=== PATIENT | female | born 1940 | race Caucasian/White ===

== ENCOUNTER → 2019-04-30 11:14 | Outpatient (BNVA) | payer MEDICARE, OTHER, SELFPAY | PROVIDERS: Family Provider Family Medicine; PCP Family Medicine; Visit Provider Family Medicine | DX: E11.9 Type 2 diabetes mellitus without complications (principal); G47.00 Insomnia, unspecified | CPT/HCPCS: 80053; 80061; 82044; 83036; 85025 ==

== ENCOUNTER → 2019-08-29 16:17 | Outpatient (BNVA) | payer MEDICARE, OTHER, SELFPAY | PROVIDERS: Family Provider Family Medicine; PCP Family Medicine; Visit Provider Family Medicine | DX: E11.9 Type 2 diabetes mellitus without complications (principal); E78.5 Hyperlipidemia, unspecified; N26.1 Atrophy of kidney (terminal) | CPT/HCPCS: 80053 ==

== ENCOUNTER → 2020-01-13 11:41 | Outpatient (BNVA) | payer MEDICARE, OTHER, SELFPAY | PROVIDERS: Family Provider Family Medicine; PCP Family Medicine; Visit Provider Family Medicine | DX: R39.15 Urgency of urination (principal); G20 Parkinson's disease; F17.219 Nicotine dependence, cigarettes, with unspecified nicotine-induced disorders | CPT/HCPCS: 81000; 87077; 87086; 87184 ==

== ENCOUNTER → 2020-01-28 14:23 | Outpatient (BNVA) | payer MEDICARE, OTHER, SELFPAY | PROVIDERS: Family Provider Family Medicine; PCP Family Medicine; Visit Provider Family Medicine | DX: R30.0 Dysuria (principal) | CPT/HCPCS: 81000; 87086 ==

== ENCOUNTER 2020-03-12 12:07 | Outpatient (CLI) | payer MEDICARE, OTHER, SELFPAY ==
--- NOTE | 2020-03-12 12:44 | XR_ITS ---
WS: [id number] PELVIS TECHNIQUE: 1 view(s) of the pelvis CLINICAL INFORMATION: BILATERAL HIP PAIN COMPARISON: None. FINDINGS: Moderate degenerative arthritis right hip with joint space narrowing. Hypertrophic changes about the right acetabulum. Mild degenerative arthritis left hip. No acute fractures. Normal pubic rami. Degene rative arthritis lower lumbar spine. Pelvic phleboliths. Mild degenerative arthritis both sacral anaya c joints. XR/XR pelvis 1-2V* [id number] IMPRESSION: 1. Moderate degenerative arthritis right hip with joint space narrowing and hy pertrophic changes about the acetabulum. No acute fractures. 2. Mild degenerative arthritis left hip.
== END 2020-03-12 12:08 | disposition home or self-care (01) ==
LOC: RADWPI 12:14
PROVIDERS: PCP Family Medicine; Visit Provider Physician Assistant
DX: M16.0 Bilateral primary osteoarthritis of hip (principal); E78.5 Hyperlipidemia, unspecified; E11.9 Type 2 diabetes mellitus without complications
CPT/HCPCS: 72170; 80053; 80061; 82607; 83036; 85025; 87070; 87075; 87077; 87184; 87205

== ENCOUNTER 2020-04-27 22:49 | Emergency (ER) | payer MEDICARE, OTHER, SELFPAY ==
--- NOTE | 2020-04-27 22:52 | XRR_ITS ---
PROCEDURE INFORMATION: Exam: XR Ribs Exam date and time: 04/27/2020 11:11 PM Age: 79 years old Clinical indication: Pain and injury or trauma; Rib area and rib area, left side; Blunt trauma (contusions or hematomas); Chest wall pain; Bilateral; Injury date: 2 months ago; Injury details: Fall from porch, approx. 2 feet; Prior surgery; Surgery type: RT shoulder, hyst, gb TECHNIQUE: Imaging protocol: XR of the ribs. Views: 3 views. Bilateral ribs. COMPARISON: CR Ribs Bilateral [id number] 06/22/2018 11:26 AM FINDINGS: Bones/joints: A right shoulder prosthesis is present in satisfactory position. The ribs appear intact bilaterally with no fracture. Soft tissues: Normal. XR/XR ribs BI mn 4V w [id number] IMPRESSION: 1. Normal ribs. 2. No significant cardiopulmonary abnormality.
[2020-04-27 22:58] VITALS: BP 149/84; PULSE 67; RESP 16; TEMP 36.2; O2SAT 94; BMI 22.6
--- NOTE | 2020-04-27 23:15 | W.ED.FALL ---
HPI - Fall General: Chief Complaint: Fall Stated Complaint: pain in hips/ribs from fall 2-3 weeks ago Time Seen by Provider: 04/27/20 22:52 Source: patient Mode of arrival: ambulatory Limitations: no limitations History of Present Illness: HPI Narrative: 71-year-old female has a history of chronic pain goes to pain clinic. She states she did step off her porch 1 month ago and fell and landed on her left side. She states she has had bilateral rib pain since that fall. She states the pain is been 4 out of 10. States that bilateral ribs hurt with the worst one being on the left side. Denies any vomiting or diarrhea. Onset (ago): month(s) Associated symptoms-after fall: Reports chest pain; Denies abdominal pain, headache(s) or neck pain Review of Systems Const: Denies: fever(s), chills, body aches or change in appetite Eyes: Denies: blurry vision or eye discomfort ENMT: Denies: throat pain or dental pain Card: Reports: chest pain Resp: Denies: dyspnea GI: Denies: abdominal pain, nausea, vomiting or diarrhea : Denies: dysuria Musc: Denies: neck pain or back pain Skin/Breast: Denies: rash Neuro: Denies: headache(s) Psych: Denies: depression Jerardo/Lymph: Denies: easy bruising All/Imm: Denies: urticaria PFSH ED PFSH: Medical History (Updated 04/27/20 @ 23:31 by Orlando Aguillon MD) Chronic constipation Depression Diet-controlled diabetes mellitus Enrolled in chronic care management Essential tremor Insomnia PAD (peripheral artery disease) Parkinsons disease PMR (polymyalgia rheumatica) RBBB Right hip pain Urinary incontinence Surgical History H/O bladder repair surgery H/O cataract extraction H/O shoulder surgery H/O: hysterectomy History of cholecystectomy Family History Other Alcoholic Social History Smoking and tobacco status: current every day smoker cigarettes Packs smoked per day: 0.50 Alcohol intake: never Physical Exam Const: COMMON NORMALS: no acute distress, patient oriented x3 and healthy appearing HENMT: COMMON NORMALS: normocephalic and atraumatic HEAD & SCALP: normocephalic and atraumatic Eye: COMMON NORMALS: Equal, round and reactive pupils present and EOMs intact bilaterally PUPIL: Yes Equal, round and reactive pupils present Neck/C-Spine: COMMON NORMALS: full ROM and supple Chest: COMMONS NORMALS: normal inspection of the chest OTHER: tenderness to bilateral chest Resp: COMMON NORMALS: normal respiratory effort, No retractions, No use of accessory muscles and clear to auscultation bilaterally AUSCULTATION: clear to auscultation bilaterally Cardio: COMMON NORMALS: regular rate, regular rhythm and No murmurs present (Cardio) RATE: regular rate RHYTHM: regular rhythm GI: COMMON NORMALS: Normal to inspection, nondistended, normoactive bowel sounds present, Soft to palpation, non-tender and no masses PALPATION: Yes Soft to palpation Extremity: COMMON NORMALS: normal to inspection and full ROM Neuro: COMMON NORMALS: patient oriented x3, moves all extremities and no focal motor deficits Psych: COMMON NORMALS: mental status grossly normal, Normal thought process present and cooperative THOUGHT PROCESS: Normal thought process present Skin: COMMON NORMALS: no rashes or lesions noted and no wounds GENERAL SKIN EXAM: no rashes or lesions noted Course Vital Signs: Vital signs: Vital Signs Temperature 97.1 F L 04/27/20 22:58 Pulse Rate 67 04/27/20 22:58 Respiratory Rate 16 04/27/20 22:58 Blood Pressure 149/84 04/27/20 22:58 Pulse Oximetry 94 04/27/20 22:58 MDM - Fall MDM Narrative: Medical decision making narrative: Patient presents with chest wall pain from a fall a month ago. She is well-appearing here and her x-rays are normal with no signs of fracture. Patient is stable for discharge and is to follow-up with her primary care doctor in 2 to 4 days return if worsening. She understands agrees to plan. Imaging Data^: xr ribs: Attestation: I personally reviewed and interpreted this imaging study as follows: My impression: No acute abnormality Discharge Plan Discharge Patient Disposition: Home Clinical Impression: Accidental fall, Chest wall pain Condition: Stable Prescriptions: No Action hydrocodone-acetaminophen 7.5-325 mg tablet 1 tab PO TID PRNRF: 0 bupropion HCl PO RF: 0 cephalexin [Keflex] 500 mg capsule 500 mg PO TID Qty: 30 RF: 0 aspirin 81 mg tablet,delayed release (DR/EC) 81 mg PO QDAY RF: 0 fentanyl transdermal RF: 0 carbidopa-levodopa 25-100 mg tablet extended release 1 tab PO TID RF: 0 gabapentin 300 mg capsule 300 mg PO DIRECTED RF: 0 primidone 50 mg tablet 100 mg PO TID RF: 0 (DME) diabetic shoes Qty: 1 RF: 0 duloxetine 30 mg capsule,delayed release(DR/EC) 30 mg PO BID Qty: 60 RF: 0 sulfamethoxazole-trimethoprim [Bactrim DS] 800-160 mg tablet 1 tab PO BID Qty: 14 RF: 0 atorvastatin 10 mg tablet 10 mg PO DAILY Qty: 30 RF: 4 Discharge Orders: Discharge ED (Routine); Ordered 04/27/20 Ordered By: Orlando Aguillon Referrals: Brooklyn Byers DO [Primary Care Provider] - 1-3 days Discharge Diet: Advance as tolerated Discharge Activity: Resume usual activity Patient Instructions: Fall Prevention (ED), Opioid Safety Coding Level of Care Code ED Sales Executive Insurance for Chg Fwd Exam Comprehensive
--- NOTE | 2020-04-27 23:22 | PC.NURSE ---
Pt has 12mcg fentanyl patch on R breast. Pt refused po pain meds due to [lacing fentanyl patch approx 1h prior to arrival
[2020-04-27 23:54] VITALS: BP 142/85; PULSE 94; RESP 16; TEMP 36.4; O2SAT 99
== END 2020-04-27 23:55 | disposition home or self-care (01) ==
PROVIDERS: Emergency Provider Emergency Medicine; PCP Family Medicine
DX: R07.89 Other chest pain (principal); Z79.82 Long term (current) use of aspirin; E11.9 Type 2 diabetes mellitus without complications; G20 Parkinson's disease; F17.210 Nicotine dependence, cigarettes, uncomplicated
CPT/HCPCS: 71101; 71111; 99282

== ENCOUNTER 2020-05-14 13:57 | Emergency (ER) | payer MEDICARE, OTHER, SELFPAY ==
--- NOTE | 2020-05-14 | CT_ITS ---
WS: [id number] CT HEAD NONCONTRAST HISTORY: STROKE ALERT TECHNIQUE: Contiguous axial imaging performed through the brain in 2.5 mm imaging. Bone and soft tiss ue windows. Sagittal and coronal reformats reviewed. All CT scans at [facility] use at le ast one of these dose optimization techniques: automated exposure control; mA and/or kV adjustment pe r patient size (includes targeted exams where dose is matched to clinical indication); or iterative r econstruction. DLP: 782.55 mGy-cm. COMPARISON: 01/29/2019 No acute intracranial hemorrhage, midline shift or mass effect. Mild atrophy is symmetric bilaterally. There are numerous bilateral basal ganglia lacunar infarcts. E xtensive low attenuation within the white matter is confluent from chronic ischemic disease. Moderat celestine enlarged ventricles on the basis of atrophy. Normal pressure hydrocephalus should be considered. Extensive atherosclerosis within the intracranial carotid arteries. Paranasal sinuses: As visualized are clear. Mastoid air cells: Well pneumatized. Calvarium and scalp: Skull is intact with no soft tissue edema or swelling. CT/CT head wo con* [id number] IMPRESSION: 1. No acute intracranial hemorrhage or edema. 2. Severe chronic microvascular ischemic disease and numerous bilateral lacuna r infarcts. 3. Dilated ventricles. Consider normal pressure hydrocephalus or secondary to age-related atrophy.
[2020-05-14 14:02] VITALS: BP 165/77; PULSE 81; RESP 16; TEMP 36.8; O2SAT 94; BMI 22.6
[2020-05-14 14:11] VITALS: BP 163/81; PULSE 62; RESP 16; O2SAT 96
[2020-05-14 14:20] LABS: Glucose Point of Care 87 mg/dL (70-110)
--- NOTE | 2020-05-14 14:24 | PC.NURSE ---
Pt returned from CT
[2020-05-14 14:40] VITALS: BP 156/74; PULSE 63; RESP 18; O2SAT 93; O2SAT 94
--- NOTE | 2020-05-14 14:42 | ECG_ITS ---
[facility] Test Date: 2020-05-14 Pat Name: Yuli Mejia Department: Room: Gender: Female Project Eng: : 1940 Requested By: Yandy Panchal I Order Number: [id number] Carleen MD: Mita Harris M.D. Measurements Intervals [place] Rate: 58 P: 77 NH: 151 QRS: 93 QRSD: 125 T: 85 QT: 426 QTc: 420 Interpretive Statements SINUS BRADYCARDIA RIGHT BUNDLE BRANCH BLOCK [120+ ms QRS DURATION, UPRIGHT V1, 40+ ms S IN I/aVL/V4/V5/V6] SEPTAL MYOCARDIAL INFARCTION [40+ ms Q WAVE IN V1/V2], OF INDETERMINATE AGE MODERATE T-WAVE ABNORMALITY, CONSIDER LATERAL ISCHEMIA [-0.1+ mV T WAVE IN I/aVL/V5/V6] Compared to ECG 11/02/2018 21:10:06 Myocardial infarct finding now present T-wave abnormality now present Possible ischemia now present Electronically Signed On 05-14-2020 20:38:06 CDT by Mita Harris M.D. 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
[2020-05-14 15:29] LABS: Basophils # 0.1 10^3/uL (0.0-0.1); Basophils % 0.8 %; Eosinophils # 0.1 10^3/uL (0.0-0.8); Eosinophils % 0.8 %; Hemoglobin 14.7 g/dL (11.5-15.3); Lymphocytes # 1.3 10^3/uL (0.8-4.8); Mean Corpuscular Hemoglobin 32.5 pg (28.0-34.0); Mean Corpuscular Volume 101.8 fL (81-99); Mean Platelet Volume 11.1 fL (7.4-10.4); Monocytes # 0.6 10^3/uL (0.2-0.9); Neutrophils # 4.35 10^3/uL (1.8-7.7); Neutrophils % 69.1 %; Nucleated Red Blood Cells % 0 %; Platelet Count 309 10^3/cmm (130-400); Red Blood Count 4.52 10^6/uL (4.1-5.3); Red Cell Distribution Width 12.4 % (12.1-15.1); White Blood Count 6.3 10^3/uL (4.0-10.0)
[2020-05-14 15:32] LABS: Alanine Aminotransferase < 5 U/L (0-33); Alkaline Phosphatase 77 IU/L (35-105); Aspartate Amino Transferase 13 U/L (0-32); Blood Urea Nitrogen 9 mg/dL (8-23); Calcium 9.4 mg/dL (8.5-10.5); Carbon Dioxide 30 mmol/L (22-29); Chloride 103 mmol/L (98-107); Globulin 2.6 g/dL (1.3-4.6); Glucose 86 mg/dL (65-115); Osmolality Calculated 286 mOsm/kg (285-295); Sodium 139 mmol/L (136-145); Total Bilirubin 0.2 mg/dL (0.15-1.2); Total Protein 6.6 g/dL (6.6-8.7)
[2020-05-14 15:46] LABS: Anion Gap 10.1 (5-19); Potassium 4.1 mmol/L (3.5-5.1)
[2020-05-14 16:22] VITALS: BP 152/72; PULSE 61; O2SAT 94
[2020-05-14 16:26] LABS: INR 0.95 (0.8-1.2); Partial Thromboplastin Time 29.4 SECONDS (23.9-36.7)
[2020-05-14 16:31] LABS: Add Urine Microscopic? NO
[2020-05-14 16:52] LABS: Bilirubin Urine Neg (Negative); Blood Urine Neg (Negative); Glucose Urine UA Norm (Normal); Ketones Urine Negative (Negative); Leukocyte Esterase Urine Negative (Negative); Nitrate Urine Negative (Negative); Protein Urine Neg (Negative); Urine Appearance Clear (CLEAR); Urine Color Yellow (Yellow); Urobilinogen Urine Norm (Negative); pH Urine 7 (5-7)
[2020-05-14 17:03] LABS: Amphetamines Screen Urine Negative (Negative); Barbiturates Screen Urine Positive (Negative); Benzodiazepines Screen Urine Negative (Negative); Cocaine Screen Urine Negative (Negative); Opiate Screen Urine Positive (Negative); PCP Screen Urine Negative (Negative); THC Screen Urine Negative (Negative)
--- NOTE | 2020-05-14 17:28 | ED_ITS ---
HPI - Altered Mental Status General: Chief Complaint: Altered Mental Status Stated Complaint: CONFUSION/ SLURRED SPEECH Time Seen by Provider: 05/14/20 14:12 Source: patient and EMS Mode of arrival: EMS Limitations: no limitations History of Present Illness: HPI narrative: This is a 79-year-old female patient who presented to the emergency department with altered mental status. A thorough history is difficult to obtain from this patient. She was brought in by EMS. As far as I could gather from her, she was on the phone with a friend this morning about 8 AM when her friend said she did not like the way she was sounding on her phone fell from her hand. Her friend was concerned about a stroke and so called for an ambulance. The patient thinks that she may have had slurred speech. The patient says she has trouble walking but this has been chronic. Unable to get an accurate last known well. EMS found a fentanyl patch on her, and she said she had taken some hydrocodone this morning. MD complaint: confusion Associated symptoms: Deny auditory hallucinations, visual hallucinations, delusions, depression, homicidal ideation, racing thoughts or suicidal ideation Review of Systems General: Reports: 10 or more systems reviewed and unremarkable except in HPI and below Const: Denies: fever(s), chills or body aches Eyes: Denies: change in vision or blurry vision ENMT: Denies: throat pain, enlarged tonsils, odynophagia, hoarseness, mouth pain or swelling of lips/tongue Card: Denies: palpitations, irregular heart rhythm, edema or swelling of feet/ankles Resp: Denies: dyspnea, productive cough or non-productive cough GI: Denies: abdominal pain, nausea or vomiting : Denies: flank pain, difficulty voiding, dysuria, urinary frequency, urinary urgency or urinary hesitancy Musc: Denies: neck pain, back pain or extremity swelling Skin/Breast: Denies: rash, pruritus or erythema Neuro: Reports: confusion; Denies: headache(s), numbness in extremities or weakness in extremities Psych: Denies: depression, visual hallucinations, auditory hallucinations, suicidal ideation or homicidal ideation Endo: Denies: polyuria, polydipsia or tired all the time [facility] ED PFSH: Medical History (Reviewed 05/14/20 @ 21:31 by Y[place] [facility] [place] Chronic constipation Depression Diet-controlled diabetes mellitus Enrolled in chronic care management Essential tremor Insomnia PAD (peripheral artery disease) Parkinsons disease PMR (polymyalgia rheumatica) RBBB Right hip pain Urinary incontinence Surgical History (Reviewed 05/14/20 @ 21:31 by Yandy P[place]al [place] [facility] [place] H/O bladder repair surgery H/O cataract extraction H/O shoulder surgery H/O: hysterectomy History of cholecystectomy Family History (Reviewed 05/14/20 @ 21:31 by Yandy P[place]al [place], [facility] [place] Other Alcoholic Social History (Reviewed 05/14/20 @ 21:31 by Yandy Panchal [place], [facility] [place] Smoking and tobacco status: current every day smoker cigarettes Packs smoked per day: 0.50 Alcohol intake: never Physical Exam Const: COMMON NORMALS: no acute distress, average body habitus, patient orie nted x3, no limitations, healthy appearing, alert and well nourished HENMT: COMMON NORMALS: normocephalic, atraumatic and moist oral mucous membra kiarra HEAD & SCALP: normocephalic and atraumatic Eye: COMMON NORMALS: Equal, round and reactive pupils present, EOMs intact bilaterally, conjunctivae normal and no scleral icterus CONJUNCTIVA: Yes conjunctivae normal PUPIL: Yes Equal, round and reactive pupils present Neck/C-Spine: COMMON NORMALS: no meningeal signs and no JVD Chest: COMMONS NORMALS: normal inspection of the chest and normal palpation of entire chest wall Resp: COMMON NORMALS: normal respiratory effort, No retractions, No use of accessory muscles, clear to auscultation bilaterally and percussion normal AUSCULTATION: clear to auscultation bilaterally PERCUSSION: percussion normal Cardio: COMMON NORMALS: no JVD, regular rate, regular rhythm, S1 normal heart sound present, S2 normal heart sound present, No gallops present (Cardio), No clicks present (Cardio), No murmurs present (Cardio), No rub (Cardio) and Peripheral pulses 2+ throughout RATE: regular rate RHYTHM: regular rhythm HEART SOUNDS: S1 normal heart sound present and S2 normal heart sound present PERIPHERAL PULSES: Peripheral pulses 2+ throughout GI: COMMON NORMALS: Normal to inspection, nondistended, normoactive bowel sounds present, Soft to palpation, non-tender, No hepatosplenomegaly present, no masses and no bruits PALPATION: Yes Soft to palpation and Yes No hepat osplenomegaly present : COMMON NORMALS: Yes no CVA tenderness BLADDER/KIDNEY EXAM: Yes no CVA tenderness Back/Pelvis: COMMON NORMALS: no CVA tenderness Extremity: COMMON NORMALS: normal to inspection, full ROM, capillary refill normal, no calf tenderness and no pedal edema Neuro: COMMON NORMALS: patient oriented x3 SENSORIUM/ORIENTATION: Yes alert MENINGEAL SIGNS: Yes no meningeal signs OTHER: NIHSS 4. Complete neuro exam could not be done as she has some confusion. Psych: THOUGHT CONTENT: No delusions Skin: COMMON NORMALS: no rashes or lesions noted, no wounds, turgor normal, no jaundice, no petechiae and no mottling GENERAL SKIN EXAM: no rashes or lesions noted and turgor normal Course Reevaluation(s): Reevaluation #1: Discussed her lab and imaging findings with her. Unremarkable. At this time her son is here in the ER and he explained to me that the patient wakes up later every day, sometime between 10 AM and 12 noon and if you call her before she is awake like her friend did it is very difficult to understand her. He states that her speech is normal currently. He also states that she does not take her medications as she is prescribed, her [id number] fixes her pillbox with her medications but the patient takes them in a haphazard manner. She does not take them in the right order. Also the patient and her friend move the patient into an apartment without telling her son and the apartment is not elder friendly. The patient has been unable to get in and out of the house and so has been [place] for a few months. He is trying to get her into an elderly living apartment which will enable her to ambulate fairly easily and to interact with fellow elderly people. I suspect that her symptoms may have been a combination of the fentanyl and hydrocodone and the fact that her friend will call making her sound like her speech was slurred. I will therefore discharge her home. They voiced understanding and they are in agreement with the plan. Time: 17:28 Vital Signs: Vital signs: Vital Signs Temperature 98.3 F 05/14/20 14:02 Pulse Rate 65 05/14/20 17:57 Respiratory Rate 18 05/14/20 14:40 Blood Pressure 126/78 05/14/20 17:57 Pulse Oximetry 95 05/14/20 17:57 MDM - Altered Mental Status MDM Narrative: Medical decision making narrative: Patient is a 79-year-old female who presents to the emergency department with altered mental status and slurred speech. In the emergency department evaluation was unremarkable, her symptoms are probably due to a combination of opioid medications and somnolence from being woken up. Her son states that she does not wake up early and when she is called or spoken to before she is fully awake she sounds slurred and altered. She is discharged home with no new orders but she is advised to take her medications as they are prescribed. They are working to get her into an appropriate living facility which is safe and conducive for the patient. Medical Records: Attestation: I reviewed the patient's medical records. Lab Data: Attestation: I reviewed the patient's lab results. Labs: Lab Results 05/14/20 05/14/20 05/14/20 Range/Units 14:17 14:20 14:20 WBC 6.3 (4.0-10.0) 10^3/ uL RBC 4.52 (4.1-5.3) 10^6/u L Hgb 14.7 (11.5-15.3) g/dL Hct 46.0 (37.0-47.0) % MCV 101.8 H (81-99) fL MCH 32.5 (28.0-34.0) pg MCHC 32.0 (30.0-36.0) g/dL RDW 12.4 (12.1-15.1) % Plt Count 309 (130-400) 10^3/c mm MPV 11.1 H (7.4-10.4) fL Neut % (Auto) 69.1 % Lymph % (Auto) 20.0 % Valencia % (Auto) 9.0 % Eos % (Auto) 0.8 % Baso % (Auto) 0.8 % Neut # (Auto) 4.35 (1.8-7.7) 10^3/u L Lymph # (Auto) 1.3 (0.8-4.8) 10^3/u L Valencia # (Auto) 0.6 (0.2-0.9) 10^3/u L Eos # (Auto) 0.1 (0.0-0.8) 10^3/u L Baso # (Auto) 0.1 (0.0-0.1) 10^3/u L Nucleated RBC % (a uto) 0 % Nucleated RBCs # 0.0 /100WBC PT 12.80 (12.1-14.9) SECO NDS INR 0.95 (0.8-1.2) APTT 29.4 (23.9-36.7) SECO NDS Sodium (136-145) mmol/L Potassium (3.5-5.1) mmol/L Chloride (98-107) mmol/L Carbon Dioxide (22-29) mmol/L Anion Gap (5-19) BUN (8-23) mg/dL Creatinine (0.5-0.9) mg/dL GFR Calculation Glucose (65-115) mg/dL POC Glucose 87 (70-110) mg/dL Calculated Osmolal ity (285-295) mOsm/k g Calcium (8.5-10.5) mg/dL Total Bilirubin (0.15-1.2) mg/dL AST (0-32) U/L ALT (0-33) U/L Alkaline Phosphata se (35-105) IU/L Total Protein (6.6-8.7) g/dL Albumin (3.5-5.2) g/dL Globulin (1.3-4.6) g/dL Urine Color (Yellow) Urine Appearance (CLEAR) Urine pH (5-7) Ur Specific Gravit y (1.005-1.030) Urine Protein (Negative) Urine Glucose (UA) (Normal) Urine Ketones (Negative) Urine Blood (Negative) Urine Nitrate (Negative) Urine Bilirubin (Negative) Urine Urobilinogen (Negative) mg/dL Ur Leukocyte Clarissa ase (Negative) Urine Opiates Scre en (Negative) ng/mL Ur Barbiturates Sc reen (Negative) ng/mL Ur Phencyclidine S crn (Negative) ng/mL Ur Amphetamines Sc reen (Negative) ng/mL U Benzodiazepines Scrn (Negative) ng/mL Urine Cocaine Scre en (Negative) ng/mL U Marijuana (THC) Screen (Negative) ng/mL 05/14/20 05/14/20 05/14/20 Range/Units 14:20 16:15 16:15 WBC (4.0-10.0) 10^3/ uL RBC (4.1-5.3) 10^6/u L Hgb (11.5-15.3) g/dL Hct (37.0-47.0) % MCV (81-99) fL MCH (28.0-34.0) pg MCHC (30.0-36.0) g/dL RDW (12.1-15.1) % Plt Count (130-400) 10^3/c mm MPV (7.4-10.4) fL Neut % (Auto) % Lymph % (Auto) % Valencia % (Auto) % Eos % (Auto) % Baso % (Auto) % Neut # (Auto) (1.8-7.7) 10^3/u L Lymph # (Auto) (0.8-4.8) 10^3/u L Valencia # (Auto) (0.2-0.9) 10^3/u L Eos # (Auto) (0.0-0.8) 10^3/u L Baso # (Auto) (0.0-0.1) 10^3/u L Nucleated RBC % (a uto) % Nucleated RBCs # /100WBC PT (12.1-14.9) SECO NDS INR (0.8-1.2) APTT (23.9-36.7) SECO NDS Sodium 139 (136-145) mmol/L Potassium 4.1 (3.5-5.1) mmol/L Chloride 103 (98-107) mmol/L Carbon Dioxide 30 H (22-29) mmol/L Anion Gap 10.1 (5-19) BUN 9 (8-23) mg/dL Creatinine 0.5 (0.5-0.9) mg/dL GFR Calculation Not Reportable Glucose 86 (65-115) mg/dL POC Glucose (70-110) mg/dL Calculated Osmolal ity 286 (285-295) mOsm/k g Calcium 9.4 (8.5-10.5) mg/dL Total Bilirubin 0.2 (0.15-1.2) mg/dL AST 13 (0-32) U/L ALT < 5 (0-33) U/L Alkaline Phosphata se 77 (35-105) IU/L Total Protein 6.6 (6.6-8.7) g/dL Albumin 4.0 (3.5-5.2) g/dL Globulin 2.6 (1.3-4.6) g/dL Urine Color Yellow (Yellow) Urine Appearance Clear (CLEAR) Urine pH 7 (5-7) Ur Specific Gravit y 1.010 (1.005-1.030) Urine Protein Neg (Negative) Urine Glucose (UA) Norm (Normal) Urine Ketones Negative (Negative) Urine Blood Neg (Negative) Urine Nitrate Negative (Negative) Urine Bilirubin Neg (Negative) Urine Urobilinogen Norm (Negative) mg/dL Ur Leukocyte Clarissa ase Negative (Negative) Urine Opiates Scre en Positive H (Negative) ng/mL Ur Barbiturates Sc reen Positive H (Negative) ng/mL Ur Phencyclidine S crn Negative (Negative) ng/mL Ur Amphetamines Sc reen Negative (Negative) ng/mL U Benzodiazepines Scrn Negative (Negative) ng/mL Urine Cocaine Scre en Negative (Negative) ng/mL U Marijuana (THC) Screen Negative (Negative) ng/mL Imaging Data^: CT Head: Attestation: I personally reviewed and interpreted this imaging study as follows: Radiologist's impression: [place] [address] CT Scan Report Signed Patient: Nell Mejia #: [id number] : 2Acct#:[id number] Age/Sex: 79 / FADM Date: 05/14/20 Loc: ERRoom/Bed: Attending Dr: Ordering Provider/Ordering MD: Yandy P[place]al [place] [facility] [place] of Service: 05/14/20 Procedure(s): CT head wo con* 36430 Accession Number(s): [id number] Report Number: [id number] WS: [id number] CT HEAD NONCONTRAST HISTORY: STROKE ALERT TECHNIQUE: Contiguous axial imaging performed through the brain in 2.5 mm imaging. Bone and soft tissue windows. Sagittal and coronal reformats reviewed. All CT scans at [facility] use at least one of these dose optimization techniques: automated exposure control; mA and/or kV adjustment per patient size (includes targeted exams where dose is matched to clinical indication); or iterative reconstruction. DLP: 782.55 mGy-cm. COMPARISON: 01/29/2019 No acute intracranial hemorrhage, midline shift or mass effect. Mild atrophy is symmetric bilaterally. There are numerous bilateral basal ganglia lacunar infarcts. Extensive low attenuation within the white matter is confluent from chronic ischemic disease. Moderately enlarged ventricles on the basis of atrophy. Normal pressure hydrocephalus should be considered. Extensive atherosclerosis within the intracranial carotid arteries. Paranasal sinuses: As visualized are clear. Mastoid air cells: Well pneumatized. Calvarium and scalp: Skull is intact with no soft tissue edema or swelling. CT/CT head wo con* [id number] IMPRESSION: 1. No acute intracranial hemorrhage or edema. 2. Severe chronic microvascular ischemic disease and numerous bilateral lacunar infarcts. 3. Dilated ventricles. Consider normal pressure hydrocephalus or secondary to age-related atrophy. Dictated By:Love Seals DO Signed By:Love Seals DOSigned Date/Time:05/14/201436 DD/ 143 EKG Data^: EKG 1: Attestation: I personally reviewed and interpreted this EKG as follows: EKG interpretation date: 05/14/20 EKG interpretation time: 14:39 Prior EKG tracings: not available for review Interpretation: Sinus bradycardia. Heart rate 58 bpm. Right bundle branch block. No ST changes. Discharge Plan Discharge Patient Disposition: Home Clinical Impression: Altered mental status Qualifiers: Altered mental status type: somnolence Qualified Code(s): R40.0 - Somnolence Medication adverse effect Qualifiers: Encounter type: initial encounter Qualified Code(s): T50.905A - Adverse effect of unspecified drugs, medicaments and biological substances, initial encounter Condition: Stable Prescriptions: Continued hydrocodone-acetaminophen 7.5-325 mg tablet 1 tab PO TID PRN (Reason: Pain) RF: 0 aspirin 81 mg tablet,delayed release (DR/EC) 81 mg PO DAILY RF: 0 gabapentin 300 mg capsule 300 mg PO DIRECTED RF: 0 primidone 50 mg tablet 100 mg PO TID RF: 0 (DME) diabetic shoes Qty: 1 RF: 0 duloxetine 30 mg capsule,delayed release(DR/EC) 30 mg PO BID Qty: 60 RF: 0 atorvastatin 10 mg tablet 10 mg PO DAILY Qty: 30 RF: 4 carbidopa-levodopa 25-100 mg tablet 2 tab PO QID RF: 0 bupropion HCl 150 mg Tablet Extended Release 24 Hr 150 mg PO BID RF: 0 fentanyl 12 mcg/hr Patch 72 Hour 1 patch TRANSDERMAL Q72H RF: 0 Discharge Orders: Discharge ED (Routine); Ordered 05/14/20 Ordered By: Yandy Panchal Referrals: Brooklyn Byers DO [Primary Care Provider] - 1-3 days Discharge Diet: Usual diet Discharge Activity: Increase activity as tolerated Patient Instructions: Opioid Safety Activity Restrictions/Additional Instructions: Return for any new or worsening symptoms. Follow-up with your primary care provider within 3 days. Moved to your elder living apartment as soon as possible as I think this will help your mood. Continue your medications as prescribed. It is important that you take your medications the way that they are prescribed and set up in your pillbox. 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
[2020-05-14 17:57] VITALS: BP 126/78; PULSE 65; O2SAT 95
== END 2020-05-14 17:57 | disposition home or self-care (01) ==
PROVIDERS: Emergency Provider Family Medicine; PCP Family Medicine
DX: R40.0 Somnolence (principal); T50.905A Adverse effect of unspecified drugs, medicaments and biological substances, initial encounter; Z79.82 Long term (current) use of aspirin; E11.9 Type 2 diabetes mellitus without complications; G20 Parkinson's disease; F17.210 Nicotine dependence, cigarettes, uncomplicated
CPT/HCPCS: 36415; 36416; 70450; 80053; 80306; 81003; 82962; 85025; 85610; 85730; 93005; 99284

== ENCOUNTER 2020-05-29 15:52 | Emergency (ER) | payer MEDICARE, OTHER, SELFPAY ==
[2020-05-29 16:43] VITALS: BP 143/67; PULSE 76; RESP 18; TEMP 36.5; O2SAT 100; BMI 25.4
--- NOTE | 2020-05-29 18:01 | XRR_ITS ---
PROCEDURE INFORMATION: Exam: XR Right Ribs with PA Chest Exam date and time: 05/29/2020 6:06 PM Age: 79 years old Clinical indication: Injury or trauma; Fall; Rib area; Blunt trauma (contusions or hematomas); Injury date: 05/29/20; Prior surgery; Surgery type: Right shoulder; Additional info: Pain after fall TECHNIQUE: Imaging protocol: XR Right ribs with PA chest. Views: 3 views COMPARISON: CR XR ribs BI mn 4V w CXR1V [id number] 04/27/2020 11:16 PM FINDINGS: Lungs: Unremarkable. No consolidation. Pleural spaces: Unremarkable. No pleural effusion. No pneumothorax. Heart/Mediastinum: Unremarkable. No cardiomegaly. Vasculature: Tortuous, atherosclerotic thoracic aorta. Diaphragm: Mild elevation of the left hemidiaphragm. Bones/joints: Right shoulder prosthesis. No fracture or other acute osseous abnormality. XR/XR ribs RT mn 3V w CXR1V [id number] IMPRESSION: 1. No right rib fracture identified. 2. No acute cardiopulmonary disease demonstrated. 3. There is no interval change from the prior examination.
--- NOTE | 2020-05-29 18:02 | XRR_ITS ---
PROCEDURE INFORMATION: Exam: XR Left Ankle Exam date and time: 05/29/2020 6:07 PM Age: 79 years old Clinical indication: Injury or trauma; Fall; Blunt trauma; Ankle; Left; Injury date: 05/29/2020; Additional info: Pain fall TECHNIQUE: Imaging protocol: XR Left ankle. Views: 1 or 2 views. COMPARISON: No relevant prior studies available. FINDINGS: Bones/joints: No fracture or other acute osseous abnormality. No joint narrowing, dislocation, or effusion noted. Soft tissues: Mild soft tissue edema. 2 mm calcification adjacent to the tip of the medial malleolus, likely related to old trauma. XR/XR ankle LT 2V [id number] IMPRESSION: No acute fracture demonstrated.
--- NOTE | 2020-05-29 18:07 | W.ED.FALL ---
Documented by User: Higinio Roberts DO 06/02/20 09:08 HPI - Fall General: Chief Complaint: Fall Stated Complaint: FALL AT HOME COMPLAINT OF CHEST PAIN Time Seen by Provider: 05/29/20 17:44 History of Present Illness: HPI Narrative: 79-year-old female comes in from home she stumbled over her walker and fell caught the arm of a walker in the chest wall complaint: fall Onset (ago): minute(s) Fall from: standing Fall witnessed: yes, by family Place fall occurred: home Loss of consciousness: None Prolonged down time: no Context: tripped/slipped Location of injury: chest Location of injury - extremities: Left: ankle Severity: moderate Quality: sharp Associated symptoms-after fall: Reports chest pain, difficulty walking and weakness; Denies abdominal pain, confusion, headache(s), hematuria, lightheadedness, neck pain, numbness, short of breath or vertigo Review of Systems Const: Denies: fever(s), chills, body aches, change in appetite, fatigue or malaise ENMT: Denies: throat pain, ear or mastoid pain, nasal discharge or nasal congestion Card: Reports: chest pain; Denies: lightheadedness Resp: Denies: dyspnea, productive cough or non-productive cough GI: Denies: abdominal pain : Denies: hematuria Musc: Denies: neck pain Skin/Breast: Denies: rash or pruritus Neuro: Reports: difficulty walking; Denies: headache(s), vertigo or confusion PFSH ED PFSH: Medical History Chronic constipation Depression Diet-controlled diabetes mellitus Enrolled in chronic care management Essential tremor Insomnia PAD (peripheral artery disease) Parkinsons disease PMR (polymyalgia rheumatica) RBBB Right hip pain Urinary incontinence Surgical History H/O bladder repair surgery H/O cataract extraction H/O shoulder surgery H/O: hysterectomy History of cholecystectomy Family History Other Alcoholic Social History Smoking and tobacco status: current every day smoker cigarettes Packs smoked per day: 0.50 Alcohol intake: never Physical Exam Const: COMMON NORMALS: no acute distress GENERAL APPEARANCE: cooperative and comfortable ORIENTATION/CONSCIOUSNESS: Yes awake, Yes oriented to person, Yes oriented to place and Yes oriented to time HENMT: COMMON NORMALS: normocephalic, atraumatic, hearing grossly normal bilaterally, external ears normal, EAC's normal, TM's normal bilaterally, Normal nasal mucous membranes and turbinates present, moist oral mucous membranes and oropharynx normal HEAD & SCALP: normocephalic and atraumatic NOSE: Normal nasal mucous membranes and turbinates present EXTERNAL EAR: Yes external ears normal EXTERNAL AUDITORY CANAL: EAC's normal TYMPANIC MEMBRANE: TM's normal bilaterally Eye: COMMON NORMALS: Equal, round and reactive pupils present, EOMs intact bilaterally, conjunctivae normal and no scleral icterus CONJUNCTIVA: Yes conjunctivae normal PUPIL: Yes Equal, round and reactive pupils present Neck/C-Spine: COMMON NORMALS: full ROM, no lymphadenopathy, supple and no JVD Chest: OTHER: Stas to palpation on anterior axillary line on the lower ribs on the left right no evidence of crepitus no subcutaneous air lung sounds good Resp: COMMON NORMALS: normal respiratory effort, No retractions, No use of accessory muscles and clear to auscultation bilaterally AUSCULTATION: clear to auscultation bilaterally Cardio: COMMON NORMALS: no JVD, regular rate, regular rhythm and No murmurs present (Cardio) RATE: regular rate RHYTHM: regular rhythm GI: COMMON NORMALS: Soft to palpation and No hepatosplenomegaly present AUSCULTATION: Yes normoactive bowel sounds PALPATION: Yes Soft to palpation, No Tenderness to palpation present (GI), No Guarding due to palpation present (GI) and Yes No hepatosplenomegaly present Extremity: COMMON NORMALS: capillary refill normal, no clubbing, cyanosis or edema, no calf tenderness and no pedal edema NARRATIVE EXTREMITY EXAM: All discomfort at the left ankle no swelling no deformity no ecchymosis Neuro: SENSORIUM/ORIENTATION: Yes oriented to person, Yes oriented to place and Yes oriented to time Skin: COMMON NORMALS: no rashes or lesions noted GENERAL SKIN EXAM: no rashes or lesions noted Course Vital Signs: Vital signs: Vital Signs Temperature 97.7 F 05/29/20 16:43 Pulse Rate 63 05/29/20 20:27 Respiratory Rate 16 05/29/20 20:27 Blood Pressure 143/67 05/29/20 16:43 Pulse Oximetry 95 05/29/20 20:27 MDM - Fall MDM Narrative: Medical decision making narrative: Turned over to Dr. Mo at change of shift see his notes for final diagnosis and disposition. Discharge Plan Discharge Patient Disposition: Home Clinical Impression: Contusion of chest wall Qualifiers: Encounter type: initial encounter Laterality: right Qualified Code(s): S20.211A - Contusion of right front wall of thorax, initial encounter Left ankle sprain Qualifiers: Encounter type: initial encounter Condition: Stable Prescriptions: No Action hydrocodone-acetaminophen 7.5-325 mg tablet 1 tab PO TID PRN (Reason: Pain) RF: 0 aspirin 81 mg tablet,delayed release (DR/EC) 81 mg PO DAILY RF: 0 gabapentin 300 mg capsule 300 mg PO DIRECTED RF: 0 primidone 50 mg tablet 100 mg PO TID RF: 0 (DME) diabetic shoes Qty: 1 RF: 0 duloxetine 30 mg capsule,delayed release(DR/EC) 30 mg PO BID Qty: 60 RF: 0 atorvastatin 10 mg tablet 10 mg PO DAILY Qty: 30 RF: 4 carbidopa-levodopa 25-100 mg tablet 2 tab PO QID RF: 0 bupropion HCl 150 mg Tablet Extended Release 24 Hr 150 mg PO BID RF: 0 fentanyl 12 mcg/hr Patch 72 Hour 1 patch TRANSDERMAL Q72H RF: 0 Discharge Orders: Discharge ED (Routine); Ordered 05/29/20 Ordered By: Clive Mo Referrals: Brooklyn Byers DO [Primary Care Provider] - 4-7 days Discharge Diet: Usual diet Discharge Activity: Increase activity as tolerated Patient Instructions: Chest Pain - Chest Wall, Ankle Sprain (ED), Opioid Safety Activity Restrictions/Additional Instructions: Return for worsening pain, alteration in mental status, trouble breathing, fever, other concerning symptoms. 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 [facility] Documented by User: Clive Mo DO 05/30/20 02:38 HPI - Fall General: Chief Complaint: Fall Stated Complaint: FALL AT HOME COMPLAINT OF CHEST PAIN Time Seen by Provider: 05/29/20 17:44 PFSH ED PFSH: Medical History Chronic constipation Depression Diet-controlled diabetes mellitus Enrolled in chronic care management Essential tremor Insomnia PAD (peripheral artery disease) Parkinsons disease PMR (polymyalgia rheumatica) RBBB Right hip pain Urinary incontinence Surgical History H/O bladder repair surgery H/O cataract extraction H/O shoulder surgery H/O: hysterectomy History of cholecystectomy Family History Other Alcoholic Social History Smoking and tobacco status: current every day smoker cigarettes Packs smoked per day: 0.50 Alcohol intake: never Course Vital Signs: Vital signs: Vital Signs Temperature 97.7 F 05/29/20 16:43 Pulse Rate 63 05/29/20 20:27 Respiratory Rate 16 05/29/20 20:27 Blood Pressure 143/67 05/29/20 16:43 Pulse Oximetry 95 05/29/20 20:27 MDM - Fall MDM Narrative: Medical decision making narrative: 79-year-old female checked out to me by Dr. Roberts., And complained of ankle pain, and right-sided rib pain. Rib x-rays are negative there is no infiltrate, effusion, or evidence of contusion. Ankle x-rays are negative as well. She will be allowed home. Discharge Plan Discharge Patient Disposition: Home Clinical Impression: Contusion of chest wall Qualifiers: Encounter type: initial encounter Laterality: right Qualified Code(s): S20.211A - Contusion of right front wall of thorax, initial encounter Left ankle sprain Qualifiers: Encounter type: initial encounter Condition: Stable Prescriptions: No Action hydrocodone-acetaminophen 7.5-325 mg tablet 1 tab PO TID PRN (Reason: Pain) RF: 0 aspirin 81 mg tablet,delayed release (DR/EC) 81 mg PO DAILY RF: 0 gabapentin 300 mg capsule 300 mg PO DIRECTED RF: 0 primidone 50 mg tablet 100 mg PO TID RF: 0 (DME) diabetic shoes Qty: 1 RF: 0 duloxetine 30 mg capsule,delayed release(DR/EC) 30 mg PO BID Qty: 60 RF: 0 atorvastatin 10 mg tablet 10 mg PO DAILY Qty: 30 RF: 4 carbidopa-levodopa 25-100 mg tablet 2 tab PO QID RF: 0 bupropion HCl 150 mg Tablet Extended Release 24 Hr 150 mg PO BID RF: 0 fentanyl 12 mcg/hr Patch 72 Hour 1 patch TRANSDERMAL Q72H RF: 0 Discharge Orders: Discharge ED (Routine); Ordered 05/29/20 Ordered By: Clive Mo Referrals: Brooklyn Byers DO [Primary Care Provider] - 4-7 days Discharge Diet: Usual diet Discharge Activity: Increase activity as tolerated Patient Instructions: Chest Pain - Chest Wall, Ankle Sprain (ED), Opioid Safety Activity Restrictions/Additional Instructions: Return for worsening pain, alteration in mental status, trouble breathing, fever, other concerning symptoms. 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
[2020-05-29 20:27] VITALS: PULSE 63; RESP 16; O2SAT 95
== END 2020-05-29 20:26 | disposition home or self-care (01) ==
PROVIDERS: Emergency Provider Emergency Medicine; PCP Family Medicine
DX: S20.211A Contusion of right front wall of thorax, initial encounter (principal); W18.39XA Other fall on same level, initial encounter; S93.402A Sprain of unspecified ligament of left ankle, initial encounter; Z79.82 Long term (current) use of aspirin; Z79.891 Long term (current) use of opiate analgesic; F17.210 Nicotine dependence, cigarettes, uncomplicated; E11.9 Type 2 diabetes mellitus without complications; I73.9 Peripheral vascular disease, unspecified
CPT/HCPCS: 71101; 73600; 99282

== ENCOUNTER 2020-06-12 17:00 | Emergency (ER) | payer MEDICARE, OTHER, SELFPAY ==
[2020-06-12 17:28] VITALS: BP 149/75; PULSE 76; RESP 18; TEMP 36.6; O2SAT 96; BMI 24.5
--- NOTE | 2020-06-12 20:03 | CTR_ITS ---
PROCEDURE INFORMATION: Exam: CT Head Without Contrast Exam date and time: 06/12/2020 8:22 PM Age: 79 years old Clinical indication: Altered mental status/memory loss; Additional info: AMS TECHNIQUE: Imaging protocol: Computed tomography of the head without contrast. Radiation optimization: All CT scans at this facility use at least one of these dose optimization techniques: automated exposure control; mA and/or kV adjustment per patient size (includes targeted exams where dose is matched to clinical indication); or iterative reconstruction. COMPARISON: CT head wo con* [id number] 05/14/2020 2:34 PM RADIATION DOSE METRICS: Total DLP (mGy-cm): 870.22 FINDINGS: Brain: No evidence of acute infarct. No mass or mass effect. No intra axial hemorrhage. No extra axial fluid collection or hemorrhage. Old right lacunar infarct. Global brain volume loss, likely age related. Scattered white matter hypodensities likely from chronic microvascular ischemic disease. Cerebral ventricles: Symmetric with unchanged enlargement. Bones/joints: No acute fracture. Paranasal sinuses: Visualized sinuses are well aerated. Mastoid air cells: Visualized mastoid air cells are well aerated. Soft tissues: No concerning abnormalities. CT/CT head wo con* [id number] IMPRESSION: 1. No acute intracranial abnormality. 2. Again noted is ventriculomegaly which may be partly due to atrophy but may also reflect normal pressure hydrocephalus. Radiation Dose CTDIVOL = (mGy): DLP = 870.22 (mGy-cm)
--- NOTE | 2020-06-12 20:04 | XRR_ITS ---
PROCEDURE INFORMATION: Exam: XR Chest Exam date and time: 06/12/2020 8:09 PM Age: 79 years old Clinical indication: Other: AMS TECHNIQUE: Imaging protocol: XR of the chest. Views: 1 view. COMPARISON: CR XR ribs RT mn 3V w [id number] 05/29/2020 6:09 PM FINDINGS: Lungs: The lungs are mildly hyperinflated. No focal consolidation. Pleural spaces: Unremarkable. No pleural effusion. No pneumothorax. Heart/Mediastinum: The cardiac shadow is normal in size. Aortic calcifications. Diaphragm: Mild elevation of the left hemidiaphragm. Bones/joints: No acute abnormality. XR/XR chest 1V portable [id number] IMPRESSION: No acute findings.
[2020-06-12 20:34] VITALS: BP 155/75; PULSE 61; RESP 20; O2SAT 94
[2020-06-12 20:37] LABS: Basophils # 0.1 10^3/uL (0.0-0.1); Eosinophils # 0.1 10^3/uL (0.0-0.8); Eosinophils % 0.9 %; Hematocrit 45.7 % (37.0-47.0); Hemoglobin 14.3 g/dL (11.5-15.3); Lymphocytes # 1.5 10^3/uL (0.8-4.8); Lymphocytes % 25.7 %; Mean Corpuscular HGB Conc 31.3 g/dL (30.0-36.0); Mean Corpuscular Hemoglobin 31.4 pg (28.0-34.0); Mean Corpuscular Volume 100.4 fL (81-99); Monocytes # 0.6 10^3/uL (0.2-0.9); Monocytes % 10.1 %; Neutrophils # 3.63 10^3/uL (1.8-7.7); Neutrophils % 62.1 %; Nucleated Red Blood Cells % 0 %; Platelet Count 353 10^3/cmm (130-400); Red Blood Count 4.55 10^6/uL (4.1-5.3); Red Cell Distribution Width 11.9 % (12.1-15.1); White Blood Count 5.8 10^3/uL (4.0-10.0)
--- NOTE | 2020-06-12 20:50 | USR_ITS ---
PROCEDURE INFORMATION: Exam: US Duplex Left Lower Extremity Veins, Limited Exam date and time: 06/12/2020 10:00 PM Age: 79 years old Clinical indication: Pain; Leg, lower; Left; Additional info: Lle swelling TECHNIQUE: Imaging protocol: Real-time Duplex ultrasound of the Left Lower Extremity with 2-D calloway scale, color Doppler flow and spectral waveform analysis with image documentation. Limited exam focused on the left lower extremity veins. COMPARISON: No relevant prior studies available. FINDINGS: Left deep veins: The common femoral, femoral, proximal profunda femoral and popliteal veins are patent without thrombus. Normal Doppler waveforms. Normal compressibility and/or augmentation response. Left superficial veins: Saphenofemoral junction is patent without thrombus. Soft tissues: Unremarkable. US/CV venous duplex [facility] [id number] IMPRESSION: No evidence of deep vein thrombosis.
--- NOTE | 2020-06-12 20:52 | W.ED.AMS ---
HPI - Altered Mental Status General: Chief Complaint: Altered Mental Status Stated Complaint: AMS Time Seen by Provider: 06/12/20 19:38 Source: patient and family (son) Mode of arrival: ambulatory Limitations: altered mental status History of Present Illness: HPI narrative: 79-year-old female patient who was brought in by her son for evaluation of confusion. Symptoms have been ongoing for a while, at least several weeks and is gradually getting worse. She has a history of Parkinson's disease. Her son says that she is having more episodes of confusion and behavior days making it difficult for him to care for her. When I saw her a few weeks ago she had rented an apartment which was not safe for her without her son 9, at that time she agreed to go to an assisted living facility. She has been living with her son and his since then but the patient states that they do not want her. She would like to go to an assisted living but does not want to be a long-term [facility] residents. This evening she was wandering and walked out of the [place] for no reason. Son and his are concerned and wanted her to be evaluated to make sure that she was medically okay. complaint: altered mental status and confusion Onset (ago): week(s) Timing confirmed by: family member (son and [id number]) Severity: severe Consistency of symptoms: Waxing and Waning Associated symptoms: Reports other (paranoia); Deny auditory hallucinations, visual hallucinations, delusions, depression, homicidal ideation, racing thoughts or suicidal ideation Review of Systems General: Reports: 10 or more systems reviewed and unremarkable except in HPI and below Psych: Denies: depression, visual hallucinations, auditory hallucinations, suicidal ideation or homicidal ideation PFSH ED PFSH: Medical History Chronic constipation Depression Diet-controlled diabetes mellitus Enrolled in chronic care management Essential tremor Insomnia PAD (peripheral artery disease) Parkinsons disease PMR (polymyalgia rheumatica) RBBB Right hip pain Urinary incontinence Surgical History H/O bladder repair surgery H/O cataract extraction H/O shoulder surgery H/O: hysterectomy History of cholecystectomy Family History Other Alcoholic Social History Smoking and tobacco status: current every day smoker cigarettes Packs smoked per day: 0.50 Alcohol intake: never Physical Exam Const: COMMON NORMALS: no acute distress, average body habitus, patient oriented x3, no limitations, healthy appearing, alert and well nourished HENMT: COMMON NORMALS: normocephalic, atraumatic and moist oral mucous membranes HEAD & SCALP: normocephalic and atraumatic Neck/C-Spine: COMMON NORMALS: no meningeal signs and no JVD Resp: COMMON NORMALS: normal respiratory effort, No retractions, No use of accessory muscles, clear to auscultation bilaterally and percussion normal AUSCULTATION: clear to auscultation bilaterally PERCUSSION: percussion normal Cardio: COMMON NORMALS: no JVD, regular rate, regular rhythm, S1 normal heart sound present, S2 normal heart sound present, No gallops present (Cardio), No clicks present (Cardio), No murmurs present (Cardio), No rub (Cardio) and Peripheral pulses 2+ throughout RATE: regular rate RHYTHM: regular rhythm HEART SOUNDS: S1 normal heart sound present and S2 normal heart sound present PERIPHERAL PULSES: Peripheral pulses 2+ throughout GI: COMMON NORMALS: Normal to inspection, nondistended, normoactive bowel sounds present, Soft to palpation, non-tender, No hepatosplenomegaly present, no masses and no bruits PALPATION: Yes Soft to palpation and Yes No hepatosplenomegaly present Extremity: COMMON NORMALS: normal to inspection, full ROM, capillary refill normal and no calf tenderness NARRATIVE EXTREMITY EXAM: Left lower extremity swollen compared to the right. Mild calf tenderness on the left. Neuro: COMMON NORMALS: patient oriented x3 SENSORIUM/ORIENTATION: Yes alert MENINGEAL SIGNS: Yes no meningeal signs Psych: THOUGHT CONTENT: No delusions Skin: COMMON NORMALS: no rashes or lesions noted, no wounds, turgor normal, no jaundice, no petechiae and no mottling GENERAL SKIN EXAM: no rashes or lesions noted and turgor normal Course Reevaluation(s): Reevaluation #1: Discussed her lab and imaging findings with the patient and her son. Explained that she has a urinary tract infection which may have contributed to change in mental status. I discussed treatment options with the son and further management options with her. Advised that he get a DURABLE POWER OF LONGSHORE EQUIPMENT OPERATOR which she said he plans to get on Monday and has taken off work for these. She most likely will need long-term placement at his nursing facility but if her mental status improves they may try assisted living like the original plan. He voiced understanding and they are in agreement with the plan. Time: 22:14 Vital Signs: Vital signs: Vital Signs Temperature 97.8 F 06/12/20 22:51 Pulse Rate 66 06/12/20 22:51 Respiratory Rate 16 06/12/20 22:51 Blood Pressure 155/82 06/12/20 22:51 Pulse Oximetry 95 06/12/20 22:51 MDM - Altered Mental Status MDM Narrative: Medical decision making narrative: 79-year-old female patient with Parkinson's disease and who likely has undiagnosed dementia presents to the emergency department with her son for altered mental status of several days duration. Son said it has been a gradual decline but has been much worse in the last few days. In the emergency department evaluation shows that she has a urinary tract infection and was given a dose of intravenous ceftriaxone in the emergency department. She is discharged home with a prescription for Augmentin. Her son will observe to see if her mental status improves and she will likely need long-term placement. Medical Records: Attestation: I reviewed the patient's medical records. Lab Data: Attestation: I reviewed the patient's lab results. Labs: Lab Results 06/12/20 06/12/20 06/12/20 Range/Units 20:26 20:26 21:22 WBC 5.8 (4.0-10.0) 10^3/ uL RBC 4.55 (4.1-5.3) 10^6/u L Hgb 14.3 (11.5-15.3) g/dL Hct 45.7 (37.0-47.0) % MCV 100.4 H (81-99) fL MCH 31.4 (28.0-34.0) pg MCHC 31.3 (30.0-36.0) g/dL RDW 11.9 L (12.1-15.1) % Plt Count 353 (130-400) 10^3/c mm MPV 10.0 (7.4-10.4) fL Neut % (Auto) 62.1 % Lymph % (Auto) 25.7 % [place] % (Auto) 10.1 % Eos % (Auto) 0.9 % Baso % (Auto) 1.0 % Neut # (Auto) 3.63 (1.8-7.7) 10^3/u L Lymph # (Auto) 1.5 (0.8-4.8) 10^3/u L [place] # (Auto) 0.6 (0.2-0.9) 10^3/u L Eos # (Auto) 0.1 (0.0-0.8) 10^3/u L Baso # (Auto) 0.1 (0.0-0.1) 10^3/u L Nucleated RBC % (a uto) 0 % Nucleated RBCs # 0.0 /100WBC Sodium 140 (136-145) mmol/L Potassium 3.9 (3.5-5.1) mmol/L Chloride 102 (98-107) mmol/L Carbon Dioxide 29 (22-29) mmol/L Anion Gap 12.9 (5-19) BUN 12 (8-23) mg/dL Creatinine 0.6 (0.5-0.9) mg/dL GFR Calculation Not Reportable Glucose 83 (65-115) mg/dL Calculated Osmolal ity 289 (285-295) mOsm/k g Calcium 9.5 (8.5-10.5) mg/dL Total Bilirubin 0.3 (0.15-1.2) mg/dL AST 11 (0-32) U/L ALT < 5 (0-33) U/L Alkaline Phosphata se 84 (35-105) IU/L Total Protein 6.9 (6.6-8.7) g/dL Albumin 4.7 (3.5-5.2) g/dL Globulin 2.2 (1.3-4.6) g/dL Urine Color Yellow (Yellow) Urine Appearance Clear (CLEAR) Urine pH 5 (5-7) Ur Specific Gravit y 1.015 (1.005-1.030) Urine Protein Neg (Negative) Urine Glucose (UA) Norm (Normal) Urine Ketones Negative (Negative) Urine Blood Neg (Negative) Urine Nitrate Negative (Negative) Urine Bilirubin Neg (Negative) Urine Urobilinogen Norm (Negative) mg/dL Ur Leukocyte Clarissa ase 2+ H (Negative) Urine RBC 0-4 H (0-2) /hpf Urine WBC 10-15 H (0-5) /hpf Ur Squamous Epith Cells 0-4 H (0-5) /hpf Amorphous Sediment Not Reportable Urine Bacteria 1+ H (NONE) /hpf Imaging Data^: US Vascular: Attestation: I personally reviewed and interpreted this imaging study as follows: Radiologist's impression: [address] [address] Ultrasound Report Signed Patient: Nell Mejia #: [id number] : [id number]#:[id number] Age/Sex: 79 / FADM Date: 06/12/20 Loc: ERRoom/Bed: Attending Dr: Ordering Provider/Ordering MD: Yandy Panchal MD, [facility] Date of Service: 06/12/20 Procedure(s): [place] [id number] Accession Number(s): [id number] Report Number: [id number] PROCEDURE INFORMATION: Exam: US Duplex Left Lower Extremity Veins, Limited Exam date and time: 06/12/2020 10:00 PM Age: 79 years old Clinical indication: Pain; Leg, lower; Left; Additional info: Lle swelling TECHNIQUE: Imaging protocol: Real-time Duplex ultrasound of the Left Lower Extremity with 2-D calloway scale, color Doppler flow and spectral waveform analysis with image documentation. Limited exam focused on the left lower extremity veins. COMPARISON: No relevant prior studies available. FINDINGS: Left deep veins: The common femoral, femoral, proximal profunda femoral and popliteal veins are patent without thrombus. Normal Doppler waveforms. Normal compressibility and/or augmentation response. Left superficial veins: Saphenofemoral junction is patent without thrombus. Soft tissues: Unremarkable. US/[place] [id number] IMPRESSION: No evidence of deep vein thrombosis. Dictated By:Osman Jorgensen Signed By:Jeremy Jorgensen Date/Time:06/12/202233 DD/ 32 CXR: Attestation: I personally reviewed and interpreted this imaging study as follows: Radiologist's impression: [facility] [address] [place] [address]. [place] [address] XRay Report Signed Patient: Nell Mejia #: [id number] : [id number]#:[id number] Age/Sex: 79 / FADM Date: 06/12/20 Loc: ERRoom/Bed: Attending Dr: Ordering Provider/Ordering MD: Yandy Panchal MD, [facility] Date of Service: 06/12/20 Procedure(s): XR chest 1V portable [id number] Accession Number(s): [id number] Report Number: [id number] PROCEDURE INFORMATION: Exam: XR Chest Exam date and time: 06/12/2020 8:09 PM Age: 79 years old Clinical indication: Other: AMS TECHNIQUE: Imaging protocol: XR of the chest. Views: 1 view. COMPARISON: CR XR ribs RT mn 3V w CXR1V [id number] 05/29/2020 6:09 PM FINDINGS: Lungs: The lungs are mildly hyperinflated. No focal consolidation. Pleural spaces: Unremarkable. No pleural effusion. No pneumothorax. Heart/Mediastinum: The cardiac shadow is normal in size. Aortic calcifications. Diaphragm: Mild elevation of the left hemidiaphragm. Bones/joints: No acute abnormality. XR/XR chest 1V portable [id number] IMPRESSION: No acute findings. Dictated By:Osman Jorgensen Signed By:Jeremy Jorgensen Date/Time:06/12/202053 DD/ 52 CT Head: Attestation: I personally reviewed and interpreted this imaging study as follows: Radiologist's impression: [facility] [address] [place] [address]. [place] [address] CT Scan Report Signed Patient: Nell Mejia #: [id number] : [id number]#:[id number] Age/Sex: 79 / FADM Date: 06/12/20 Loc: ERRoom/Bed: Attending Dr: Ordering Provider/Ordering MD: Yandy Panchal MD, [facility] Date of Service: 06/12/20 Procedure(s): CT head wo con* [id number] Accession Number(s): [id number] Report Number: [id number] PROCEDURE INFORMATION: Exam: CT Head Without Contrast Exam date and time: 06/12/2020 8:22 PM Age: 79 years old Clinical indication: Altered mental status/memory loss; Additional info: AMS TECHNIQUE: Imaging protocol: Computed tomography of the head without contrast. Radiation optimization: All CT scans at this facility use at least one of these dose optimization techniques: automated exposure control; mA and/or kV adjustment per patient size (includes targeted exams where dose is matched to clinical indication); or iterative reconstruction. COMPARISON: CT head wo con* [id number] 05/14/2020 2:34 PM RADIATION DOSE METRICS: Total DLP (mGy-cm): 870.22 FINDINGS: Brain: No evidence of acute infarct. No mass or mass effect. No intra axial hemorrhage. No extra axial fluid collection or hemorrhage. Old right lacunar infarct. Global brain volume loss, likely age related. Scattered white matter hypodensities likely from chronic microvascular ischemic disease. Cerebral ventricles: Symmetric with unchanged enlargement. Bones/joints: No acute fracture. Paranasal sinuses: Visualized sinuses are well aerated. Mastoid air cells: Visualized mastoid air cells are well aerated. Soft tissues: No concerning abnormalities. CT/CT head wo con* 13210 IMPRESSION: 1. No acute intracranial abnormality. 2. Again noted is ventriculomegaly which may be partly due to atrophy but may also reflect normal pressure hydrocephalus. Radiation Dose CTDIVOL = (mGy): DLP = 870.22 (mGy-cm) Dictated By:Osman Jorgensen Signed By:Osman JorgensenSiml Date/Time:06/12/202055 DD/ 54 Discharge Plan Discharge Patient Disposition: Home Clinical Impression: Delirium due to general medical condition, Parkinsons disease UTI (urinary tract infection) Qualifiers: Urinary tract infection type: acute cystitis Hematuria presence: without hematuria Qualified Code(s): N30.00 - Acute cystitis without hematuria Condition: Stable Prescriptions: New Augmentin 500-125 mg tablet 1 tab PO BID Qty: 14 RF: 0 Continued hydrocodone-acetaminophen 7.5-325 mg tablet 1 tab PO TID PRN (Reason: Pain) RF: 0 aspirin 81 mg tablet,delayed release (DR/EC) 81 mg PO DAILY@0800 RF: 0 gabapentin 300 mg capsule 300 mg PO QID RF: 0 primidone 50 mg tablet 50 mg PO Q8H RF: 0 (DME) diabetic shoes Qty: 1 RF: 0 carbidopa-levodopa 25-100 mg tablet 2 tab PO QID RF: 0 bupropion HCl 150 mg Tablet Extended Release 24 Hr 150 mg PO BID@799,1999 RF: 0 Senna Plus 8.6-50 mg Tablet 1 tab PO BEDTIME@1999 RF: 0 Tylenol Extra Strength 500 mg Tablet 500 - 1,000 mg PO Q6H PRN (Reason: Pain) RF: 0 flaxseed oil 1,000 mg Capsule 1,000 mg PO QID RF: 0 Stool Softener 2 tab PO BEDTIME@1999 RF: 0 calcium 1 tab PO DAILY@0800 RF: 0 atorvastatin 10 mg tablet 10 mg PO DAILY@0800 RF: 0 duloxetine 30 mg capsule,delayed release(DR/EC) 30 mg PO BID@, RF: 0 Discharge Orders: Discharge ED (Routine); Ordered 06/12/20 Ordered By: Yandy Panchal Referrals: Brooklyn Byers DO [Primary Care Provider] - 1-3 days Discharge Diet: Usual diet Discharge Activity: Increase activity as tolerated Patient Instructions: Urinary Tract Infection in Women (ED), Parkinson's Disease (ED), Acute Delirium (ED) Activity Restrictions/Additional Instructions: Return for any new or worsening symptoms. Ensure she takes her antibiotics as prescribed. After her treatment for the urinary tract infection is complete she will need to be evaluated to see if she would be appropriate for an assisted living facility or if she needs more permanent placement at a nursing facility. Push fluids to ensure she keeps well-hydrated. 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
[2020-06-12 21:08] LABS: Alanine Aminotransferase < 5 U/L (0-33); Albumin Level 4.7 g/dL (3.5-5.2); Alkaline Phosphatase 84 IU/L (35-105); Anion Gap 12.9 (5-19); Aspartate Amino Transferase 11 U/L (0-32); Blood Urea Nitrogen 12 mg/dL (8-23); Calcium 9.5 mg/dL (8.5-10.5); Carbon Dioxide 29 mmol/L (22-29); Chloride 102 mmol/L (98-107); Creatinine Clr Calc Pharmacy 47.8205; Globulin 2.2 g/dL (1.3-4.6); Glucose 83 mg/dL (65-115); Osmolality Calculated 289 mOsm/kg (285-295); Potassium 3.9 mmol/L (3.5-5.1); Sodium 140 mmol/L (136-145); Total Bilirubin 0.3 mg/dL (0.15-1.2); Total Protein 6.9 g/dL (6.6-8.7)
[2020-06-12 21:37] LABS: Add Urine Microscopic? YES; Bacteria Urine 1+ /hpf; Bilirubin Urine Neg (Negative); Blood Urine Neg (Negative); Glucose Urine UA Norm (Normal); Ketones Urine Negative (Negative); Leukocyte Esterase Urine 2+ (Negative); Nitrate Urine Negative (Negative); Protein Urine Neg (Negative); RBC Urine 0-4 /hpf (0-2); Specific Gravity, Urine 1.015 (1.005-1.030); Squamous Epithelial Cell Urine 0-4 /hpf (0-5); Urine Appearance Clear (CLEAR); Urine Color Yellow (Yellow); Urobilinogen Urine Norm (Negative); pH Urine 5 (5-7)
[2020-06-12 21:38] LABS: Add Urine Culture? Yes
[2020-06-12] MEDS: cefTRIAXone 1,000 MG in sodium chloride 0.9% (plus) 50 ML 100 MG IV (22:25)
[2020-06-12 22:26] VITALS: BP 173/81; PULSE 64; RESP 19; O2SAT 95
[2020-06-12 22:30] VITALS: BP 155/82; PULSE 68; RESP 23; O2SAT 94
[2020-06-12 22:51] VITALS: BP 155/82; PULSE 66; RESP 16; TEMP 36.6; O2SAT 95
== END 2020-06-12 22:53 | disposition home or self-care (01) ==
PROVIDERS: Family Medicine; Emergency Provider Family Medicine; PCP Family Medicine
DX: F05 Delirium due to known physiological condition (principal); G20 Parkinson's disease; N30.00 Acute cystitis without hematuria; Z79.82 Long term (current) use of aspirin; E11.9 Type 2 diabetes mellitus without complications; F17.210 Nicotine dependence, cigarettes, uncomplicated; M79.605 Pain in left leg
CPT/HCPCS: 70450; 71045; 80053; 81001; 85025; 87086; 93971; 96365; 99284; J0696

== ENCOUNTER 2020-06-13 19:23 | Emergency (ER) | payer MEDICARE, OTHER, SELFPAY ==
[2020-06-13 19:27] VITALS: BP 150/72; PULSE 63; RESP 15; TEMP 36.7; O2SAT 93; BMI 23.4
--- NOTE | 2020-06-13 19:47 | W.ED.GENADLT ---
HPI - General Adult General: Chief complaint: General Medical Stated complaint: pain Time Seen by Provider: 06/13/20 19:47 Source: patient Mode of arrival: ambulatory Limitations: no limitations History of Present Illness: HPI narrative: 79-year-old female comes in today with complaints of left side neck discomfort and pain. No recent falls or injuries have been reported. Patient was evaluated thoroughly yesterday and was noted to have a urinary tract infection on the exam. Patient does have bouts of confusion/delirium. Patient does have chronic pain, diabetes, Parkinson's disease. Review of Systems General: Reports: 10 or more systems reviewed and unremarkable except in HPI and below Musc: Reports: other (Neck pain) PFSH ED PFSH: Medical History Chronic constipation Depression Diet-controlled diabetes mellitus Enrolled in chronic care management Essential tremor Insomnia PAD (peripheral artery disease) Parkinsons disease PMR (polymyalgia rheumatica) RBBB Right hip pain Urinary incontinence Surgical History H/O bladder repair surgery H/O cataract extraction H/O shoulder surgery H/O: hysterectomy History of cholecystectomy Family History Other Alcoholic Social History Smoking and tobacco status: current every day smoker cigarettes Packs smoked per day: 0.50 Alcohol intake: never Physical Exam Const: COMMON NORMALS: no acute distress and patient oriented x3 GENERAL APPEARANCE: cooperative HENMT: COMMON NORMALS: normocephalic and Normal external nose present HEAD & SCALP: normal to inspection and normocephalic NOSE: Normal external nose present MOUTH: Normal oral and palatal mucosa present THROAT: posterior oropharynx normal Eye: GENERAL EYE: appearance normal, both eyes and all related structures Neck/C-Spine: OTHER: Decreased range of motion when turning to the left, muscle tightness. Lymph: LYMPHATIC: no lymphadenopathy noted Chest: COMMONS NORMALS: normal inspection of the chest Resp: COMMON NORMALS: normal respiratory effort EFFORT & INSPECTION: Yes able to speak in complete sentences Cardio: COMMON NORMALS: regular rate and regular rhythm RATE: regular rate RHYTHM: regular rhythm GI: COMMON NORMALS: non-tender Back/Pelvis: COMMON NORMALS: thoracic and lumbar spine normal to inspection Extremity: COMMON NORMALS: normal to inspection Neuro: COMMON NORMALS: patient oriented x3 and moves all extremities Psych: COMMON NORMALS: mental status grossly normal and cooperative Skin: COMMON NORMALS: no rashes or lesions noted GENERAL SKIN EXAM: no rashes or lesions noted Course Vital Signs: Vital signs: Vital Signs Temperature 98.0 F 06/13/20 19:27 Pulse Rate 64 06/13/20 19:55 Respiratory Rate 18 06/13/20 19:55 Blood Pressure 150/72 06/13/20 19:55 Pulse Oximetry 98 06/13/20 19:55 MDM - General Adult MDM Narrative: Medical decision making narrative: Patient comes in today with complaints of neck pain. Son reports that she does have hydrocodone and acetaminophen which she uses for pain. Patient had taken 1 pain pill this afternoon with minimal relief. On exam patient appears well. Patient appears no acute distress. Patient does have some tenderness to the paraspinous muscles of the left neck. No central spinal tenderness is noted. Abdomen soft nontender. Vital signs are normal. Differential diagnosis includes intervertebral disc disease, facet arthropathy, muscle spasm. Reviewed exam with patient and family member with recommendations for treatment and follow-up with primary care. They reported understanding agreed to plan. Discharge Plan Discharge Patient Disposition: Home Clinical Impression: Neck and shoulder pain Condition: Stable Prescriptions: New meloxicam 7.5 mg tablet 7.5 mg PO DAILY Qty: 14 RF: 0 No Action hydrocodone-acetaminophen 7.5-325 mg tablet 1 tab PO TID PRN (Reason: Pain) RF: 0 aspirin 81 mg tablet,delayed release (DR/EC) 81 mg PO DAILY@0800 RF: 0 gabapentin 300 mg capsule 300 mg PO QID RF: 0 primidone 50 mg tablet 50 mg PO Q8H RF: 0 (DME) diabetic shoes Qty: 1 RF: 0 carbidopa-levodopa 25-100 mg tablet 2 tab PO QID RF: 0 bupropion HCl 150 mg Tablet Extended Release 24 Hr 150 mg PO BID@0800,1999 RF: 0 Senna Plus 8.6-50 mg Tablet 1 tab PO BEDTIME@1999 RF: 0 Tylenol Extra Strength 500 mg Tablet 500 - 1,000 mg PO Q6H PRN (Reason: Pain) RF: 0 flaxseed oil 1,000 mg Capsule 1,000 mg PO QID RF: 0 Stool Softener 2 tab PO BEDTIME@2000 RF: 0 calcium 1 tab PO DAILY@0800 RF: 0 atorvastatin 10 mg tablet 10 mg PO DAILY@0800 RF: 0 duloxetine 30 mg capsule,delayed release(DR/EC) 30 mg PO BID@08,20 RF: 0 Augmentin 500-125 mg tablet 1 tab PO BID Qty: 14 RF: 0 Discharge Orders: Discharge ED (Routine); Ordered 06/13/20 Ordered By: Dash Zeng Referrals: Brooklyn Byers DO [Primary Care Provider] - Discharge Diet: Usual diet Discharge Activity: Increase activity as tolerated Patient Instructions: Cervical Spinal Stenosis (ED), Opioid Safety Activity Restrictions/Additional Instructions: Continue with routine medications as directed. Use acetaminophen and hydrocodone as recommended. Use meloxicam daily to help with inflammation and arthritis pain. Drink plenty of water with medication. Follow-up with primary care for further treatment and instructions. 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
[2020-06-13 19:55] VITALS: BP 150/72; PULSE 64; RESP 18; O2SAT 98
[2020-06-13] MEDS: ketorolac 30 mg/mL INJ 15 MG IM (20:11)
[2020-06-13 20:22] VITALS: BP 150/72; PULSE 64; RESP 18; O2SAT 98
== END 2020-06-13 20:20 | disposition home or self-care (01) ==
PROVIDERS: Emergency Provider Nurse Practitioner Family; PCP Family Medicine
DX: M54.2 Cervicalgia (principal); M25.512 Pain in left shoulder; Z79.82 Long term (current) use of aspirin; E11.9 Type 2 diabetes mellitus without complications; G20 Parkinson's disease; F17.210 Nicotine dependence, cigarettes, uncomplicated
CPT/HCPCS: 96372; 99283; J1885

== ENCOUNTER 2020-06-18 11:21 | Outpatient (CLI) | payer MEDICARE, OTHER, SELFPAY | END 2020-06-18 11:22 | disposition home or self-care (01) | LOC: SPT 11:22 | PROVIDERS: PCP Family Medicine; Visit Provider Podiatrist Foot & Ankle Surgery | DX: Z46.89 Encounter for fitting and adjustment of other specified devices (principal); S93.402D Sprain of unspecified ligament of left ankle, subsequent encounter; X58.XXXD Exposure to other specified factors, subsequent encounter | CPT/HCPCS: 97760; L1902 ==

== ENCOUNTER 2020-07-11 16:35 | Emergency (ER) | payer MEDICARE, OTHER, SELFPAY ==
[2020-07-11 16:41] VITALS: BP 156/77; PULSE 56; RESP 18; TEMP 36.9; O2SAT 91; BMI 23.6
--- NOTE | 2020-07-11 16:59 | ED_ITS ---
Documented by User: Toan Argueta MD 07/11/20 17:46 HPI - Extremity Problem General: Chief complaint: Extremity Injury, Lower Stated complaint: RIGHT HIP PAIN S/P FALL 5- Time Seen by Provider: 07/11/20 16:56 Source: patient, family, EMS and RN notes reviewed Mode of arrival: EMS Limitations: no limitations History of Present Illness: HPI Narrative: This patient is a 80-year-old female lives in a local assisted living who had a fall on Monday of this past week approximately 6 days ago. Patient has no complaints of pain other than a mild headache that began yesterday. Patient has no neurological symptoms and no signs of injury. Patient moves all joints without difficulty no does have a previous issue with the shoulder from previous surgery and has no complaints of pain. EMS brought patient here for evaluation of headache. Family members at the bedside states the patient is currently on medications for urinary tract infection states he did not know why they brought her here and why she was not given Tylenol. Advised the patient would be a good idea for us to do a CT scan on her head to rule out any type of intracranial injury. Patient and family state understanding. Will do CT scan of the head evaluate treat further if needed. Associated symptoms: Deny chest pain, fever(s) or rash Review of Systems General: Reports: 10 or more systems reviewed and unremarkable except in HPI and below Const: Denies: fever(s), chills, body aches or fatigue Eyes: Denies: change in vision or blurry vision ENMT: Denies: throat pain, hoarseness or mouth pain Card: Denies: chest pain, palpitations, irregular heart rhythm, edema, swelling of feet/ankles or lightheadedness Resp: Denies: dyspnea, productive cough, non-productive cough, wheezing or pain on inspiration GI: Denies: abdominal pain, nausea or vomiting : Denies: flank pain, difficulty voiding, dysuria, urinary frequency, urinary urgency or urinary hesitancy Musc: Denies: neck pain, back pain, extremity pain, extremity swelling, joint pain, joint swelling, joint redness, joint warmth or limited range of motion Skin/Breast: Denies: rash, pruritus, erythema or skin tenderness Neuro: Reports: headache(s); Denies: numbness in extremities or weakness in extremities Psych: Denies: anxiety or depression PFSH ED PFSH: Medical History Chronic constipation Depression Diet-controlled diabetes mellitus Enrolled in chronic care management Essential tremor Insomnia PAD (peripheral artery disease) Parkinsons disease PMR (polymyalgia rheumatica) RBBB Right hip pain Urinary incontinence Surgical History H/O bladder repair surgery H/O cataract extraction H/O shoulder surgery H/O: hysterectomy History of cholecystectomy Family History Other Alcoholic Social History Smoking and tobacco status: current every day smoker cigarettes Packs smoked per day: 0.50 Alcohol intake: never Physical Exam Const: COMMON NORMALS: no acute distress, average body habitus, patient oriented x3, no limitations, healthy appearing, alert and well nourished HENMT: COMMON NORMALS: normocephalic, atraumatic, external ears normal, EAC's normal, TM's normal bilaterally, Normal external nose present and Normal nasal mucous membranes and turbinates present HEAD & SCALP: normocephalic and atraumatic NOSE: Normal external nose present and Normal nasal mucous membranes and turbinates present EXTERNAL EAR: Yes external ears normal EXTERNAL AUDITORY CANAL: EAC's normal TYMPANIC MEMBRANE: TM's normal bilaterally Neck/C-Spine: COMMON NORMALS: full ROM, no lymphadenopathy, supple, no meningeal signs, no JVD, Thyroid normal and No carotid bruits THYROID: Thyroid normal Chest: COMMONS NORMALS: normal inspection of the chest, normal palpation of entire chest wall, normal inspection of the breasts and normal palpation of the breasts Breast/axilla inspection: Yes normal inspection of the breasts BREAST/AXILLA PALPATION: Yes normal palpation of the breasts Resp: COMMON NORMALS: normal respiratory effort, No retractions, No use of accessory muscles, clear to auscultation bilaterally and percussion normal AUSCULTATION: clear to auscultation bilaterally PERCUSSION: percussion normal Cardio: COMMON NORMALS: no JVD, regular rate, regular rhythm, S1 normal heart sound present, S2 normal heart sound present, No gallops present (Cardio), No clicks present (Cardio), No murmurs present (Cardio), No rub (Cardio) and Peripheral pulses 2+ throughout RATE: regular rate RHYTHM: regular rhythm HEART SOUNDS: S1 normal heart sound present and S2 normal heart sound present PERIPHERAL PULSES: Peripheral pulses 2+ throughout GI: COMMON NORMALS: Normal to inspection, nondistended, normoactive bowel sounds present, Soft to palpation, non-tender, No hepatosplenomegaly present, no masses and no bruits PALPATION: Yes Soft to palpation and Yes No hepatosplenomegaly present : COMMON NORMALS: Yes no CVA tenderness, Yes normal external appearance, Yes normal appearance of the vagina, Yes normal appearance of the cervix, Yes normal bimanual exam, Yes No adnexal tenderness and Yes no masses BLADDER/KIDNEY EXAM: Yes no CVA tenderness BIMANUAL EXAM - VAGINA & UTERUS: Yes normal bimanual exam Back/Pelvis: COMMON NORMALS: no CVA tenderness, thoracic and lumbar spine normal to inspection, no thoracic nor lumbar tenderness, thoraco-lumbar ROM normal and straight leg raise negative bilaterally Extremity: COMMON NORMALS: normal to inspection, full ROM, capillary refill normal, no joint enlargement, no clubbing, cyanosis or edema, no calf tenderness and no pedal edema Neuro: COMMON NORMALS: patient oriented x3 SENSORIUM/ORIENTATION: Yes alert MENINGEAL SIGNS: Yes no meningeal signs Course Vital Signs: Vital signs: Vital Signs Temperature 98.4 F 07/11/20 16:41 Pulse Rate 56 L 07/11/20 16:41 Respiratory Rate 18 07/11/20 16:41 Blood Pressure 156/77 07/11/20 16:41 Pulse Oximetry 91 07/11/20 16:41 MDM - Extremity (Nontraumatic) MDM Narrative: Medical decision making narrative: This patient is a 80-year-old female lives in a local assisted living who had a fall on Monday of this past week approximately 6 days ago. Patient has no complaints of pain other than a mild headache that began yesterday. Patient has no neurological symptoms and no signs of injury. Patient moves all joints without difficulty no does have a previous issue with the shoulder from previous surgery and has no complaints of pain. EMS brought patient here for evaluation of headache. Family members at the bedside states the patient is currently on medications for urinary tract infection states he did not know why they brought her here and why she was not given Tylenol. Advised the patient would be a good idea for us to do a CT scan on her head to rule out any type of intracranial injury. Patient and family state understanding. Medical Records: Attestation: I reviewed the patient's medical records. Lab Data: Attestation: I reviewed the patient's lab results. Discharge Plan Discharge Patient Disposition: Home Clinical Impression: Closed head injury Qualifiers: Encounter type: initial encounter Qualified Code(s): S09.90XA - Unspecified injury of head, initial encounter Condition: Stable Prescriptions: No Action hydrocodone-acetaminophen 7.5-325 mg tablet 1 tab PO TID PRN (Reason: Pain) RF: 0 (DME) ASO Brace See Rx Instructions .Route .MEDSUPPLY Qty: 1 RF: 0 aspirin 81 mg tablet,delayed release (DR/EC) 81 mg PO DAILY@0800 RF: 0 gabapentin 300 mg capsule 300 mg PO QID RF: 0 primidone 50 mg tablet 50 mg PO Q8H RF: 0 (DME) diabetic shoes Qty: 1 RF: 0 carbidopa-levodopa 25-100 mg tablet 2 tab PO QID RF: 0 bupropion HCl 150 mg Tablet Extended Release 24 Hr 150 mg PO BID@0800,2000 RF: 0 Senna Plus 8.6-50 mg Tablet 1 tab PO BEDTIME@2000 RF: 0 Tylenol Extra Strength 500 mg Tablet 500 - 1,000 mg PO Q6H PRN (Reason: Pain) RF: 0 flaxseed oil 1,000 mg Capsule 1,000 mg PO QID RF: 0 Stool Softener 2 tab PO BEDTIME@2000 RF: 0 calcium 1 tab PO DAILY@0800 RF: 0 atorvastatin 10 mg tablet 10 mg PO DAILY@0800 RF: 0 duloxetine 30 mg capsule,delayed release(DR/EC) 30 mg PO BID@08,20 RF: 0 Augmentin 500-125 mg tablet 1 tab PO BID Qty: 14 RF: 0 meloxicam 7.5 mg tablet 7.5 mg PO DAILY Qty: 14 RF: 0 Discharge Orders: Discharge ED (Routine); Ordered 07/11/20 Ordered By: Orlando Aguillon Referrals: Brooklyn Byers DO [Primary Care Provider] - 1-3 days Discharge Diet: Advance as tolerated Discharge Activity: Resume usual activity Patient Instructions: Minor Head Injury (ED) Coding Level of Care Code ED Alumni Relations Manager for [facility] Fwd Exam Comprehensive Documented by User: Orlando Aguillon MD 07/11/20 18:48 HPI - Extremity Problem General: Chief complaint: Extremity Injury, Lower Stated complaint: RIGHT HIP PAIN S/P FALL 5-19 Time Seen by Provider: 07/11/20 16:56 PFSH ED PFSH: Medical History Chronic constipation Depression Diet-controlled diabetes mellitus Enrolled in chronic care management Essential tremor Insomnia PAD (peripheral artery disease) Parkinsons disease PMR (polymyalgia rheumatica) RBBB Right hip pain Urinary incontinence Surgical History H/O bladder repair surgery H/O cataract extraction H/O shoulder surgery H/O: hysterectomy History of cholecystectomy Family History Other Alcoholic Social History Smoking and tobacco status: current every day smoker cigarettes Packs smoked per day: 0.50 Alcohol intake: never Course Vital Signs: Vital signs: Vital Signs Temperature 98.4 F 07/11/20 16:41 Pulse Rate 56 L 07/11/20 16:41 Respiratory Rate 18 07/11/20 16:41 Blood Pressure 156/77 07/11/20 16:41 Pulse Oximetry 91 07/11/20 16:41 MDM - Extremity (Nontraumatic) MDM Narrative: Medical decision making narrative: Patient presents with a closed head injury from a fall. Her head CT here is normal. She has no signs of injuries and is stable for discharge. She is return if worsening. Imaging Data^: CT Head: Radiologist's impression: [address] [address] [address] Scan Report Signed Patient: Yuli Mejia Unit #: [id number] : 1940 [facility]#:[id number] Age/Sex: 80 / F ADM Date: 07/11/20 Loc: ER Room/Bed: Attending Dr: Ordering Provider/Ordering MD: Toan Argueta MD Date of Service: 07/11/20 Procedure(s): CT head wo con* [id number] Accession Number(s): [id number] Report Number: [id number] PROCEDURE INFORMATION: Exam: CT Head Without Contrast Exam date and time: 07/11/2020 5:33 PM Age: 80 years old Clinical indication: Injury or trauma; Blunt trauma (contusions or hematomas); Without loss of consciousness; Patient HX: Fall 6 days ago denies loc C/O CAI since; Additional info: Headache/fall TECHNIQUE: Imaging protocol: Computed tomography of the head without contrast. Radiation optimization: All CT scans at this facility use at least one of these dose optimization techniques: automated exposure control; mA and/or kV adjustment per patient size (includes targeted exams where dose is matched to clinical indication); or iterative reconstruction. COMPARISON: CT head wo con* [id number] 06/12/2020 8:47 PM RADIATION DOSE METRICS: Total DLP (mGy-cm): 792.49 FINDINGS: Brain: No evidence of acute infarct. No mass or mass effect. No intra axial hemorrhage. No extra axial fluid collection or hemorrhage. Scattered white matter hypodensities likely from chronic microvascular ischemic disease. Global brain volume loss, likely age related. Cerebral ventricles: Symmetric and without pathologic enlargement. Bones/joints: No acute fracture. Paranasal sinuses: Visualized sinuses are well aerated. Mastoid air cells: Visualized mastoid air cells are well aerated. Soft tissues: No concerning abnormalities. CT/CT head wo con* [id number] IMPRESSION: No acute intracranial abnormality. Discharge Plan Discharge Patient Disposition: Home Clinical Impression: Closed head injury Qualifiers: Encounter type: initial encounter Qualified Code(s): S09.90XA - Unspecified in jury of head, initial encounter Condition: Stable Prescriptions: No Action hydrocodone-acetaminophen 7.5-325 mg tablet 1 tab PO TID PRN (Reason: Pain) RF: 0 (DME) ASO Brace See Rx Instructions .Route .MEDSUPPLY Qty: 1 RF: 0 aspirin 81 mg tablet,delayed release (DR/EC) 81 mg PO DAILY@0800 RF: 0 gabapentin 300 mg capsule 300 mg PO QID RF: 0 primidone 50 mg tablet 50 mg PO Q8H RF: 0 (DME) diabetic shoes Qty: 1 RF: 0 carbidopa-levodopa 25-100 mg tablet 2 tab PO QID RF: 0 bupropion HCl 150 mg Tablet Extended Release 24 Hr 150 mg PO BID@0800,1999 RF: 0 Senna Plus 8.6-50 mg Tablet 1 tab PO BEDTIME@1999 RF: 0 Tylenol Extra Strength 500 mg Tablet 500 - 1,000 mg PO Q6H PRN (Reason: Pain) RF: 0 flaxseed oil 1,000 mg Capsule 1,000 mg PO QID RF: 0 Stool Softener 2 tab PO BEDTIME@1999 RF: 0 calcium 1 tab PO DAILY@0800 RF: 0 atorvastatin 10 mg tablet 10 mg PO DAILY@0800 RF: 0 duloxetine 30 mg capsule,delayed release(DR/EC) 30 mg PO BID@08,20 RF: 0 Augmentin 500-125 mg tablet 1 tab PO BID Qty: 14 RF: 0 meloxicam 7.5 mg tablet 7.5 mg PO DAILY Qty: 14 RF: 0 Discharge Orders: Discharge ED (Routine); Ordered 07/11/20 Ordered By: Orlando Aguillon Referrals: Brooklyn Byers DO [Primary Care Provider] - 1-3 days Discharge Diet: Advance as tolerated Discharge Activity: Resume usual activity Patient Instructions: Minor Head Injury (ED) Coding Level of Care Code ED Alumni Relations Manager for [facility] Fwd Exam Comprehensive
[2020-07-11 19:19] VITALS: BP 159/67
== END 2020-07-11 19:22 | disposition home or self-care (01) ==
PROVIDERS: Emergency Provider Emergency Medicine; PCP Family Medicine
DX: S09.8XXA Other specified injuries of head, initial encounter (principal); Z79.82 Long term (current) use of aspirin; E11.9 Type 2 diabetes mellitus without complications; G20 Parkinson's disease; F17.210 Nicotine dependence, cigarettes, uncomplicated; W19.XXXA Unspecified fall, initial encounter
CPT/HCPCS: 70450; 99282

== ENCOUNTER 2020-07-21 10:34 | Emergency (ER) | payer MEDICARE, OTHER, SELFPAY ==
[2020-07-21 10:56] VITALS: BP 167/78; PULSE 68; RESP 18; TEMP 37.1; O2SAT 91; BMI 25.4
--- NOTE | 2020-07-21 11:00 | XRR_ITS ---
PROCEDURE INFORMATION: Exam: XR Chest Exam date and time: 07/21/2020 11:28 AM Age: 80 years old Clinical indication: Other: Altered mental status; Prior surgery; Surgery type: Shoulder TECHNIQUE: Imaging protocol: XR of the chest. Views: 1 view. COMPARISON: CR XR chest 1V portable [id number] 06/12/2020 8:07 PM FINDINGS: Lungs: Unremarkable. No consolidation. Pleural spaces: Unremarkable. No pleural effusion. No pneumothorax. Heart/Mediastinum: Unremarkable. No cardiomegaly. Bones/joints: A right shoulder prosthesis projects in satisfactory position. No acute bony abnormality. XR/XR chest 1V portable [id number] IMPRESSION: No acute cardiopulmonary abnormality.
--- NOTE | 2020-07-21 11:00 | CT_ITS ---
WS: [id number] CT HEAD TECHNIQUE: Noncontrast CT of the head obtained from the skullbase to the vertex. CLINICAL INFORMATION: altered mental status, fall 8 days ago COMPARISON: CT July 11, 2020 DLP: 807.[address] scans at [facility] use at least one of these dose optimization techniques: automat ed exposure control; mA and/or kV adjustment per patient size (includes targeted exams where dose is matched to clinical indication); or iterative reconstruction. FINDINGS: No evidence of intracranial hemorrhage or mass effect. Ventricular system and basal cisterns are maxwell nt. Moderate small vessel changes with moderate parenchymal volume loss. 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 No extra-axial fl uid collections. No evidence of mass or mass effect. Paranasal sinuses and mastoid air cells are well aerated. .Normal visualized soft tissues. CT/CT head wo con* [id number] IMPRESSION: 1. No evidence of intracranial hemorrhage or mass effect. 2. Moderate small vessel changes with moderate parenchymal volume loss. 3. Chronic lacunar infarcts in the right greater than left basal ganglia uncha nged. 4. No acute intracranial findings and no changes since July 11, 2020
--- NOTE | 2020-07-21 11:08 | ED_ITS ---
HPI - Altered Mental Status General: Chief Complaint: Altered Mental Status Stated Complaint: AMS, STATES POSS UTI PER FACILITY Time Seen by Provider: 07/21/20 10:57 History of Present Illness: HPI narrative: 80-year-old female that comes from assisted living with her daughter who went to check on her this morning and thought she was a little more lethargic and slower to answer and move around than usual. She has noticed a little bit of change in her over the past couple of days she says this is a similar presentation her mother gets when she has a urinary tract infection. Patient was recently on Augmentin the last 2 weeks ago for UTI. No known fevers no complaints of pain she has not noticed any specific neurological deficits. Patient is quiet and will answer some simple questions but HPI is per daughter. Review of Systems Narrative: General: denies fatigue, fever or chills HEENT: denies ear pain, denies nasal congestion, denies vision changes, denies sore throat Neck: denies masses or pain Resp: denies cough, denies shortness of breath, denies pleuritic pain Cardio: denies chest pain, denies edema GI: denies abdominal pain, denies N/V/D, denies black/tarry or bloody stools : denies hematuria, denies dysuria Neuro: denies headache, denies dizziness, denies motor or sensory changes. decreased on activity, slower to walk and respond. denies changes in her speech or facial droop Musculoskeletal: denies pain, denies swelling Skin: denies rashes Psych: denies SI or HI Endocrine: denies thyroid symptoms, denies lymphadenopathy all other ROS reviewed and patient denies PFSH ED PFSH: Medical History Chronic constipation Depression Diet-controlled diabetes mellitus Enrolled in chronic care management Essential tremor Insomnia PAD (peripheral artery disease) Parkinsons disease PMR (polymyalgia rheumatica) RBBB Right hip pain Urinary incontinence Surgical History H/O bladder repair surgery H/O cataract extraction H/O shoulder surgery H/O: hysterectomy History of cholecystectomy Family History Other Alcoholic Social History (Reviewed 07/21/20 @ 11:12 by MEREDITH Chenug Smoking and tobacco status: current every day smoker cigarettes Packs smoked per day: 0.50 Alcohol intake: never Physical Exam Narrative: EXAM NARRATIVE: General: a/o to place and daugher, slow, no distress Head: atraumatic HEENT: normal eyes, normal conjunctiva, normal hearing, normal external nose, normal mouth, mucous membranes moist Neck: FROM, trachea midline Chest: normal expansion, no gross deformities Resp: normal speech, no retractions, no accessory muscle use, CTA bilaterally Cardio: regular rate and rhythm and no murmur, no peripheral edema, normal peripheral pulses GI: soft, flat non tender, no guarding normal BS : deferred Musculoskeletal: FROM, no pain or gross deformities Neuro: alert, slow speech, no facial droop, no gross motor or sensory deficits, CN II-XII grossly intact, normal coordination Skin: no rashes Psych: cooperative, normal mood and effect Course Vital Signs: Vital signs: Vital Signs Temperature 98.7 F 07/21/20 10:56 Pulse Rate 68 07/21/20 10:56 Respiratory Rate 18 07/21/20 10:56 Blood Pressure 167/78 07/21/20 10:56 Pulse Oximetry 91 07/21/20 10:56 MDM - Altered Mental Status MDM Narrative: Medical decision making narrative: Patient was here recently on 07/11/2020 for a fall and had a CT of her head discussed with daughter I think we should go ahead and repeat that make sure she has not had any type of a slow bleed or any signs of a stroke. We will also obviously check her urine and other labs that are appropriate and a chest x-ray Patient did complain a little bit of a sore throat while here in the ER however she has no erythema no redness gave her some water and that seemed to help discussed with daughter I could swab her for strep but would seem unlikely at 80 years of age and her throat looks normal. Patient does have a history of some mild dementia and Parkinson's. I offered admission to the hospital for observation but uncertain what other testing would be done at this time daughters cannot take her back and see how she does and will return if they notice anything different Medical Records: Attestation: I reviewed the patient's medical records. Lab Data: Attestation: I reviewed the patient's lab results. Labs: Lab Results 07/21/20 07/21/20 07/21/20 Range/Units 11:40 11:40 12:45 WBC 7.0 (4.0-10.0) 10^3/ uL RBC 4.53 (4.1-5.3) 10^6/u L Hgb 14.3 (11.5-15.3) g/dL Hct 45.1 (37.0-47.0) % MCV 99.6 H (81-99) fL MCH 31.6 (28.0-34.0) pg MCHC 31.7 (30.0-36.0) g/dL RDW 12.2 (12.1-15.1) % Plt Count 285 (130-400) 10^3/c mm MPV 10.5 H (7.4-10.4) fL Neut % (Auto) 72.3 % Lymph % (Auto) 16.9 % [place] % (Auto) 8.9 % Eos % (Auto) 1.0 % Baso % (Auto) 0.6 % Neut # (Auto) 5.05 (1.8-7.7) 10^3/u L Lymph # (Auto) 1.2 (0.8-4.8) 10^3/u L [place] # (Auto) 0.6 (0.2-0.9) 10^3/u L Eos # (Auto) 0.1 (0.0-0.8) 10^3/u L Baso # (Auto) 0.0 (0.0-0.1) 10^3/u L Nucleated RBC % (a uto) 0 % Nucleated RBCs # 0.0 /100WBC Sodium 144 (136-145) mmol/L Potassium 3.9 (3.5-5.1) mmol/L Chloride 106 (98-107) mmol/L Carbon Dioxide 27 (22-29) mmol/L Anion Gap 14.9 (5-19) BUN 8 (8-23) mg/dL Creatinine 0.5 (0.5-0.9) mg/dL GFR Calculation Not Reportable Glucose 85 (65-115) mg/dL Calculated Osmolal ity 296 H (285-295) mOsm/k g Calcium 9.2 (8.5-10.5) mg/dL Total Bilirubin 0.2 (0.15-1.2) mg/dL AST 13 (0-32) U/L ALT < 5 (0-33) U/L Alkaline Phosphata se 73 (35-105) IU/L Total Protein 6.0 L (6.6-8.7) g/dL Albumin 4.0 (3.5-5.2) g/dL Globulin 2.0 (1.3-4.6) g/dL TSH 1.32 (0.27-4.20) uIU/ mL Urine Color Yellow (Yellow) Urine Appearance Clear (CLEAR) Urine pH 7 (5-7) Ur Specific Gravit y 1.010 (1.005-1.030) Urine Protein Neg (Negative) Urine Glucose (UA) Norm (Normal) Urine Ketones Negative (Negative) Urine Blood Neg (Negative) Urine Nitrate Negative (Negative) Urine Bilirubin Neg (Negative) Urine Urobilinogen Norm (Negative) mg/dL Ur Leukocyte Clarissa ase Negative (Negative) Urine RBC None (0-2) /hpf Urine WBC None (0-5) /hpf Ur Squamous Epith Cells Rare (0-5) /hpf Amorphous Sediment Not Reportable Urine Bacteria Trace (NONE) /hpf Urine Opiates Scre en (Negative) ng/mL Ur Barbiturates Sc reen (Negative) ng/mL Ur Phencyclidine S crn (Negative) ng/mL Ur Amphetamines Sc reen (Negative) ng/mL U Benzodiazepines Scrn (Negative) ng/mL Urine Cocaine Scre en (Negative) ng/mL U Marijuana (THC) Screen (Negative) ng/mL 07/21/20 Range/Units 12:45 WBC (4.0-10.0) 10^3/ uL RBC (4.1-5.3) 10^6/u L Hgb (11.5-15.3) g/dL Hct (37.0-47.0) % MCV (81-99) fL MCH (28.0-34.0) pg MCHC (30.0-36.0) g/dL RDW (12.1-15.1) % Plt Count (130-400) 10^3/c mm MPV (7.4-10.4) fL Neut % (Auto) % Lymph % (Auto) % [place] % (Auto) % Eos % (Auto) % Baso % (Auto) % Neut # (Auto) (1.8-7.7) 10^3/u L Lymph # (Auto) (0.8-4.8) 10^3/u L [place] # (Auto) (0.2-0.9) 10^3/u L Eos # (Auto) (0.0-0.8) 10^3/u L Baso # (Auto) (0.0-0.1) 10^3/u L Nucleated RBC % (a uto) % Nucleated RBCs # /100WBC Sodium (136-145) mmol/L Potassium (3.5-5.1) mmol/L Chloride (98-107) mmol/L Carbon Dioxide (22-29) mmol/L Anion Gap (5-19) BUN (8-23) mg/dL Creatinine (0.5-0.9) mg/dL GFR Calculation Glucose (65-115) mg/dL Calculated Osmolal ity (285-295) mOsm/k g Calcium (8.5-10.5) mg/dL Total Bilirubin (0.15-1.2) mg/dL AST (0-32) U/L ALT (0-33) U/L Alkaline Phosphata se (35-105) IU/L Total Protein (6.6-8.7) g/dL Albumin (3.5-5.2) g/dL Globulin (1.3-4.6) g/dL TSH (0.27-4.20) uIU/ mL Urine Color (Yellow) Urine Appearance (CLEAR) Urine pH (5-7) Ur Specific Gravit y (1.005-1.030) Urine Protein (Negative) Urine Glucose (UA) (Normal) Urine Ketones (Negative) Urine Blood (Negative) Urine Nitrate (Negative) Urine Bilirubin (Negative) Urine Urobilinogen (Negative) mg/dL Ur Leukocyte Clarissa ase (Negative) Urine RBC (0-2) /hpf Urine WBC (0-5) /hpf Ur Squamous Epith Cells (0-5) /hpf Amorphous Sediment Urine Bacteria (NONE) /hpf Urine Opiates Scre en Negative (Negative) ng/mL Ur Barbiturates Sc reen Positive H (Negative) ng/mL Ur Phencyclidine S crn Negative (Negative) ng/mL Ur Amphetamines Sc reen Negative (Negative) ng/mL U Benzodiazepines Scrn Negative (Negative) ng/mL Urine Cocaine Scre en Negative (Negative) ng/mL U Marijuana (THC) Screen Negative (Negative) ng/mL Discharge Plan Discharge Patient Disposition: Home Clinical Impression: Parkinsons disease Dementia Qualifiers: Dementia type: unspecified type Dementia behavioral disturbance: without behavioral disturbance Qualified Code(s): F03.90 - Unspecified dementia without behavioral disturbance Condition: Stable Prescriptions: No Action hydrocodone-acetaminophen 7.5-325 mg tablet 1 tab PO TID PRN (Reason: Pain) RF: 0 (DME) ASO Brace See Rx Instructions .Route .MEDSUPPLY Qty: 1 RF: 0 aspirin 81 mg tablet,delayed release (DR/EC) 81 mg PO DAILY@0800 RF: 0 gabapentin 300 mg capsule 300 mg PO QID RF: 0 primidone 50 mg tablet 50 mg PO Q8H RF: 0 (DME) diabetic shoes Qty: 1 RF: 0 carbidopa-levodopa 25-100 mg tablet 2 tab PO QID RF: 0 bupropion HCl 150 mg Tablet Extended Release 24 Hr 150 mg PO BID@0800,1999 RF: 0 sennosides-docusate sodium [Senna Plus] 8.6-50 mg Tablet 1 tab PO BEDTIME@1999 RF: 0 acetaminophen [Tylenol Extra Strength] 500 mg Tablet 500 - 1,000 mg PO Q6H PRN (Reason: Pain) RF: 0 flaxseed oil 1,000 mg Capsule 1,000 mg PO QID RF: 0 atorvastatin 10 mg tablet 10 mg PO DAILY@1999 RF: 0 duloxetine 30 mg capsule,delayed release(DR/EC) 30 mg PO BID@08,20 RF: 0 lidocaine 5 % Adhesive Patch,Medicated 1 patch TOPICAL DAILY RF: 0 ibuprofen 200 mg Tablet 200 - 400 mg PO Q6H PRN (Reason: Pain) RF: 0 Colace 100 mg Capsule 200 mg PO BID@08,20 RF: 0 Miralax 17 gram/dose Powder 17 g PO DAILY RF: 0 Fleet Glycerin (Adult) Suppository 1 supp AL DAILY PRN (Reason: Constipation) RF: 0 Biofreeze 0.2-3.5 % Gel 1 applic TOPICAL QID PRN (Reason: Pain) RF: 0 meloxicam 7.5 mg tablet 7.5 mg PO DAILY@0800 RF: 0 Discharge Orders: Discharge ED (Routine); Ordered 07/21/20 Ordered By: Daina Carmichael Referrals: Jarod Cano, [Primary Care Provider] - Activity Restrictions/Additional Instructions: Resume normal activity and medications monitor her for any altered mental status fevers changes worsening of symptoms and return to the emergency department if other concerns or symptoms develop. I recommend you call today to follow-up with her provider in the next couple of days Thank you for choosing [facility] for your healthcare needs today. Please realize this is an emergency room and that we are providing you with a medical screening exam and this may not be complete and all inclusive of all the testing and or work up that you may need to determine your ailment or severity of your illness. It is very important that you follow up as instructed or that you return to the Emergency Department should you have concerns or if your condition changes or worsens in any way. Coding Level of Care Code ED Reinstatement Clerk for Paz [place]
[2020-07-21 11:52] LABS: Basophils % 0.6 %; Eosinophils # 0.1 10^3/uL (0.0-0.8); Hematocrit 45.1 % (37.0-47.0); Hemoglobin 14.3 g/dL (11.5-15.3); Lymphocytes # 1.2 10^3/uL (0.8-4.8); Lymphocytes % 16.9 %; Mean Corpuscular HGB Conc 31.7 g/dL (30.0-36.0); Mean Corpuscular Hemoglobin 31.6 pg (28.0-34.0); Mean Corpuscular Volume 99.6 fL (81-99); Mean Platelet Volume 10.5 fL (7.4-10.4); Monocytes # 0.6 10^3/uL (0.2-0.9); Monocytes % 8.9 %; Neutrophils # 5.05 10^3/uL (1.8-7.7); Neutrophils % 72.3 %; Nucleated Red Blood Cells % 0 %; Platelet Count 285 10^3/cmm (130-400); Red Blood Count 4.53 10^6/uL (4.1-5.3); Red Cell Distribution Width 12.2 % (12.1-15.1)
[2020-07-21 12:52] LABS: Bilirubin Urine Neg (Negative); Blood Urine Neg (Negative); Glucose Urine UA Norm (Normal); Ketones Urine Negative (Negative); Nitrate Urine Negative (Negative); Protein Urine Neg (Negative); Urine Appearance Clear (CLEAR); Urine Color Yellow (Yellow); Urobilinogen Urine Norm (Negative); pH Urine 7 (5-7)
[2020-07-21 12:53] LABS: Leukocyte Esterase Urine Negative (Negative)
[2020-07-21 13:01] LABS: Amphetamines Screen Urine Negative (Negative); Barbiturates Screen Urine Positive (Negative); Benzodiazepines Screen Urine Negative (Negative); Cocaine Screen Urine Negative (Negative); Opiate Screen Urine Negative (Negative); PCP Screen Urine Negative (Negative); THC Screen Urine Negative (Negative)
[2020-07-21 13:02] LABS: Alanine Aminotransferase < 5 U/L (0-33); Alkaline Phosphatase 73 IU/L (35-105); Anion Gap 14.9 (5-19); Blood Urea Nitrogen 8 mg/dL (8-23); Calcium 9.2 mg/dL (8.5-10.5); Carbon Dioxide 27 mmol/L (22-29); Chloride 106 mmol/L (98-107); Glucose 85 mg/dL (65-115); Osmolality Calculated 296 mOsm/kg (285-295); Potassium 3.9 mmol/L (3.5-5.1); Sodium 144 mmol/L (136-145); Thyroid Stimulating Hormone 1.32 uIU/mL (0.27-4.20); Total Bilirubin 0.2 mg/dL (0.15-1.2)
[2020-07-21 13:03] LABS: Aspartate Amino Transferase 13 U/L (0-32)
[2020-07-21 13:22] LABS: Add Urine Culture? No; Bacteria Urine TRACE /hpf; Squamous Epithelial Cell Urine RARE /hpf (0-5)
[2020-07-21 14:00] VITALS: BP 158/77; PULSE 68; RESP 18; O2SAT 94
== END 2020-07-21 13:51 | disposition home or self-care (01) ==
PROVIDERS: Emergency Provider Emergency Medicine; PCP Family Medicine
DX: G20 Parkinson's disease (principal); F02.80 Dementia in other diseases classified elsewhere, unspecified severity, without behavioral disturbance, psychotic disturbance, mood disturbance, and anxiety; Z79.82 Long term (current) use of aspirin; E11.9 Type 2 diabetes mellitus without complications; F17.210 Nicotine dependence, cigarettes, uncomplicated
CPT/HCPCS: 70450; 71045; 80053; 80306; 81001; 84443; 85025; 87086; 99283

== ENCOUNTER 2020-10-21 15:25 | Outpatient (CLI) | payer MEDICARE, OTHER, SELFPAY ==
[2020-10-21 15:41] LABS: Basophils # 0.1 10^3/uL (0.0-0.1); Basophils % 0.8 %; Eosinophils # 0.1 10^3/uL (0.0-0.8); Eosinophils % 1.9 %; Hematocrit 41.1 % (37.0-47.0); Lymphocytes # 0.9 10^3/uL (0.8-4.8); Lymphocytes % 11.7 %; Mean Corpuscular HGB Conc 31.6 g/dL (30.0-36.0); Mean Corpuscular Hemoglobin 30.1 pg (28.0-34.0); Mean Corpuscular Volume 95.1 fl (81-99); Mean Platelet Volume 10.4 fL (7.4-10.4); Monocytes # 0.8 10^3/uL (0.2-0.9); Monocytes % 10.9 %; Neutrophils # 5.36 10^3/uL (1.8-7.7); Nucleated Red Blood Cells % 0 %; Platelet Count 374 10^3/cmm (130-400); Red Blood Count 4.32 10^6/uL (4.1-5.3); Red Cell Distribution Width 13.6 % (12.1-15.1); White Blood Count 7.3 10^3/uL (4.0-10.0)
[2020-10-21 16:15] LABS: Alanine Aminotransferase < 5 U/L (0-33); Albumin Level 3.3 g/dL (3.5-5.2); Alkaline Phosphatase 106 IU/L (35-105); Anion Gap 13.8 (5-19); Aspartate Amino Transferase 13 U/L (0-32); Blood Urea Nitrogen 12 mg/dL (8-23); Carbon Dioxide 28 mmol/L (22-29); Chloride 102 mmol/L (98-107); Globulin 2.4 g/dL (1.3-4.6); Glucose 70 mg/dL (65-115); Osmolality Calculated 288 mOsm/kg (285-295); Potassium 3.8 mmol/L (3.5-5.1); Sodium 140 mmol/L (136-145); Total Bilirubin 0.2 mg/dL (0.15-1.2); Total Protein 5.7 g/dL (6.6-8.7)
== END 2020-10-21 15:26 | disposition home or self-care (01) ==
PROVIDERS: PCP Family Medicine; Visit Provider Family Medicine
DX: N18.30 Chronic kidney disease, stage 3 unspecified (principal)
CPT/HCPCS: 80053; 85025

== ENCOUNTER 2020-11-05 15:52 | Outpatient (CLI) | payer MEDICARE, OTHER, SELFPAY ==
[2020-11-05 16:24] LABS: Basophils # 0.1 10^3/uL (0.0-0.1); Eosinophils # 0.1 10^3/uL (0.0-0.8); Eosinophils % 2.1 %; Hematocrit 41.6 % (37.0-47.0); Hemoglobin 13.4 g/dL (11.5-15.3); Lymphocytes # 1.1 10^3/uL (0.8-4.8); Lymphocytes % 17.3 %; Mean Corpuscular HGB Conc 32.2 g/dL (30.0-36.0); Mean Corpuscular Hemoglobin 30.3 pg (28.0-34.0); Mean Corpuscular Volume 94.1 fl (81-99); Mean Platelet Volume 10.6 fL (7.4-10.4); Monocytes # 0.6 10^3/uL (0.2-0.9); Monocytes % 9.3 %; Neutrophils # 4.27 10^3/uL (1.8-7.7); Neutrophils % 69.8 %; Nucleated Red Blood Cells % 0 %; Platelet Count 353 10^3/cmm (130-400); Red Blood Count 4.42 10^6/uL (4.1-5.3); Red Cell Distribution Width 13.4 % (12.1-15.1); White Blood Count 6.1 10^3/uL (4.0-10.0)
[2020-11-05 16:47] LABS: Specific Gravity, Urine 1.015 (1.005-1.030); Urine Appearance Hazy (CLEAR); Urine Color Yellow (Yellow); pH Urine 6.5 (5-7)
[2020-11-05 16:48] LABS: Add Urine Microscopic? YES; Bilirubin Urine Neg (Negative); Blood Urine Neg (Negative); Glucose Urine UA Norm (Normal); Ketones Urine 1+ (Negative); Leukocyte Esterase Urine Trace (Negative); Nitrate Urine Negative (Negative); Protein Urine Neg (Negative); Urobilinogen Urine Norm (Negative)
[2020-11-05 17:02] LABS: Alanine Aminotransferase < 5 U/L (0-33); Albumin Level 3.6 g/dL (3.5-5.2); Alkaline Phosphatase 83 IU/L (35-105); Anion Gap 14.3 (5-19); Aspartate Amino Transferase 14 U/L (0-32); Blood Urea Nitrogen 11 mg/dL (8-23); Calcium 8.9 mg/dL (8.5-10.5); Carbon Dioxide 28 mmol/L (22-29); Chloride 103 mmol/L (98-107); Globulin 1.9 g/dL (1.3-4.6); Glucose 88 mg/dL (65-115); Osmolality Calculated 291 mOsm/kg (285-295); Potassium 4.3 mmol/L (3.5-5.1); Sodium 141 mmol/L (136-145); Total Bilirubin 0.3 mg/dL (0.15-1.2); Total Protein 5.5 g/dL (6.6-8.7)
[2020-11-05 17:11] LABS: Add Urine Culture? Yes; Bacteria Urine 3+ /hpf; Squamous Epithelial Cell Urine 0-4 /hpf (0-5); WBC Urine 15-25 /hpf (0-5)
== END 2020-11-05 15:53 | disposition home or self-care (01) ==
PROVIDERS: PCP Family Medicine; Visit Provider Family Medicine
DX: R41.82 Altered mental status, unspecified (principal)
CPT/HCPCS: 80053; 81001; 85025; 87077; 87086; 87186

== ENCOUNTER 2020-12-13 04:19 | Emergency (ER) | payer MEDICARE, OTHER, MEDICAID, SELFPAY ==
[2020-12-13 04:23] VITALS: BP 161/75; PULSE 58; RESP 18; TEMP 36.1; O2SAT 99; BMI 31.1
--- NOTE | 2020-12-13 04:23 | CTR_ITS ---
PROCEDURE INFORMATION: Exam: CT Head Without Contrast Exam date and time: 12/13/2020 4:23 AM Age: 80 years old Clinical indication: Injury or trauma; Blunt trauma (contusions or hematomas); Consciousness not specified; Injury details: PT non responsive S/P fall- no obvious head trauma TECHNIQUE: Imaging protocol: Computed tomography of the head without contrast. Radiation optimization: All CT scans at this facility use at least one of these dose optimization techniques: automated exposure control; mA and/or kV adjustment per patient size (includes targeted exams where dose is matched to clinical indication); or iterative reconstruction. COMPARISON: CT head wo con* [id number] 07/21/2020 11:51 AM RADIATION DOSE METRICS: Total DLP (mGy-cm): 743.14 FINDINGS: Brain: There is extensive hypodensity of the periventricular white matter. This is nonspecific, but a likely cause is small vessel ischemic disease. There are a few small focal hypodensities in the right basal ganglia region and right frontal white matter, consistent with chronic lacunar infarcts. No abnormal intra-axial or extra-axial fluid collections are identified. There is no midline shift. No intracranial hemorrhage identified. Ventricles: The ventricles and sulci are moderately and diffusely prominent, compatible with global brain volume loss. Bones/joints: Unremarkable as visualized. Sinuses: Visualized sinuses are unremarkable. No fluid levels. Mastoid air cells: Visualized mastoid air cells are well aerated. Soft tissues: Unremarkable. CT/CT head wo con* [id number] IMPRESSION: 1. No acute intracranial process identified. Radiation Dose CTDIVOL = (mGy): DLP = 743.14 (mGy-cm)
--- NOTE | 2020-12-13 04:23 | CTR_ITS ---
PROCEDURE INFORMATION: Exam: CT Cervical Spine Without Contrast Exam date and time: 12/13/2020 4:23 AM Age: 80 years old Clinical indication: Injury or trauma; Fall; Blunt trauma TECHNIQUE: Imaging protocol: Computed tomography images of the cervical spine without contrast. Radiation optimization: All CT scans at this facility use at least one of these dose optimization techniques: automated exposure control; mA and/or kV adjustment per patient size (includes targeted exams where dose is matched to clinical indication); or iterative reconstruction. COMPARISON: CT head wo con* [id number] 12/13/2020 4:29 AM RADIATION DOSE METRICS: Total DLP (mGy-cm): 306.77 FINDINGS: Vertebrae: There is a normal cervical lordosis. There is normal alignment of the cervical spine. There is a nondisplaced fracture through the left occipital condyle demonstrated on sagittal series 601, image 16 and coronal series 602, image 32. Vertebral body heights are well maintained throughout. Discs/Spinal canal/Neural foramina: Intervertebral disc heights are well maintained throughout. The bony spinal canal is patent. Soft tissues: No prevertebral soft tissue swelling identified. Lungs: Emphysematous changes noted at bilateral lung apices. CT/CT cervical spin wo con* [id number] IMPRESSION: 1. There is a nondisplaced fracture through the left occipital condyle. Radiation Dose CTDIVOL = (mGy): DLP = 306.77 (mGy-cm)
--- NOTE | 2020-12-13 04:33 | ED_ITS ---
HPI - Altered Mental Status General: Chief Complaint: Altered Mental Status Stated Complaint: FALL Time Seen by Provider: 12/13/20 04:23 History of Present Illness: HPI narrative: 80-year-old female retirement patient presenting after a fall. Evidently during the fall, she struck her head and was complaining of headache admit.. This was around 230 this morning. She seemed to be fine for 30 to 45 minutes, but then went unresponsive for retirement staff after that. On EMS arrival, she awoke to sternal rub. She presents here in a similar manner. MD complaint: decreased responsiveness Onset (ago): hour(s) Severity: moderate Consistency of symptoms: Constant Context: history of similar presentation Associated symptoms: Reports no associated symptoms Review of Systems General: Reports: ROS unobtainable due to mental status PFSH ED PFSH: Medical History Chronic constipation Depression Diet-controlled diabetes mellitus Enrolled in chronic care management Essential tremor Insomnia PAD (peripheral artery disease) Parkinsons disease PMR (polymyalgia rheumatica) RBBB Right hip pain Urinary incontinence Surgical History H/O bladder repair surgery H/O cataract extraction H/O shoulder surgery H/O: hysterectomy History of cholecystectomy Family History Other Alcoholic Social History Smoking and tobacco status: current every day smoker cigarettes Packs smoked per day: 0.50 Alcohol intake: never Physical Exam Const: EXAM LIMITATIONS: altered mental status GENERAL APPEARANCE: frail appearing; not in distress ORIENTATION/CONSCIOUSNESS: Yes patient obtunded HENMT: COMMON NORMALS: normocephalic and atraumatic HEAD & SCALP: normocephalic and atraumatic Eye: COMMON NORMALS: Equal, round and reactive pupils present PUPIL: Yes Equal, round and reactive pupils present Chest: COMMONS NORMALS: normal inspection of the chest Resp: COMMON NORMALS: normal respiratory effort, No use of accessory muscles and clear to auscultation bilaterally AUSCULTATION: clear to auscultation bilaterally Cardio: COMMON NORMALS: regular rate and regular rhythm RATE: regular rate RHYTHM: regular rhythm GI: COMMON NORMALS: Normal to inspection, nondistended, normoactive bowel sounds present and Soft to palpation PALPATION: Yes Soft to palpation Neuro: NAKUL COMA SCALE: document GCS findings [place] coma scale eye opening: To pressure Nakul coma scale verbal response: Words Nakul coma scale motor response: Localising [place] coma scale total score: 10 SENSORIUM/ORIENTATION: Yes obtunded Course Vital Signs: Vital signs: Vital Signs Temperature 96.9 F L 12/13/20 04:23 Pulse Rate 58 L 12/13/20 04:23 Respiratory Rate 18 12/13/20 04:23 Blood Pressure 161/75 12/13/20 04:23 Pulse Oximetry 99 12/13/20 04:23 MDM - Altered Mental Status MDM Narrative: Medical decision making narrative: 80-year-old female who fell in the retirement. CT scan of the head shows no acute hemorrhage, swelling, etc. It does show a nondisplaced left occipital condyle fracture. No cervical spine fracture. Laboratory is benign, save a minimally elevated initial troponin. Awaiting urinalysis and 2-hour troponin. EKG shows sinus bradycardia with no acute ST changes. She will be checked out to Dr. Jimenez at shift change to follow-up on these findings, and continued observation in the emergency department for now Lab Data: Labs: Lab Results 12/13/20 12/13/20 12/13/20 04:26 04:26 04:26 WBC 5.3 10^3/uL 10^3/ uL (4.0-10.0) RBC 4.49 10^6/uL 10^6 /uL (4.1-5.3) Hgb 13.7 g/dL g/dL (11.5-15.3) Hct 45.1 % % (37.0-47.0) MCV 100.4 fl H fl (81-99) MCH 30.5 pg pg (28.0-34.0) MCHC 30.4 g/dL g/dL (30.0-36.0) RDW 14.9 % % (12.1-15.1) Plt Count 291 10^3/cmm 10^3 /cmm (130-400) MPV 10.8 fL H fL (7.4-10.4) Neut % (Auto) 55.9 % % Lymph % (Auto) 26.4 % % [place] % (Auto) 13.1 % % Eos % (Auto) 2.8 % % Baso % (Auto) 0.9 % % Neut # (Auto) 2.98 10^3/uL 10^3 /uL (1.8-7.7) Lymph # (Auto) 1.4 10^3/uL 10^3/ uL (0.8-4.8) [place] # (Auto) 0.7 10^3/uL 10^3/ uL (0.2-0.9) Eos # (Auto) 0.2 10^3/uL 10^3/ uL (0.0-0.8) Baso # (Auto) 0.1 10^3/uL 10^3/ uL (0.0-0.1) Nucleated RBC % (a uto) 0 % % Nucleated RBCs # 0.0 /100WBC /100W BC PT 12.70 SECONDS SEC ONDS (12.1-14.9) INR 0.92 (0.8-1.2) APTT 28.1 SECONDS SECO NDS (23.9-36.7) Specimen Type Sample Site ABG pH ABG pCO2 ABG pO2 ABG HCO3 ABG Base Excess Vincenzo Test Hematocrit O2 Delivery Device O2 Liters/Min FiO2 Hardboard Grinder ID Sodium 142 mmol/L mmol/L (136-145) Potassium 3.7 mmol/L mmol/L (3.5-5.1) Chloride 106 mmol/L mmol/L (98-107) Carbon Dioxide 27 mmol/L mmol/L (22-29) Anion Gap 12.7 (5-19) BUN 10 mg/dL mg/dL (8-23) Creatinine 0.4 mg/dL L mg/dL (0.5-0.9) GFR Calculation Not Reportable Glucose 92 mg/dL mg/dL (65-115) Calculated Osmolal ity 293 mOsm/kg mOsm/ kg (285-295) Lactate Calcium 8.9 mg/dL mg/dL (8.5-10.5) Total Bilirubin 0.2 mg/dL mg/dL (0.15-1.2) AST 10 U/L U/L (0-32) ALT < 5 U/L U/L (0-33) Alkaline Phosphata se 90 IU/L IU/L (35-105) Creatine Kinase 47 U/L U/L (26-192) Troponin T Baselin e C-Reactive Protein 3.4 mg/L mg/L (0.0-4.9) Total Protein 5.9 g/dL L g/dL (6.6-8.7) Albumin 3.6 g/dL g/dL (3.5-5.2) Globulin 2.3 g/dL g/dL (1.3-4.6) 12/13/20 12/13/20 12/13/20 04:26 04:26 05:02 WBC RBC Hgb Hct MCV MCH MCHC RDW Plt Count MPV Neut % (Auto) Lymph % (Auto) [place] % (Auto) Eos % (Auto) Baso % (Auto) Neut # (Auto) Lymph # (Auto) Edwards # (Auto) Eos # (Auto) Baso # (Auto) Nucleated RBC % (a uto) Nucleated RBCs # PT INR APTT Specimen Type Arterial Sample Site Brachial, right ABG pH 7.38 (7.35-7.45) ABG pCO2 49.8 mmHg H mmHg (35-45) ABG pO2 147.0 mmHg H mmHg (80.0-100.0) ABG HCO3 29.6 mmol/L H mmo l/L (22-26) ABG Base Excess 3.6 mmol/L H mmol /L (-2.0-2.0) Vincenzo Test N/a Hematocrit 41.3 % % (37-47) O2 Delivery Device Nc O2 Liters/Min 2.0 % % FiO2 28.0 % % Hardboard Grinder ID Tamma Sodium Potassium Chloride Carbon Dioxide Anion Gap BUN Creatinine GFR Calculation Glucose Calculated Osmolal ity Lactate 1.4 mmol/L mmol/L (0.5-2.2) Calcium Total Bilirubin AST ALT Alkaline Phosphata se Creatine Kinase Troponin T Baselin e 18 ng/L H ng/L (0-10) C-Reactive Protein Total Protein Albumin Globulin Discharge Plan Discharge Prescriptions: No Action hydrocodone-acetaminophen 7.5-325 mg tablet 1 tab PO TID PRN (Reason: Pain) RF: 0 (DME) ASO Brace See Rx Instructions .Route .MEDSUPPLY Qty: 1 RF: 0 aspirin 81 mg tablet,delayed release (DR/EC) 81 mg PO DAILY@0800 RF: 0 gabapentin 300 mg capsule 300 mg PO QID RF: 0 primidone 50 mg tablet 50 mg PO Q8H RF: 0 (DME) diabetic shoes Qty: 1 RF: 0 carbidopa-levodopa 25-100 mg tablet 2 tab PO QID RF: 0 bupropion HCl 150 mg Tablet Extended Release 24 Hr 150 mg PO BID@0800,1999 RF: 0 sennosides-docusate sodium [Senna Plus] 8.6-50 mg Tablet 1 tab PO BEDTIME@1999 RF: 0 acetaminophen [Tylenol Extra Strength] 500 mg Tablet 500 - 1,000 mg PO Q6H PRN (Reason: Pain) RF: 0 flaxseed oil 1,000 mg Capsule 1,000 mg PO QID RF: 0 atorvastatin 10 mg tablet 10 mg PO DAILY@1999 RF: 0 duloxetine 30 mg capsule,delayed release(DR/EC) 30 mg PO BID@ RF: 0 lidocaine 5 % Adhesive Patch,Medicated 1 patch TOPICAL DAILY RF: 0 ibuprofen 200 mg Tablet 200 - 400 mg PO Q6H PRN (Reason: Pain) RF: 0 Colace 100 mg Capsule 200 mg PO BID@ RF: 0 Miralax 17 gram/dose Powder 17 g PO DAILY RF: 0 Fleet Glycerin (Adult) Suppository 1 supp [place] DAILY PRN (Reason: Constipation) RF: 0 Biofreeze 0.2-3.5 % Gel 1 applic TOPICAL QID PRN (Reason: Pain) RF: 0 meloxicam 7.5 mg tablet 7.5 mg PO DAILY@0800 RF: 0 Coding Level of Care Code ED Materials And Corrosion Engineer for Chg Fwd Exam Comprehensive
--- NOTE | 2020-12-13 04:49 | XRR_ITS ---
PROCEDURE INFORMATION: Exam: XR Chest Exam date and time: 12/13/2020 4:49 AM Age: 80 years old Clinical indication: Dyspnea; Additional info: Altered mental status TECHNIQUE: Imaging protocol: XR of the chest. Views: 1 view. COMPARISON: CR XR chest 1V portable [id number] 07/21/2020 11:14 AM FINDINGS: Lungs: The lungs are clear bilaterally. Pleural spaces: No visible pneumothorax. Possible small left pleural effusion. Heart/Mediastinum: Cardiomediastinal silhouette contour is within normal limits. Bones/joints: Status post right shoulder arthroplasty. XR/XR chest 1V portable [id number] IMPRESSION: 1. No pulmonary edema or pneumonia identified. Radiation Dose CTDIVOL = (mGy): DLP = (mGy-cm)
[2020-12-13 04:57] LABS: Basophils # 0.1 10^3/uL (0.0-0.1); Basophils % 0.9 %; Eosinophils # 0.2 10^3/uL (0.0-0.8); Eosinophils % 2.8 %; Hematocrit 45.1 % (37.0-47.0); Hemoglobin 13.7 g/dL (11.5-15.3); Lymphocytes # 1.4 10^3/uL (0.8-4.8); Lymphocytes % 26.4 %; Mean Corpuscular HGB Conc 30.4 g/dL (30.0-36.0); Mean Corpuscular Hemoglobin 30.5 pg (28.0-34.0); Mean Corpuscular Volume 100.4 fl (81-99); Mean Platelet Volume 10.8 fL (7.4-10.4); Monocytes # 0.7 10^3/uL (0.2-0.9); Monocytes % 13.1 %; Neutrophils # 2.98 10^3/uL (1.8-7.7); Neutrophils % 55.9 %; Nucleated Red Blood Cells % 0 %; Platelet Count 291 10^3/cmm (130-400); Red Blood Count 4.49 10^6/uL (4.1-5.3); Red Cell Distribution Width 14.9 % (12.1-15.1); White Blood Count 5.3 10^3/uL (4.0-10.0)
[2020-12-13 05:04] LABS: INR 0.92 (0.8-1.2)
[2020-12-13 05:05] LABS: Partial Thromboplastin Time 28.1 SECONDS (23.9-36.7)
[2020-12-13 05:07] LABS: Alanine Aminotransferase < 5 U/L (0-33); Albumin Level 3.6 g/dL (3.5-5.2); Alkaline Phosphatase 90 IU/L (35-105); Aspartate Amino Transferase 10 U/L (0-32); Blood Urea Nitrogen 10 mg/dL (8-23); C Reactive Protein 3.4 mg/L (0.0-4.9); Calcium 8.9 mg/dL (8.5-10.5); Carbon Dioxide 27 mmol/L (22-29); Chloride 106 mmol/L (98-107); Creatine Phosphokinase 47 U/L (26-192); Globulin 2.3 g/dL (1.3-4.6); Glucose 92 mg/dL (65-115); Lactate (Lactic Acid level) 1.4 mmol/L (0.5-2.2); Osmolality Calculated 293 mOsm/kg (285-295); Sodium 142 mmol/L (136-145); Total Bilirubin 0.2 mg/dL (0.15-1.2); Total Protein 5.9 g/dL (6.6-8.7)
--- NOTE | 2020-12-13 05:08 | ECG_ITS ---
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 Measurements Intervals [place] Rate: 52 P: 48 CA: 152 QRS: 77 QRSD: 124 T: 189 QT: 452 QTc: 423 Interpretive Statements SINUS BRADYCARDIA POSSIBLE RIGHT VENTRICULAR CONDUCTION DELAY [RSR (QR) IN V1/V2] SEPTAL MYOCARDIAL INFARCTION , OF INDETERMINATE AGE [40+ ms Q WAVE IN V1/V2] MODERATE T-WAVE ABNORMALITY, CONSIDER ANTEROLATERAL ISCHEMIA [-0.1+ mV T-WAVE IN V3-V6] Compared to ECG 05/14/2020 14:39:05 Right bundle-branch block no longer present Myocardial infarct finding still present T-wave abnormality still present Possible ischemia still present Electronically Signed On 12-13-2020 18:13:16 CDT by Mita Harris M.D. [email or web address]
[2020-12-13 05:10] LABS: Anion Gap 12.7 (5-19); Potassium 3.7 mmol/L (3.5-5.1)
[2020-12-13 05:11] LABS: ABG PCO2 49.8 mmHg (35-45); ABG PH Result 7.38 (7.35-7.45); Arterial Blood Gas Hematocrit 41.3 % (37-47); Base Excess ABG 3.6 mmol/L (-2.0-2.0); Blood Gas Sample Site Brachial, right; Blood Gas Sample Type Arterial; HCO3 ABG 29.6 mmol/L (22-26); Oxygen Device NC
[2020-12-13] MEDS: naloxone 0.4 mg/ml SDV IVP (05:30)
[2020-12-13] MEDS: sodium chloride 0.9% 1,000 ML 999 ML IV (05:30)
[2020-12-13 05:51] LABS: Troponin(5th) Baseline 18 ng/L (0-10)
[2020-12-13 06:27] VITALS: BP 161/78; PULSE 55; RESP 16; O2SAT 97
[2020-12-13 06:34] LABS: Add Urine Microscopic? NO; Charge for UA Resulting for Rev
[2020-12-13 06:46] LABS: Bilirubin Urine Neg (Negative); Blood Urine Neg (Negative); Glucose Urine UA Norm (Normal); Ketones Urine Negative (Negative); Leukocyte Esterase Urine Negative (Negative); Nitrate Urine Negative (Negative); Protein Urine Neg (Negative); Urine Appearance Clear (CLEAR); Urine Color Yellow (Yellow); Urobilinogen Urine Norm (Negative); pH Urine 6.5 (5-7)
[2020-12-13 06:58] LABS: Troponin 5 2HR 18.76 ng/L (0-10); Troponin 5 2HR Delta 0.76 ABS# (0-10)
[2020-12-13 08:15] VITALS: BP 169/83; PULSE 57; RESP 18; O2SAT 98
--- NOTE | 2020-12-13 08:21 | PC.NURSE ---
Report called to [facility], spoke with NICOLETTE Calvo.
[2020-12-13 10:33] VITALS: BP 169/83; PULSE 57; RESP 18; O2SAT 98
== END 2020-12-13 10:34 | disposition home or self-care (01) ==
PROVIDERS: Emergency Provider Emergency Medicine; PCP Family Medicine
DX: S02.113A Unspecified occipital condyle fracture, initial encounter for closed fracture (principal); W19.XXXA Unspecified fall, initial encounter; E11.9 Type 2 diabetes mellitus without complications; G20 Parkinson's disease; I73.9 Peripheral vascular disease, unspecified; F17.210 Nicotine dependence, cigarettes, uncomplicated
CPT/HCPCS: 36415; 36600; 70450; 71045; 72125; 80053; 81003; 82550; 82803; 83605; 84484; 85025; 85610; 85730; 86140; 93005; 96361; 96374; 99284; J2310; J7030

== ENCOUNTER 2021-03-27 16:09 | Emergency (ER) | payer MEDICARE, OTHER, MEDICAID, SELFPAY ==
--- NOTE | 2021-03-27 16:11 | W.ED.AMS ---
HPI - Altered Mental Status General: Chief Complaint: COVID symptoms Stated Complaint: AMS; COVID + Time Seen by Provider: 03/27/21 16:11 Limitations: altered mental status History of Present Illness: Ms Mejia is a 80-year-old lady with history, per chart review, of depression, diabetes, Parkinson's, dyslipidemia who presents from a retirement facility for altered mental status and COVID. She previously tested positive for Covid. There is significantly limited information and the patient provides basically no meaningful information and keeps asking for somebody named Jessica. Therefore clinical history, course, intensity, symptoms, exacerbating, and alleviating factors are unclear. Review of Systems General: Reports: ROS unobtainable due to mental status PFSH ED PFSH: Medical History Chronic constipation Depression Diet-controlled diabetes mellitus Enrolled in chronic care management Essential tremor Insomnia PAD (peripheral artery disease) Parkinsons disease PMR (polymyalgia rheumatica) RBBB Right hip pain Urinary incontinence Surgical History H/O bladder repair surgery H/O cataract extraction H/O shoulder surgery H/O: hysterectomy History of cholecystectomy Family History Other Alcoholic Social History Smoking and tobacco status: current every day smoker cigarettes Packs smoked per day: 0.50 Alcohol intake: never Physical Exam Const: COMMON NORMALS: alert GENERAL APPEARANCE: well developed, ill appearing (Mildly) and frail appearing; not in distress HENMT: COMMON NORMALS: normocephalic and atraumatic HEAD & SCALP: normocephalic and atraumatic THROAT: posterior oropharynx normal Eye: COMMON NORMALS: conjunctivae normal CONJUNCTIVA: Yes conjunctivae normal SCLERA: sclerae normal Neck/C-Spine: COMMON NORMALS: supple GENERAL: Yes trachea midline Resp: COMMON NORMALS: normal respiratory effort EFFORT & INSPECTION: Yes able to speak in complete sentences Cardio: COMMON NORMALS: regular rhythm RATE: tachycardic RHYTHM: regular rhythm GI: COMMON NORMALS: Soft to palpation PALPATION: Yes Soft to palpation and No Tenderness to palpation present (GI) PERCUSSION: normal to percussion Extremity: GENERAL: Yes normal exam except as noted and No edema Neuro: COMMON NORMALS: moves all extremities SENSORIUM/ORIENTATION: Yes alert and Yes Orientation impaired Psych: MEMORY/COGNITION: Yes memory grossly impaired and Yes cognition grossly impaired Course ED course: - Patient was seen and evaluated by me at bedside - Patient placed on cardiac monitors, IV access obtained - Initial evaluation notable for exam as above, altered mental status without obvious focality - Labs notable for no leukocytosis. No acute electrolyte derangement. Delta troponin is negative. Urinalysis without evidence of urinary tract infection, squamous epithelial contamination present. - Imaging notable for stable COPD with possible mild bibasilar pneumonia, patient has known history of Covid. Negative head CT for acute pathology. - I discussed with the patient's nurse at her retirement facility, apparently confusion is baseline for the patient and she is supposed to wear oxygen. With repositioning of pulse oximetry the patient did not require oxygen anymore. - Upon serial reexamination after treatment the patient was similar to mildly improved - Based on patient history, evaluation, labs, and imaging as interpreted the most likely cause of the patient's condition is unclear exacerbation of baseline medical conditions. - Patient discharged in satisfactory condition. Note: Click bubbles or prepopulated soto in note writing are used for assistance with data collection and billing and are inherently more limited than narrative and other text portions of this note. Please use narrative for additional clinical history and defer to narrative/free test for any case of contradictory information. If information appears in only free text or click bubble it should be considered present or absent as reported. Please contact note marketing copywriter for clarifications of clinical information or contradictory information. MDM is a brief summary, contradictory or erroneous seeming information should be clarified and full note should be reviewed. Vital Signs: Vital signs: Vital Signs Temperature 98.3 F 03/27/21 16:13 Pulse Rate 66 03/28/21 04:49 Respiratory Rate 16 03/28/21 04:49 Blood Pressure 166/58 03/28/21 04:49 Pulse Oximetry 100 03/28/21 04:49 MDM - Altered Mental Status Medical Decision Making 80-year-old lady presenting with altered mental status and known Covid positive. No additional acute findings identified on exam or ED evaluation Mental status appears baseline for patient and with repositioning of pulse oximeter had improvement in oxygen saturation and no longer requiring oxygen. Satisfactory for transfer back to retirement facility. Medical Records I reviewed the patient's medical records. Lab Data I reviewed the patient's lab results. : 03/27/21 17:23 03/27/21 17:23 Radiology Impressions Chest X-Ray 03/27/21 16:12 IMPRESSION: 1. Stable COPD . 2. Possible mild bibasilar pneumonia. Head CT 03/27/21 16:58 IMPRESSION: 1. Moderate cerebral atrophy and ischemic leukoencephalopathy. 2. The ventricles are enlarged out of proportion to the sulci suggesting possible normal pressure hydrocephalus. Correlation with dementia, ataxia and urinary incontinence is recommended. 3. Mliw-qw-snbdrudm left sphenoid paranasal sinus disease. Laboratory Results WBC 5.9 10^3/uL (4.0-10.0) 03/27/21 17: RBC 4.35 10^6/uL (4.1-5.3) 03/27/21 17: Hgb 13.5 g/dL (11.5-15.3) 03/27/21 17: Hct 41.8 % (37.0-47.0) 03/27/21 17: MCV 96.1 fl (81-99) 03/27/21 17: MCH 31.0 pg (28.0-34.0) 03/27/21 17: MCHC 32.3 g/dL (30.0-36.0) 03/27/21 17: RDW 13.4 % (12.1-15.1) 03/27/21 17: Plt Count 426 10^3/cmm (130-400) H 03/27/21 17: MPV 11.2 fL (7.4-10.4) H 03/27/21 17: Neut % (Auto) 73.6 % 03/27/21 17: Lymph % (Auto) 15.7 % 03/27/21 17: [place] % (Auto) 9.5 % 03/27/21 17: Eos % (Auto) 0.3 % 03/27/21 17: Baso % (Auto) 0.2 % 03/27/21 17: Neut # (Auto) 4.36 10^3/uL (1.8-7.7) 03/27/21:23 Lymph # (Auto) 0.9 10^3/uL (0.8-4.8) 03/27/21 17:23 [place] # (Auto) 0.6 10^3/uL (0.2-0.9) 03/27/21 17:23 Eos # (Auto) 0.0 10^3/uL (0.0-0.8) 03/27/21 17:23 Baso # (Auto) 0.0 10^3/uL (0.0-0.1) 03/27/21 17:23 Nucleated RBC % (auto) 0 % 03/27/21 17: Nucleated RBCs # 0.0 /100WBC 03/27/21 17:23 Specimen Type Arterial 03/27/21 16:22 Sample Site Radial, right 03/27/21 16:22 ABG pH 7.42 (7.35-7.45) 03/27/21 16:22 ABG pCO2 47.4 mmHg (35-45) H 03/27/21 16:22 ABG pO2 58.4 mmHg (80.0-100.0) L 03/27/21 16:22 ABG HCO3 30.9 mmol/L (22-26) H 03/27/21 16:22 ABG Base Excess 5.4 mmol/L (-2.0-2.0) H 03/27/21 16:22 Vincenzo Test Pos 03/27/21 16:22 Hematocrit 43.8 % (37-47) 03/27/21 16:22 O2 Delivery Device Nc 03/27/21 16:22 O2 Liters/Min 2.0 % 03/27/21 16:22 FiO2 28.0 % 03/27/21 16:22 Medical Office Professional Instructor ID Monro 03/27/21 16:22 Sodium 140 mmol/L (136-145) 03/27/21 17:23 Potassium 3.5 mmol/L (3.5-5.1) 03/27/21 17: Chloride 101 mmol/L (98-107) 03/27/21 17:23 Carbon Dioxide 25 mmol/L (22-29) 03/27/21 17:23 Anion Gap 17.5 (5-19) 03/27/21 17:23 BUN 12 mg/dL (8-23) 03/27/21 17:23 Creatinine 0.3 mg/dL (0.5-0.9) L 03/27/21 17:23 GFR Calculation Not Reportable 03/27/21 17:23 Glucose 121 mg/dL (65-115) H 03/27/21 17:23 POC Glucose 98 mg/dL (70-110) 03/28/21 01:30 Calculated Osmolality 291 mOsm/kg (285-295) 03/27/21 17:23 Calcium 9.0 mg/dL (8.5-10.5) 03/27/21 17: Total Bilirubin 0.3 mg/dL (0.15-1.2) 03/27/21 17:23 AST 21 U/L (0-32) 03/27/21 17: ALT 13 U/L (0-33) 03/27/21 17: Alkaline Phosphatase 101 IU/L (35-105) 03/27/21 17:23 Troponin T Baseline 28 ng/L (0-10) H 03/27/21 17:23 Troponin T 120 Minute 27.14 ng/L (0-10) H 03/27/21 19:52 Delta Troponin T -0.86 ABS# (0-10) L 03/27/21 19:52 C-Reactive Protein 94.1 mg/L (0.0-4.9) H 03/27/21 17:23 NT-Pro-B Natriuret Pep 120 pg/mL (0-450) 03/27/21 17:23 Total Protein 6.0 g/dL (6.6-8.7) L 03/27/21 17:23 Albumin 3.5 g/dL (3.5-5.2) 03/27/21 17: Globulin 2.5 g/dL (1.3-4.6) 03/27/21 17:23 Procalcitonin 0.05 ng/mL (0-0.5) 03/27/21 17:23 TSH 1.33 uIU/mL (0.27-4.20) 03/27/21 17:23 Urine Color Yellow (Yellow) 03/27/21 19:17 Urine Appearance Clear (CLEAR) 03/27/21 19:17 Urine pH 6.5 (5-7) 03/27/21 19:17 Ur Specific Weld 1.015 (1.005-1.030) 03/27/21 19:17 Urine Protein Trace (Negative) 03/27/21 19:17 Urine Glucose (UA) Norm (Normal) 03/27/21 19:17 Urine Ketones Negative (Negative) 03/27/21 19:17 Urine Blood Neg (Negative) 03/27/21 19:17 Urine Nitrate Negative (Negative) 03/27/21 19:17 Urine Bilirubin Neg (Negative) 03/27/21 19:17 Urine Urobilinogen 1 mg/dL (Negative) H 03/27/21 19:17 Ur Leukocyte Esterase Negative (Negative) 03/27/21 19:17 Urine RBC 0-4 /hpf (0-2) H 03/27/21 19:17 Urine WBC 0-4 /hpf (0-5) H 03/27/21 19:17 Ur Squamous Epith Cells 15-25 /hpf (0-5) H 03/27/21 19:17 Amorphous Sediment Not Reportable 03/27/21 19:17 Urine Bacteria 2+ /hpf (NONE) H 03/27/21 19:17 Hyaline Casts 0-4 /lpf H 03/27/21 19:17 EKG Data EKG 1: I personally reviewed and interpreted this EKG as follows: EKG interpretation date: 03/27/21 EKG interpretation time: 17:45 Interpretation: Twelve-lead EKG shows a regular rhythm at a rate of 62. AK interval 139, QRS duration 131, QTc 455. Normal axis. Interpretation: Sinus rhythm. Right bundle branch block. EKG 2: I personally reviewed and interpreted this EKG as follows: EKG interpretation date: 03/27/21 EKG interpretation time: 19:00 Interpretation: Twelve-lead EKG shows a regular rhythm at a rate of 62. AK interval 140, QRS duration 128, QTc 438. Normal axis. Interpretation: Sinus rhythm. Right bundle branch block. Discharge Plan Discharge Patient Disposition: [facility] Clinical Impression: Altered mental status, COVID-19 Condition: Stable Discharge Orders: Discharge ED (Routine); Ordered 03/27/21 Ordered By: Liang Yancey Referrals: Jarod Cano, [Referring] - Discharge Diet: Usual diet Discharge Activity: Resume usual activity Patient Instructions: COVID-19 (Coronavirus Disease 2019) (ED) Activity Restrictions/Additional Instructions: Thank you for visiting the emergency department. You were seen and evaluated for low oxygen levels and perhaps low blood sugar. The exact cause of the symptoms is unclear as your oxygen levels have remained satisfactory during ED evaluation. It is quite possible that you are still experiencing some effects from COVID-19. I would expect these to improve over time. I do not see evidence of additional infection at this time. Please follow-up with your primary care provider. Please return to the emergency department for worsening symptoms, oxygen saturations on your normal supplemental oxygen of less than 90% with a good waveform/reading, or anything else that you are concerned about a feel needs emergency department evaluation. As an incidental note your head CT revealed the following: The ventricles are enlarged out of proportion to the sulci suggesting possible normal pressure hydrocephalus. Correlation with dementia, ataxia and urinary incontinence is recommended. This can be further evaluated in the outpatient setting as clinically warranted as determined by your primary care provider. Coding Level of Care Code ED Director Medical Surgical for [facility]
--- NOTE | 2021-03-27 16:12 | XRR_ITS ---
PROCEDURE INFORMATION: Exam: XR Chest Exam date and time: 03/27/2021 4:12 PM Age: 80 years old Clinical indication: Dyspnea; Patient HX: Covid with AMS; Additional info: Covid AMS TECHNIQUE: Imaging protocol: XR of the chest. Views: 1 view. COMPARISON: CR (CHEST, ) 12/13/2020 5:04 AM FINDINGS: Lungs: Stable COPD . Possible mild bibasilar pneumonia. Pleural spaces: Unremarkable. No pleural effusion. No pneumothorax. Heart/Mediastinum: Unremarkable. No cardiomegaly. Bones/joints: Unremarkable. Other findings: Patient rotation to the right. Stable postoperative changes over the right shoulder. XR/XR chest 1V portable [id number] IMPRESSION: 1. Stable COPD . 2. Possible mild bibasilar pneumonia.
[2021-03-27 16:13] VITALS: BP 118/76; PULSE 113; RESP 20; TEMP 36.8; O2SAT 92; BMI 21.7
--- NOTE | 2021-03-27 16:13 | ECG_ITS ---
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 Measurements Intervals [place] Rate: 62 P: 62 MD: 139 QRS: 91 QRSD: 131 T: 153 QT: 450 QTc: 458 Interpretive Statements SINUS RHYTHM RIGHT BUNDLE BRANCH BLOCK [120+ ms QRS DURATION, UPRIGHT V1, 40+ ms S IN I/aVL/V4/V5/V6] MODERATE T-WAVE ABNORMALITY, CONSIDER ANTEROLATERAL ISCHEMIA [-0.1+ mV T-WAVE IN V3-V6] Compared to ECG 12/13/2020 05:19:42 Right bundle-branch block now present Sinus bradycardia no longer present Myocardial infarct finding no longer present T-wave abnormality still present Possible ischemia still present Electronically Signed On 03-28-2021 17:00:42 DIE SET UP WORKER by Jennifer Jerome M.D. [id number]
[2021-03-27 16:34] LABS: ABG PCO2 47.4 mmHg (35-45); ABG PH Result 7.42 (7.35-7.45); Arterial Blood Gas Hematocrit 43.8 % (37-47); Base Excess ABG 5.4 mmol/L (-2.0-2.0); Blood Gas Allen Test Pos; Blood Gas Sample Type Arterial; HCO3 ABG 30.9 mmol/L (22-26); PO2 ABG 58.4 mmHg (80.0-100.0)
[2021-03-27 16:35] LABS: Blood Gas Operator Identificat MONRO; Blood Gas Sample Site Radial, right; Oxygen Device NC
--- NOTE | 2021-03-27 16:58 | CTR_ITS ---
PROCEDURE INFORMATION: Exam: CT Head Without Contrast Exam date and time: 03/27/2021 4:58 PM Age: 80 years old Clinical indication: Altered mental status/memory loss; Confusion or disorientation; Patient HX: AMS TECHNIQUE: Imaging protocol: Computed tomography of the head without contrast. Radiation optimization: All CT scans at this facility use at least one of these dose optimization techniques: automated exposure control; mA and/or kV adjustment per patient size (includes targeted exams where dose is matched to clinical indication); or iterative reconstruction. COMPARISON: CT head wo con* [id number] 12/13/2020 4:29 AM RADIATION DOSE METRICS: Total DLP (mGy-cm): 1641.1 FINDINGS: Tubes, catheters and devices: Examination is limited secondary to motion artifact. The images were repeated without additional motion artifact. Brain: Moderate cerebral atrophy and ischemic leukoencephalopathy. 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 Cerebral ventricles: The ventricles are enlarged out of proportion to the sulci suggesting possible normal pressure hydrocephalus. Correlation with dementia, ataxia and urinary incontinence is recommended. Paranasal sinuses: [id number] left sphenoid paranasal sinus disease. Mastoid air cells: Visualized mastoid air cells are well aerated. Vasculature: Moderate calcified intracranial atherosclerotic vessel disease. Bones/joints: Unremarkable. No acute fracture. Soft tissues: Unremarkable. CT/CT head wo con* [id number] IMPRESSION: 1. Moderate cerebral atrophy and ischemic leukoencephalopathy. 2. The ventricles are enlarged out of proportion to the sulci suggesting possible normal pressure hydrocephalus. Correlation with dementia, ataxia and urinary incontinence is recommended. 3. Ryis-ck-rtjiubeq left sphenoid paranasal sinus disease.
[2021-03-27 17:28] VITALS: O2SAT 94
[2021-03-27 17:58] LABS: Basophils % 0.2 %; Eosinophils % 0.3 %; Hematocrit 41.8 % (37.0-47.0); Hemoglobin 13.5 g/dL (11.5-15.3); Lymphocytes # 0.9 10^3/uL (0.8-4.8); Lymphocytes % 15.7 %; Mean Corpuscular HGB Conc 32.3 g/dL (30.0-36.0); Mean Corpuscular Volume 96.1 fl (81-99); Mean Platelet Volume 11.2 fL (7.4-10.4); Monocytes # 0.6 10^3/uL (0.2-0.9); Monocytes % 9.5 %; Neutrophils # 4.36 10^3/uL (1.8-7.7); Neutrophils % 73.6 %; Nucleated Red Blood Cells % 0 %; Platelet Count 426 10^3/cmm (130-400); Red Blood Count 4.35 10^6/uL (4.1-5.3); Red Cell Distribution Width 13.4 % (12.1-15.1); White Blood Count 5.9 10^3/uL (4.0-10.0)
--- NOTE | 2021-03-27 18:13 | ECG_ITS ---
[facility] Test Date: 2021-03-27 Pat Name: Yuli Mejia Department: Room: Gender: Female Perioperative Manager: : 1940 Requested By: Liang Yancey Order Number: [id number] Carleen MD: Jennifer Jerome M.D. Measurements Intervals [place] Rate: 62 P: 81 [place]: 140 QRS: 94 QRSD: 128 T: 21 QT: 434 QTc: 441 Interpretive Statements SINUS RHYTHM RIGHT BUNDLE BRANCH BLOCK [120+ ms QRS DURATION, UPRIGHT V1, 40+ ms S IN I/aVL/V4/V5/V6] MODERATE T-WAVE ABNORMALITY, CONSIDER LATERAL ISCHEMIA [-0.1+ mV T-WAVE IN I/aVL/V5/V6] Compared to ECG 03/27/2021 17:42:23 No significant changes Electronically Signed On 03-28-2021 17:05:48 BIG DATA ADMIN by Jennifer Jerome M.D. [id number]
[2021-03-27 18:19] LABS: Glucose Point of Care 98 mg/dL (70-110)
[2021-03-27 18:36] LABS: Troponin(5th) Baseline 28 ng/L (0-10)
[2021-03-27 18:43] LABS: NT Pro B Type Natriuretic Pept 120 pg/mL (0-450); Procalcitonin 0.05 ng/mL (0-0.5); Thyroid Stimulating Hormone 1.33 uIU/mL (0.27-4.20)
[2021-03-27 18:54] LABS: Alanine Aminotransferase 13 U/L (0-33); Albumin Level 3.5 g/dL (3.5-5.2); Alkaline Phosphatase 101 IU/L (35-105); Aspartate Amino Transferase 21 U/L (0-32); Blood Urea Nitrogen 12 mg/dL (8-23); C Reactive Protein 94.1 mg/L (0.0-4.9); Carbon Dioxide 25 mmol/L (22-29); Chloride 101 mmol/L (98-107); Globulin 2.5 g/dL (1.3-4.6); Glucose 121 mg/dL (65-115); Osmolality Calculated 291 mOsm/kg (285-295); Sodium 140 mmol/L (136-145); Total Bilirubin 0.3 mg/dL (0.15-1.2)
[2021-03-27 18:55] LABS: Anion Gap 17.5 (5-19); Potassium 3.5 mmol/L (3.5-5.1)
[2021-03-27 19:25] VITALS: BP 146/59; PULSE 76; RESP 16; O2SAT 97
[2021-03-27 20:14] VITALS: BP 133/57; PULSE 71; RESP 14; O2SAT 95
[2021-03-27 20:28] LABS: Add Urine Microscopic? YES; Bilirubin Urine Neg (Negative); Blood Urine Neg (Negative); Glucose Urine UA Norm (Normal); Ketones Urine Negative (Negative); Leukocyte Esterase Urine Negative (Negative); Nitrate Urine Negative (Negative); Protein Urine Trace (Negative); Specific Gravity, Urine 1.015 (1.005-1.030); Urine Appearance Clear (CLEAR); Urine Color Yellow (Yellow); Urobilinogen Urine 1 mg/dL (Negative); pH Urine 6.5 (5-7)
[2021-03-27 20:35] LABS: Add Urine Culture? No; Bacteria Urine 2+ /hpf; Hyaline Casts Urine 0-4 /lpf; RBC Urine 0-4 /hpf (0-2); Squamous Epithelial Cell Urine 15-25 /hpf (0-5); WBC Urine 0-4 /hpf (0-5)
[2021-03-27 20:44] LABS: Troponin 5 2HR 27.14 ng/L (0-10)
[2021-03-27 20:47] LABS: Troponin 5 2HR Delta -0.86 ABS# (0-10)
[2021-03-27 20:58] VITALS: PULSE 63; RESP 14; O2SAT 100
[2021-03-27 22:56] LABS: Glucose Point of Care 74 mg/dL (70-110)
[2021-03-28 01:33] LABS: Glucose Point of Care 98 mg/dL (70-110)
[2021-03-28 04:49] VITALS: BP 166/58; PULSE 66; RESP 16; O2SAT 100
== END 2021-03-28 05:39 ==
PROVIDERS: Emergency Provider Emergency Medicine
DX: R41.82 Altered mental status, unspecified (principal); U07.1 COVID-19; E11.9 Type 2 diabetes mellitus without complications; G20 Parkinson's disease; F17.210 Nicotine dependence, cigarettes, uncomplicated
CPT/HCPCS: 36415; 36416; 70450; 71045; 80053; 81001; 82803; 82962; 83880; 84145; 84443; 84484; 85025; 86140; 87040; 93005; 99284

== ENCOUNTER 2021-07-13 06:06 | Emergency (ER) | payer MEDICARE, OTHER, MEDICAID, SELFPAY ==
[2021-07-13 06:08] VITALS: BMI 22.1
[2021-07-13 06:14] VITALS: BP 174/74; PULSE 60; RESP 15; TEMP 36.1; O2SAT 95
--- NOTE | 2021-07-13 06:14 | XRR_ITS ---
PROCEDURE INFORMATION: Exam: XR Pelvis Exam date and time: 07/13/2021 6:31 AM Age: 81 years old Clinical indication: Hip pain; Patient HX: Fell this am pain to bilateral hips; Additional info: Fall TECHNIQUE: Imaging protocol: XR pelvis. Views: 1 or 2 view. COMPARISON: CR XR pelvis 1-2V* [id number] 03/12/2020 12:48 PM FINDINGS: Bones/joints: The pelvis is grossly intact. The hip joints appear unremarkable on this single AP view. Soft tissues: Unremarkable. XR/XR pelvis 1-2V* [id number] IMPRESSION: The hip joints appear unremarkable on this single AP view. If concerned for hip fracture recommend additional dedicated views in different obliquities.
--- NOTE | 2021-07-13 06:15 | W.ED.FALL ---
HPI - Fall General: Chief Complaint: Fall Stated Complaint: FALL Time Seen by Provider: 07/13/21 06:08 History of Present Illness: Mrs. Mejia is an 81-year-old female from a local residential facility with a relevant past medical history of Parkinson's and Parkinson's related dementia who is a extreme fall risk. Because of that she has a low height mattress and a mat next to her mattress. Staff found her not on the mattress but on the mat next to her mattress. It was unclear whether she fell off of her mattress, rolled off, or simply moved from the mattress to the mat. They looked her over and thought her sacrum was slightly prominent but did not find any other signs of trauma. She cannot give history due to her dementia. Review of Systems Narrative: Unable to Obtain ROS due to dementia. PFSH ED PFSH: Medical History Chronic constipation Depression Diet-controlled diabetes mellitus Enrolled in chronic care management Essential tremor Insomnia PAD (peripheral artery disease) Parkinsons disease PMR (polymyalgia rheumatica) RBBB Right hip pain Urinary incontinence Surgical History H/O bladder repair surgery H/O cataract extraction H/O shoulder surgery H/O: hysterectomy History of cholecystectomy Family History Other Alcoholic Social History Smoking and tobacco status: current every day smoker cigarettes Packs smoked per day: 0.50 Alcohol intake: never Physical Exam Narrative: EXAM NARRATIVE: I have reviewed the triage vital signs. Const: Well-nourished, Well-developed, appearing stated age, deconditioned, elderly, no distress, pulled up blankets and rolled onto right side and began to fall asleep? Eyes: PERRL, no conjunctival injection,?and symmetrical lids. ENMT: Atraumatic head and facial exam, external nose and ears normal,?tacky MM? Neck: Symmetric, trachea midline, no swelling, no JVD, no c spine tenderness CVS: Regular rate, radial pulse 2+ RESP: Unlabored respiratory effort, symmetric expansion, Clear to auscultation bilaterally GI: Nontender/Nondistended, soft, no masses. MSK: Normocephalic/Atraumatic, increased muscle tone throughout butextremities w/o deformity or ttp, no cyanosis or clubbing, spine NT, pelvis stable, PROM extremities doesn't cause pain Skin: Warm, Dry, No rashes or lesions Neuro: collections assistant II-XII grossly intact,.?Sensation grossly intact Psych: wakes, is not oriented, doesn't interact much Course Vital Signs: Vital signs: Vital Signs Temperature 96.9 F L 07/13/21 06:14 Pulse Rate 60 07/13/21 06:51 Respiratory Rate 18 07/13/21 06:51 Blood Pressure 169/73 07/13/21 06:51 Pulse Oximetry 92 07/13/21 06:51 MDM - Fall Medical Decision Making 81-year-old female presents for medical screening examination. She possibly fell about 12 to 15 inches from a mattress onto a mat. However, this was not confirmed. Palpation through the bony structures and passive range of motion revealed increased muscle tone consistent with her diagnosis of Parkinson's. I did not find any areas where she was focally tender or had impaired range of motion compared to the contralateral side. I did not find any evidence of head trauma without any signs of bruising, hematoma, tenderness. Patient does not seem to be in any distress. Her sacrum and SI joint are prominent because the patient has gluteal wasting but I would not say they are swollen. A pelvis x-ray will be obtained to evaluate the pelvis and proximal femurs. At this time I do not feel that further work-up is indicated based on the examination. If patient voices new or ongoing pain, then further work-up can be performed. On my repeat exam, I performed ROM of her extremities and checked again for any signs of pain or trauma. I did not find any. Pelvis xray 1 view didn't show any fracture or dislocation. Plan to d/c. Lab Data Radiology Impressions Pelvis X-Ray 07/13/21 06:14 IMPRESSION: The hip joints appear unremarkable on this single AP view. If concerned for hip fracture recommend additional dedicated views in different obliquities. Discharge Plan Discharge Patient Disposition: [facility] Clinical Impression: Encounter for medical screening examination, At high risk for falls Condition: Stable Discharge Orders: Discharge ED (Routine); Ordered 07/13/21 Ordered By: Migue Baum Discharge Diet: Advance as tolerated Discharge Activity: Increase activity as tolerated Patient Instructions: Fall Prevention for Older Adults (ED) Activity Restrictions/Additional Instructions: Mrs Mejia was screened for any signs of injury or change in condition. We did not find any objective evidence of trauma. If voices concern about new or worsening pain or dysfunction, please request that her provider repeat her exam to determine if further workup is indicated. Otherwise, please have her follow-up with her PCP in one week. Coding Level of Care Code ED Packaging Line Attendant for [facility]
[2021-07-13 06:51] VITALS: BP 169/73; PULSE 60; RESP 18; O2SAT 92
--- NOTE | 2021-07-13 07:50 | PC.NURSE ---
REPORT CALLED TO ROHIT AT [facility] SHE STATES THAT TRANSPORTATION WOULD BE PROVIDED.
[2021-07-13 09:06] VITALS: PULSE 72; RESP 16; O2SAT 92
== END 2021-07-13 09:09 ==
PROVIDERS: Emergency Provider Emergency Medicine
DX: Z00.00 Encounter for general adult medical examination without abnormal findings (principal); Z91.81 History of falling
CPT/HCPCS: 72170; 99283

== ENCOUNTER 2021-08-13 22:42 | Emergency (ER) | payer MEDICARE, OTHER, MEDICAID, SELFPAY ==
[2021-08-13 23:23] VITALS: BP 154/75; PULSE 98; RESP 26; TEMP 38.6; O2SAT 99; BMI 23.0
[2021-08-13 23:38] VITALS: BP 154/75; PULSE 98; RESP 26; TEMP 38.6; O2SAT 99
--- NOTE | 2021-08-13 23:40 | XRR_ITS ---
PROCEDURE INFORMATION: Exam: XR Chest Exam date and time: 08/14/2021 12:02 AM Age: 81 years old Clinical indication: Fever; Additional info: Fever, hypoxia TECHNIQUE: Imaging protocol: Radiologic exam of the chest. Views: 1 view. COMPARISON: CR (CHEST, ) 03/27/2021 4:35 PM FINDINGS: Lungs: No CHF/pulmonary edema. Mild left lower lung opacities could represent pneumonitis and/or atelectasis. Visible lungs otherwise appear essentially clear. Pleural spaces: No visible pneumothorax. No definite pleural fluid. Heart/Mediastinum: Heart size is within normal limits. Bones/joints: Right shoulder prosthesis again noted. XR/XR chest 1V portable [id number] IMPRESSION: 1. Mild left lower lung opacities could represent pneumonitis and/or atelectasis. 2. Other findings discussed above.
--- NOTE | 2021-08-13 23:40 | CTR_ITS ---
PROCEDURE INFORMATION: Exam: CT Head Without Contrast Exam date and time: 08/14/2021 1:08 AM Age: 81 years old Clinical indication: Altered mental status/memory loss and fever; Patient HX: Severe lethargy with fever. Patient resides at [facility] with current outbreak of covid. ; Additional info: AMS TECHNIQUE: Imaging protocol: Computed tomography of the head without contrast. Radiation optimization: All CT scans at this facility use at least one of these dose optimization techniques: automated exposure control; mA and/or kV adjustment per patient size (includes targeted exams where dose is matched to clinical indication); or iterative reconstruction. COMPARISON: CT head wo con* [id number] 03/27/2021 5:11 PM RADIATION DOSE METRICS: Total DLP (mGy-cm): 548.73 FINDINGS: Brain: No acute intracranial hemorrhage or mass effect. There is decreased attenuation in the periventricular white matter, likely from microvascular disease. There are old lacunar infarcts in the right basal ganglia region/periventricular white matter, similar to the prior exam. No definite acute infarct by CT. MRI could be more sensitive/specific for detection, as clinically directed. Cerebral ventricles: Ventricle size is within normal limits for age and degree of atrophy, not significantly changed. Paranasal sinuses: Included paranasal sinuses are essentially clear. Mastoid air cells: No significant acute finding. Bones/joints: No definite acute skull fracture. Soft tissues: No significant acute finding. Vasculature: Vascular calcifications in the internal carotid and vertebral basilar systems. CT/CT head wo con* [id number] IMPRESSION: 1. No acute intracranial hemorrhage or mass effect. 2. Changes of microvascular disease, and old lacunar infarcts. 3. No definite acute infarct by CT, see above. 4. Other findings discussed above.
--- NOTE | 2021-08-13 23:41 | ECG_ITS ---
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 Measurements Intervals [place] Rate: 82 P: 80 CT: 145 QRS: 97 QRSD: 126 T: 73 QT: 381 QTc: 447 Interpretive Statements SINUS RHYTHM RIGHT BUNDLE BRANCH BLOCK [120+ ms QRS DURATION, UPRIGHT V1, 40+ ms S IN I/aVL/V4/V5/V6] SEPTAL MYOCARDIAL INFARCTION , OF INDETERMINATE AGE [40+ ms Q WAVE IN V1/V2] MODERATE T-WAVE ABNORMALITY, CONSIDER LATERAL ISCHEMIA [-0.1+ mV T-WAVE IN I/aVL/V5/V6] Compared to ECG 03/27/2021 18:52:15 Myocardial infarct finding now present T-wave abnormality still present Possible ischemia still present Electronically Signed On 08-15-2021 12:31:55 CDT by Paco Becker M.D. [id number]
[2021-08-14 00:03] VITALS: BP 112/61; PULSE 89; RESP 18; O2SAT 100
[2021-08-14 00:12] LABS: Albumin Level 3.9 g/dL (3.5-5.2); Alkaline Phosphatase 113 IU/L (35-105); C Reactive Protein 53.8 mg/L (0.0-4.9); Chloride 103 mmol/L (98-107); Potassium 3.6 mmol/L (3.5-5.1); Sodium 141 mmol/L (136-145)
[2021-08-14 00:22] LABS: Lactate (Lactic Acid level) 1.2 mmol/L (0.5-2.2)
[2021-08-14 00:25] LABS: Alanine Aminotransferase 14 U/L (0-33); Anion Gap 17.6 (5-19); Aspartate Amino Transferase 14 U/L (0-32); Blood Urea Nitrogen 21 mg/dL (8-23); Calcium 9.4 mg/dL (8.5-10.5); Carbon Dioxide 24 mmol/L (22-29); Globulin 2.9 g/dL (1.3-4.6); Glucose 103 mg/dL (65-115); Osmolality Calculated 295 mOsm/kg (285-295); Total Bilirubin 0.4 mg/dL (0.15-1.2); Total Protein 6.8 g/dL (6.6-8.7)
[2021-08-14 00:31] LABS: Add Urine Microscopic? YES; Bilirubin Urine Neg (Negative); Blood Urine Neg (Negative); Glucose Urine UA Norm (Normal); Ketones Urine Negative (Negative); Leukocyte Esterase Urine 1+ (Negative); Nitrate Urine Negative (Negative); Protein Urine Neg (Negative); Urine Appearance Clear (CLEAR); Urine Color Yellow (Yellow); Urobilinogen Urine 1 mg/dL (Negative); pH Urine 5 (5-7)
[2021-08-14 00:32] LABS: Bacteria Urine 3+ /hpf; RBC Urine 0-4 /hpf (0-2); WBC Urine 15-25 /hpf (0-5)
[2021-08-14 00:33] LABS: Add Urine Culture? Yes
[2021-08-14 00:35] LABS: Basophils % 0.2 %; Eosinophils % 0.2 %; Hematocrit 43.2 % (37.0-47.0); Hemoglobin 13.9 g/dL (11.5-15.3); Lymphocytes # 0.8 10^3/uL (0.8-4.8); Lymphocytes % 6.6 %; Mean Corpuscular HGB Conc 32.2 g/dL (30.0-36.0); Mean Corpuscular Hemoglobin 30.9 pg (28.0-34.0); Mean Platelet Volume 10.8 fL (7.4-10.4); Monocytes # 0.7 10^3/uL (0.2-0.9); Monocytes % 5.4 %; Neutrophils % 87.1 %; Nucleated Red Blood Cells % 0 %; Platelet Count 339 10^3/cmm (130-400); Red Cell Distribution Width 12.9 % (12.1-15.1); White Blood Count 12.6 10^3/uL (4.0-10.0)
[2021-08-14] MEDS: sodium chloride 0.9% 500 ML IV (00:44)
[2021-08-14 00:45] VITALS: BP 160/55; PULSE 82; RESP 18; O2SAT 100
[2021-08-14 00:46] LABS: ABG PCO2 40.3 mmHg (35-45); ABG PH Result 7.42 (7.35-7.45); Arterial Blood Gas Hematocrit 42.5 % (37-47); Base Excess ABG 1.1 mmol/L (-2.0-2.0); Blood Gas Allen Test Pos; Blood Gas Operator Identificat WALCI; Blood Gas Sample Site Brachial, right; Blood Gas Sample Type Arterial; HCO3 ABG 25.8 mmol/L (22-26); Oxygen Device NC; PO2 ABG 75.5 mmHg (80.0-100.0)
[2021-08-14] MEDS: acetaminophen 650 mg Supp PR (01:42)
[2021-08-14] MEDS: cefTRIAXone 1,000 MG in sodium chloride 0.9% (plus) 50 ML 100 MG IV (01:42)
[2021-08-14 02:03] LABS: Adenovirus Not Detected (NOT DETECT); Chlamydia Pneumoniae Not Detected (NOT DETECT); Coronavirus 229E,HKU1,NL63,OC4 Not Detected (NOT DETECT); Human Metapneumovirus Not Detected (NOT DETECT); Human Rhinovirus/Enterovirus Not Detected (NOT DETECT); Influenza A Not Detected (NOT DETECT); Influenza A H1 Not Detected (NOT DETECT); Influenza A H1-2009 Not Detected (NOT DETECT); Influenza A H3 Not Detected (NOT DETECT); Influenza B Not Detected (NOT DETECT); Mycoplasma Pneumoniae Not Detected (NOT DETECT); Parainfluenza Virus Type 1 Not Detected (NOT DETECT); Parainfluenza Virus Type 2 Not Detected (NOT DETECT); Parainfluenza Virus Type 3 Not Detected (NOT DETECT); Parainfluenza Virus Type 4 Not Detected (NOT DETECT); Respiratory Syncytial Virus A Not Detected (NOT DETECT); Respiratory Syncytial Virus B Not Detected (NOT DETECT); SARS-COV-2 Not Detected (NOT DETECT)
--- NOTE | 2021-08-14 02:12 | ED_ITS ---
HPI - Altered Mental Status General: Chief Complaint: Altered Mental Status Stated Complaint: FEVER Time Seen by Provider: 08/13/21 23:18 Source: patient, family and EMS History of Present Illness: 81-year-old female presents with mental status changes from a nursing facility. Evidently she was minimally responsive there. Here, she verbalizes. She is normally awake and alert to self. She is running a fever. She says she has been coughing she denies specific urinary complaints. Evidently, some patients and staff members in the nursing facility do have COVID-19 currently MD complaint: altered mental status, confusion and decreased responsiveness Onset (ago): hour(s) Timing confirmed by: caregiver Severity: moderate Consistency of symptoms: Waxing and Waning Context: recent fever Review of Systems General: Reports: ROS unobtainable due to mental status Const: Reports: fever(s), chills and body aches Eyes: Denies: change in vision ENMT: Reports: throat pain Card: Denies: chest pain Resp: Reports: dyspnea and non-productive cough; Denies: productive cough GI: Reports: nausea; Denies: abdominal pain or vomiting Neuro: Reports: headache(s) and dizziness PFSH ED PFSH: Medical History Chronic constipation Depression Diet-controlled diabetes mellitus Enrolled in chronic care management Essential tremor Insomnia PAD (peripheral artery disease) Parkinsons disease PMR (polymyalgia rheumatica) RBBB Right hip pain Urinary incontinence Surgical History H/O bladder repair surgery H/O cataract extraction H/O shoulder surgery H/O: hysterectomy History of cholecystectomy Family History Other Alcoholic Social History Smoking and tobacco status: current every day smoker cigarettes Packs smoked p er day: 0.50 Alcohol intake: never Physical Exam Const: EXAM LIMITATIONS: altered mental status GENERAL APPEARANCE: cooperative, ill appearing and frail appearing NUTRITIONAL APPEARANCE: thin ORIENTATION/CONSCIOUSNESS: Yes awake, Yes oriented to person and Yes oriented to place HENMT: COMMON NORMALS: normocephalic and Normal external nose present HEAD & SCALP: normocephalic and contusion (Right periorbital) FACE & SINUS: face not symmetric (Chronic) NOSE: Normal external nose present Eye: COMMON NORMALS: EOMs intact bilaterally Neck/C-Spine: GENERAL: Yes trachea midline Chest: CHEST: Yes Symmetrical chest wall rise Resp: COMMON NORMALS: normal respiratory effort and No use of accessory muscles AUSCULTATION: rhonchi (Bilateral) Cardio: COMMON NORMALS: regular rate and regular rhythm RATE: regular rate RHYTHM: regular rhythm GI: COMMON NORMALS: Soft to palpation and non-tender PALPATION: Yes Soft to palpation Extremity: COMMON NORMALS: no pedal edema Neuro: CHINMAY COMA SCALE: document GCS findings [place] coma scale eye opening: To sound [place] coma scale verbal response: Confused [place] coma scale motor response: Obey commands [place] coma scale total score: 13 SENSORIUM/ORIENTATION: Yes oriented to person and Yes oriented to place Course Vital Signs: Vital signs: Vital Signs Temperature 101.4 F H 08/13/21 23:38 Pulse Rate 82 08/14/21 00:45 Respiratory Rate 18 08/14/21 00:45 Blood Pressure 160/55 08/14/21 00:45 Pulse Oximetry 100 08/14/21 00:45 MDM - Altered Mental Status Medical Decision Making Patient presenting with significant fever and mental status change. Temperatures improved here. Vitals are good. White blood cell count is 12.6. Rest of her CBC is normal. BMP is normal. Chest x-ray shows some left lower lobe atelectasis versus possible pneumonitis. Urinalysis shows findings suspicious for urinary tract infection. Head CT is negative. She appears to be essentially at her baseline mental status perez. She is given IV Rocephin to cover UTI. She will go back on antibiotics. Close observation for fever. Lab Data : 08/13/21 21:45 08/13/21 21:45 Radiology Impressions Chest X-Ray 08/13/21 23:40 IMPRESSION: 1. Mild left lower lung opacities could represent pneumonitis and/or atelectasis. 2. Other findings discussed above. Head CT 08/13/21 23:40 IMPRESSION: 1. No acute intracranial hemorrhage or mass effect. 2. Changes of microvascular disease, and old lacunar infarcts. 3. No definite acute infarct by CT, see above. 4. Other findings discussed above. Laboratory Results WBC 12.6 10^3/uL (4.0-10.0) H 08/13/21 21:45 RBC 4.50 10^6/uL (4.1-5.3) 08/13/21 21:45 Hgb 13.9 g/dL (11.5-15.3) 08/13/21 21:45 Hct 43.2 % (37.0-47.0) 08/13/21 21:45 MCV 96.0 fl (81-99) 08/13/21 21:45 MCH 30.9 pg (28.0-34.0) 08/13/21 21:45 MCHC 32.2 g/dL (30.0-36.0) 08/13/21 21:45 RDW 12.9 % (12.1-15.1) 08/13/21 21:45 Plt Count 339 10^3/cmm (130-400) 08/13/21 21:45 MPV 10.8 fL (7.4-10.4) H 08/13/21 21:45 Neut % (Auto) 87.1 % 08/13/21 21:45 Lymph % (Auto) 6.6 % 08/13/21 21:45 [place] % (Auto) 5.4 % 08/13/21 21:45 Eos % (Auto) 0.2 % 08/13/21 21:45 Baso % (Auto) 0.2 % 08/13/21 21:45 Neut # (Auto) 11.00 10^3/uL (1.8-7.7) H 08/13/21 21:45 Lymph # (Auto) 0.8 10^3/uL (0.8-4.8) 08/13/21 21:45 [place] # (Auto) 0.7 10^3/uL (0.2-0.9) 08/13/21 21:45 Eos # (Auto) 0.0 10^3/uL (0.0-0.8) 08/13/21 21:45 Baso # (Auto) 0.0 10^3/uL (0.0-0.1) 08/13/21 21:45 Nucleated RBC % (auto) 0 % 08/13/21 21:45 Nucleated RBCs # 0.0 /100WBC 08/13/21 21:45 Specimen Type Arterial 08/13/21 00:34 Sample Site Brachial, right 08/13/21 00:34 ABG pH 7.42 (7.35-7.45) 08/13/21 00:34 ABG pCO2 40.3 mmHg (35-45) 08/13/21 00:34 ABG pO2 75.5 mmHg (80.0-100.0) L 08/13/21 00:34 ABG HCO3 25.8 mmol/L (22-26) 08/13/21 00:34 ABG Base Excess 1.1 mmol/L (-2.0-2.0) 08/13/21 00:34 Vincenzo Test Pos 08/13/21 00:34 Hematocrit 42.5 % (37-47) 08/13/21 00:34 O2 Delivery Device Nc 08/13/21 00:34 O2 Liters/Min 3.0 % 08/13/21 00:34 Facilities Locator ID [place] 08/13/21 00:34 Sodium 141 mmol/L (136-145) 08/13/21 21:45 Potassium 3.6 mmol/L (3.5-5.1) 08/13/21 21:45 Chloride 103 mmol/L (98-107) 08/13/21 21:45 Carbon Dioxide 24 mmol/L (22-29) 08/13/21 21:45 Anion Gap 17.6 (5-19) 08/13/21 21:45 BUN 21 mg/dL (8-23) 08/13/21 21:45 Creatinine 0.6 mg/dL (0.5-0.9) 08/13/21 21:45 GFR Calculation Not Reportable 08/13/21 21:45 Glucose 103 mg/dL (65-115) 08/13/21 21:45 Calculated Osmolality 295 mOsm/kg (285-295) 08/13/21 21:45 Lactate 1.2 mmol/L (0.5-2.2) 08/14/21 00:00 Calcium 9.4 mg/dL (8.5-10.5) 08/13/21 21:45 Total Bilirubin 0.4 mg/dL (0.15-1.2) 08/13/21 21:45 AST 14 U/L (0-32) 08/13/21 21:45 ALT 14 U/L (0-33) 08/13/21 21:45 Alkaline Phosphatase 113 IU/L (35-105) H 08/13/21 21:45 C-Reactive Protein 53.8 mg/L (0.0-4.9) H 08/13/21 21:45 Total Protein 6.8 g/dL (6.6-8.7) 08/13/21 21:45 Albumin 3.9 g/dL (3.5-5.2) 08/13/21:45 Globulin 2.9 g/dL (1.3-4.6) 08/13/21 21:45 Urine Color Yellow (Yellow) 08/14/21 00:00 Urine Appearance Clear (CLEAR) 08/14/21 00:00 Urine pH 5 (5-7) 08/14/21 00:00 Ur Specific [place] 1.020 (1.005-1.030) 08/14/21 00:00 Urine Protein Neg (Negative) 08/14/21 00:00 Urine Glucose (UA) Norm (Normal) 08/14/21 00:00 Urine Ketones Negative (Negative) 08/14/21 00:00 Urine Blood Neg (Negative) 08/14/21 00:00 Urine Nitrate Negative (Negative) 08/14/21 00:00 Urine Bilirubin Neg (Negative) 08/14/21 00:00 Urine Urobilinogen 1 mg/dL (Negative) H 08/14/21 00:00 Ur Leukocyte Esterase 1+ (Negative) H 08/14/21 00:00 Urine RBC 0-4 /hpf (0-2) H 08/14/21 00:00 Urine WBC 15-25 /hpf (0-5) H 08/14/21 00:00 Ur Squamous Epith Cells 5-10 /hpf (0-5) H 08/14/21 00:00 Amorphous Sediment Not Reportable 08/14/21 00:00 Urine Bacteria 3+ /hpf (NONE) H 08/14/21 00:00 Coronavirus 229E (PCR) Not detected (NOT DETECT) 08/14/21 00:00 SARS-CoV-2 (PCR) Not detected (NOT DETECT) 08/14/21 00:00 Discharge Plan Discharge Patient Disposition: Home Clinical Impression: Urinary tract infection, Fever Condition: Stable Prescriptions: New cefdinir 300 mg capsule 300 mg PO BID Qty: 14 0RF No Action hydrocodone-acetaminophen 7.5-325 mg tablet 1 tab PO TID PRN (Reason: Pain) 0RF (DME) ASO Brace See Rx Instructions .Route .MEDSUPPLY Qty: 1 0RF Rx Instructions: Wear as needed for stability. aspirin 81 mg tablet,delayed release (DR/EC) 81 mg PO DAILY@0800 0RF gabapentin 300 mg capsule 300 mg PO QID 0RF Rx Instructions: TAKE AT 08,12,16,20 primidone 50 mg tablet 50 mg PO Q8H 0RF Rx Instructions: TAKE AT 08,16,00 (DME) diabetic shoes Qty: 1 0RF Rx Instructions: As directed carbidopa-levodopa 25-100 mg tablet 2 tab PO QID 0RF Rx Instructions: TAKE AT 08,12,16,20 bupropion HCl 150 mg Tablet Extended Release 24 Hr 150 mg PO BID@0800,2000 0RF sennosides-docusate sodium [Senna Plus] 8.6-50 mg Tablet 1 tab PO BEDTIME@2000 0RF acetaminophen [Tylenol Extra Strength] 500 mg Tablet 500 - 1,000 mg PO Q6H PRN (Reason: Pain) 0RF flaxseed oil 1,000 mg Capsule 1,000 mg PO QID 0RF Rx Instructions: TAKE AT 08,12,16,20 atorvastatin 10 mg tablet 10 mg PO DAILY@2000 0RF duloxetine 30 mg capsule,delayed release(DR/EC) 30 mg PO BID@08,20 0RF lidocaine 5 % Adhesive Patch,Medicated 1 patch TOPICAL DAILY 0RF ibuprofen 200 mg Tablet 200 - 400 mg PO Q6H PRN (Reason: Pain) 0RF Colace 100 mg Capsule 200 mg PO BID@08,20 0RF Miralax 17 gram/dose Powder 17 g PO DAILY 0RF Fleet Glycerin (Adult) Suppository 1 supp [place] DAILY PRN (Reason: Constipation) 0RF Biofreeze 0.2-3.5 % Gel 1 applic TOPICAL QID PRN (Reason: Pain) 0RF meloxicam 7.5 mg tablet 7.5 mg PO DAILY@0800 0RF Discharge Orders: Discharge ED (Routine); Ordered 08/14/21 Ordered By: Clive Mo Discharge Diet: Advance as tolerated Discharge Activity: Increase activity as tolerated Patient Instructions: Fever in Adults (ED), Urinary Tract Infection in Older Adults (ED) Activity Restrictions/Additional Instructions: Antibiotics as directed. Watch temperature closely, 3 times a day for the next 48 hours, and treat accordingly. Return for worsening mental status, inability to control temperature, worsening shortness of breath, any other concerning symp toms. 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
[2021-08-14 07:38] VITALS: BP 156/64; PULSE 84; O2SAT 94
[2021-08-14 07:39] VITALS: BP 156/64; PULSE 84; O2SAT 94
== END 2021-08-14 07:41 | disposition home or self-care (01) ==
PROVIDERS: Emergency Provider Emergency Medicine
DX: N39.0 Urinary tract infection, site not specified (principal); Z79.82 Long term (current) use of aspirin; Z20.822 Contact with and (suspected) exposure to COVID-19; E11.9 Type 2 diabetes mellitus without complications; G20 Parkinson's disease; F17.210 Nicotine dependence, cigarettes, uncomplicated
CPT/HCPCS: 36415; 36600; 70450; 71045; 80053; 81001; 82803; 83605; 85025; 86140; 87040; 87086; 87635; 93005; 96365; 99285; J0696; J7040

== ENCOUNTER 2021-08-15 03:24 | Emergency (ER) | payer MEDICARE, OTHER, MEDICAID, SELFPAY ==
[2021-08-15 03:28] VITALS: PULSE 90; RESP 24; TEMP 38.1; O2SAT 94; BMI 20.3
[2021-08-15 03:38] VITALS: BP 184/100
--- NOTE | 2021-08-15 03:46 | XRR_ITS ---
PROCEDURE INFORMATION: Exam: XR Chest Exam date and time: 08/15/2021 3:57 AM Age: 81 years old Clinical indication: Fever and shortness of breath; Prior surgery; Surgery type: Gb; Patient HX: Fever with hypoxia. [facility] with [facility]. ; Additional info: Fever AMS TECHNIQUE: Imaging protocol: Radiologic exam of the chest. Views: 1 view. COMPARISON: CR (CHEST, ) 08/14/2021 12:02 AM FINDINGS: Lungs: There are some increased interstitial opacity seen in the left mid and lower hemithorax and overlying the right hemidiaphragm, findings that could represent a patchy bilateral interstitial pneumonitis versus atelectasis Pleural spaces: Unremarkable. No pleural effusion. No pneumothorax. Heart/Mediastinum: Unremarkable. No cardiomegaly. Bones/joints: Status post right shoulder replacement. Soft tissues: A skin fold is seen overlying the right hemithorax. XR/XR chest 1V portable [id number] IMPRESSION: Increased interstitial opacities in the left mid and lower hemithorax and right lung base may represent atelectasis versus bilateral interstitial pneumonitis. .
[2021-08-15] MEDS: acetaminophen 650 mg Supp PR (03:52)
[2021-08-15] MEDS: sodium chloride 0.9% 1,000 ML 999 ML IV (03:52)
[2021-08-15 03:53] LABS: Basophils # 0.1 10^3/uL (0.0-0.1); Basophils % 0.4 %; Eosinophils # 0.2 10^3/uL (0.0-0.8); Eosinophils % 1.1 %; Hematocrit 42.5 % (37.0-47.0); Hemoglobin 14.1 g/dL (11.5-15.3); Lymphocytes # 1.1 10^3/uL (0.8-4.8); Lymphocytes % 7.8 %; Mean Corpuscular HGB Conc 33.2 g/dL (30.0-36.0); Mean Corpuscular Hemoglobin 31.3 pg (28.0-34.0); Mean Corpuscular Volume 94.2 fl (81-99); Mean Platelet Volume 10.4 fL (7.4-10.4); Monocytes # 0.8 10^3/uL (0.2-0.9); Monocytes % 5.9 %; Neutrophils # 11.37 10^3/uL (1.8-7.7); Neutrophils % 84.4 %; Nucleated Red Blood Cells % 0 %; Platelet Count 300 10^3/cmm (130-400); Red Blood Count 4.51 10^6/uL (4.1-5.3); White Blood Count 13.5 10^3/uL (4.0-10.0)
[2021-08-15 03:57] VITALS: O2SAT 92
--- NOTE | 2021-08-15 04:12 | W.ED.COVID ---
HPI - COVID General: Chief Complaint: COVID symptoms Stated Complaint: COVID Time Seen by Provider: 08/15/21 03:41 Source: patient, EMS and old records reviewed Triage information: Has fever, cough or shortness of breath. Exposure to COVID + person last 14 days History of Present Illness: 81-year-old female coming in from a alf for the second time in 24 hours or so. She presents with a fever and altered mental status. I saw her yesterday morning for the same symptoms. Yesterday with breaking her fever, her mental status returned to baseline. Her temperature is down 100.6 now, and it appears she is near her baseline again. She had a urinary tract infection. She tested negative for COVID by PCR. She denies any pain, chest pain belly pain or otherwise. She denies vomiting or diarrhea, although she is a poor historian. complaint: reported COVID exposure Prior covid testing: yes, results known COVID 19 common symptoms: positive fever(s), chills, cough and dyspnea COVID 19 other sytmptoms: positive lethargy; negative chest pain Onset (ago): day(s) Severity: moderate Pertinent comorbid conditions: alf patient Treatment prior to arrival: acetaminophen and antibiotics COVID Results: SARS-CoV-2 (PCR) Detected (NOT DETECT) A 08/15/21 04:12 08/15/21 Coronavirus Type 229E (PCR) Not detected (NOT DETECT) 08/15/21 04:12 08/15/21 Review of Systems General: Reports: ROS unobtainable due to mental status Const: Reports: fever(s) and chills Card: Denies: chest pain Resp: Reports: dyspnea GI: Denies: abdominal pain PFSH ED PFSH: Medical History Chronic constipation Depression Diet-controlled diabetes mellitus Enrolled in chronic care management Essential tremor Insomnia PAD (peripheral artery disease) Parkinsons disease PMR (polymyalgia rheumatica) RBBB Right hip pain Urinary incontinence Surgical History H/O bladder repair surgery H/O cataract extraction H/O shoulder surgery H/O: hysterectomy History of cholecystectomy Family History Other Alcoholic Social History Smoking and tobacco status: current every day smoker cigarettes Packs smoked per day: 0.50 Alcohol intake: never Physical Exam Const: GENERAL APPEARANCE: cooperative, ill appearing and frail appearing NUTRITIONAL APPEARANCE: thin ORIENTATION/CONSCIOUSNESS: Yes awake and Yes oriented to person HENMT: COMMON NORMALS: normocephalic and Normal external nose present HEAD & SCALP: normocephalic and contusion (periorbital) NOSE: Normal external nose present Eye: COMMON NORMALS: EOMs intact bilaterally Neck/C-Spine: GENERAL: Yes trachea midline Chest: CHEST: Yes Symmetrical chest wall rise Resp: COMMON NORMALS: No use of accessory muscles and clear to auscultation bilaterally EFFORT & INSPECTION: Yes tachypneic AUSCULTATION: clear to auscultation bilaterally and diminished lung sounds Cardio: COMMON NORMALS: regular rate, regular rhythm and Peripheral pulses 2+ throughout RATE: regular rate RHYTHM: regular rhythm PERIPHERAL PULSES: Peripheral pulses 2+ throughout GI: COMMON NORMALS: Normal to inspection, nondistended, normoactive bowel sounds present, Soft to palpation and non-tender PALPATION: Yes Soft to palpation Extremity: COMMON NORMALS: no pedal edema Neuro: CHINMAY COMA SCALE: document GCS findings [place] coma scale eye opening: To sound [place] coma scale verbal response: Confused [place] coma scale motor response: Obey commands [place] coma scale total score: 13 SENSORIUM/ORIENTATION: Yes oriented to person Psych: COMMON NORMALS: cooperative Course Vital Signs: Vital signs: Vital Signs Temperature 100.6 F H 08/15/21 03:28 Pulse Rate 80 08/15/21 06:54 Respiratory Rate 18 08/15/21 06:54 Blood Pressure 134/107 08/15/21 06:54 Pulse Oximetry 95 08/15/21 06:54 MDM - COVID Medical Decision Making 81-year-old female seen 24 hours prior. She has continued with fever. She is not above her baseline.. Her white blood cell count is 13.5. She has a urinary tract infection, demonstrated again. She was treated last night with Rocephin for this, as well as now. She has a prescription for cefdinir. In the last 24 hours, she has turned positive for COVID-19, for which she will be given paxlovid. Lab Data : 08/15/21 03:45 08/15/21 03:45 Radiology Impressions Chest X-Ray 08/15/21 03:46 IMPRESSION: Increased interstitial opacities in the left mid and lower hemithorax and right lung base may represent atelectasis versus bilateral interstitial pneumonitis. . Laboratory Results WBC 13.5 10^3/uL (4.0-10.0) H 08/15/21 03:45 RBC 4.51 10^6/uL (4.1-5.3) 08/15/21 03:45 Hgb 14.1 g/dL (11.5-15.3) 08/15/21 03:45 Hct 42.5 % (37.0-47.0) 08/15/21 03:45 MCV 94.2 fl (81-99) 08/15/21 03:45 MCH 31.3 pg (28.0-34.0) 08/15/21 03:45 MCHC 33.2 g/dL (30.0-36.0) 08/15/21 03:45 RDW 13.0 % (12.1-15.1) 08/15/21 03:45 Plt Count 300 10^3/cmm (130-400) 08/15/21 03:45 MPV 10.4 fL (7.4-10.4) 08/15/21 03:45 Neut % (Auto) 84.4 % 08/15/21 03:45 Lymph % (Auto) 7.8 % 08/15/21 03:45 [place] % (Auto) 5.9 % 08/15/21 03:45 Eos % (Auto) 1.1 % 08/15/21 03:45 Baso % (Auto) 0.4 % 08/15/21 03:45 Neut # (Auto) 11.37 10^3/uL (1.8-7.7) H 08/15/21 03:45 Lymph # (Auto) 1.1 10^3/uL (0.8-4.8) 08/15/21 03:45 [place] # (Auto) 0.8 10^3/uL (0.2-0.9) 08/15/21 03:45 Eos # (Auto) 0.2 10^3/uL (0.0-0.8) 08/15/21 03:45 Baso # (Auto) 0.1 10^3/uL (0.0-0.1) 08/15/21 03:45 Nucleated RBC % (auto) 0 % 08/15/21 03:45 Nucleated RBCs # 0.0 /100WBC 08/15/21 03:45 Sodium 141 mmol/L (136-145) 08/15/21 03:45 Potassium 3.7 mmol/L (3.5-5.1) 08/15/21 03:45 Chloride 103 mmol/L (98-107) 08/15/21 03:45 Carbon Dioxide 24 mmol/L (22-29) 08/15/21 03:45 Anion Gap 17.7 (5-19) 08/15/21 03:45 BUN 19 mg/dL (8-23) 08/15/21 03:45 Creatinine 0.5 mg/dL (0.5-0.9) 08/15/21 03:45 GFR Calculation Not Reportable 08/15/21 03:45 Glucose 98 mg/dL (65-115) 08/15/21 03:45 Calculated Osmolality 294 mOsm/kg (285-295) 08/15/21 03:45 Lactate 1.9 mmol/L (0.5-2.2) 08/15/21 03:45 Calcium 9.2 mg/dL (8.5-10.5) 08/15/21 03:45 Total Bilirubin 0.3 mg/dL (0.15-1.2) 08/15/21 03:45 AST 19 U/L (0-32) 08/15/21 03:45 ALT < 5 U/L (0-33) 08/15/21 03:45 Alkaline Phosphatase 103 IU/L (35-105) 08/15/21 03:45 C-Reactive Protein 185.7 mg/L (0.0-4.9) H 08/15/21 03:45 Total Protein 7.0 g/dL (6.6-8.7) 08/15/21 03:45 Albumin 3.7 g/dL (3.5-5.2) 08/15/21 03:45 Globulin 3.3 g/dL (1.3-4.6) 08/15/21 03:45 Procalcitonin 0.23 ng/mL (0-0.5) 08/15/21 03:45 Urine Color Yellow (Yellow) 08/15/21 04:12 Urine Appearance Sl hazy (CLEAR) 08/15/21 04:12 Urine pH 6 (5-7) 08/15/21 04:12 Ur Specific [place] 1.010 (1.005-1.030) 08/15/21 04:12 Urine Protein Neg (Negative) 08/15/21 04:12 Urine Glucose (UA) Norm (Normal) 08/15/21 04:12 Urine Ketones 1+ (Negative) H 08/15/21 04:12 Urine Blood Trace (Negative) H 08/15/21 04:12 Urine Nitrate Negative (Negative) 08/15/21 04:12 Urine Bilirubin Neg (Negative) 08/15/21 04:12 Urine Urobilinogen Norm mg/dL (Negative) 08/15/21 04:12 Ur Leukocyte Esterase 2+ (Negative) H 08/15/21 04:12 Urine RBC 0-4 /hpf (0-2) H 08/15/21 04:12 Urine WBC 40-55 /hpf (0-5) H 08/15/21 04:12 Ur Squamous Epith Cells 0-4 /hpf (0-5) H 08/15/21 04:12 Amorphous Sediment Not Reportable 08/15/21 04:12 Urine Bacteria 1+ /hpf (NONE) H 08/15/21 04:12 Urine Mucus 1+ /hpf 08/15/21 04:12 Coronavirus 229E (PCR) Not detected (NOT DETECT) 08/15/21 04:12 SARS-CoV-2 (PCR) Detected (NOT DETECT) A 08/15/21 04:12 SARS-CoV-2 (PCR) Detected (NOT DETECT) A 08/15/21 04:12 08/15/21 Coronavirus Type 229E (PCR) Not detected (NOT DETECT) 08/15/21 04:12 08/15/21 Discharge Plan Discharge Patient Disposition: Home Clinical Impression: COVID-19, Urinary tract infection Condition: Stable Prescriptions: New Paxlovid (EUA) 150 mg x 2- 100 mg tablet See Rx Instructions .ROUTE .COMPLEX Qty: 6 0RF Rx Instructions: take TWO 150 mg tablets of nirmatrelvir with ONE 100 mg tablet of ritonavir twice daily for 5 days No Action hydrocodone-acetaminophen 7.5-325 mg tablet 1 tab PO TID PRN (Reason: Pain) 0RF (DME) ASO Brace See Rx Instructions .Route .MEDSUPPLY Qty: 1 0RF Rx Instructions: Wear as needed for stability. aspirin 81 mg tablet,delayed release (DR/EC) 81 mg PO DAILY@0800 0RF gabapentin 300 mg capsule 300 mg PO QID 0RF Rx Instructions: TAKE AT 08,12,16,20 primidone 50 mg tablet 50 mg PO Q8H 0RF Rx Instructions: TAKE AT 08,16,00 (DME) diabetic shoes Qty: 1 0RF Rx Instructions: As directed carbidopa-levodopa 25-100 mg tablet 2 tab PO QID 0RF Rx Instructions: TAKE AT 08,12,16,20 bupropion HCl 150 mg Tablet Extended Release 24 Hr 150 mg PO BID@0800,2000 0RF sennosides-docusate sodium [Senna Plus] 8.6-50 mg Tablet 1 tab PO BEDTIME@2000 0RF acetaminophen [Tylenol Extra Strength] 500 mg Tablet 500 - 1,000 mg PO Q6H PRN (Reason: Pain) 0RF flaxseed oil 1,000 mg Capsule 1,000 mg PO QID 0RF Rx Instructions: TAKE AT 08,12,16,20 atorvastatin 10 mg tablet 10 mg PO DAILY@2000 0RF duloxetine 30 mg capsule,delayed release(DR/EC) 30 mg PO BID@08,20 0RF lidocaine 5 % Adhesive Patch,Medicated 1 patch TOPICAL DAILY 0RF ibuprofen 200 mg Tablet 200 - 400 mg PO Q6H PRN (Reason: Pain) 0RF Colace 100 mg Capsule 200 mg PO BID@08,20 0RF Miralax 17 gram/dose Powder 17 g PO DAILY 0RF Fleet Glycerin (Adult) Suppository 1 supp [place] DAILY PRN (Reason: Constipation) 0RF Biofreeze 0.2-3.5 % Gel 1 applic TOPICAL QID PRN (Reason: Pain) 0RF meloxicam 7.5 mg tablet 7.5 mg PO DAILY@0800 0RF cefdinir 300 mg capsule 300 mg PO BID Qty: 14 0RF Discharge Orders: Discharge ED (Routine); Ordered 08/15/21 Ordered By: Clive Mo Patient Instructions: Urinary Tract Infection in Older Adults (ED), COVID-19 (Coronavirus Disease 2019) (ED) Activity Restrictions/Additional Instructions: Continue the cefdinir prescribed yesterday. Add the antiviral for COVID-19. Monitor oxygenation status. She has been using 3 L here. Saturations have been normal. Monitor for fever and treat accordingly with Tylenol, as her fever significantly affects mental status. 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
[2021-08-15 04:15] LABS: Add Urine Microscopic? YES; Bilirubin Urine Neg (Negative); Blood Urine Trace (Negative); Glucose Urine UA Norm (Normal); Ketones Urine 1+ (Negative); Leukocyte Esterase Urine 2+ (Negative); Nitrate Urine Negative (Negative); Protein Urine Neg (Negative); Urine Appearance SL Hazy (CLEAR); Urine Color Yellow (Yellow); Urobilinogen Urine Norm (Negative); pH Urine 6 (5-7)
[2021-08-15 04:16] LABS: Lactate (Lactic Acid level) 1.9 mmol/L (0.5-2.2)
[2021-08-15 04:17] LABS: Alanine Aminotransferase < 5 U/L (0-33); Albumin Level 3.7 g/dL (3.5-5.2); Alkaline Phosphatase 103 IU/L (35-105); Aspartate Amino Transferase 19 U/L (0-32); Blood Urea Nitrogen 19 mg/dL (8-23); C Reactive Protein 185.7 mg/L (0.0-4.9); Calcium 9.2 mg/dL (8.5-10.5); Carbon Dioxide 24 mmol/L (22-29); Chloride 103 mmol/L (98-107); Globulin 3.3 g/dL (1.3-4.6); Glucose 98 mg/dL (65-115); Osmolality Calculated 294 mOsm/kg (285-295); Sodium 141 mmol/L (136-145); Total Bilirubin 0.3 mg/dL (0.15-1.2)
[2021-08-15 04:20] LABS: Bacteria Urine 1+ /hpf; Mucus Urine 1+ /hpf; RBC Urine 0-4 /hpf (0-2); Squamous Epithelial Cell Urine 0-4 /hpf (0-5); WBC Urine 40-55 /hpf (0-5)
[2021-08-15 04:21] LABS: Add Urine Culture? Yes
[2021-08-15 04:22] LABS: Anion Gap 17.7 (5-19); Potassium 3.7 mmol/L (3.5-5.1); Procalcitonin 0.23 ng/mL (0-0.5)
[2021-08-15 05:13] VITALS: BP 129/60; PULSE 80; RESP 18; O2SAT 98
[2021-08-15 05:57] LABS: Adenovirus Not Detected (NOT DETECT); Chlamydia Pneumoniae Not Detected (NOT DETECT); Coronavirus 229E,HKU1,NL63,OC4 Not Detected (NOT DETECT); Human Metapneumovirus Not Detected (NOT DETECT); Human Rhinovirus/Enterovirus Not Detected (NOT DETECT); Influenza A Not Detected (NOT DETECT); Influenza A H1 Not Detected (NOT DETECT); Influenza A H1-2009 Not Detected (NOT DETECT); Influenza A H3 Not Detected (NOT DETECT); Influenza B Not Detected (NOT DETECT); Mycoplasma Pneumoniae Not Detected (NOT DETECT); Parainfluenza Virus Type 1 Not Detected (NOT DETECT); Parainfluenza Virus Type 2 Not Detected (NOT DETECT); Parainfluenza Virus Type 3 Not Detected (NOT DETECT); Parainfluenza Virus Type 4 Not Detected (NOT DETECT); Respiratory Syncytial Virus A Not Detected (NOT DETECT); Respiratory Syncytial Virus B Not Detected (NOT DETECT); SARS-COV-2 Detected (NOT DETECT)
[2021-08-15] MEDS: cefTRIAXone 1,000 MG in sodium chloride 0.9% (plus) 50 ML 100 MG IV (06:21)
[2021-08-15 06:54] VITALS: BP 134/107; PULSE 80; RESP 18; O2SAT 95
== END 2021-08-15 07:58 | disposition home or self-care (01) ==
PROVIDERS: Emergency Provider Emergency Medicine
DX: U07.1 COVID-19 (principal); N39.0 Urinary tract infection, site not specified; Z79.82 Long term (current) use of aspirin; E11.9 Type 2 diabetes mellitus without complications; G20 Parkinson's disease; F17.210 Nicotine dependence, cigarettes, uncomplicated
CPT/HCPCS: 71045; 80053; 81001; 83605; 84145; 85025; 86140; 87086; 87635; 96365; 99284; J0696; J7030

== ENCOUNTER 2021-12-27 18:46 | Inpatient (IN) | payer MEDICARE, OTHER, MEDICAID, SELFPAY ==
[2021-12-27] VITALS (42 sets, daily range): BP systolic 70–144; BP diastolic 36–119; PULSE 50–116; RESP 17–31; TEMP 36.5; O2SAT 85–100
--- NOTE | 2021-12-27 19:02 | ECG_ITS ---
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 Measurements Intervals [place] Rate: 97 P: 86 SD: 141 QRS: 88 QRSD: 122 T: 47 QT: 390 QTc: 498 Interpretive Statements SINUS RHYTHM WITH OCCASIONAL VENTRICULAR PREMATURE COMPLEXES RIGHT BUNDLE BRANCH BLOCK [120+ ms QRS DURATION, UPRIGHT V1, 40+ ms S IN I/aVL/V4/V5/V6] Compared to ECG 08/14/2021 00:38:19 Ventricular premature complex(es) now present Myocardial infarct finding no longer present T-wave abnormality no longer present Possible ischemia no longer present Electronically Signed On 12-28-2021 12:01:27 GRAPHICS ARTIST by Jennifer Jerome M.D. [id number]
--- NOTE | 2021-12-27 19:15 | W.ED.GIBLEED ---
HPI - GI Bleed General: Chief complaint: GI Bleed Stated complaint: VAG BLEEDING Time Seen by Provider: 12/27/21 18:54 Source: patient and EMS Mode of arrival: EMS Limitations: no limitations History of Present Illness: 81-year-old female who [facility] with a GI bleed. Patient's been having large amount of blood some clots coming from her rectum she is hypotensive here patient is altered she does have dementia no known fever no worsening proving factors she is not on any known blood thinners. Review of Systems General: Reports: ROS unobtainable due to mental status PFSH ED PFSH: Medical History Chronic constipation Depression Diet-controlled diabetes mellitus Enrolled in chronic care management Essential tremor Insomnia PAD (peripheral artery disease) Parkinsons disease PMR (polymyalgia rheumatica) RBBB Right hip pain Urinary incontinence Surgical History H/O bladder repair surgery H/O cataract extraction H/O shoulder surgery H/O: hysterectomy History of cholecystectomy Family History Other Alcoholic Social History Smoking and tobacco status: current every day smoker cigarettes Packs smoked per day: 0.50 Alcohol intake: never Physical Exam Const: COMMON NORMALS: negative for patient oriented x3 GENERAL APPEARANCE: lethargic, ill appearing and frail appearing ORIENTATION/CONSCIOUSNESS: Yes lethargic HENMT: COMMON NORMALS: normocephalic and atraumatic HEAD & SCALP: normocephalic and atraumatic Eye: COMMON NORMALS: Equal, round and reactive pupils present and EOMs intact bilaterally PUPIL: Yes Equal, round and reactive pupils present Neck/C-Spine: COMMON NORMALS: full ROM and supple Chest: COMMONS NORMALS: normal inspection of the chest and normal palpation of entire chest wall Resp: COMMON NORMALS: normal respiratory effort, No retractions, No use of accessory muscles and clear to auscultation bilaterally AUSCULTATION: clear to auscultation bilaterally Cardio: COMMON NORMALS: regular rate, regular rhythm and No murmurs present (Cardio) RATE: regular rate RHYTHM: regular rhythm GI: COMMON NORMALS: Normal to inspection, nondistended, normoactive bowel sounds present, Soft to palpation, non-tender and no masses PALPATION: Yes Soft to palpation OTHER: Large amount of bleeding from rectum Extremity: COMMON NORMALS: normal to inspection and full ROM Neuro: COMMON NORMALS: moves all extremities and no focal motor deficits; negative for patient oriented x3 SENSORIUM/ORIENTATION: Yes lethargic Psych: COMMON NORMALS: cooperative; negative for mental status grossly normal and negative for Normal thought process present THOUGHT PROCESS: abnormal Skin: COMMON NORMALS: no rashes or lesions noted and no wounds GENERAL SKIN EXAM: no rashes or lesions noted Course Vital Signs: Vital signs: Vital Signs Pulse Rate 65 12/27/21 21:45 Respiratory Rate 17 12/27/21 21:45 Blood Pressure 144/63 12/27/21 21:45 Pulse Oximetry 100 12/27/21 21:05 Oxygen Delivery Me thod 12/27/21 18:50 MDM - GI Bleed Medical Decision Making Patient presents here with a GI bleed with a large amount of blood. She was quite hypotensive initially blood pressure here is improved after transfusion and fluids patient will be admitted to the ICU to the hospitalist also spoke to surgeon on-call who is admitting. Lab Data : 12/27/21 19:17 12/27/21 19:17 Radiology Impressions Abdomen/Pelvis CT 12/27/21 19:58 IMPRESSION: 1. Somewhat linear 2 cm hyperdensity seen in the distal sigmoid colon/rectum, series 7, image 76 may reflect some contrast extravasation and a source of active gastrointestinal bleeding, perhaps arising from the posterior wall. 2. Emphysematous changes. 3. Right middle and bibasilar atelectasis versus minimal infiltrate. 4. Trace pericardial effusion measuring up to 7.4 mm in thickness. 5. Cholecystectomy. 6. Superior mesenteric artery stent which appears patent. 7. Constipation. 8. Mildly prominent fluid in the small bowel and distal sigmoid colon, perhaps reflecting an enterocolitis in the appropriate clinical setting. ADDENDUM: 12/27/21 2148 THIS REPORT CONTAINS FINDINGS THAT MAY BE CRITICAL TO PATIENT CARE. The findings were verbally communicated via telephone conference with GHAZALA HANSEN at 9:46 PM SOLAR THERMAL INSTALLER on 12/27/2021. The findings were acknowledged and understood. Laboratory Results WBC 22.8 10^3/uL (4.0-10.0) H 12/27/21 19:17 RBC 3.22 10^6/uL (4.1-5.3) L 12/27/21 19:17 Hgb 9.9 g/dL (11.5-15.3) L 12/27/21 19:17 Hct 31.8 % (37.0-47.0) L 12/27/21 19:17 MCV 98.8 fl (81-99) 12/27/21 19:17 MCH 30.7 pg (28.0-34.0) 12/27/21 19:17 MCHC 31.1 g/dL (30.0-36.0) 12/27/21 19:17 RDW 13.2 % (12.1-15.1) 12/27/21 19:17 Plt Count 438 10^3/cmm (130-400) H 12/27/21 19:17 MPV 10.3 fL (7.4-10.4) 12/27/21 19:17 Neut % (Auto) 88.1 % 12/27/21 19:17 Lymph % (Auto) 4.9 % 12/27/21 19:17 [place] % (Auto) 5.2 % 12/27/21 19:17 Eos % (Auto) 0.1 % 12/27/21 19:17 Baso % (Auto) 0.3 % 12/27/21 19:17 Neut # (Auto) 20.12 10^3/uL (1.8-7.7) H 12/27/21 19:17 Lymph # (Auto) 1.1 10^3/uL (0.8-4.8) 12/27/21 19:17 Carroll # (Auto) 1.2 10^3/uL (0.2-0.9) H 12/27/21 19:17 Eos # (Auto) 0.0 10^3/uL (0.0-0.8) 12/27/21 19:17 Baso # (Auto) 0.1 10^3/uL (0.0-0.1) 12/27/21 19:17 Nucleated RBC % (auto) 0 % 12/27/21 19:17 Nucleated RBCs # 0.0 /100WBC 12/27/21 19:17 PT 14.70 SECONDS (12.1-14.9) 12/27/21 19:17 INR 1.11 (0.8-1.2) 12/27/21 19:17 Sodium 138 mmol/L (136-145) 12/27/21 19:17 Potassium 3.1 mmol/L (3.5-5.1) L 12/27/21 19:17 Chloride 102 mmol/L (98-107) 12/27/21 19:17 Carbon Dioxide 26 mmol/L (22-29) 12/27/21 19:17 Anion Gap 13.1 (5-19) 12/27/21 19:17 BUN 13 mg/dL (8-23) 12/27/21 19:17 Creatinine 0.5 mg/dL (0.5-0.9) 12/27/21 19:17 GFR Calculation Not Reportable 12/27/21 19:17 Glucose 130 mg/dL (65-115) H 12/27/21 19:17 Calculated Osmolality 288 mOsm/kg (285-295) 12/27/21 19:17 Lactate 4.5 mmol/L (0.5-2.2) H* 12/27/21 19:17 Calcium 8.3 mg/dL (8.5-10.5) L 12/27/21 19:17 Total Bilirubin 0.2 mg/dL (0.15-1.2) 12/27/21 19:17 AST 9 U/L (0-32) 12/27/21 19:17 ALT 8 U/L (0-33) 12/27/21 19:17 Alkaline Phosphatase 88 U/L (35-105) 12/27/21 19:17 Total Protein 5.2 g/dL (6.6-8.7) L 12/27/21 19:17 Albumin 2.7 g/dL (3.5-5.2) L 12/27/21 19:17 Globulin 2.5 g/dL (1.3-4.6) 12/27/21 19:17 Blood Type O Positive 12/27/21 19:17 Rho(D) Type Positive 12/27/21 19:17 Antibody Screen Negative 12/27/21 19:17 Crossmatch See Detail 12/27/21 19:17 EKG Data EKG 1: I personally reviewed and interpreted this EKG as follows: EKG interpretation date: 12/27/21 EKG interpretation time: 19:09 Interpretation: nsr hr [address] or t wave abnormalities qrs 122 qtc 445 Critical Care Time Critical Care Time: Critical Care Time: Yes Total Critical Care Time: 40 Attestation: The high probability of a clinically significant, sudden or life threatening deterioration of the patient's gisystem(s) required my full and direct attention, intervention and personal management. The critical care time is as shown. This time is in addition to time spent performing any reported procedures but includes the following: [x] Data and vital sign review and interpretation [x] Patient assessment, examination and intervention [x] Documentation [x] Medication orders and management Discharge Plan Discharge Patient Disposition: Admitted As Inpatient Admit Provider: Frederick Rodríguez Clinical Impression: Upper gastrointestinal hemorrhage Condition: Stable Coding Level of Care Code ED Software Test Engineer for Chg Fwd Exam Comprehensive
[2021-12-27] MEDS: sodium chloride 0.9% 1,000 ML 999 ML IV ×2 (19:27→21:09)
--- NOTE | 2021-12-27 19:28 | PC.PHAR ---
[facility]- pt has not had her afternoon or morning meds
[2021-12-27 19:31] LABS: Basophils # 0.1 10^3/uL (0.0-0.1); Basophils % 0.3 %; Eosinophils % 0.1 %; Hematocrit 31.8 % (37.0-47.0); Hemoglobin 9.9 g/dL (11.5-15.3); Lymphocytes # 1.1 10^3/uL (0.8-4.8); Lymphocytes % 4.9 %; Mean Corpuscular HGB Conc 31.1 g/dL (30.0-36.0); Mean Corpuscular Hemoglobin 30.7 pg (28.0-34.0); Mean Corpuscular Volume 98.8 fl (81-99); Mean Platelet Volume 10.3 fL (7.4-10.4); Monocytes # 1.2 10^3/uL (0.2-0.9); Monocytes % 5.2 %; Neutrophils # 20.12 10^3/uL (1.8-7.7); Neutrophils % 88.1 %; Nucleated Red Blood Cells % 0 %; Platelet Count 438 10^3/cmm (130-400); Red Blood Count 3.22 10^6/uL (4.1-5.3); Red Cell Distribution Width 13.2 % (12.1-15.1); White Blood Count 22.8 10^3/uL (4.0-10.0)
[2021-12-27] MEDS: pantoprazole 40 mg SDV 80 MG IVP (19:34)
[2021-12-27] MEDS: pantoprazole 40 MG in sodium chloride 0.9% (plus) 100 ML 20 MG IV (19:40)
[2021-12-27 19:49] LABS: INR 1.11 (0.8-1.2)
--- NOTE | 2021-12-27 19:58 | CTR_ITS ---
PROCEDURE INFORMATION: Exam: CT Abdomen And Pelvis With Contrast Exam date and time: 12/27/2021 9:17 PM Age: 81 years old Clinical indication: Prior surgery; Surgery type: Gb. Bladder. Hysterectomy; Patient HX: Profuse rectal bleeding. ; Additional info: Abd pain TECHNIQUE: Imaging protocol: Computed tomography of the abdomen and pelvis with contrast. Radiation optimization: All CT scans at this facility use at least one of these dose optimization techniques: automated exposure control; mA and/or kV adjustment per patient size (includes targeted exams where dose is matched to clinical indication); or iterative reconstruction. Contrast material: OMNI 350; Contrast volume: 75 ml; Contrast route: INTRAVENOUS (IV); COMPARISON: CT pelvis wo con [id number] 01/29/2019 2:04 PM RADIATION DOSE METRICS: Total DLP (mGy-cm): 494.53 FINDINGS: Lungs: Emphysematous changes. Right middle and bibasilar atelectasis versus minimal infiltrate. Heart: Trace pericardial effusion measuring up to 7.4 mm in thickness. Liver: Normal. No mass. Gallbladder and bile ducts: Cholecystectomy. Pancreas: Normal. No ductal dilation. Spleen: Normal. No splenomegaly. Adrenal glands: Normal. No mass. Kidneys and ureters: Normal. No hydronephrosis. Stomach and bowel: Somewhat linear 2 cm hyperdensity seen in the distal sigmoid colon/rectum, series 7, image 76 may reflect some contrast extravasation and a source of active gastrointestinal bleeding, perhaps arising from the posterior wall. Constipation. Mildly prominent fluid in the small bowel and distal sigmoid colon, perhaps reflecting an enterocolitis in the appropriate clinical setting. Appendix: No evidence of appendicitis. Intraperitoneal space: Unremarkable. No free air. No significant fluid collection. Vasculature: Superior mesenteric artery stent which appears patent. Lymph nodes: Unremarkable. No enlarged lymph nodes. Urinary bladder: Unremarkable as visualized. Reproductive: Unremarkable as visualized. Bones/joints: Unremarkable. No acute fracture. Soft tissues: Unremarkable. CT/CT abdomen pelvis w con* [id number] IMPRESSION: 1. Somewhat linear 2 cm hyperdensity seen in the distal sigmoid colon/rectum, series 7, image 76 may reflect some contrast extravasation and a source of active gastrointestinal bleeding, perhaps arising from the posterior wall. 2. Emphysematous changes. 3. Right middle and bibasilar atelectasis versus minimal infiltrate. 4. Trace pericardial effusion measuring up to 7.4 mm in thickness. 5. Cholecystectomy. 6. Superior mesenteric artery stent which appears patent. 7. Constipation. 8. Mildly prominent fluid in the small bowel and distal sigmoid colon, perhaps reflecting an enterocolitis in the appropriate clinical setting.
[2021-12-27 19:59] LABS: Alanine Aminotransferase 8 U/L (0-33); Albumin Level 2.7 g/dL (3.5-5.2); Alkaline Phosphatase 88 U/L (35-105); Anion Gap 13.1 (5-19); Aspartate Amino Transferase 9 U/L (0-32); Blood Urea Nitrogen 13 mg/dL (8-23); Calcium 8.3 mg/dL (8.5-10.5); Carbon Dioxide 26 mmol/L (22-29); Chloride 102 mmol/L (98-107); Globulin 2.5 g/dL (1.3-4.6); Glucose 130 mg/dL (65-115); Osmolality Calculated 288 mOsm/kg (285-295); Potassium 3.1 mmol/L (3.5-5.1); Sodium 138 mmol/L (136-145); Total Bilirubin 0.2 mg/dL (0.15-1.2); Total Protein 5.2 g/dL (6.6-8.7)
[2021-12-27 20:14] LABS: Lactate (Lactic Acid level) 4.5 mmol/L (0.5-2.2)
--- NOTE | 2021-12-27 20:24 | PC.NURSE ---
Addendum entered by Amanda Ruiz RN 12/27/21 20:25: unit number [id number]. started at 2009. Original Note: 1st unit uncrossmatched blood started at this time. 2nd nurse verification with Toan Ramirez RN. see flowsheet for vital signs.
[2021-12-27] MEDS: diphenhydrAMINE 50 mg/mL SDV 1mL IVP (20:57)
--- NOTE | 2021-12-27 21:05 | PC.NURSE ---
1st unit of blood completed. total volume infused 302mL.
[2021-12-27] MEDS: iohexol 350 mg/mL 500 mL Btl (per mL) IV (21:27)
--- NOTE | 2021-12-27 21:51 | PC.NURSE ---
2nd unit of blood started at 2140. verified with second nurse Christiano Ramirez RN. unit # [id number]
[2021-12-27] MEDS: ondansetron 2 mg/ML SDV 2 mL 4 MG IVP (22:30)
--- NOTE | 2021-12-27 22:32 | PM.HP ---
Providers/Chief Complaint Admitting Physician: Frederick Rodríguez Chief Complaint: VAG BLEEDING History of Present Illness 81-year-old lady with Parkinson's disease, mostly nonambulatory/wheelchair bound at the facility was [facility] for evaluation due to GI bleeding with maroon-colored stools, on presentation hypotensive, generally weak, pale. Found to have acute anemia, hemoglobin down to 9.9, prior 14.1 in July. Not on a blood thinner, noted aspirin. Lactic acid 4.5. Having lower abdominal pain. Nausea. In ER received fluid challenge. RBC transfusion is started. Surgery consulted. CT abdomen pelvis with contrast, with premedication due to iodine allergy obtained. 1. Somewhat linear 2 cm hyperdensity seen in the distal sigmoid colon/rectum, series 7, image 76 may reflect some contrast extravasation and a source of active gastrointestinal bleeding, perhaps arising from the posterior wall. 2. Emphysematous changes. 3. Right middle and bibasilar atelectasis versus minimal infiltrate. 4. Trace pericardial effusion measuring up to 7.4 mm in thickness. 5. Cholecystectomy. 6. Superior mesenteric artery stent which appears patent. 7. Constipation. 8. Mildly prominent fluid in the small bowel and distal sigmoid colon, perhaps reflecting an enterocolitis in the appropriate clinical setting. Her son reports several weeks ago she had some diarrhea episode for which she was seen at a different facility, although did not have any obvious bleeding at that time. Son notes as per her wishes she would currently want to be full code. Review of Systems General: Reports: ROS unobtainable due to medical condition Card: Denies: chest pain Resp: Denies: dyspnea GI: Reports: abdominal pain (lower), nausea and diarrhea; Denies: vomiting Medications/Allergies Home Medications Medication Instructions Recorded Confirmed Last Taken Type aspirin 81 mg tablet,delayed 81 mg PO QPM 03/12/19 12/27/21 06/12/20 History release diabetic shoes #1 ea 08/29/19 12/27/21 Unknown Rx gabapentin 300 mg capsule 300 mg PO QID 01/13/20 12/27/21 12/27/21 History primidone 50 mg tablet 100 mg PO TID 03/12/20 12/27/21 12/27/21 History bupropion HCl 150 mg 24 hr tablet, 150 mg PO BID@0800,199905/14/2012/27/22 04/23/21 History extended release carbidopa 25 mg-levodopa 100 mg 2 tab PO QID 05/14/20 12/27/21 12/27/21 History tablet ASO Brace #1 ea 06/18/20 12/27/21 Unknown Rx camphor-menthol 0.2 %-3.5 % 1 applic topical QID PRN Pain 07/21/20 12/27/21 Unknown History topical gel glycerin (adult) (Fleet Glycerin 1 supp [place] DAILY PRN Constipation 07/21/20 12/27/21 Unknown History (Adult) rectal suppository) meloxicam 7.5 mg tablet 7.5 mg PO DAILY@0800 07/21/20 12/27/21 Unknown History polyethylene glycol 3350 17 17 g PO DAILY 07/21/20 12/27/21 Unknown History gram/dose oral powder (Miralax) cefdinir 300 mg capsule 300 mg PO BID #14 caps 08/14/21 12/27/21 Unknown Rx acetaminophen 325 mg tablet 650 mg PO QID PRN Pain 12/27/21 12/27/21 Unknown History (Tylenol) aluminum-mag hydroxide-simethicone 30 ml PO Q2H PRN Indigestion 12/27/21 12/27/21 Unknown History 200 mg-200 mg-20 mg/5 mL oral susp bisacodyl 10 mg rectal suppository 10 mg [place] DAILY PRN Constipation 12/27/21 12/27/21 Unknown History (Dulcolax (bisacodyl)) bisacodyl 5 mg tablet,delayed 20 mg PO DAILY PRN Constipation 12/27/21 12/27/21 Unknown History release (Dulcolax (bisacodyl)) buspirone 7.5 mg tablet 7.5 mg PO BID 12/27/21 12/27/21 12/27/21 History haloperidol 0.5 mg tablet 0.25 mg PO BID 12/27/21 12/27/21 12/27/21 History hydrocodone 5 mg-acetaminophen 325 1 tab PO BID 12/27/21 12/27/21 12/27/21 History mg tablet ibuprofen 200 mg tablet 400 mg PO Q8H PRN Pain 12/27/21 12/27/21 Unknown History lorazepam 1 mg tablet (Ativan) 1 mg PO BID 12/27/21 12/27/21 12/27/21 History magnesium citrate 150 ml PO DAILY PRN Constipation 12/27/21 12/27/21 Unknown History magnesium hydroxide 400 mg/5 mL 30 ml PO DAILY PRN Constipation 12/27/21 12/27/21 Unknown History oral suspension (Milk of Magnesia) memantine 10 mg tablet (Namenda) 10 mg PO BID 12/27/21 12/27/21 12/27/21 History multivitamin 1 tab PO QAM 12/27/21 12/27/21 Unknown History olanzapine 5 mg tablet (Zyprexa) 5 mg PO QPM 12/27/21 12/27/21 Unknown History ondansetron HCl 4 mg tablet 4 mg PO Q6H PRN Nausea And Vomiting 12/27/21 12/27/21 Unknown History sennosides 8.6 mg tablet (Senokot) 8.6 mg PO DAILY 12/27/21 12/27/21 Unknown History sertraline 50 mg tablet 75 mg PO DAILY 12/27/21 12/27/21 Unknown History Allergies Allergy/AdvReac Type Severity Reaction Status Date / Time iodine Allergy Intermediate ALGY-Rash Verified 12/27/21 19:30 PFSH Acute PFSH: Medical History Chronic constipation Depression Diet-controlled diabetes mellitus Enrolled in chronic care management Essential tremor Insomnia Mesenteric artery stenosis SMA stent PAD (peripheral artery disease) Parkinsons disease PMR (polymyalgia rheumatica) RBBB Right hip pain Urinary incontinence Surgical History H/O bladder repair surgery H/O cataract extraction H/O shoulder surgery H/O: hysterectomy History of cholecystectomy Family History Other Alcoholic Social History Smoking and tobacco status: current every day smoker cigarettes Packs smoked per day: 0.50 Alcohol intake: never Vitals/I&O/Wt Last Vital Signs Temp 97.7 F 12/27/21 22:20 Pulse 60 12/27/21 22:00 Resp 23 H 12/27/21 22:00 BP 115/56 12/27/21 22:15 Pulse Ox 100 12/27/21 21:05 O2 Del Method 12/27/21 18:50 12/27/21 12/27/21 12/27/21 06:59 14:59 22:59 Intake Total 2350 / 2350 Balance 2350 / 2350 Weight last 48 hrs Weight 52.5 kg Physical Exam Narrative: Son at bedside Const: GENERAL APPEARANCE: cooperative, ill appearing and other (Pale, weak) ORIENTATION/CONSCIOUSNESS: Yes awake HENMT: COMMON NORMALS: oropharynx normal Neck/C-Spine: COMMON NORMALS: no JVD Resp: COMMON NORMALS: normal respiratory effort and clear to auscultation bilaterally AUSCULTATION: clear to auscultation bilaterally Cardio: COMMON NORMALS: no JVD, regular rhythm, S1 normal heart sound present, S2 normal heart sound present and No murmurs present (Cardio) RHYTHM: regular rhythm HEART SOUNDS: S1 normal heart sound present and S2 normal heart sound present GI: COMMON NORMALS: Normal to inspection, nondistended, normoactive bowel sounds present, Soft to palpation and non-tender PALPATION: Yes Soft to palpation and Yes Tenderness to palpation present (GI) (lower) Extremity: COMMON NORMALS: no joint enlargement and no pedal edema Neuro: COMMON NORMALS: moves all extremities SENSORIUM/ORIENTATION: Yes alert Skin: COMMON NORMALS: no rashes or lesions noted GENERAL SKIN EXAM: no rashes or lesions noted Data : 12/27/21 19:17 12/27/21 19:17 A&P Assessment and plan (1) Lower GI bleed: Complete RBC transfusion. Complete bolus. Monitor blood pressures. Additional resuscitation depending on further response. So far responding with blood pressure up to 115/56. Reassess blood count at interval. Hold aspirin. Hold sertraline. Prep is requested for colonoscopy. SMA stents noted in place, although appears to be patent. Does not appear to have obvious signs of bowel ischemia. Lactic acidosis suspect secondary to shock, hypoperfusion with hypotension. Discussed with ER physician and with her son. Question of possible enterocolitis, will request stool studies. C. difficile. (2) Shock: Completing additional fluid bolus. RBC transfusion started. Admitting to ICU. (3) Acute anemia: Acute symptomatic anemia. With acute bleeding, shock. RBC transfusion as above. (4) Atelectasis: IS. With leukocytosis likely reactive secondary to GI bleed, however, with possibility of infiltrate, and she cannot provide us with a very good review of systems due to her generalized weakness, condition, we will for now empirically cover with Zosyn, follow-up chest x-ray. Obtain blood cultures. Monitor oxygenation. Please de-escalate depending on her condition. (5) Pericardial effusion: Incidentally noted. Trace. Consider outpatient follow-up. Plan Parkinson's disease: Normally mostly nonambulatory, mostly in a wheelchair, requiring assistance with transfers by staff at [facility]. PAD PMR RBBB Other chronic problems noted Attestations Medical Necessity Statement*: Admission of over 2 midnights anticipated for assessment of management of acute GI bleeding, with hypovolemic shock, acute manic anemia. Critical Care Time: The high probability of a clinically significant, sudden or life threatening deterioration of the patient's GI, heme, hemodynamic system(s) required my full and direct attention, intervention and personal management. The critical care time is as shown. This time is in addition to time spent performing any reported procedures but includes the following: x Data and vital sign review and interpretation x Patient assessment, examination and intervention x Documentation x Medication orders and management Critical Care Time (min): 40 Coding Level of Care Code Acute Audit Control Clerk for [place] Diagnoses Lower GI bleed K92.2 Shock R57.9 Acute anemia D64.9 Atelectasis J98.11 Pericardial effusion I31.39
[2021-12-27] MEDS: HYDROmorphone 1 mg/mL INJ 1 mL 0.2 MG IVP (22:34)
--- NOTE | 2021-12-27 22:55 | PC.NURSE ---
BLOOD TRANSFUSION When getting report from ER nurse NICOLETTE Patel, this nurse was told pt had been given 2 units PRBC. Blood bank was called. Blood bank verified that 2 units PRBC were given to ER nurse. PT TAR shows only one unit having been infused. notified.
[2021-12-27] MEDS: lactated ringers 500 ML 999 ML IV (23:00)
[2021-12-27] MEDS: piperacillin-tazobactam 3.375 GM in sodium chloride 0.9% (plus) 50 ML IV (23:00)
[2021-12-28] VITALS (77 sets, daily range): BP systolic 76–168; BP diastolic 39–85; PULSE 51–79; RESP 11–25; TEMP 35.8–36.5; O2SAT 86–100; BMI 20.5
[2021-12-28] MEDS: lactated ringers 500 ML 999 ML IV (00:20)
[2021-12-28 00:44] LABS: Hematocrit 27.1 % (37.0-47.0); Hemoglobin 8.6 g/dL (11.5-15.3)
[2021-12-28] MEDS: acetaminophen 1,000 MG/100 ML PIGGYBACK 400 MG IV (00:57)
[2021-12-28] MEDS: pantoprazole 40 MG in sodium chloride 0.9% (plus) 100 ML 20 MG IV ×4 (00:57→19:22)
[2021-12-28] MEDS: sodium chloride 0.9% (100 ml) 100 ML (01:23)
[2021-12-28] MEDS: HYDROmorphone 1 mg/mL INJ 1 mL 0.2 MG IVP ×3 (02:00→06:03)
[2021-12-28] MEDS: piperacillin-tazobactam 3.375 GM in sodium chloride 0.9% (plus) 50 ML IV ×3 (06:03→22:52)
[2021-12-28 06:28] LABS: Basophils # 0.1 10^3/uL (0.0-0.1); Basophils % 0.3 %; Hematocrit 32.1 % (37.0-47.0); Hemoglobin 10.3 g/dL (11.5-15.3); Lymphocytes % 4.2 %; Mean Corpuscular HGB Conc 32.1 g/dL (30.0-36.0); Mean Corpuscular Volume 96.7 fl (81-99); Mean Platelet Volume 10.5 fL (7.4-10.4); Monocytes # 0.8 10^3/uL (0.2-0.9); Monocytes % 3.2 %; Neutrophils # 21.66 10^3/uL (1.8-7.7); Neutrophils % 91.1 %; Nucleated Red Blood Cells % 0 %; Platelet Count 354 10^3/cmm (130-400); Red Blood Count 3.32 10^6/uL (4.1-5.3); Red Cell Distribution Width 15.6 % (12.1-15.1); White Blood Count 23.8 10^3/uL (4.0-10.0)
[2021-12-28 06:50] LABS: Alanine Aminotransferase 8 U/L (0-33); Albumin Level 2.4 g/dL (3.5-5.2); Alkaline Phosphatase 97 U/L (35-105); Anion Gap 17.1 (5-19); Aspartate Amino Transferase 17 U/L (0-32); Blood Urea Nitrogen 16 mg/dL (8-23); Calcium 7.7 mg/dL (8.5-10.5); Carbon Dioxide 19 mmol/L (22-29); Chloride 107 mmol/L (98-107); Globulin 2.4 g/dL (1.3-4.6); Glucose 166 mg/dL (65-115); Osmolality Calculated 295 mOsm/kg (285-295); Potassium 3.1 mmol/L (3.5-5.1); Sodium 140 mmol/L (136-145); Total Bilirubin 0.3 mg/dL (0.15-1.2); Total Protein 4.8 g/dL (6.6-8.7)
--- NOTE | 2021-12-28 07:52 | PC.NURSE ---
Delay in giving miralax. Patient is too lethargic to eat or drink, falls asleep when answering questions, cant follow directions well. Patient received dilaudid about 2 hours ago. shiftman nurse reports that with a previous dose of dilaudid patient was lethargic and the medicaiton wore off in about 3-4 hours. NUrse will continue to monitor and give miralax when appropriate.
--- NOTE | 2021-12-28 10:00 | PM.CONSULT ---
Providers/Reason For Consult Consulting Physician/Specialty*: General Surgery/Eric Cortes MD, FACS, RPVI Reason for Consult*: GI bleeding Attending Physician: Geovanna Santos MD History of Present Illness History of Present Illness Yuli Mejia is a 81 year old female She has an underlying dementia and she is a penitentiary resident. Her family is not immediately available for the interview right now. I am not able to obtain any useful information about her current presentation as well as the rest of the HPI. Information obtained from the review of the medical records and conversation with other healthcare providers. The patient was brought from the penitentiary, she is known ambulatory at her baseline, penitentiary resident noticed maroon-colored stool and the patient was transferred to the emergency room. On presentation she found to have anemia with a drop of hemoglobin from 14.1 in July to 9.9. Lactic acid was 4.5. The patient is not on any blood thinners, she is taking only aspirin. It was difficult to tell the patient complaining of any abdominal pain and not because she was very poorly responsive. She was also hypotensive. She responded well to blood and fluid transfusion and her blood pressure normalized without any vasopressors. CT scan was obtained because of the altered mental status and elevated white blood cell count and it showed possible active catheterization in the colon, status postcholecystectomy, SMA stent which appears to be patent. Questionable enterocolitis in the distal sigmoid colon. The son of the patient mentioned that the patient had diarrhea several weeks ago, however, there was no bleeding. Per patient wishes, she is full code. Review of Systems Narrative: 10 point review of systems is negative except as per HPI Medications/Allergies Home Medications Medication Instructions Recorded Confirmed Last Taken Type aspirin 81 mg tablet,delayed 81 mg PO QPM 03/12/19 12/27/21 06/12/20 History release diabetic shoes #1 ea 08/29/19 12/27/21 Unknown Rx gabapentin 300 mg capsule 300 mg PO QID 01/13/20 12/27/21 12/27/21 History primidone 50 mg tablet 100 mg PO TID 03/12/20 12/27/21 12/27/21 History bupropion HCl 150 mg 24 hr tablet, 150 mg PO BID@0800,2000 05/14/20 12/27/21 06/12/20 History extended release carbidopa 25 mg-levodopa 100 mg 2 tab PO QID 05/14/20 12/27/21 12/27/21 History tablet ASO Brace #1 ea 06/18/20 12/27/21 Unknown Rx camphor-menthol 0.2 %-3.5 % 1 applic topical QID PRN Pain 07/21/20 12/27/21 Unknown History topical gel glycerin (adult) (Fleet Glycerin 1 supp AK DAILY PRN Constipation 07/21/20 12/27/21 Unknown History (Adult) rectal suppository) meloxicam 7.5 mg tablet 7.5 mg PO DAILY@0800 07/21/20 12/27/21 Unknown History polyethylene glycol 3350 17 17 g PO DAILY 07/21/20 12/27/21 Unknown History gram/dose oral powder (Miralax) cefdinir 300 mg capsule 300 mg PO BID #14 caps 08/14/21 12/27/21 Unknown Rx acetaminophen 325 mg tablet 650 mg PO QID PRN Pain 12/27/21 12/27/21 Unknown History (Tylenol) aluminum-mag hydroxide-simethicone 30 ml PO Q2H PRN Indigestion 12/27/21 12/27/21 Unknown History 200 mg-200 mg-20 mg/5 mL oral susp bisacodyl 10 mg rectal suppository 10 mg AK DAILY PRN Constipation 12/27/21 12/27/21 Unknown History (Dulcolax (bisacodyl)) bisacodyl 5 mg tablet,delayed 20 mg PO DAILY PRN Constipation 12/27/21 12/27/21 Unknown History release (Dulcolax (bisacodyl)) buspirone 7.5 mg tablet 7.5 mg PO BID 12/27/21 12/27/21 12/27/21 History haloperidol 0.5 mg tablet 0.25 mg PO BID 12/27/21 12/27/21 12/27/21 History hydrocodone 5 mg-acetaminophen 325 1 tab PO BID 12/27/21 12/27/21 12/27/21 History mg tablet ibuprofen 200 mg tablet 400 mg PO Q8H PRN Pain 12/27/21 12/27/21 Unknown History lorazepam 1 mg tablet (Ativan) 1 mg PO BID 12/27/21 12/27/21 12/27/21 History magnesium citrate 150 ml PO DAILY PRN Constipation 12/27/21 12/27/21 Unknown History magnesium hydroxide 400 mg/5 mL 30 ml PO DAILY PRN Constipation 12/27/21 12/27/21 Unknown History oral suspension (Milk of Magnesia) memantine 10 mg tablet (Namenda) 10 mg PO BID 12/27/21 12/27/21 12/27/21 History multivitamin 1 tab PO QAM 12/27/21 12/27/21 Unknown History olanzapine 5 mg tablet (Zyprexa) 5 mg PO QPM 12/27/21 12/27/21 Unknown History ondansetron HCl 4 mg tablet 4 mg PO Q6H PRN Nausea And Vomiting 12/27/21 12/27/21 Unknown History sennosides 8.6 mg tablet (Senokot) 8.6 mg PO DAILY 12/27/21 12/27/21 Unknown History sertraline 50 mg tablet 75 mg PO DAILY 12/27/21 12/27/21 Unknown History Allergies Allergy/AdvReac Type Severity Reaction Status Date / Time iodine Allergy Intermediate ALGY-Rash Verified 12/27/21 19:30 Current Medications Generic Name Dose Route Start Last Admin Trade Name Freq PRN Reason Stop Dose Admin Hydromorphone HCl 0.2 mg 12/27/21 22:29 12/28/21 06:03 Hydromorphone 1 Mg/Ml Inj 1 Ml IVP 0.2 mg Q4H PRN Administration PAIN Piperacillin Sod/Tazobactam 50 mls @ 12.5 mls/hr 12/27/21 22:45 12/28/21 06:03 Sod 3.375 gm/ Sodium Chloride IV 12.5 mls/hr Q8H KIERA Administration Protocol Pantoprazole Sodium 40 mg/ 100 mls @ 20 mls/hr 12/28/21 00:45 12/28/21 04:44 Sodium Chloride IV 8 mg/hr .Q5H KIERA 20 mls/hr Administration 8 MG/HR Ondansetron HCl 4 mg 12/27/21 22:20 12/27/21 22:30 Ondansetron 2 Mg/Ml Sdv 2 Ml IVP 4 mg Q8H PRN Administration vomiting, or N/V if npo PFSH Acute PFSH: Medical History Chronic constipation Depression Diet-controlled diabetes mellitus Enrolled in chronic care management Essential tremor Insomnia Mesenteric artery stenosis SMA stent PAD (peripheral artery disease) Parkinsons disease PMR (polymyalgia rheumatica) RBBB Right hip pain Urinary incontinence Surgical History H/O bladder repair surgery H/O cataract extraction H/O shoulder surgery H/O: hysterectomy History of cholecystectomy Family History Other Alcoholic Social History Smoking and tobacco status: current every day smoker cigarettes Packs smoked per day: 0.50 Alcohol intake: never Vitals/I&O/Wt Last Vital Signs Temp 97.4 F L 12/28/21 07:45 Pulse 66 12/28/21 08:30 Resp 17 12/28/21 08:30 BP 111/55 12/28/21 08:30 Pulse Ox 93 12/28/21 08:15 O2 Del Method 12/28/21 07:45 12/27/21 12/28/21 12/28/21 22:59 06:59 14:59 Intake Total 2350 / 2350 1450 / 3800 Balance 2350 / 2350 1450 / 3800 Weight last 48 hrs Weight 115 lb 11.883 oz Weight 115 lb 11.883 oz Physical Exam Narrative: General: No acute distress Psych: The patient is confused, somnolent, not interactive Eyes: [sclerae are white] Head/ENT: [normocephalic, symmetric] CV: [regular] pulse, [], no JVD Lungs: [symmetrical chest rise] Abdomen: [soft, ND] Ext: [no obvious traumatic deformities] Skin: warm Data : 12/28/21 06:11 12/28/21 06:11 Micro: Microbiology 12/27/21 23:44 Blood Culture - Preliminary Blood SPECIMEN COLLECTED 12/27/21 23:40 Blood Culture - Preliminary Blood SPECIMEN COLLECTED A&P Assessment and plan (1) Acute anemia: (2) Upper gastrointestinal hemorrhage: (3) Lower GI bleed: (4) Mesenteric artery stenosis: (5) Parkinsons disease: (6) Dementia: Plan Evidence of GI bleed, confirmed by a significant drop in Hb, hypotension on admission, and observed melanotic stool and blood clots in the stool per nursing report. Family prefers full code and agressive management. Plan to proceed with EGD and colonoscopy. The patient responded well to a blood transfusion, she had no more episodes of hypotension. She appears to be well resuscitated. I do not see any current indications to procedures. Given that she is stable now, plan to perform procedures in the GI suit. I will attempt no unprepped colonoscopy given there is witnessed blood clots coming out of the rectum but no stool. If she is not ready, we will plan for a bowel prep in the next any 4 hours and colonoscopy tomorrow. Given her altered mental status, she will require placement of the NG tube to perform a bowel prep. We will place it at the time of the EGD Risks and benefits of upper GI endosdcopy were discussed with the patient's family, inlcuding bleeding, damage to surrounding structures/tissue, perforation, aspiration, complications related to sedation and anesthesia. The patient agreed to proceed with an EGD and all other indicated procedures and signed an informed consent. All questions were answered. Risks and benefits of colonoscopy were discussed with the patient family, inlcuding bleeding, damage to surrounding structures/tissue, perforation, aspiration, complications related to sedation and anesthesia, possible complications related to the bowel preparation. The patient agreed to proceed with a colonoscopy and all other indicated procedures and signed an informed consent. Coding Level of Care Code Acute Dispensing Operator for [facility] Fwd Diagnoses Acute anemia D64.9 Upper gastrointestinal hemorrhage K92.2 Lower GI bleed K92.2 Mesenteric artery stenosis K55.1 Parkinsons disease G20 Dementia F03.90
[2021-12-28] MEDS: sodium chloride 0.9% 1,000 ML 30 ML IV (10:30)
--- NOTE | 2021-12-28 11:19 | P.ANESASSM_ITS ---
Pre-Anesthetic Assessment Height/Weight: Height 1.6 m Weight 52.5 kg Temp Pulse Resp BP Pulse Ox O2 Del Method 97.4 F L 58 L 22 H 121/61 95 12/28/21 07:45 12/28/21 10:00 12/28/21 10:00 12/28/21 10:15 12/28/21 10:00 12/28/21 07:45 Preop Diagnosis: GI bleed Operation Date: 12/28/21 10:15 Proposed Procedures p EGD - Poss ICU Bedside(Not Applicable) - Eric Cortes MD s Colonoscopy(Not Applicable) - Eric Cortes MD Familial anesthetic complications: none Was Beta Agata taken within 24 hours: N/A Was Clonidine taken within 24 hours: N/A Social No alcohol and No tobacco Exam alert, clear to auscultation bilaterally and regular rate & rhythm Airway Submandibular: within normal limits Cervical ROM: within normal limits Mallampati: Class II Dentition: false CV/HEM Anemia, Arrythmia and Peripheral Vascular Disease [facility] [place] [facility] [place] Osteoarthritis/DJD PMR Neuropsych Cerebrovascular Accident, Dementia and Depression Parkinson's, left hemiplegia? Anesthetic Plan ASA status: 3 Anesthesia: MAC Medications/Allergies Home Medications Medication Instructions Recorded Confirmed Last Taken Type aspirin 81 mg tablet,delayed 81 mg PO QPM 03/12/19 12/27/21 06/12/20 History release diabetic shoes #1 ea 08/29/19 12/27/21 Unknown Rx gabapentin 300 mg capsule 300 mg PO QID 01/13/20 12/27/21 12/27/21 History primidone 50 mg tablet 100 mg PO TID 03/12/20 12/27/21 12/27/21 History bupropion HCl 150 mg 24 hr tablet, 150 mg PO BID@0800,199905/14/20 12/27/21 06/12/20 History extended release carbidopa 25 mg-levodopa 100 mg 2 tab PO QID 05/14/20 12/27/21 12/27/21 History tablet ASO Brace #1 ea 06/18/20 12/27/21 Unknown Rx camphor-menthol 0.2 %-3.5 % 1 applic topical QID PRN Pain 07/21/20 12/27/21 Unknown History topical gel glycerin (adult) (Fleet Glycerin 1 supp [place] DAILY PRN Constipation 07/21/20 12/27/21 Unknown History (Adult) rectal suppository) meloxicam 7.5 mg tablet 7.5 mg PO DAILY@0800 07/21/20 12/27/21 Unknown History polyethylene glycol 3350 17 17 g PO DAILY 07/21/20 12/27/21 Unknown History gram/dose oral powder (Miralax) cefdinir 300 mg capsule 300 mg PO BID #14 caps 08/14/21 12/27/21 Unknown Rx acetaminophen 325 mg tablet 650 mg PO QID PRN Pain 12/27/21 12/27/21 Unknown History (Tylenol) aluminum-mag hydroxide-simethicone 30 ml PO Q2H PRN Indigestion 12/27/21 12/27/21 Unknown History 200 mg-200 mg-20 mg/5 mL oral susp bisacodyl 10 mg rectal suppository 10 mg [place] DAILY PRN Constipation 12/27/21 12/27/21 Unknown History (Dulcolax (bisacodyl)) bisacodyl 5 mg tablet,delayed 20 mg PO DAILY PRN Constipation 12/27/21 12/27/21 Unknown History release (Dulcolax (bisacodyl)) buspirone 7.5 mg tablet 7.5 mg PO BID 12/27/21 12/27/21 12/27/21 History haloperidol 0.5 mg tablet 0.25 mg PO BID 12/27/21 12/27/21 12/27/21 History hydrocodone 5 mg-acetaminophen 325 1 tab PO BID 12/27/21 12/27/21 12/27/21 History mg tablet ibuprofen 200 mg tablet 400 mg PO Q8H PRN Pain 12/27/21 12/27/21 Unknown History lorazepam 1 mg tablet (Ativan) 1 mg PO BID 12/27/21 12/27/21 12/27/21 History magnesium citrate 150 ml PO DAILY PRN Constipation 12/27/21 12/27/21 Unknown History magnesium hydroxide 400 mg/5 mL 30 ml PO DAILY PRN Constipation 12/27/2109/10 Unknown History oral suspension (Milk of Magnesia) memantine 10 mg tablet (Namenda) 10 mg PO BID 12/27/21 12/27/21 12/27/21 History multivitamin 1 tab PO QAM 12/27/21 12/27/21 Unknown History olanzapine 5 mg tablet (Zyprexa) 5 mg PO QPM 12/27/21 12/27/21 Unknown History ondansetron HCl 4 mg tablet 4 mg PO Q6H PRN Nausea And Vomiting 12/27/21 12/27/21 Unknown History sennosides 8.6 mg tablet (Senokot) 8.6 mg PO DAILY 12/27/21 12/27/21 Unknown History sertraline 50 mg tablet 75 mg PO DAILY 12/27/21 12/27/21 Unknown History Allergies Allergy/AdvReac Type Severity Reaction Status Date / Time iodine Allergy Intermediate ALGY-Rash Verified 12/27/21 19:30 Current Medications Generic Name Dose Route Start Last Admin Trade Name Freq PRN Reason Stop Dose Admin Hydromorphone HCl 0.2 mg 12/27/21 22:29 12/28/21 06:03 Hydromorphone 1 Mg/Ml Inj 1 Ml IVP 0.2 mg Q4H PRN Administration PAIN Piperacillin Sod/Tazobactam 50 mls @ 12.5 mls/hr 12/27/21 22:45 12/28/21 06:03 Sod 3.375 gm/ Sodium Chloride IV 12.5 mls/hr Q8H KIERA Administration Protocol Pantoprazole Sodium 40 mg/ 100 mls @ 20 mls/hr 12/28/21 00:45 12/28/21 04:44 Sodium Chloride IV 8 mg/hr .Q5H KIERA 20 mls/hr Administration 8 MG/HR Sodium Chloride 1,000 mls @ 30 mls/hr 12/28/21 10:30 12/28/21 10:30 Sodium Chloride 0.9% IV 12/29/21 10:29 30 mls/hr .Q24H KIERA Administration Ondansetron HCl 4 mg 12/27/21 22:20 12/27/21 22:30 Ondansetron 2 Mg/Ml Sdv 2 Ml IVP 4 mg Q8H PRN Administration vomiting, or N/V if npo PFSH Anesthesia Medical History Chronic constipation Depression Diet-controlled diabetes mellitus Enrolled in chronic care management Essential tremor Insomnia Mesenteric artery stenosis SMA stent PAD (peripheral artery disease) Parkinsons disease PMR (polymyalgia rheumatica) RBBB Right hip pain Urinary incontinence Surgical History H/O bladder repair surgery H/O cataract extraction H/O shoulder surgery H/O: hysterectomy History of cholecystectomy Family History Other Alcoholic Social History Smoking and tobacco status: current every day smoker cigarettes Packs smoked per day: 0.50 Alcohol intake: never Data Anesthesia : 12/28/21 06:11 12/28/21 06:11 Short CBC 12/27/21 12/28/21 12/28/21 Range/Units 19:17 00:40 06:11 WBC 22.8 H 23.8 H (4.0-10.0) 10^3/uL Hgb 9.9 L 8.6 L 10.3 L (11.5-15.3) g/dL Hct 31.8 L 27.1 L 32.1 L (37.0-47.0) % MCV 98.8 96.7 (81-99) fl Plt Count 438 H 354 (130-400) 10^3/cmm Neut % (Auto) 88.1 91.1 % Neut # (Auto) 20.12 H 21.66 H (1.8-7.7) 10^3/uL BMP 12/27/21 12/28/21 19:17 06:11 Sodium 138 140 Potassium 3.1 L 3.1 L Chloride 102 107 Carbon Dioxide 26 19 L BUN 13 16 Creatinine 0.5 0.6 Glucose 130 H 166 H Calcium 8.3 L 7.7 L Liver Function 12/27/21 12/28/21 Range/Units 19:17 06:11 Total Bilirubin 0.2 0.3 (0.15-1.2) mg/dL AST 9 17 (0-32) U/L ALT 8 8 (0-33) U/L Alkaline Phosphatase 88 97 (35-105) U/L Albumin 2.7 L 2.4 L (3.5-5.2) g/dL Blood Bank 12/27/21 19:17 Blood Type O Positive Rho(D) Type Positive Antibody Screen Negative Coags 12/27/21 19:17 PT 14.70 INR 1.11 Microbiology 12/27/21 23:44 Blood Culture - Preliminary Blood SPECIMEN COLLECTED 12/27/21 23:40 Blood Culture - Preliminary Blood SPECIMEN COLLECTED Cardiac Studies: No Data to Display
--- NOTE | 2021-12-28 11:59 | PC.CHAP ---
Pastoral Care Encounter/Spiritual Assessment Type of Contact [] Declined air cargo agent visit [] Patient/Family/Request visit [] Outpatient visit [] Follow-up visit [] Physician referral [] Code/Alert [x] Routine visit [] Staff referral [] Actively dying [] Patient sleeping [] Family support [] [x] Out of room [] Palliative care [] [] Receiving care in room [] Pre-surgical visit [] Trauma [] Long length of stay [x] ICU visit [] Other: Relational/Emotional Strength [] Patient feels connected with others/family/visitors/staff [] Distress [] Loneliness/isolation [] Abandonment Spirituality of Patient [] Person of Moni [] Attends Christianity of their Moni [] Believes in Prayer [] Reads Bible or Holiness materials [] There are Spiritual issues to be addressed Drying Frame Operator Interventions [x] Prayer [] Active listening [] Non-anxious presence [] Spiritual/emotional support [] Crisis/trauma care [] Spiritual counseling [] Bereavement support [] Provided bereavement packet [] Provided Bible/devotional materials [] Provided toy/stuffed animal, coloring book to patient or family member [] Provided Communion [] Anointing/Draper [] Salvation [x] Completed spiritual assessment [] Other: Impact on Illness or Injury [] Angry [] Fearful [] Anxious [] Often cries [] Exhaustion [] Unable to work [] Unable to attend synagogue [] Unable to walk/stand [] Unable to read [] Unable to drive [] Unable to eat/drink [] Unable to sleep [] Unable to be with family [] Patient intubated [] Other: Summary Time spent with patient
--- NOTE | 2021-12-28 13:50 | PC.NURSE ---
Patient started to become more alert around 10am, but was then taken to GI. Patient came back form GI lab about 1130 and in once again lethargic. at 1345, patient still remains lethargic. Nurse alerted Dr zepeda.
[2021-12-28] MEDS: peg /e-lyte soln 4,000 mL Btl 4000 ML PO (14:10)
--- NOTE | 2021-12-28 15:14 | PM.PN ---
Subjective Subjective: EGD showed duodenal erosions No significant bleeding ulcer Plan for colonoscopy GoLytely started via NG tube Patient was very drowsy and lethargic She did not communicate with us at all However she does make eye contact Lactic acid has not improved significantly, blood pressure has remained stable she has not required any vasopressors Status post 3 unit PRBC Still having hematochezia Recommended against rectal tube Vitals/I&O/Wt Last Vital Signs Temp 96.4 F L 12/28/21 12:15 Pulse 68 12/28/21 13:45 Resp 22 H 12/28/21 13:45 BP 151/54 12/28/21 13:45 Pulse Ox 97 12/28/21 13:45 O2 Del Method 12/28/21 12:15 O2 Flow Rate 2 12/28/21 11:43 12/28/21 12/28/21 12/28/21 06:59 14:59 22:59 Intake Total 1450 / 3800 150 / 150 Balance 1450 / 3800 150 / 150 Weight last 48 hrs Weight 52.5 kg Weight 52.5 kg Physical Exam Narrative: Patient is very drowsy and lethargic Does make eye contact Able to move her extremities Abdomen soft, nontender Patient looks dehydrated Hemodynamically stable Not on vasopressors Currently on room air Lower extremity no edema Tyler catheter draining urine Urinary Catheter Management: Tyler: Cath Placed During This Visit: yes Urinary Catheter Date of Insertion: 12/28/21 Urinary Catheter Time of Insertion: 14:06 Data : 12/28/21 06:11 12/28/21 06:11 Micro: Microbiology 12/27/21 23:44 Blood Culture - Preliminary Blood SPECIMEN COLLECTED 12/27/21 23:40 Blood Culture - Preliminary Blood SPECIMEN COLLECTED A&P Assessment and plan (1) Dementia: (2) Mesenteric artery stenosis: (3) Acute anemia: (4) Lower GI bleed: (5) Contusion of left leg: Qualifiers: Encounter type: initial encounter Qualified Code(s): S80.12XA - Contusion of left lower leg, initial encounter (6) Parkinsons disease: Plan Lower GI bleed EGD showed duodenal erosions however no extravasation of blood or active bleeding ulcer Continue Protonix She has not required any vasopressors She is not in any hemorrhagic shock for now Status post 3 unit PRBC Held unit of FFP Spoke with her son son stating that she always wanted chest compressions and intubation in case of any cardiac event For now we have started her on GoLytely via NG tube Avoid rectal tube Full code N.p.o. after midnight Currently on clear liquid diet Aspiration pneumonia? Severe leukocytosis, right middle lobe infiltrate versus atelectasis Currently he is on Zosyn I would like to watch her on current regimen for now in case of further worsening might add vancomycin Parkinson's medication on hold for now as per the son she does communicate without any issues at home Attestations Medical Necessity Statement*: Continue ICU management Coding Level of Care Code Acute Lead Etl Developer for [facility] Fwd Diagnoses Dementia F03.90 Mesenteric artery stenosis K55.1 Acute anemia D64.9 Lower GI bleed K92.2 Contusion of left leg S80.12XA Encounter type: initial encounter Parkinsons disease G20
--- NOTE | 2021-12-28 15:19 | ANE.PACU2 ---
Inpatient post-anesthesia follow up: Airway intact: Yes Vital signs: Temperature 96.4 F Pulse Rate 68 Respiratory Rate 22 Blood Pressure 151/54 Pulse Oximetry 97 Oxygen Delivery Me thod [ Nasal Cannula Current Rate & Del gutierrez] Oxygen Delivery Me thod Room Air Oxygen Flow Rate [ Current Rate 2 & Delivery] Fraction of Inspir ed Oxygen Hydration adequate: Yes Nausea and vomiting: No Pain level: 1 Mental status: Baseline
--- NOTE | 2021-12-28 18:27 | PC.NURSE ---
SHift SUmmary: Uneventful shift. Patient went to GI lab today for a EGD. They attempted a colonoscopy, but wer eunable to visualize anytihng as patient had not been NPO for long enough. Patient is currently NPO except for medications. REceiving golytley with plan to do colonoscopy tommorow. Patient is currently having multiple small bowel movements. No signs of bleeding in bowel movements at this time. Patient remains very lethargic, she is unable to answer orientation questions as she has trouble staying awake, when she does answer, the response is too mumbled to make out. Patient does appear to be alert to person, and place, but not time or situation. THis cannot be confurmed though. Lozano catheter started today due to retention.
[2021-12-29] VITALS (25 sets, daily range): BP systolic 104–163; BP diastolic 49–77; PULSE 65–103; RESP 11–25; TEMP 36.4–37.3; O2SAT 75–100
[2021-12-29] MEDS: pantoprazole 40 MG in sodium chloride 0.9% (plus) 100 ML 20 MG IV ×5 (01:06→22:28)
[2021-12-29 03:28] LABS: Basophils # 0.1 10^3/uL (0.0-0.1); Basophils % 0.3 %; Hematocrit 26.1 % (37.0-47.0); Hemoglobin 8.4 g/dL (11.5-15.3); Lymphocytes # 1.5 10^3/uL (0.8-4.8); Lymphocytes % 6.2 %; Mean Corpuscular HGB Conc 32.2 g/dL (30.0-36.0); Mean Corpuscular Hemoglobin 31.1 pg (28.0-34.0); Mean Corpuscular Volume 96.7 fl (81-99); Mean Platelet Volume 10.9 fL (7.4-10.4); Monocytes # 1.1 10^3/uL (0.2-0.9); Monocytes % 4.4 %; Neutrophils # 21.02 10^3/uL (1.8-7.7); Nucleated Red Blood Cells % 0 %; Platelet Count 343 10^3/cmm (130-400); White Blood Count 23.9 10^3/uL (4.0-10.0)
[2021-12-29 03:50] LABS: Alanine Aminotransferase 11 U/L (0-33); Albumin Level 2.6 g/dL (3.5-5.2); Alkaline Phosphatase 75 U/L (35-105); Aspartate Amino Transferase 15 U/L (0-32); Blood Urea Nitrogen 17 mg/dL (8-23); Calcium 7.6 mg/dL (8.5-10.5); Carbon Dioxide 24 mmol/L (22-29); Chloride 107 mmol/L (98-107); Globulin 2.4 g/dL (1.3-4.6); Glucose 118 mg/dL (65-115); Osmolality Calculated 309 mOsm/kg (285-295); Sodium 148 mmol/L (136-145); Total Bilirubin 0.3 mg/dL (0.15-1.2)
[2021-12-29 04:20] LABS: Anion Gap 20.5 (5-19); Potassium 3.5 mmol/L (3.5-5.1)
[2021-12-29] MEDS: piperacillin-tazobactam 3.375 GM in sodium chloride 0.9% (plus) 50 ML IV ×2 (06:25→16:55)
--- NOTE | 2021-12-29 08:58 | P.PN_ITS ---
Subjective Subjective: Hemoglobin has dropped to 8.4 She is still having hematochezia Finished GoLytely overnight ICU nurses not sure how much GoLytely was left over to This morning patient is answering simple questions Hemodynamically stable Patient kept mentioning about her good marriage with her Vitals/I&O/Wt Last Vital Signs Temp 99.1 F 12/29/21 04:00 Pulse 70 12/29/21 06:00 Resp 13 12/29/21 06:00 BP 158/59 12/29/21 06:00 Pulse Ox 100 12/29/21 06:00 O2 Del Method 12/29/21 06:00 O2 Flow Rate 2 12/29/21 06:00 12/28/21 12/29/21 12/29/21 22:59 06:59 14:59 Intake Total 1150 / 1300 1650 / 2950 Output Total 350 / 350 Balance 1150 / 1300 1300 / 2600 Weight last 48 hrs Weight 51.5 kg Weight 52.5 kg Weight 52.5 kg Physical Exam Narrative: Patient is awake alert and oriented to herself Clinically looks dehydrated NG tube in place Abdomen soft Signs of dehydration muscle mass loss S1, S2 Currently on 2 L nasal cannula No new focal deficits Urine catheter draining concentrated urine Urinary Catheter Management: Tyler: Cath Placed During This Visit: yes Reason for Continuing Indwelling Catheter: Acute Urinary Retention or Obstruction Urinary Catheter Date of Insertion: 12/28/21 Urinary Catheter Time of Insertion: 14:06 Data : 12/29/21 02:40 12/29/21 02:40 Micro: Microbiology 12/27/21 23:44 Blood Culture - Preliminary Blood NEGATIVE TO DATE 12/27/21 23:40 Blood Culture - Preliminary Blood NEGATIVE TO DATE 12/27/21 22:32 C.difficile Toxin B Gene (PCR) - Final Stool - Stool Aspirate A&P Assessment and plan (1) Dementia: (2) Mesenteric artery stenosis: (3) Pericardial effusion: (4) Atelectasis: (5) Acute anemia: (6) Lower GI bleed: Plan Plan for colonoscopy Hemoglobin has dropped Watch H&H for now She is now requiring Levophed Blood pressure is stable I did discuss goals of care with her son yesterday, she is full code History of dementia Parkinson's P.o. meds on hold Attestations Medical Necessity Statement*: Continue ICU management Time Spent in Patient Care: 30 Coding Level of Care Code Acute Equipment Superintendent for [facility] Fwd Diagnoses Dementia F03.90 Mesenteric artery stenosis K55.1 Pericardial effusion I31.39 Atelectasis J98.11 Acute anemia D64.9 Lower GI bleed K92.2
[2021-12-29 10:42] LABS: Hematocrit 22.2 % (37.0-47.0); Hemoglobin 7.4 g/dL (11.5-15.3)
--- NOTE | 2021-12-29 12:14 | PM.PN ---
Subjective Subjective: No acute events overnight. The patient finished GoLytely, however, stool output is still not clear. White blood cell count remains elevated. No blood in the stool. Vitals/I&O/Wt Last Vital Signs Temp 98.9 F 12/29/21 08:00 Pulse 66 12/29/21 09:06 Resp 15 12/29/21 09:06 BP 158/59 12/29/21 08:00 Pulse Ox 97 12/29/21 09:06 O2 Del Method 12/29/21 09:06 O2 Flow Rate 2 12/29/21 09:06 12/28/21 12/29/21 12/29/21 22:59 06:59 14:59 Intake Total 1150 / 1300 1650 / 2950 Output Total 350 / 350 Balance 1150 / 1300 1300 / 2600 Weight last 48 hrs Weight 113 lb 8.609 oz Weight 115 lb 11.883 oz Weight 115 lb 11.883 oz Physical Exam Narrative: General: No acute distress Psych: The patient is confused, somnolent, not interactive Eyes: Sclerae are white Head/ENT: Normocephalic, symmetric CV: Regular pulse,, no JVD Lungs: Symmetrical chest rise Abdomen: Soft, ND, the patient does not react to palpation of the abdomen. No hernias. Ext: No obvious traumatic deformities Skin: warm Urinary Catheter Management: Tyler: Cath Placed During This Visit: yes Reason for Continuing Indwelling Catheter: Acute Urinary Retention or Obstruction Urinary Catheter Date of Insertion: 12/28/21 Urinary Catheter Time of Insertion: 14:06 Data : 12/29/21 10:33 12/29/21 02:40 Micro: Microbiology 12/27/21 23:44 Blood Culture - Preliminary Blood NEGATIVE TO DATE 12/27/21 23:40 Blood Culture - Preliminary Blood NEGATIVE TO DATE 12/27/21 22:32 C.difficile Toxin B Gene (PCR) - Final Stool - Stool Aspirate A&P Assessment and plan (1) Lower GI bleed: (2) Pyloric stenosis: (3) Dementia: (4) Mesenteric artery stenosis: (5) Pericardial effusion: (6) Atelectasis: (7) Acute anemia: (8) Upper gastrointestinal hemorrhage: (9) Parkinsons disease: Plan The patient finished GoLytely, however, related to her chronic constipation, her bowel is not prepped. I will order another liter and a half GoLytely. We will schedule procedure for tomorrow. At this time her bleeding stopped. No more blood clots or melena in last 24 hours. She does have a pyloric stenosis. I dilated to 1 cm and was able to pass the scope into the duodenum. We will continue her on Protonix at this time. Her stenosis need to be reassessed down the road. Given that the patient is nonverbal, not arousable, I think that the goals of care should be further discussed. Management of the pyloric stenosis may require several more procedures which may cause that on complications. The patient's quality of life seems to be very limited at this time. However, it needs to be better reassessed after her acute illness resolved. The source of leukocytosis is not exactly clear to me at this time. Possibly, she has some findings of colitis on colonoscopy that will explain her leukocytosis. 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
--- NOTE | 2021-12-29 13:19 | XR_ITS ---
WS: [id number] Portable AP upright chest, 12/29/2021 Clinical Data: NG placement for tube feeding Comparison: Portable chest, 08/15/2021 Findings: The nasogastric tube appears to be curled in the fundus of the stomach. The chest shows no acute cardiopulmonary change. There is a right shoulder arthroplasty. XR/XR chest 1V portable [id number] Impression: Nasogastric tube which appears to be curled in fundus of the stomach.
--- NOTE | 2021-12-29 14:24 | PC.NURSE ---
1200 Patient pulled out NG tube. 1330 after 2 attempts, and 2 other nurses assistance, replaced NG into right nare. Port c x r ordered and done, showing in the stomach
[2021-12-29] MEDS: peg /e-lyte soln 4,000 mL Btl 1500 ML PO (16:51)
[2021-12-29] MEDS: HYDROmorphone 1 mg/mL INJ 1 mL 0.2 MG IVP (19:42)
[2021-12-30] VITALS (26 sets, daily range): BP systolic 121–175; BP diastolic 48–136; PULSE 61–119; RESP 7–22; TEMP 36.6–37.2; O2SAT 70–100
[2021-12-30] MEDS: piperacillin-tazobactam 3.375 GM in sodium chloride 0.9% (plus) 50 ML IV ×3 (00:46→17:34)
[2021-12-30 04:09] LABS: Basophils % 0.3 %; Eosinophils % 0.3 %; Hemoglobin 6.6 g/dL (11.5-15.3); Lymphocytes # 1.5 10^3/uL (0.8-4.8); Lymphocytes % 12.9 %; Mean Corpuscular Hemoglobin 30.4 pg (28.0-34.0); Mean Corpuscular Volume 94.9 fl (81-99); Mean Platelet Volume 10.8 fL (7.4-10.4); Monocytes # 0.7 10^3/uL (0.2-0.9); Monocytes % 6.6 %; Neutrophils # 8.82 10^3/uL (1.8-7.7); Neutrophils % 78.5 %; Nucleated Red Blood Cells % 0 %; Platelet Count 324 10^3/cmm (130-400); Red Blood Count 2.17 10^6/uL (4.1-5.3); White Blood Count 11.2 10^3/uL (4.0-10.0)
[2021-12-30] MEDS: pantoprazole 40 MG in sodium chloride 0.9% (plus) 100 ML 20 MG IV (04:13)
[2021-12-30 04:34] LABS: Alanine Aminotransferase 14 U/L (0-33); Albumin Level 2.5 g/dL (3.5-5.2); Alkaline Phosphatase 66 U/L (35-105); Anion Gap 13.2 (5-19); Aspartate Amino Transferase 24 U/L (0-32); Blood Urea Nitrogen 10 mg/dL (8-23); Calcium 7.5 mg/dL (8.5-10.5); Carbon Dioxide 29 mmol/L (22-29); Chloride 108 mmol/L (98-107); Globulin 2.1 g/dL (1.3-4.6); Glucose 72 mg/dL (65-115); Osmolality Calculated 304 mOsm/kg (285-295); Sodium 148 mmol/L (136-145); Total Bilirubin 0.3 mg/dL (0.15-1.2); Total Protein 4.6 g/dL (6.6-8.7)
[2021-12-30 04:40] LABS: Hematocrit 20.6 % (37.0-47.0)
[2021-12-30 04:44] LABS: Potassium 2.2 mmol/L (3.5-5.1)
[2021-12-30] MEDS: lidocaine 1% 5 ML in potassium chloride premix 100 ML 25 ML IV ×2 (06:01→13:20)
--- NOTE | 2021-12-30 07:36 | PC.NURSE ---
Unit of blood finished off of TAR from 12/27, due to new orders to start blood this shift. To maintain accurate charting for current blood.
[2021-12-30] MEDS: D5-NS 0.45% + KCL 20 mEq 20 MEQ/1,000 ML BAG 100 MEQ IV ×2 (09:05→21:08)
[2021-12-30 10:49] LABS: Hematocrit 23.4 % (37.0-47.0); Hemoglobin 7.8 g/dL (11.5-15.3)
--- NOTE | 2021-12-30 10:52 | PM.PN ---
Subjective Subjective: No acute events overnight. She is having much clear bowel movements after additional dose of GoLytely. No blood. Hemoglobin down trended slightly, received 1 unit of blood. White blood cell count improved significantly. Potassium is quite low Vitals/I&O/Wt Last Vital Signs Temp 98.7 F 12/30/21 09:02 Pulse 97 12/30/21 09:18 Resp 20 H 12/30/21 09:02 BP 156/69 12/30/21 09:02 Pulse Ox 70 L 12/30/21 09:18 O2 Del Method 12/30/21 09:18 O2 Flow Rate 2 12/30/21 00:00 12/29/21 12/30/21 12/30/21 22:59 06:59 14:59 Intake Total 248.667 / 398.667 150 / 548.667 800 / 800 Output Total 400 / 400 Balance -151.333 / -1.333 150 / 148.667 800 / 800 Weight last 48 hrs Weight 146 lb 13.246 oz Weight 113 lb 8.609 oz Physical Exam Narrative: General: No acute distress Psych: The patient is confused, somnolent, not interactive Eyes: Sclerae are white Head/ENT: Normocephalic, symmetric CV: Regular pulse,, no JVD Lungs: Symmetrical chest rise Abdomen: Soft, ND, the patient does not react to palpation of the abdomen. No hernias. Ext: No obvious traumatic deformities Skin: warm Urinary Catheter Management: Tyler: Cath Placed During This Visit: yes Reason for Continuing Indwelling Catheter: Accurate Measurement of Urinary Output in Critically Ill Patients Urinary Catheter Date of Insertion: 12/28/21 Urinary Catheter Time of Insertion: 14:06 Data : 12/30/21 10:35 12/30/21 03:28 Micro: Microbiology 12/27/21 22:32 Enteric Pathogens (PCR) - Final Stool - Stool Aspirate C.difficile Toxin B Gene (PCR) - Final A&P Assessment and plan (1) Lower GI bleed: (2) Pyloric stenosis: (3) Dementia: (4) Mesenteric artery stenosis: (5) Pericardial effusion: (6) Atelectasis: (7) Acute anemia: (8) Upper gastrointestinal hemorrhage: (9) Parkinsons disease: Plan No evidence of ongoing bleeding. She is prepped for colonoscopy today. Okay to downgrade to the floor from surgery standpoint. Continue Protonix. Pending biopsy results. 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
--- NOTE | 2021-12-30 12:38 | P.ANESUD_ITS ---
Pre-Anesthetic Update Pre-Anesthetic Assessment: Date of Surgery/Procedure: 12/30/21 Preop Kristi gnosis: GI bleed Proposed Procedure: Operation Date: 12/28/21 10:15 Proposed Procedures p EGD - Poss ICU Bedside(Not Applicable) - Eric Cortes MD s Colonoscopy(Not Applicable) - Eric Cortes MD Operation Date: 12/30/21 12:00 Proposed Procedures p Colonoscopy(Not Applicable) - Eric Cortes MD Any changes to Pre-Anesthetic Assessment?: No Last Intake: Before MN Labs Last 48hrs: Short CBC 12/29/21 12/29/21 12/30/21 Range/Units 02:40 10:33 03:28 WBC 23.9 H 11.2 H (4.0-10.0) 10^3/ uL Hgb 8.4 L 7.4 L 6.6 L (11.5-15.3) g/dL Hct 26.1 L 22.2 L 20.6 L* (37.0-47.0) % MCV 96.7 94.9 (81-99) fl Plt Count 343 324 (130-400) 10^3/c mm Neut % (Auto) 88.0 78.5 % Neut # (Auto) 21.02 H 8.82 H (1.8-7.7) 10^3/u L 12/30/21 Range/Units 10:35 WBC (4.0-10.0) 10^3/ uL Hgb 7.8 L (11.5-15.3) g/dL Hct 23.4 L (37.0-47.0) % MCV (81-99) fl Plt Count (130-400) 10^3/c mm Neut % (Auto) % Neut # (Auto) (1.8-7.7) 10^3/u L BMP 12/29/21 12/30/21 02:40 03:28 Sodium 148 H 148 H Potassium 3.5 2.2 L* Chloride 107 108 H Carbon Dioxide 24 29 BUN 17 10 Creatinine 0.6 0.4 L Glucose 118 H 72 Calcium 7.6 L 7.5 L Liver Function 12/29/21 12/30/21 Range/Units 02:40 03:28 Total Bilirubin 0.3 0.3 (0.15-1.2) mg/dL AST 15 24 (0-32) U/L ALT 11 14 (0-33) U/L Alkaline Phosphata se 75 66 (35-105) U/L Albumin 2.6 L 2.5 L (3.5-5.2) g/dL Blood Bank 12/27/21 19:17 Blood Type O Positive Rho(D) Type Positive Antibody Screen Negative Vitals: Temperature 98.7 F 12/30/21 09:02 Temperature Source Axillary 12/30/21 09:02 Pulse Rate 86 12/30/21 12:00 Pulse Rhythm 12/29/21 20:00 Pulse Strength 3+ Normal 12/30/21 07:41 Respiratory Rate 22 H 12/30/21 12:00 Respiratory Effort Non-Labored 12/30/21 07:41 Respiratory Depth Normal 12/30/21 07:41 Respiratory Patter n 12/29/21 08:00 Blood Pressure 165/71 12/30/21 10:00 Blood Pressure Jo Ann n 102 12/30/21 10:00 Blood Pressure Pos ition Semi Fowlers 12/28/21 17:15 Pulse Oximetry 93 12/30/21 12:00 Oxygen Delivery Me thod 12/30/21 09:18 Oxygen Flow Rate 2 12/30/21 00:00 Sepsis Recent Feve r Within 48 Hours No 12/27/21 18:48 Exam: Pre-Anes Outpt Exam: clear to auscultation bilaterally and regular rate & rhythm Cardiac Studies: No Data to Display
--- NOTE | 2021-12-30 13:11 | PM.PN ---
Subjective Subjective: Her hematochezia has improved Potassium repleted Status post 3 unit PRBC Start D5 half-normal with potassium supplement Continue IV antibiotics along with IV fluids Vitals/I&O/Wt Last Vital Signs Temp 98.7 F 12/30/21 09:02 Pulse 86 12/30/21 12:00 Resp 22 H 12/30/21 12:00 BP 165/71 12/30/21 10:00 Pulse Ox 93 12/30/21 12:00 O2 Del Method 12/30/21 09:18 O2 Flow Rate 2 12/30/21 00:00 12/29/21 12/30/21 12/30/21 22:59 06:59 14:59 Intake Total 248.667 / 398.667 150 / 548.667 905 / 905 Output Total 400 / 400 Balance -151.333 / -1.333 150 / 148.667 905 / 905 Weight last 48 hrs Weight 66.6 kg Weight 51.5 kg Physical Exam Narrative: Dehydrated Oriented to herself Patient is talking to herself Dehydrated malnourished Abdomen soft Not on any vasopressors Hemodynamically stable Neuro exam limited Patient does make eye contact and try to carry a conversation S1, S2 Well on room air Urinary Catheter Management: Tyler: Cath Placed During This Visit: yes Reason for Continuing Indwelling Catheter: Accurate Measurement of Urinary Output in Critically Ill Patients Urinary Catheter Date of Insertion: 12/28/21 Urinary Catheter Time of Insertion: 14:06 Data : 12/30/21 10:35 12/30/21 03:28 Micro: Microbiology 12/27/21 22:32 Enteric Pathogens (PCR) - Final Stool - Stool Aspirate C.difficile Toxin B Gene (PCR) - Final A&P Assessment and plan (1) Pyloric stenosis: (2) Dementia: (3) Mesenteric artery stenosis: (4) Atelectasis: (5) Acute anemia: (6) Lower GI bleed: (7) Accidental fall: Qualifiers: Encounter type: initial encounter Qualified Code(s): W19.XXXA - Unspecified fall, initial encounter (8) Contusion of left leg: Qualifiers: Encounter type: initial encounter Qualified Code(s): S80.12XA - Contusion of left lower leg, initial encounter Plan GI bleed Upper endoscopy results reviewed, Schatzki ring, pyloric stenosis status post balloon angioplasty, 2 small erosions second part of duodenum Biopsy results pending Hemoglobin stable Hemodynamically stable She has stopped having bloody bowel movement No active hematochezia She can be transferred upstairs Hypokalemia: Repleted Hypernatremia secondary to dehydration started D5 half-normal with potassium Patient is full code Will resume diet once cleared by surgery Plan to discharge her back to residential tomorrow Cytosis trending down Currently she is on IV Zosyn which I will continue until the day of discharge Attestations Medical Necessity Statement*: Transferred out of ICU Time Spent in Patient Care: 30 Coding Level of Care Code Acute 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
--- NOTE | 2021-12-30 13:54 | PC.NURSE ---
Went to [facility] at 1358
[2021-12-30 14:10] LABS: Potassium 2.5 mmol/L (3.5-5.1)
[2021-12-30 14:29] LABS: Magnesium 1.3 mg/dL (1.7-2.3)
[2021-12-30] MEDS: potassium chloride oral liq 20 mEq/15 mL UDC 80 MEQ PO (14:41)
[2021-12-30 17:52] LABS: Alanine Aminotransferase 15 U/L (0-33); Albumin Level 2.7 g/dL (3.5-5.2); Alkaline Phosphatase 73 U/L (35-105); Blood Urea Nitrogen 6 mg/dL (8-23); Calcium 7.4 mg/dL (8.5-10.5); Carbon Dioxide 23 mmol/L (22-29); Chloride 106 mmol/L (98-107); Glucose 89 mg/dL (65-115); Osmolality Calculated 293 mOsm/kg (285-295); Sodium 143 mmol/L (136-145); Total Bilirubin 0.3 mg/dL (0.15-1.2); Total Protein 4.7 g/dL (6.6-8.7)
[2021-12-30 17:54] LABS: Anion Gap 17.8 (5-19); Aspartate Amino Transferase 31 U/L (0-32); Potassium 3.8 mmol/L (3.5-5.1)
[2021-12-30] MEDS: HYDROmorphone 1 mg/mL INJ 1 mL 0.2 MG IVP (18:54)
[2021-12-30] MEDS: pantoprazole 40 mg SDV IVP (21:35)
[2021-12-31] VITALS (11 sets, daily range): BP systolic 132–182; BP diastolic 64–83; PULSE 52–99; RESP 12–18; TEMP 36.4–36.8; O2SAT 91–100; BMI 26.0
[2021-12-31] MEDS: piperacillin-tazobactam 3.375 GM in sodium chloride 0.9% (plus) 50 ML IV ×2 (00:49→08:19)
[2021-12-31 06:57] LABS: Basophils % 0.5 %; Eosinophils % 0.4 %; Hematocrit 26.4 % (37.0-47.0); Hemoglobin 8.8 g/dL (11.5-15.3); Lymphocytes # 1.4 10^3/uL (0.8-4.8); Lymphocytes % 19.4 %; Mean Corpuscular HGB Conc 33.3 g/dL (30.0-36.0); Mean Corpuscular Hemoglobin 30.3 pg (28.0-34.0); Mean Platelet Volume 10.3 fL (7.4-10.4); Monocytes # 0.8 10^3/uL (0.2-0.9); Monocytes % 10.8 %; Neutrophils # 4.88 10^3/uL (1.8-7.7); Neutrophils % 66.6 %; Nucleated Red Blood Cells % 0 %; Platelet Count 414 10^3/cmm (130-400); Red Cell Distribution Width 15.2 % (12.1-15.1); White Blood Count 7.3 10^3/uL (4.0-10.0)
[2021-12-31 07:05] LABS: Anion Gap 15.6 (5-19); Blood Urea Nitrogen 3 mg/dL (8-23); Calcium 7.7 mg/dL (8.5-10.5); Carbon Dioxide 25 mmol/L (22-29); Chloride 106 mmol/L (98-107); Glucose 106 mg/dL (65-115); Osmolality Calculated 293 mOsm/kg (285-295); Potassium 3.6 mmol/L (3.5-5.1); Sodium 143 mmol/L (136-145)
[2021-12-31] MEDS: D5-NS 0.45% + KCL 20 mEq 20 MEQ/1,000 ML BAG 100 MEQ IV (07:11)
--- NOTE | 2021-12-31 10:04 | PC.NURSE ---
report given to GI lab...pt scheduled for colonoscopy
--- NOTE | 2021-12-31 10:06 | PC.NURSE ---
pt to gi lab via hospital bed
--- NOTE | 2021-12-31 10:08 | P.PN_ITS ---
Subjective Subjective: Colonoscopy was rescheduled because of the hypokalemia yesterday. Potassium is normal today. No other acute events overnight. Vitals/I&O/Wt Last Vital Signs Temp 97.6 F 12/31/21 09:54 Pulse 52 L 12/31/21 09:54 Resp 16 12/31/21 09:54 BP 177/83 12/31/21 09:54 Pulse Ox 98 12/31/21 09:54 O2 Del Method 12/31/21 07:31 O2 Flow Rate 2 12/30/21 20:00 12/30/21 12/31/21 12/31/21 22:59 06:59 14:59 Intake Total 1155 / 2110 3100 / 5210 Output Total 0 / 0 Balance 1155 / 2110 3100 / 5210 Weight last 48 hrs Weight 147 lb Weight 147 lb Weight 146 lb 13.246 oz Physical Exam Narrative: General: No acute distress Psych: The patient is confused, somnolent, not interactive Eyes: Sclerae are white Head/ENT: Normocephalic, symmetric CV: Regular pulse,, no JVD Lungs: Symmetrical chest rise Abdomen: Soft, ND, the patient does not react to palpation of the abdomen. No hernias. Ext: No obvious traumatic deformities Skin: warm Urinary Catheter Management: Tyler: Cath Placed During This Visit: yes Reason for Continuing Indwelling Catheter: Accurate Measurement of Urinary Output in Critically Ill Patients Urinary Catheter Date of Insertion: 12/28/21 Urinary Catheter Time of Insertion: 14:06 Data : 12/31/21 06:40 12/31/21 06:40 A&P Assessment and plan (1) Lower GI bleed: (2) Pyloric stenosis: (3) Dementia: (4) Mesenteric artery stenosis: (5) Pericardial effusion: (6) Atelectasis: (7) Acute anemia: (8) Upper gastrointestinal hemorrhage: (9) Parkinsons disease: Plan Colonoscopy today Okay to restart regular diet after colonoscopy Continue to follow with a surgeon to monitor pyloric stenosis Goals of care should be carefully discussed with the family to avoid unnecessary invasive procedures in a future profoundly demented patient. Consider palliative care consult if available. 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
[2021-12-31] MEDS: sodium chloride 0.9% 1,000 ML 30 ML IV (10:11)
--- NOTE | 2021-12-31 10:13 | ANES.PAUD2 ---
Documented by User: Harry Ramachandran CRNA 12/31/21 10:14 Pre-Anesthetic Update Pre-Anesthetic Assessment: Date of Surgery/Procedure: 12/31/21 Preop Diagnosis: GI bleed Proposed Procedure: Operation Date: 12/28/21 10:15 Proposed Procedures p EGD - Poss ICU Bedside(Not Applicable) - Eric Cortes MD s Colonoscopy(Not Applicable) - Eric Cortes MD Operation Date: 12/31/21 10:30 Proposed Procedures p Colonoscopy(Not Applicable) - Eric Cortes MD Any changes to Pre-Anesthetic Assessment?: No Labs Last 48hrs: Short CBC 12/29/21 12/30/21 12/30/21 Range/Units 10:33 03:28 10:35 WBC 11.2 H (4.0-10.0) 10^3/ uL Hgb 7.4 L 6.6 L 7.8 L (11.5-15.3) g/dL Hct 22.2 L 20.6 L* 23.4 L (37.0-47.0) % MCV 94.9 (81-99) fl Plt Count 324 (130-400) 10^3/c mm Neut % (Auto) 78.5 % Neut # (Auto) 8.82 H (1.8-7.7) 10^3/u L 12/31/21 Range/Units 06:40 WBC 7.3 (4.0-10.0) 10^3/ uL Hgb 8.8 L (11.5-15.3) g/dL Hct 26.4 L (37.0-47.0) % MCV 91.0 (81-99) fl Plt Count 414 H (130-400) 10^3/c mm Neut % (Auto) 66.6 % Neut # (Auto) 4.88 (1.8-7.7) 10^3/u L BMP 12/30/21 12/30/21 12/30/21 03:28 13:15 17:22 Sodium 148 H 143 Potassium 2.2 L* 2.5 L* 3.8 Chloride 108 H 106 Carbon Dioxide 29 23 BUN 10 6 L Creatinine 0.4 L 0.3 L Glucose 72 89 Calcium 7.5 L 7.4 L 12/31/21 06:40 Sodium 143 Potassium 3.6 Chloride 106 Carbon Dioxide 25 BUN 3 L Creatinine 0.4 L Glucose 106 Calcium 7.7 L Liver Function 12/30/21 12/30/21 Range/Units 03:28 17:22 Total Bilirubin 0.3 0.3 (0.15-1.2) mg/dL AST 24 31 (0-32) U/L ALT 14 15 (0-33) U/L Alkaline Phosphata se 66 73 (35-105) U/L Albumin 2.5 L 2.7 L (3.5-5.2) g/dL Blood Bank 12/27/21 19:17 Blood Type O Positive Rho(D) Type Positive Antibody Screen Negative Vitals: Temperature 97.6 F 12/31/21 09:54 Temperature Source Temporal Artery S can 12/31/21 09:54 Pulse Rate 52 L 12/31/21 09:54 Pulse Rhythm 12/30/21 20:00 Pulse Strength 3+ Normal 12/30/21 20:00 Respiratory Rate 16 12/31/21 09:54 Respiratory Effort 12/30/21 20:00 Respiratory Depth Normal 12/30/21 20:00 Respiratory Patter n 12/30/21 20:00 Blood Pressure 177/83 12/31/21 09:54 Blood Pressure Jo Ann n 114 12/31/21 09:54 Blood Pressure Pos ition Semi Fowlers 12/28/21 17:15 Pulse Oximetry 98 12/31/21 09:54 Oxygen Delivery Me thod 12/31/21 07:31 Oxygen Flow Rate 2 12/30/21 20:00 Sepsis Recent Feve r Within 48 Hours No 12/27/21 18:48 Cardiac Studies: No Data to Display Documented by User: Jose Cruz Perez 12/31/21 14:02 Pre-Anesthetic Update Pre-Anesthetic Assessment: Date of Surgery/Procedure: 12/31/21 Cardiac Studies: No Data to Display
--- NOTE | 2021-12-31 10:16 | PM.DCS ---
Discharge Providers Date of Admission: 12/27/21 21:51 Date of Discharge: December 31, 2021 Attending Provider at Admission: Frederick Rodríguez Attending Provider at Discharge: Geovanna Santos MD Diagnoses at Discharge Discharge Diagnosis (1) Lower GI bleed: Status: Acute (2) Pyloric stenosis: Status: Acute (3) Dementia: Status: Acute (4) Mesenteric artery stenosis: Status: Chronic Permanent problem details: SMA stent (5) Pericardial effusion: Status: Acute (6) Atelectasis: Status: Acute (7) Acute anemia: Status: Acute (8) Upper gastrointestinal hemorrhage: Status: Acute (9) Parkinsons disease: Status: Chronic Reason for Visit Reason for Visit: VAG BLEEDING Hospital Course Hospital Course 81-year-old female who presented from long-term she has history of dementia, Parkinson's, nonambulatory, presented for evaluation of GI bleed, hematochezia. Patient went for EGD we did show Schatzki ring pyloric stenosis status post balloon angioplasty and duodenal ulcer biopsy taken, H. pylori positive colonoscopy done on 12/31, please note she got NG tube to get GoLytely and when she was done with GoLytely prep her stool color changed to normal she remained hemodynamically stable and received 3 units of PRBC at the time of admission hemoglobin remained stable she did not require any vasopressors in the ICU. Spoke with his son who is stating that his mother wanted everything to be done and he would like to keep her full code for now. He has not visited her at the bedside I spoke to him over the phone. Son stating he lives 1 hour away She does have pyloric stenosis which might cause more issues in future considering her age and dementia no further intervention is recommended as per general surgery Hemoglobin today 8.8 Her hyper natremia related to dehydration improved with use of D5 half-normal saline IV fluids, She will get potassium and magnesium supplements at the time of discharge, would recommend mechanical soft diet corrected calcium is normal Added triple therapy for H. pylori, 2-week regimen Colonoscopy revealed diverticulosis, proctitis, Physical Exam Narrative: Patient is oriented to herself No new focal deficit Malnourished Abdomen soft No signs of edema Hemodynamically stable Doing well on room air Urinary Catheter Management: Tyler: Cath Placed During This Visit: yes Reason for Continuing Indwelling Catheter: Accurate Measurement of Urinary Output in Critically Ill Patients Urinary Catheter Date of Insertion: 12/28/21 Urinary Catheter Time of Insertion: 14:06 Discharge Data Studies Completed and Pending Completed Studies During Hospitalization Category Date Time Status CT abdomen pelvis w con* [id number] Stat Cat Scan 12/27/21 19:58 Completed CXRP [XR chest 1V portable [id number]] Urgent Exams 12/29/21 13:19 Completed Pathology: Surgical [PTH] Routine Pth 12/28/21 11:27 Completed Pending at discharge Category Date Time Status Blood Culture Stat Lab 12/27/21 23:44 Results Leukocyte Reduced RBC Stat Lab 12/27/21 19:17 Results OVA and Parasites, Conc and PE Routine Lab 12/27/21 11:00 Received SARS Covid-2 Antigen Routine Lab 12/31/21 08:09 Uncollected Type and Screen Stat Lab 12/27/21 19:17 Results Radiology Impressions Abdomen/Pelvis CT 12/27/21 19:58 IMPRESSION: 1. Somewhat linear 2 cm hyperdensity seen in the distal sigmoid colon/rectum, series 7, image 76 may reflect some contrast extravasation and a source of active gastrointestinal bleeding, perhaps arising from the posterior wall. 2. Emphysematous changes. 3. Right middle and bibasilar atelectasis versus minimal infiltrate. 4. Trace pericardial effusion measuring up to 7.4 mm in thickness. 5. Cholecystectomy. 6. Superior mesenteric artery stent which appears patent. 7. Constipation. 8. Mildly prominent fluid in the small bowel and distal sigmoid colon, perhaps reflecting an enterocolitis in the appropriate clinical setting. ADDENDUM: 12/27/21 2148 THIS REPORT CONTAINS FINDINGS THAT MAY BE CRITICAL TO PATIENT CARE. The findings were verbally communicated via telephone conference with GHAZALA HANSEN at 9:46 PM CHIP APPLYING MACHINE TENDER on 12/27/2021. The findings were acknowledged and understood. Chest X-Ray 12/29/21 13:19 Impression: Nasogastric tube which appears to be curled in fundus of the stomach. Laboratory Results WBC 7.3 10^3/uL (4.0-10.0) 12/31/21 06:40 RBC 2.90 10^6/uL (4.1-5.3) L 12/31/21 06:40 Hgb 8.8 g/dL (11.5-15.3) L 12/31/21 06:40 Hct 26.4 % (37.0-47.0) L 12/31/21 06:40 MCV 91.0 fl (81-99) 12/31/21 06:40 MCH 30.3 pg (28.0-34.0) 12/31/21 06:40 MCHC 33.3 g/dL (30.0-36.0) 12/31/21 06:40 RDW 15.2 % (12.1-15.1) H 12/31/21 06:40 Plt Count 414 10^3/cmm (130-400) H 12/31/21 06:40 MPV 10.3 fL (7.4-10.4) 12/31/21 06:40 Neut % (Auto) 66.6 % 12/31/21 06:40 Lymph % (Auto) 19.4 % 12/31/21 06:40 [place] % (Auto) 10.8 % 12/31/21 06:40 Eos % (Auto) 0.4 % 12/31/21 06:40 Baso % (Auto) 0.5 % 12/31/21 06:40 Neut # (Auto) 4.88 10^3/uL (1.8-7.7) 12/31/21 06:40 Lymph # (Auto) 1.4 10^3/uL (0.8-4.8) 12/31/21 06:40 [place] # (Auto) 0.8 10^3/uL (0.2-0.9) 12/31/21 06:40 Eos # (Auto) 0.0 10^3/uL (0.0-0.8) 12/31/21 06:40 Baso # (Auto) 0.0 10^3/uL (0.0-0.1) 12/31/21 06:40 Nucleated RBC % (auto) 0 % 12/31/21 06:40 Nucleated RBCs # 0.0 /100WBC 12/31/21 06:40 PT 14.70 SECONDS (12.1-14.9) 12/27/21 19:17 INR 1.11 (0.8-1.2) 12/27/21 19:17 Sodium 143 mmol/L (136-145) 12/31/21 06:40 Potassium 3.6 mmol/L (3.5-5.1) 12/31/21 06:40 Chloride 106 mmol/L (98-107) 12/31/21 06:40 Carbon Dioxide 25 mmol/L (22-29) 12/31/21 06:40 Anion Gap 15.6 (5-19) 12/31/21 06:40 BUN 3 mg/dL (8-23) L 12/31/21 06:40 Creatinine 0.4 mg/dL (0.5-0.9) L 12/31/21 06:40 GFR Calculation Not Reportable 12/31/21 06:40 Glucose 106 mg/dL (65-115) 12/31/21 06:40 Calculated Osmolality 293 mOsm/kg (285-295) 12/31/21 06:40 Lactate 5.0 mmol/L (0.5-2.2) H* 12/28/21 08:36 Calcium 7.7 mg/dL (8.5-10.5) L 12/31/21 06:40 Magnesium 1.3 mg/dL (1.7-2.3) L 12/30/21 13:15 Total Bilirubin 0.3 mg/dL (0.15-1.2) 12/30/21 17:22 AST 31 U/L (0-32) 12/30/21 17:22 ALT 15 U/L (0-33) 12/30/21 17:22 Alkaline Phosphatase 73 U/L (35-105) 12/30/21 17:22 Total Protein 4.7 g/dL (6.6-8.7) L 12/30/21 17:22 Albumin 2.7 g/dL (3.5-5.2) L 12/30/21 17:22 Globulin 2.0 g/dL (1.3-4.6) 12/30/21 17:22 Blood Type O Positive 12/27/21 19:17 Rho(D) Type Positive 12/27/21 19:17 Antibody Screen Negative 12/27/21 19:17 Crossmatch See Detail 12/27/21 19:17 Vitals Last Vital Signs Temp 97.6 F 12/31/21 09:54 Pulse 52 L 12/31/21 09:54 Resp 16 12/31/21 09:54 BP 177/83 12/31/21 09:54 Pulse Ox 98 12/31/21 09:54 O2 Del Method 12/31/21 07:31 O2 Flow Rate 2 12/30/21 20:00 Discharge Plan Discharge Patient Disposition: Xfer SNF Condition: Stable Prescriptions: New magnesium 200 mg tablet 200 mg PO DAILY Qty: 10 0RF potassium chloride 10 mEq tablet extended release 10 meq PO DAILY Qty: 10 0RF omeprazole 20 mg capsule,delayed release(DR/EC) 20 mg PO BID 84 Days Qty: 168 0RF amoxicillin 500 mg Capsule 1,000 mg PO BID Qty: 28 0RF clarithromycin 500 mg Tablet 500 mg PO BID Qty: 28 0RF pantoprazole 40 mg Tablet,Delayed Release (Dr/Ec) 40 mg PO BID Qty: 30 3RF Continued (DME) ASO Brace See Rx Instructions .Route .MEDSUPPLY Qty: 1 0RF Rx Instructions: Wear as needed for stability. gabapentin 300 mg capsule 300 mg PO QID primidone 50 mg tablet 100 mg PO TID (DME) diabetic shoes Qty: 1 0RF Rx Instructions: As directed carbidopa-levodopa 25-100 mg tablet 2 tab PO QID bupropion HCl 150 mg Tablet Extended Release 24 Hr 150 mg PO BID@0800,2000 polyethylene glycol 3350 [Miralax] 17 gram/dose Powder 17 g PO DAILY glycerin (adult) [Fleet Glycerin (Adult)] Suppository 1 supp MA DAILY PRN (Reason: Constipation) camphor-menthol 0.2-3.5 % Gel 1 applic TOPICAL QID PRN (Reason: Pain) multivitamin Tablet 1 tab PO QAM haloperidol 0.5 mg Tablet 0.25 mg PO BID Senokot 8.6 mg Tablet 8.6 mg PO DAILY Tylenol 325 mg Tablet 650 mg PO QID PRN (Reason: Pain) hydrocodone-acetaminophen 5-325 mg Tablet 1 tab PO BID ondansetron HCl 4 mg Tablet 4 mg PO Q6H PRN (Reason: Nausea And Vomiting) Zyprexa 5 mg Tablet 5 mg PO QPM Milk of Magnesia 400 mg/5 mL Suspension 30 ml PO DAILY PRN (Reason: Constipation) Dulcolax (bisacodyl) 10 mg Suppository 10 mg MA DAILY PRN (Reason: Constipation) buspirone 7.5 mg Tablet 7.5 mg PO BID magnesium citrate Solution 150 ml PO DAILY PRN (Reason: Constipation) Dulcolax (bisacodyl) 5 mg Tablet,Delayed Release (Dr/Ec) 20 mg PO DAILY PRN (Reason: Constipation) alum-mag hydroxide-simeth 200-200-20 mg/5 mL Suspension 30 ml PO Q2H PRN (Reason: Indigestion) Ativan 1 mg Tablet 1 mg PO BID sertraline 50 mg Tablet 75 mg PO DAILY Namenda 10 mg Tablet 10 mg PO BID cefdinir 300 mg capsule 300 mg PO BID Qty: 14 0RF Discontinued aspirin 81 mg tablet,delayed release (DR/EC) 81 mg PO QPM meloxicam 7.5 mg tablet 7.5 mg PO DAILY@0800 ibuprofen 200 mg Tablet 400 mg PO Q8H PRN (Reason: Pain) Discharge Orders: Discharge Order (Routine); Ordered 12/31/21 Ordered By: Geovanna Santos Patient Instructions: GI Discharge Instructions Discharge Attestations Time Spent in Discharge Care*: less than 30 min Quality Metrics Clinical Quality Measures [ No reported AMI, CVA or VTE this stay] Coding Level of Care Code Acute g [facility] note Diagnoses Lower GI bleed K92.2 Pyloric stenosis K31.1 Dementia F03.90 Mesenteric artery stenosis K55.1 Pericardial effusion I31.39 Atelectasis J98.11 Acute anemia D64.9 Upper gastrointestinal hemorrhage K92.2 Parkinsons disease G20
--- NOTE | 2021-12-31 13:03 | PC.NURSE ---
pt returned to 264 via hospital bed from colonoscopy...alert ortientated to person only
[2021-12-31] MEDS: amoxicillin 500 mg Capsule 1000 MG PO (13:17)
[2021-12-31] MEDS: clarithromycin 500 mg Tablet PO (13:18)
--- NOTE | 2021-12-31 14:02 | ANE.PACU2 ---
Inpatient post-anesthesia follow up: Airway intact: Yes Vital signs: Temperature 98.1 F Pulse Rate 54 Respiratory Rate 16 Blood Pressure 166/65 Pulse Oximetry 100 Oxygen Delivery Me thod [ Room Air Current Rate & Del gutierrez] Oxygen Delivery Me thod Room Air Oxygen Flow Rate [ Current Rate 2 & Delivery] Oxygen Flow Rate 10 Fraction of Inspir ed Oxygen Hydration adequate: Yes Nausea and vomiting: No Pain level: 1 Mental status: Baseline
[2021-12-31 14:45] LABS: SARS Covid-2 Antigen negative (Negative)
== END 2021-12-31 16:15 | disposition skilled nursing facility (03) | DRG 377 ==
LOC: ER 21:44 → ICU 21:51 → MEDSURG 12-30 13:47
PROVIDERS: Surgery; Admitting Provider Internal Medicine; Emergency Provider Emergency Medicine; Visit Provider Internal Medicine
PROC: 0DJ08ZZ Inspection of Upper Intestinal Tract, Via Natural or Artificial Opening Endoscopic (ICD-10-PCS; CPT 43235; principal; 2021-12-28 10:15)
PROC: 0DB98ZX Excision of Duodenum, Via Natural or Artificial Opening Endoscopic, Diagnostic (ICD-10-PCS; 2021-12-28 10:15)
PROC: 0DJD8ZZ Inspection of Lower Intestinal Tract, Via Natural or Artificial Opening Endoscopic (ICD-10-PCS; CPT 45378; principal; 2021-12-31 10:30)
DX: K25.4 Chronic or unspecified gastric ulcer with hemorrhage (principal); R57.1 Hypovolemic shock; A04.8 Other specified bacterial intestinal infections; E87.0 Hyperosmolality and hypernatremia; K31.1 Adult hypertrophic pyloric stenosis; K55.1 Chronic vascular disorders of intestine; I31.39 Other pericardial effusion (noninflammatory); K62.89 Other specified diseases of anus and rectum; D64.9 Anemia, unspecified; G20 Parkinson's disease; F02.80 Dementia in other diseases classified elsewhere, unspecified severity, without behavioral disturbance, psychotic disturbance, mood disturbance, and anxiety; Z99.3 Dependence on wheelchair; K59.09 Other constipation; F32.A Depression, unspecified; E11.51 Type 2 diabetes mellitus with diabetic peripheral angiopathy without gangrene; G25.0 Essential tremor; M35.3 Polymyalgia rheumatica; F17.210 Nicotine dependence, cigarettes, uncomplicated; I95.9 Hypotension, unspecified; Z79.891 Long term (current) use of opiate analgesic; K63.5 Polyp of colon; K57.30 Diverticulosis of large intestine without perforation or abscess without bleeding; E86.0 Dehydration; E87.6 Hypokalemia; K22.2 Esophageal obstruction
CPT/HCPCS: 12345; 36415; 36430; 43239; 43249; 45380; 51702; 71045; 74177; 80048; 80053; 83605; 83735; 84132; 85014; 85018; 85025; 85610; 86850; 86900; 86920; 87040; 87177; 87209; 87426; 87493; 87506; 88305; 93005; 96365; 96375; 99285; C9113; J0131; J1170; J1200; J2370; J2405; J2543; J2704; J2920; J3480; J7030; J7120; P9016; Q9967

== ENCOUNTER 2022-01-30 15:32 | Inpatient (IN) | payer MEDICARE, OTHER, MEDICAID, SELFPAY ==
--- NOTE | 2022-01-30 15:41 | XRR_ITS ---
PROCEDURE INFORMATION: Exam: XR Chest Exam date and time: 01/30/2022 3:56 PM Age: 81 years old Clinical indication: Dyspnea; Additional info: Dyspnea; Fever TECHNIQUE: Imaging protocol: Radiologic exam of the chest. Views: 1 view. COMPARISON: CR XR chest 1V portable [id number] 12/29/2021 1:24 PM FINDINGS: Lungs: Hyperinflated lungs. Left basilar consolidation. Pleural spaces: No pleural effusion. No pneumothorax. Heart/Mediastinum: Mild cardiomegaly. Bones/joints: Right shoulder arthroplasty noted. Visualized osseous structures are intact. XR/XR chest 1V portable [id number] IMPRESSION: Left basilar pneumonia.
--- NOTE | 2022-01-30 15:41 | ECG_ITS ---
[facility] Test Date: 2022-01-30 Pat Name: Yuli Mejia Department: Room: Gender: Female Director Of Public Safety: : 1940 Requested By: Gerson Zuniga Order Number: [id number] Reading MD: Bala Mendoza M.D. Measurements Intervals Summers Rate: 86 P: 93 OK: 133 QRS: 105 QRSD: 129 T: -29 QT: 385 QTc: 462 Interpretive Statements Sinus rhythm Right bundle branch block ABNORMAL RHYTHM ECG Compared to ECG 12/27/2021 19:09:21 No change Electronically Signed On 01-31-2022 14:56:22 TECHNICAL SERVICES COORDINATOR by Bala Mendoza M.D. [id number]
[2022-01-30 15:43] VITALS: BP 122/51; PULSE 94; O2SAT 99
--- NOTE | 2022-01-30 15:44 | W.ED.SOB ---
HPI - SOB/Dyspnea General: Chief Complaint: Shortness of Breath/Dyspnea Stated Complaint: FEVER Time Seen by Provider: 01/30/22 15:33 Source: EMS Mode of arrival: EMS Limitations: other (Severe dementia. Unable give any history) History of Present Illness: HPI Narrative: See nursing assessment. Patient reportedly with symptoms of pneumonia yesterday according to EMS by the custodial report. Patient had cough and shortness of breath. Reportedly chest x-ray was ordered from the custodial today. Results of that are unknown. Patient reportedly had a temperature of 104.8 at the custodial today and had oxygen saturation of 83% on room air. EMS was called that time. Patient is a full code. Patient recently admitted to the hospital about a month ago with upper and lower GI bleed, diverticulosis, pyloric stenosis. Patient was also found to have trace pericardial effusion and persistent anemia. Patient with a history of severe advanced dementia and Parkinson's. EMS reports a history of urinary tract infections also. Patient is somnolent with tachypnea. Oxygen saturation 100% on nonrebreather at this time. Associated symptoms: Deny abdominal pain, chest pain, nausea, palpitations or vomiting Review of Systems General: Reports: ROS unobtainable due to mental status (Patient has advanced dementia unable to give any history.) Eyes: Denies: change in vision ENMT: Denies: throat pain Card: Denies: chest pain or palpitations Resp: Denies: wheezing GI: Denies: abdominal pain, nausea or vomiting : Denies: flank pain Musc: Denies: neck pain or back pain Skin/Breast: Denies: rash or pruritus Neuro: Denies: headache(s) or numbness in extremities Jerardo/Lymph: Denies: enlarged lymph nodes PFSH ED PFSH: Medical History Accidental fall Acute anemia Atelectasis Chronic constipation Contusion of left leg Dementia Depression Diet-controlled diabetes mellitus Enrolled in chronic care management Essential tremor Insomnia Lower GI bleed Mesenteric artery stenosis SMA stent PAD (peripheral artery disease) Parkinsons disease Pericardial effusion PMR (polymyalgia rheumatica) Pyloric stenosis RBBB Right hip pain Shock Upper gastrointestinal hemorrhage Urinary incontinence Surgical History H/O bladder repair surgery H/O cataract extraction H/O shoulder surgery H/O: hysterectomy History of cholecystectomy Family History Other Alcoholic Social History Smoking and tobacco status: current every day smoker cigarettes Packs smoked per day: 0.50 Alcohol intake: never Physical Exam Const: OTHER: Patient has severe advanced dementia. Patient also with evidence of Parkinson's disease. Patient is awake but not oriented. She is mildly somnolent. Moderate respiratory distress. Oxygen saturation 100% on nonrebreather at this time. temp 101.2 HENMT: COMMON NORMALS: normocephalic HEAD & SCALP: normocephalic FACE & SINUS: normal facial exam OTHER: Patient has healing laceration to the right brow that is covered with a bandage. Eye: COMMON NORMALS: EOMs intact bilaterally OTHER: Pupils equal round reactive light Neck/C-Spine: COMMON NORMALS: full ROM, no lymphadenopathy, supple and no meningeal signs GENERAL: Yes normal visual inspection Lymph: LYMPHATIC: no lymphadenopathy noted Chest: COMMONS NORMALS: normal inspection of the chest and normal palpation of entire chest wall CHEST: No Ecchymosis present and No rash Resp: OTHER: Mild tachypnea, mild rhonchi bilaterally. No wheezing. Cardio: COMMON NORMALS: regular rhythm and Peripheral pulses 2+ throughout JUGULAR VENOUS DISTENTION: no JVD RATE: tachycardic RHYTHM: regular rhythm PERIPHERAL PULSES: Peripheral pulses 2+ throughout GI: COMMON NORMALS: Normal to inspection, nondistended, normoactive bowel sounds present and non-tender : COMMON NORMALS: Yes no CVA tenderness BLADDER/KIDNEY EXAM: Yes no CVA tenderness Back/Pelvis: COMMON NORMALS: no CVA tenderness Extremity: COMMON NORMALS: normal to inspection, full ROM and capillary refill normal Neuro: CHINMAY COMA SCALE: document GCS findings Chinmay coma scale eye opening: Spontaneous Rena Lara coma scale verbal response: Confused Chinmay coma scale motor response: Localising Rena Lara coma scale total score: 13 COMMON NORMALS: CN's II-XII intact bilaterally and no sensory deficits noted MENINGEAL SIGNS: Yes no meningeal signs OTHER: Patient is not oriented. Psych: OTHER: Patient is not oriented due to her severe dementia. Skin: COMMON NORMALS: no rashes or lesions noted GENERAL SKIN EXAM: no rashes or lesions noted Course Vital Signs: Vital signs: Vital Signs Temperature 101.2 F H 01/30/22 16:13 Pulse Rate 89 01/30/22 16:13 Respiratory Rate 19 H 01/30/22 16:13 Blood Pressure 122/51 01/30/22 16:13 Pulse Oximetry 94 01/30/22 16:38 Oxygen Delivery Me thod 01/30/22 16:38 Oxygen Flow Rate 6 01/30/22 16:38 MDM - SOB/Dyspnea Medical Decision Making Pneumonia versus COVID versus influenza versus sepsis Medical Records CountPatient is full code according to records. Patient has very poor prognosis due to her age and disability. 1710: Patient did not seem to tolerate nasal cannula. She continued to pull it off. She is much more alert now. Patient was switched to blow-by high flow oxygen mask by RT. Oxygen saturation proximal and 97% on 6 L by blow-by. Blood pressure 122/51 heart rate of 87 and normal sinus rhythm with occasional PACs 1715: Discussed with hospitalist Dr. Whelan. He will place patient in inpatient status to [facility]. Lab Data 01/30/22 15:50 01/30/22 15:50 Labs/Radiology: Radiology Impressions Chest X-Ray 01/30/22 15:41 IMPRESSION: Left basilar pneumonia. Laboratory Results WBC 18.3 10^3/uL (4.0-10.0) H 01/30/22 15:50 RBC 4.07 10^6/uL (4.1-5.3) L 01/30/22 15:50 Hgb 11.9 g/dL (11.5-15.3) 01/30/22 15:50 Hct 39.6 % (37.0-47.0) 01/30/22 15:50 MCV 97.3 fl (81-99) 01/30/22 15:50 MCH 29.2 pg (28.0-34.0) 01/30/22 15:50 MCHC 30.1 g/dL (30.0-36.0) 01/30/22 15:50 RDW 14.0 % (12.1-15.1) 01/30/22 15:50 Plt Count 445 10^3/cmm (130-400) H 01/30/22 15:50 MPV 10.4 fL (7.4-10.4) 01/30/22 15:50 Neut % (Auto) 87.0 % 01/30/22 15:50 Lymph % (Auto) 8.1 % 01/30/22 15:50 [place] % (Auto) 3.9 % 01/30/22 15:50 Eos % (Auto) 0.0 % 01/30/22 15:50 Baso % (Auto) 0.3 % 01/30/22 15:50 Neut # (Auto) 15.93 10^3/uL (1.8-7.7) H 01/30/22 15:50 Lymph # (Auto) 1.5 10^3/uL (0.8-4.8) 01/30/22 15:50 [place] # (Auto) 0.7 10^3/uL (0.2-0.9) 01/30/22 15:50 Eos # (Auto) 0.0 10^3/uL (0.0-0.8) 01/30/22 15:50 Baso # (Auto) 0.1 10^3/uL (0.0-0.1) 01/30/22 15:50 Nucleated RBC % (auto) 0 % 01/30/22 15:50 Nucleated RBCs # 0.0 /100WBC 01/30/22 15:50 Specimen Type Arterial 01/30/22 17:00 Sample Site Brachial, right 01/30/22 17:00 ABG pH 7.41 (7.35-7.45) 01/30/22 17:00 ABG pCO2 43.6 mmHg (35-45) 01/30/22 17:00 ABG pO2 64.6 mmHg (80.0-100.0) L 01/30/22 17:00 ABG HCO3 27.7 mmol/L (22-26) H 01/30/22 17:00 ABG O2 Saturation 92.8 01/30/22 17:00 ABG Base Excess 2.6 mmol/L (-2.0-2.0) H 01/30/22 17:00 Vincenzo Test Pos 01/30/22 17:00 A-a O2 Gradient 4.2 mmHg (5-10) L 01/30/22 17:00 Hematocrit 36.2 % (37-47) L 01/30/22 17:00 Hgb O2 Saturation 90.7 % (95-100) L 01/30/22 17:00 Carboxyhemoglobin 1.6 %THgb (0.4-20.1) 01/30/22 17:00 Methemoglobin 0.6 % (0.4-1.5) 01/30/22 17:00 Total Hemoglobin 11.8 g/dL (12-16) L 01/30/22 17:00 Sodium 139.0 mmol/L (131-143) 01/30/22 17:00 Potassium 4.1 mmol/L (3.5-5.0) 01/30/22 17:00 Glucose 106.0 mg/dL (70-115) 01/30/22 17:00 Ionized Calcium 1.3 mmol/L (1.1-1.4) 01/30/22 17:00 O2 Delivery Device Oxy mask 01/30/22 17:00 O2 Liters/Min 8.0 % 01/30/22 17:00 Construction Project Engineer ID Alexa 01/30/22 17:00 Sodium 137 mmol/L (136-145) 01/30/22 15:50 Potassium 4.1 mmol/L (3.5-5.1) 01/30/22 15:50 Chloride 103 mmol/L (98-107) 01/30/22 15:50 Carbon Dioxide 21 mmol/L (22-29) L 01/30/22 15:50 Anion Gap 17.1 (5-19) 01/30/22 15:50 BUN 11 mg/dL (8-23) 01/30/22 15:50 Creatinine 0.5 mg/dL (0.5-0.9) 01/30/22 15:50 GFR Calculation Not Reportable 01/30/22 15:50 Glucose 117 mg/dL (65-115) H 01/30/22 15:50 Calculated Osmolality 284 mOsm/kg (285-295) L 01/30/22 15:50 Lactic Acid 1.6 mmol/L (0.5-2.2) 01/30/22 15:50 Calcium 9.3 mg/dL (8.5-10.5) 01/30/22 15:50 Total Bilirubin 0.2 mg/dL (0.15-1.2) 01/30/22 15:50 AST 16 U/L (0-32) 01/30/22 15:50 ALT 6 U/L (0-33) 01/30/22 15:50 Alkaline Phosphatase 102 U/L (35-105) 01/30/22 15:50 NT-Pro-B Natriuret Pep 224 pg/mL (0-450) 01/30/22 15:50 Total Protein 6.0 g/dL (6.6-8.7) L 01/30/22 15:50 Albumin 3.6 g/dL (3.5-5.2) 01/30/22 15:50 Globulin 2.4 g/dL (1.3-4.6) 01/30/22 15:50 Urine Color Dark yellow (Yellow) 01/30/22 16:25 Urine Appearance Hazy (CLEAR) A 01/30/22 16:25 Urine pH 5 (5-7) 01/30/22 16:25 Ur Specific [place] 1.015 (1.005-1.030) 01/30/22 16:25 Urine Protein Trace (Negative) 01/30/22 16:25 Urine Glucose (UA) Norm (Normal) 01/30/22 16:25 Urine Ketones 1+ (Negative) H 01/30/22 16:25 Urine Blood Neg (Negative) 01/30/22 16:25 Urine Nitrate Positive (Negative) H 01/30/22 16:25 Urine Bilirubin Neg (Negative) 01/30/22 16:25 Urine Urobilinogen 4 mg/dL (Negative) H 01/30/22 16:25 Ur Leukocyte Esterase Trace (Negative) H 01/30/22 16:25 Urine RBC None /hpf (0-2) 01/30/22 16:25 Urine WBC 15-25 /hpf (0-5) H 01/30/22 16:25 Ur Squamous Epith Cells 0-4 /hpf (0-5) H 01/30/22 16:25 Amorphous Sediment Not Reportable 01/30/22 16:25 Urine Bacteria 3+ /hpf (NONE) H 01/30/22 16:25 Influenza Type A Ag Negative (Negative) 01/30/22 16:05 Influenza Type B Ag Negative (Negative) 01/30/22 16:05 SARS-CoV-2 Ag (Rapid) negative (Negative) 01/30/22 16:05 Imaging Data CXR: My impression: Left lower lobe pneumonia Radiologist's impression: PROCEDURE INFORMATION: Exam: XR Chest Exam date and time: 01/30/2022 3:56 PM Age: 81 years old Clinical indication: Dyspnea; Additional info: Dyspnea; Fever TECHNIQUE: Imaging protocol: Radiologic exam of the chest. Views: 1 view. COMPARISON: CR XR chest 1V portable [id number] 12/29/2021 1:24 PM FINDINGS: Lungs: Hyperinflated lungs. Left basilar consolidation. Pleural spaces: No pleural effusion. No pneumothorax. Heart/Mediastinum: Mild cardiomegaly. Bones/joints: Right shoulder arthroplasty noted. Visualized osseous structures are intact. XR/XR chest 1V portable [id number] IMPRESSION: Left basilar pneumonia. ? Dictated By: Curt Johnson DO Signed By: Curt Johnson DO Signed Date/Time: 01/30/22 1637 EKG Data EKG 1: EKG Interpretation Date: 01/30/22 EKG interpretation time: 15:55 Interpretation: Normal sinus rhythm with right bundle branch block. Nonspecific ST-T changes. Mild LVH. T wave versions in the anterior lateral leads. Normal P waves, normal QT interval normal [place] interval. Normal axis ABG Data ABG Interpretation 1: Interpretation: pH and PCO2 are normal. PO2 is low consistent with hypoxia. Patient tolerating high flow blow-by mask. Discharge Plan Discharge Patient Disposition: Admitted As Inpatient Clinical Impression: Breath shortness Community acquired pneumonia Qualifiers: Laterality: left Lung location: lower lobe of lung Qualified Code(s): J18.9 - Pneumonia, unspecified organism Fever Qualifiers: Fever type: due to other condition Qualified Code(s): R50.81 - Fever presenting with conditions classified elsewhere Condition: Stable Coding Level of Care Code ED Decorative Engraver Apprentice for Chg Fwd History Comprehensive Exam Comprehensive Medical Decision Making High Complexity
[2022-01-30 16:13] VITALS: BP 122/51; PULSE 89; RESP 19; TEMP 38.4; O2SAT 94
[2022-01-30 16:16] LABS: Alveolar-Arterial Oxygen Gradi 1.1 mmHg (5-10); Arterial Blood Gas Hematocrit 36.4 % (37-47); Blood Gas Allen Test Pos; Blood Gas Sample Type Arterial; Carboxyhemoglobin 1.5 %THgb (0.4-20.1); HGB O2 Sat 95.9 % (95-100); Methemoglobin 0.4 % (0.4-1.5); Total Hemoglobin 11.9 g/dL (12-16)
[2022-01-30 16:17] LABS: Blood Gas Operator Identificat MONRO; Blood Gas Sample Site Brachial, right; Oxygen Device SIMPLE MASK
[2022-01-30 16:26] LABS: Basophils # 0.1 10^3/uL (0.0-0.1); Basophils % 0.3 %; Hematocrit 39.6 % (37.0-47.0); Hemoglobin 11.9 g/dL (11.5-15.3); Lymphocytes # 1.5 10^3/uL (0.8-4.8); Lymphocytes % 8.1 %; Mean Corpuscular HGB Conc 30.1 g/dL (30.0-36.0); Mean Corpuscular Hemoglobin 29.2 pg (28.0-34.0); Mean Corpuscular Volume 97.3 fl (81-99); Mean Platelet Volume 10.4 fL (7.4-10.4); Monocytes # 0.7 10^3/uL (0.2-0.9); Monocytes % 3.9 %; Neutrophils # 15.93 10^3/uL (1.8-7.7); Nucleated Red Blood Cells % 0 %; Platelet Count 445 10^3/cmm (130-400); Red Blood Count 4.07 10^6/uL (4.1-5.3); White Blood Count 18.3 10^3/uL (4.0-10.0)
[2022-01-30 16:38] VITALS: O2SAT 94
[2022-01-30 16:39] LABS: Bilirubin Urine Neg (Negative); Blood Urine Neg (Negative); Glucose Urine UA Norm (Normal); Ketones Urine 1+ (Negative); Leukocyte Esterase Urine Trace (Negative); Nitrate Urine Positive (Negative); Protein Urine Trace (Negative); Specific Gravity, Urine 1.015 (1.005-1.030); Urine Appearance Hazy (CLEAR); Urine Color Dark Yellow (Yellow); Urobilinogen Urine 4 mg/dL (Negative); pH Urine 5 (5-7)
[2022-01-30 16:39] LABS: Lactic Sepsis W/Reflex 1.6 mmol/L (0.5-2.2)
[2022-01-30 16:44] LABS: Add Urine Culture? Yes; Bacteria Urine 3+ /hpf; Squamous Epithelial Cell Urine 0-4 /hpf (0-5); WBC Urine 15-25 /hpf (0-5)
[2022-01-30 16:50] LABS: SARS Covid-2 Antigen negative (Negative)
[2022-01-30 16:52] LABS: Alanine Aminotransferase 6 U/L (0-33); Albumin Level 3.6 g/dL (3.5-5.2); Alkaline Phosphatase 102 U/L (35-105); Blood Urea Nitrogen 11 mg/dL (8-23); Calcium 9.3 mg/dL (8.5-10.5); Carbon Dioxide 21 mmol/L (22-29); Chloride 103 mmol/L (98-107); Globulin 2.4 g/dL (1.3-4.6); Glucose 117 mg/dL (65-115); NT Pro B Type Natriuretic Pept 224 pg/mL (0-450); Osmolality Calculated 284 mOsm/kg (285-295); Sodium 137 mmol/L (136-145); Total Bilirubin 0.2 mg/dL (0.15-1.2)
[2022-01-30 16:53] LABS: Influenza A by IFA Negative (Negative); Influenza B by IFA Negative (Negative)
[2022-01-30 16:54] LABS: Anion Gap 17.1 (5-19); Aspartate Amino Transferase 16 U/L (0-32); Potassium 4.1 mmol/L (3.5-5.1)
[2022-01-30 17:12] LABS: ABG PCO2 43.6 mmHg (35-45); ABG PH Result 7.41 (7.35-7.45); Alveolar-Arterial Oxygen Gradi 4.2 mmHg (5-10); Arterial Blood Gas Hematocrit 36.2 % (37-47); Base Excess ABG 2.6 mmol/L (-2.0-2.0); Blood Gas Allen Test Pos; Blood Gas Operator Identificat MONRO; Blood Gas Sample Site Brachial, right; Blood Gas Sample Type Arterial; Carboxyhemoglobin 1.6 %THgb (0.4-20.1); HCO3 ABG 27.7 mmol/L (22-26); HGB O2 Sat 90.7 % (95-100); Ionized Calcium Level - ABG 1.3 mmol/L (1.1-1.4); Methemoglobin 0.6 % (0.4-1.5); Oxygen Device OXY MASK; Oxygen Saturation ABG 92.8; PO2 ABG 64.6 mmHg (80.0-100.0); Potassium Level - ABG 4.1 mmol/L (3.5-5.0); Total Hemoglobin 11.8 g/dL (12-16)
[2022-01-30] MEDS: cefTRIAXone 1,000 MG in sodium chloride 0.9% (plus) 50 ML 100 MG IV (17:26)
[2022-01-30] MEDS: azithromycin 500 MG in sodium chloride 0.9% 250 ML 250 MG IV (17:29)
[2022-01-30] MEDS: acetaminophen 650 mg Supp PR (17:29)
--- NOTE | 2022-01-30 17:33 | PM.HP ---
Providers/Chief Complaint Admitting Physician: Amilcar Whelan MD Chief Complaint: FEVER History of Present Illness Yuli Mejia is a 81 year old female with a past medical history significant for depression, diabetes, dyslipidemia, and dementia who presents from nursing facility with hypoxia. Patient has dementia which limits history. She is oriented only to person which limits history. History therefore obtained from discussion with ED provider and chart review. Patient only complaints that she feels terrible. She is coughing on exam but denies shortness of breath or cough. Per ED provider report, patient developed symptoms consistent with pneumonia yesterday. She was noted to be short of breath with cough. She was found to have high fever to 104.8 today with an oxygen saturation of 83 percent on room air. She is Full Code at the [facility]. In the ED, she was found to be hypoxic requiring supplemental oxygen support. She has leukocytosis. CXR showed left basilar infiltrate. She was treated with ceftriaxone and azithromycin. Review of Systems Narrative: A complete review of systems was obtained and is negative except as stated in HPI. Medications/Allergies Home Medications Medication Instructions Recorded Confirmed Last Taken Type diabetic shoes #1 ea 08/29/19 12/27/21 Unknown Rx gabapentin 300 mg capsule 300 mg PO QID 01/13/20 12/27/21 12/27/21 History primidone 50 mg tablet 100 mg PO TID 03/12/20 12/27/21 12/27/21 History bupropion HCl 150 mg 24 hr tablet, 150 mg PO BID@0800,2000 05/14/20 12/27/21 06/12/20 History extended release carbidopa 25 mg-levodopa 100 mg 2 tab PO QID 05/14/20 12/27/21 12/27/21 History tablet ASO Brace #1 ea 06/18/20 12/27/21 Unknown Rx camphor-menthol 0.2 %-3.5 % 1 applic topical QID PRN Pain 07/21/20 12/27/21 Unknown History topical gel glycerin (adult) (Fleet Glycerin 1 supp OK DAILY PRN Constipation 07/21/20 12/27/21 Unknown History (Adult) rectal suppository) polyethylene glycol 3350 17 17 g PO DAILY 07/21/20 12/27/21 Unknown History gram/dose oral powder (Miralax) cefdinir 300 mg capsule 300 mg PO BID #14 caps 08/14/21 12/27/21 Unknown Rx acetaminophen 325 mg tablet 650 mg PO QID PRN Pain 12/27/21 12/27/21 Unknown History (Tylenol) aluminum-mag hydroxide-simethicone 30 ml PO Q2H PRN Indigestion 12/27/21 12/27/21 Unknown History 200 mg-200 mg-20 mg/5 mL oral susp bisacodyl 10 mg rectal suppository 10 mg OK DAILY PRN Constipation 12/27/21 12/27/21 Unknown History (Dulcolax (bisacodyl)) bisacodyl 5 mg tablet,delayed 20 mg PO DAILY PRN Constipation 12/27/21 12/27/21 Unknown History release (Dulcolax (bisacodyl)) buspirone 7.5 mg tablet 7.5 mg PO BID 12/27/21 12/27/21 12/27/21 History haloperidol 0.5 mg tablet 0.25 mg PO BID 12/27/21 12/27/21 12/27/21 History hydrocodone 5 mg-acetaminophen 325 1 tab PO BID 12/27/21 12/27/21 12/27/21 History mg tablet lorazepam 1 mg tablet (Ativan) 1 mg PO BID 12/27/21 12/27/21 12/27/21 History magnesium citrate 150 ml PO DAILY PRN Constipation 12/27/21 12/27/21 Unknown History magnesium hydroxide 400 mg/5 mL 30 ml PO DAILY PRN Constipation 12/27/21 12/27/21 Unknown History oral suspension (Milk of Magnesia) memantine 10 mg tablet (Namenda) 10 mg PO BID 12/27/21 12/27/21 12/27/21 History multivitamin 1 tab PO QAM 12/27/21 12/27/21 Unknown History olanzapine 5 mg tablet (Zyprexa) 5 mg PO QPM 12/27/21 12/27/21 Unknown History ondansetron HCl 4 mg tablet 4 mg PO Q6H PRN Nausea And Vomiting 12/27/21 12/27/21 Unknown History sennosides 8.6 mg tablet (Senokot) 8.6 mg PO DAILY 12/27/21 12/27/21 Unknown History sertraline 50 mg tablet 75 mg PO DAILY 12/27/21 12/27/21 Unknown History amoxicillin 500 mg capsule 1,000 mg PO BID #28 caps 12/31/21 Unknown Rx clarithromycin 500 mg tablet 500 mg PO BID #28 tabs 12/31/21 Unknown Rx magnesium 200 mg tablet 200 mg PO DAILY #10 tabs 12/31/21 Unknown Rx omeprazole 20 mg capsule,delayed 20 mg PO BID 12 weeks #168 caps 12/31/21 Unknown Rx release pantoprazole 40 mg tablet,delayed 40 mg PO BID #30 tabs 12/31/21 Unknown Rx release potassium chloride 10 mEq 10 meq PO DAILY #10 tabs 12/31/21 Unknown Rx tablet,extended release Allergies Allergy/AdvReac Type Severity Reaction Status Date / Time iodine Allergy Intermediate ALGY-Rash Verified 12/27/21 19:30 PFSH Acute PFSH: Medical History (Updated 01/30/22 @ 19:59 by Amilcar Whelan MD) Accidental fall Acute anemia Atelectasis Chronic constipation Contusion of left leg Dementia Depression Diet-controlled diabetes mellitus Enrolled in chronic care management Essential tremor Insomnia Lower GI bleed Mesenteric artery stenosis SMA stent PAD (peripheral artery disease) Parkinsons disease Pericardial effusion PMR (polymyalgia rheumatica) Pyloric stenosis RBBB Right hip pain Shock Upper gastrointestinal hemorrhage Urinary incontinence Surgical History H/O bladder repair surgery H/O cataract extraction H/O shoulder surgery H/O: hysterectomy History of cholecystectomy Family History Other Alcoholic Social History Smoking and tobacco status: current every day smoker cigarettes Packs smoked per day: 0.50 Alcohol intake: never Vitals/I&O/Wt Last Vital Signs Temp 101.2 F H 01/30/22 16:13 Pulse 89 01/30/22 16:13 Resp 19 H 01/30/22 16:13 BP 122/51 01/30/22 16:13 Pulse Ox 94 01/30/22 16:38 O2 Del Method 01/30/22 16:38 O2 Flow Rate 6 01/30/22 16:38 Physical Exam Narrative: General: Patient is awake. In moderate distress. Frail appearing. Febrile. Head: Normocephalic. Atraumatic. EOM intact. Neck: No JVD. Cardiovascular: RRR. No gallops. No murmurs. Dry mucous membranes. Lungs: Rhonchi in left lung base, tachypnea, no use of accessory muscles, no crackles or wheezes. Skin: No jaundice. No rashes. Abdomen: Normal bowel sounds, abdomen soft and nontender. Genito Urinary: Genital exam not performed since complaints not related. Rectal: Rectal exam not performed since no symptoms indicated blood loss. Extremities: No cyanosis or clubbing. Musculoskeletal: Poor muscle mass Neurological: Moves all 4 extremities. No myoclonus. Urinary Catheter Management: Tyler: Cath Placed During This Visit: yes Urinary Catheter Date of Insertion: 01/30/22 Urinary Catheter Time of Insertion: 16:29 Data 01/30/22 15:50 01/30/22 15:50 Micro: Microbiology 01/30/22 16:06 Blood Culture - Preliminary Blood SPECIMEN COLLECTED 01/30/22 16:04 Blood Culture - Preliminary Blood SPECIMEN COLLECTED A&P Assessment and plan (1) Community acquired pneumonia: Left basilar CAP with acute hypoxia BCx x2 Legionella and strep ag ordered Start ceftriaxone Start azithromycin Supplemental oxygen support Qualifiers: Laterality: left Lung location: lower lobe of lung Qualified Code(s): J18.9 - Pneumonia, unspecified organism (2) UTI (urinary tract infection): UA c/w UTI Follow up Ux Previous Ux last year grew Klebsiella sensitive to ceftriaxone (3) Fever: Tylenol PRN Qualifiers: Fever type: due to other condition Qualified Code(s): R50.81 - Fever presenting with conditions classified elsewhere (4) Dementia: Continue Zyprexa Continue Haldol Continue Namenda if available (NF) Continue ativan, make PRN (5) Depression: Continue sertraline Qualifiers: Depression Type: major depressive disorder Major depression recurrence: recurrent Active/Remission status: currently active Major depression episode severity: moderate Qualified Code(s): F33.1 - Major depressive disorder, recurrent, moderate (6) Diet-controlled diabetes mellitus: Diet controlled (7) Parkinsons disease: Continue Sinemet Continue primidone Fall precautions Plan DVT ppx: Lovenox Code status: Full Code Attestations Medical Necessity Statement*: Patient presents with UTI, CAP, and hypoxia with expected hospitalization to cross two midnights. Coding Level of Care Code Acute Counter Server for [facility] Fwd Diagnoses Community acquired pneumonia J18.9 Laterality: left Lung location: lower lobe of lung UTI (urinary tract infection) N39.0 Fever R50.81 Fever type: due to other condition Dementia F03.90 Depression F33.1 Depression Type: major depressive disorder Major depression recurrence: recurrent Active/Remission status: currently active Major depression episode severity: moderate Diet-controlled diabetes mellitus E11.9 Parkinsons disease G20
[2022-01-30 18:00] VITALS: BP 96/57; PULSE 71; RESP 19; TEMP 36.7
[2022-01-30 19:43] VITALS: BP 129/78; PULSE 78; RESP 18; TEMP 36.7; O2SAT 92
[2022-01-30] MEDS: enoxaparin 40 mg/0.4 mL Syringe SUBCUT (20:05)
[2022-01-30] MEDS: primidone 50 mg Tablet 100 MG PO (22:04)
[2022-01-30] MEDS: gabapentin 300 mg Capsule PO (22:04)
[2022-01-30] MEDS: carbidopa-levodopa 25-100mg Tablet 2 EACH PO (22:04)
[2022-01-30] MEDS: buPROPion XL (24 HR) 150 mg Tablet PO (22:05)
[2022-01-30] MEDS: LORazepam 1 mg Tablet PO (23:13)
[2022-01-30 23:38] VITALS: BP 86/60; PULSE 71; RESP 20; TEMP 36.7; O2SAT 92
[2022-01-31] VITALS (9 sets, daily range): BP systolic 92–147; BP diastolic 50–75; PULSE 54–73; RESP 15–19; TEMP 36.2–36.9; O2SAT 79–98
[2022-01-31 04:02] LABS: Basophils # 0.1 10^3/uL (0.0-0.1); Basophils % 0.4 %; Eosinophils # 0.1 10^3/uL (0.0-0.8); Eosinophils % 0.4 %; Hematocrit 35.8 % (37.0-47.0); Lymphocytes # 2.8 10^3/uL (0.8-4.8); Lymphocytes % 20.7 %; Mean Corpuscular HGB Conc 30.7 g/dL (30.0-36.0); Mean Corpuscular Hemoglobin 29.4 pg (28.0-34.0); Mean Corpuscular Volume 95.7 fl (81-99); Mean Platelet Volume 10.2 fL (7.4-10.4); Monocytes # 0.8 10^3/uL (0.2-0.9); Monocytes % 5.9 %; Neutrophils # 9.72 10^3/uL (1.8-7.7); Neutrophils % 72.3 %; Nucleated Red Blood Cells % 0 %; Platelet Count 392 10^3/cmm (130-400); Red Blood Count 3.74 10^6/uL (4.1-5.3); White Blood Count 13.5 10^3/uL (4.0-10.0)
[2022-01-31 04:25] LABS: Anion Gap 11.7 (5-19); Blood Urea Nitrogen 14 mg/dL (8-23); Calcium 9.2 mg/dL (8.5-10.5); Carbon Dioxide 28 mmol/L (22-29); Chloride 105 mmol/L (98-107); Glucose 76 mg/dL (65-115); Osmolality Calculated 291 mOsm/kg (285-295); Potassium 3.7 mmol/L (3.5-5.1); Sodium 141 mmol/L (136-145)
[2022-01-31] MEDS: haloperidol 1 mg Tablet 0.25 MG PO ×2 (08:40→17:22)
[2022-01-31] MEDS: pantoprazole DR 40 mg Tablet PO ×2 (08:41→17:21)
[2022-01-31] MEDS: carbidopa-levodopa 25-100mg Tablet 2 EACH PO ×3 (08:41→19:57)
[2022-01-31] MEDS: primidone 50 mg Tablet 100 MG PO ×3 (08:41→19:57)
[2022-01-31] MEDS: buPROPion XL (24 HR) 150 mg Tablet PO ×2 (08:41→19:57)
[2022-01-31] MEDS: gabapentin 300 mg Capsule PO ×3 (08:41→19:57)
[2022-01-31] MEDS: BuSPIRONE 10 mg Tablet 7.5 MG PO ×2 (08:42→17:21)
[2022-01-31] MEDS: sennosides 8.6 mg Tablet PO (08:43)
[2022-01-31] MEDS: memantine 5 mg tablet 10 MG PO ×2 (08:43→17:21)
[2022-01-31] MEDS: sertraline 50 mg Tablet 75 MG PO (08:43)
--- NOTE | 2022-01-31 10:34 | PC.CHAP ---
Pastoral Care Encounter/Spiritual Assessment Type of Contact [] Declined shaker washer visit [] Patient/Family/Request visit [] Outpatient visit [] Follow-up visit [] Physician referral [] Code/Alert [x] Routine visit [] Staff referral [] Actively dying [] Patient sleeping [] Family support [] [] Out of room [] Palliative care [] [] Receiving care in room [] Pre-surgical visit [] Trauma [] Long length of stay [] ICU visit [] Other: Relational/Emotional Strength [] Patient feels connected with others/family/visitors/staff [] Distress [] Loneliness/isolation [] Abandonment Spirituality of Patient [] Person of Moni [] Attends Protestant of their Moni [] Believes in Prayer [] Reads Bible or Jehovah'S Witness materials [] There are Spiritual issues to be addressed Social Worker Masters Interventions x] Prayer [] Active listening [] Non-anxious presence [] Spiritual/emotional support [] Crisis/trauma care [] Spiritual counseling [] Bereavement support [] Provided bereavement packet [] Provided Bible/devotional materials [] Provided toy/stuffed animal, coloring book to patient or family member [] Provided Communion [] Anointing/[place] [] Salvation [] Completed spiritual assessment [] Other: Impact on Illness or Injury [] Angry [] Fearful [] Anxious [] Often cries [] Exhaustion [] Unable to work [] Unable to attend islam [] Unable to walk/stand [] Unable to read [] Unable to drive [] Unable to eat/drink [] Unable to sleep [] Unable to be with family [] Patient intubated [] Other: Summary Time spent with patient
--- NOTE | 2022-01-31 12:29 | PC.SLP ---
Attempted MIXER WHIPPED TOPPING eval. The pt is not alert enough to participate at this time. Will try again later.
--- NOTE | 2022-01-31 16:49 | P.PN_ITS ---
Subjective Subjective: Patient was seen this morning, she is alert to person, not to place, not to time, she does not follow commands, she is confused, afebrile overnight, on room air Vitals/I&O/Wt Last Vital Signs Temp 97.2 F L 01/31/22 15:56 Pulse 73 01/31/22 15:56 Resp 16 01/31/22 15:56 BP 114/54 01/31/22 15:56 Pulse Ox 90 01/31/22 15:56 O2 Del Method 01/31/22 15:56 O2 Flow Rate 6 01/30/22 16:38 01/31/22 01/31/22 01/31/22 06:59 14:59 22:59 Intake Total 40 / 340 Output Total 100 / 200 Balance -60 / 140 Weight last 48 hrs Weight 44.679 kg Physical Exam Const: COMMON NORMALS: no acute distress Neck/C-Spine: COMMON NORMALS: no JVD Resp: COMMON NORMALS: normal respiratory effort, No retractions and No use of accessory muscles AUSCULTATION: wheezes Cardio: COMMON NORMALS: no JVD, regular rate, regular rhythm, S1 normal heart sound present and S2 normal heart sound present RATE: regular rate RHYTHM: regular rhythm HEART SOUNDS: S1 normal heart sound present and S2 normal heart sound present GI: COMMON NORMALS: Normal to inspection, nondistended, normoactive bowel sounds present and non-tender Extremity: COMMON NORMALS: no pedal edema Psych: COMMON NORMALS: mental status grossly normal Urinary Catheter Management: Tyler: Cath Placed During This Visit: yes Reason for Continuing Indwelling Catheter: Other Urinary Catheter Date of Insertion: 01/30/22 Urinary Catheter Time of Insertion: 16:29 Data 01/31/22 03:46 01/31/22 03:46 Micro: Microbiology 01/30/22 16:06 Blood Culture - Preliminary Blood NEGATIVE TO DATE 01/30/22 16:04 Blood Culture - Preliminary Blood NEGATIVE TO DATE 01/30/22 16:25 Urine Culture - Preliminary Urine,Clean Catch Gram Negative Rods 01/30/22 Unknown Bacterial Antigens - Final Urine,Clean Catch 01/30/22 Unknown Legionella Urinary Antigen - Final Urine Catheterized A&P Assessment and plan (1) Community acquired pneumonia: Left basilar CAP with acute hypoxia BCx x2 Legionella and strep ag ordered Start ceftriaxone Start azithromycin Supplemental oxygen support Qualifiers: Laterality: left Lung location: lower lobe of lung Qualified Code(s): J18.9 - Pneumonia, unspecified organism (2) UTI (urinary tract infection): UA c/w UTI Follow up Ux Previous Ux last year grew Klebsiella sensitive to ceftriaxone (3) Fever: Tylenol PRN Qualifiers: Fever type: due to other condition Qualified Code(s): R50.81 - Fever presenting with conditions classified elsewhere (4) Dementia: Continue Zyprexa Continue Haldol Continue Namenda if available (NF) Continue ativan, make PRN (5) Depression: Continue sertraline Qualifiers: Depression Type: major depressive disorder Major depression recurrence: recurrent Active/Remission status: currently active Major depression episode severity: moderate Qualified Code(s): F33.1 - Major depressive disorder, recurrent, moderate (6) Diet-controlled diabetes mellitus: Diet controlled (7) Parkinsons disease: Continue Sinemet Continue primidone Fall precautions Plan DVT ppx: Lovenox Code status: Full Code For today continue antibiotic therapy monitor cultures, monitor for fevers Attestations Medical Necessity Statement*: Patient requires hospitalization for pneumonia, UTI Coding Level of Care Code Acute Fire Control Technician for [facility] Fwd Diagnoses Community acquired pneumonia J18.9 Laterality: left Lung location: lower lobe of lung UTI (urinary tract infection) N39.0 Fever R50.81 Fever type: due to other condition Dementia F03.90 Depression F33.1 Depression Type: major depressive disorder Major depression recurrence: recurrent Active/Remission status: currently active Major depression episode severity: moderate Diet-controlled diabetes mellitus E11.9 Parkinsons disease G20
[2022-01-31] MEDS: OLANZapine 5 mg TABLET PO (17:21)
[2022-01-31] MEDS: azithromycin 500 MG in sodium chloride 0.9% 250 ML 250 MG IV (17:23)
[2022-01-31] MEDS: enoxaparin 40 mg/0.4 mL Syringe SUBCUT (19:57)
[2022-01-31] MEDS: cefTRIAXone 1,000 MG in sodium chloride 0.9% (plus) 50 ML 100 MG IV (19:58)
[2022-01-31] MEDS: LORazepam 1 mg Tablet PO (21:25)
[2022-02-01] VITALS (7 sets, daily range): BP systolic 107–144; BP diastolic 61–79; PULSE 57–91; RESP 14–18; TEMP 36.6–37; O2SAT 86–100
[2022-02-01 04:31] LABS: Basophils # 0.1 10^3/uL (0.0-0.1); Basophils % 0.7 %; Eosinophils # 0.1 10^3/uL (0.0-0.8); Eosinophils % 1.2 %; Hematocrit 35.7 % (37.0-47.0); Hemoglobin 10.5 g/dL (11.5-15.3); Lymphocytes # 1.6 10^3/uL (0.8-4.8); Lymphocytes % 17.4 %; Mean Corpuscular HGB Conc 29.4 g/dL (30.0-36.0); Mean Corpuscular Hemoglobin 28.2 pg (28.0-34.0); Mean Corpuscular Volume 95.7 fl (81-99); Mean Platelet Volume 10.5 fL (7.4-10.4); Monocytes # 0.6 10^3/uL (0.2-0.9); Monocytes % 6.3 %; Neutrophils # 6.65 10^3/uL (1.8-7.7); Neutrophils % 74.2 %; Nucleated Red Blood Cells % 0 %; Platelet Count 413 10^3/cmm (130-400); Red Blood Count 3.73 10^6/uL (4.1-5.3); Red Cell Distribution Width 13.6 % (12.1-15.1)
[2022-02-01 04:54] LABS: Alanine Aminotransferase < 5 U/L (0-33); Albumin Level 3.1 g/dL (3.5-5.2); Alkaline Phosphatase 101 U/L (35-105); Anion Gap 14.8 (5-19); Aspartate Amino Transferase 11 U/L (0-32); Blood Urea Nitrogen 13 mg/dL (8-23); Calcium 9.3 mg/dL (8.5-10.5); Carbon Dioxide 24 mmol/L (22-29); Chloride 106 mmol/L (98-107); Glucose 73 mg/dL (65-115); Magnesium 1.8 mg/dL (1.7-2.3); Osmolality Calculated 291 mOsm/kg (285-295); Potassium 3.8 mmol/L (3.5-5.1); Sodium 141 mmol/L (136-145); Total Bilirubin 0.2 mg/dL (0.15-1.2); Total Protein 6.1 g/dL (6.6-8.7)
[2022-02-01 06:36] LABS: Glucose Point of Care 73 mg/dL (70-110)
[2022-02-01] MEDS: cefTRIAXone 1,000 MG in sodium chloride 0.9% (plus) 50 ML 100 MG IV ×2 (08:39→19:49)
[2022-02-01] MEDS: memantine 5 mg tablet 10 MG PO ×2 (08:39→17:01)
[2022-02-01] MEDS: sertraline 50 mg Tablet 75 MG PO (08:41)
[2022-02-01] MEDS: carbidopa-levodopa 25-100mg Tablet 2 EACH PO ×3 (08:42→20:01)
[2022-02-01] MEDS: haloperidol 1 mg Tablet 0.25 MG PO ×2 (08:42→17:01)
[2022-02-01] MEDS: primidone 50 mg Tablet 100 MG PO ×2 (08:42→20:02)
[2022-02-01] MEDS: gabapentin 300 mg Capsule PO ×3 (08:42→20:02)
[2022-02-01] MEDS: BuSPIRONE 10 mg Tablet 7.5 MG PO ×2 (08:42→17:01)
[2022-02-01] MEDS: sennosides 8.6 mg Tablet PO (08:42)
[2022-02-01] MEDS: pantoprazole DR 40 mg Tablet PO ×2 (08:43→17:01)
[2022-02-01] MEDS: buPROPion XL (24 HR) 150 mg Tablet PO ×2 (08:43→20:02)
[2022-02-01 11:10] LABS: Glucose Point of Care 102 mg/dL (70-110)
--- NOTE | 2022-02-01 15:38 | P.PN_ITS ---
Subjective Subjective: Patient was seen this morning, she is much more alert and awake alert to person, not to place, not to time she can follow commands, she is undergoing speech therapy evaluation Vitals/I&O/Wt Last Vital Signs Temp 97.8 F 02/01/22 15:30 Pulse 91 02/01/22 15:30 Resp 16 02/01/22 15:30 BP 118/63 02/01/22 15:30 Pulse Ox 89 L 02/01/22 15:30 O2 Del Method 02/01/22 15:30 O2 Flow Rate 3 02/01/22 08:38 02/01/22 02/01/22 02/01/22 06:59 14:59 22:59 Intake Total 50 / 50 Output Total 400 / 400 Balance -400 / -100 50 / 50 Weight last 48 hrs Weight 44.679 kg Physical Exam Const: COMMON NORMALS: no acute distress Resp: COMMON NORMALS: normal respiratory effort, No retractions, No use of accessory muscles and clear to auscultation bilaterally AUSCULTATION: clear to auscultation bilaterally Cardio: COMMON NORMALS: regular rate, regular rhythm, S1 normal heart sound present and S2 normal heart sound present RATE: regular rate RHYTHM: regular rhythm HEART SOUNDS: S1 normal heart sound present and S2 normal heart sound present GI: COMMON NORMALS: Normal to inspection, nondistended, normoactive bowel sounds present and non-tender Extremity: COMMON NORMALS: no pedal edema Urinary Catheter Management: Tyler: Cath Placed During This Visit: yes Reason for Continuing Indwelling Catheter: Other Urinary Catheter Date of Insertion: 01/30/22 Urinary Catheter Time of Insertion: 16:29 Data 02/01/22 03:47 02/01/22 03:47 Micro: Microbiology 01/30/22 16:06 Blood Culture - Preliminary Blood NEGATIVE TO DATE 01/30/22 16:04 Blood Culture - Preliminary Blood NEGATIVE TO DATE A&P Assessment and plan (1) Community acquired pneumonia: Left basilar CAP with acute hypoxia BCx x2 Legionella and strep ag ordered Continue ceftriaxone Continue azithromycin Supplemental oxygen support Qualifiers: Laterality: left Lung location: lower lobe of lung Qualified Code(s): J18.9 - Pneumonia, unspecified organism (2) UTI (urinary tract infection): UA c/w UTI Follow up Ux Previous Ux last year grew Klebsiella sensitive to ceftriaxone (3) Fever: Tylenol PRN Qualifiers: Fever type: due to other condition Qualified Code(s): R50.81 - Fever presenting with conditions classified elsewhere (4) Dementia: Continue Zyprexa Continue Haldol Continue Namenda if available (NF) Continue ativan, make PRN (5) Depression: Continue sertraline Qualifiers: Depression Type: major depressive disorder Major depression recurrence: recurrent Active/Remission status: currently active Major depression episode severity: moderate Qualified Code(s): F33.1 - Major depressive disorder, recurrent, moderate (6) Diet-controlled diabetes mellitus: Diet controlled (7) Parkinsons disease: Continue Sinemet Continue primidone Fall precautions (8) Chronic pulmonary aspiration: - I think that a significant portion of patient's respiratory status, recurrent pneumonias is likely chronic microaspiration resulting in aspiration pneumonia -She does have encephalopathy related to her pneumonia, UTI that could be worsening her aspiration during this hospitalization -We will have to discuss the goals of care with her family, as she does have dementia, continuing modified oral feeding versus PEG tube placement -Evaluation by speech therapy eval showed that she had aspiration with all consistencies, but she tolerated dysphagia level 4 diet better this morning (9) Acute encephalopathy: Acute encephalopathy reversible, metabolic syndrome, secondary to UTI, pneumonia , aspiration Plan DVT ppx: Lovenox Code status: Full Code For today try dysphagia level 4 diet, monitor feeds monitor clinical status continue antibiotics Attestations Medical Necessity Statement*: Patient requires hospitalization for pneumonia, aspiration, microaspiration, acute encephalopathy Coding Level of Care Code Acute Debate Director for [facility] Fwd Diagnoses Community acquired pneumonia J18.9 Laterality: left Lung location: lower lobe of lung UTI (urinary tract infection) N39.0 Fever R50.81 Fever type: due to other condition Dementia F03.90 Depression F33.1 Depression Type: major depressive disorder Major depression recurrence: recurrent Active/Remission status: currently active Major depression episode severity: moderate Diet-controlled diabetes mellitus E11.9 Parkinsons disease G20 Chronic pulmonary aspiration T17.908A Acute encephalopathy G93.40
[2022-02-01] MEDS: azithromycin 500 MG in sodium chloride 0.9% 250 ML 250 MG IV (16:43)
[2022-02-01] MEDS: OLANZapine 5 mg TABLET PO (17:01)
[2022-02-01 17:03] LABS: Glucose Point of Care 77 mg/dL (70-110)
[2022-02-01] MEDS: enoxaparin 40 mg/0.4 mL Syringe SUBCUT (19:12)
[2022-02-01] MEDS: LORazepam 1 mg Tablet PO (21:07)
[2022-02-02 03:47] VITALS: BP 151/70; PULSE 97; RESP 14; TEMP 36.6; O2SAT 100
[2022-02-02 07:15] VITALS: PULSE 54; O2SAT 92
[2022-02-02 07:35] VITALS: BP 120/50; PULSE 56; RESP 16; TEMP 36.4; O2SAT 93
[2022-02-02] MEDS: carbidopa-levodopa 25-100mg Tablet 2 EACH PO ×3 (09:33→16:12)
[2022-02-02] MEDS: memantine 5 mg tablet 10 MG PO (09:33)
[2022-02-02] MEDS: sennosides 8.6 mg Tablet PO (09:33)
[2022-02-02] MEDS: pantoprazole DR 40 mg Tablet PO (09:33)
[2022-02-02] MEDS: sertraline 50 mg Tablet 75 MG PO (09:33)
[2022-02-02] MEDS: gabapentin 300 mg Capsule PO ×3 (09:33→16:12)
[2022-02-02] MEDS: primidone 50 mg Tablet 100 MG PO ×2 (09:33→16:11)
[2022-02-02] MEDS: cefTRIAXone 1,000 MG in sodium chloride 0.9% (plus) 50 ML 100 MG IV (09:33)
[2022-02-02] MEDS: buPROPion XL (24 HR) 150 mg Tablet PO (09:34)
[2022-02-02] MEDS: BuSPIRONE 10 mg Tablet 7.5 MG PO (09:34)
--- NOTE | 2022-02-02 09:38 | PC.CHAP ---
Pastoral Care Encounter/Spiritual Assessment Type of Contact [] Declined joint creaser visit [] Patient/Family/Request visit [] Outpatient visit [] Follow-up visit [] Physician referral [] Code/Alert [x] Routine visit [] Staff referral [] Actively dying [] Patient sleeping [] Family support [] [] Out of room [] Palliative care [] [] Receiving care in room [] Pre-surgical visit [] Trauma [] Long length of stay [] ICU visit [] Other: Relational/Emotional Strength [] Patient feels connected with others/family/visitors/staff [] Distress [] Loneliness/isolation [] Abandonment Spirituality of Patient [] Person of Moni [] Attends Spiritism of their Moni [] Believes in Prayer [] Reads Bible or Restoration materials [] There are Spiritual issues to be addressed Cryptographic Machine Operator Interventions [] Prayer [x] Active listening [x] Non-anxious presence [x] Spiritual/emotional support [] Crisis/trauma care [] Spiritual counseling [] Bereavement support [] Provided bereavement packet [] Provided Bible/devotional materials [] Provided toy/stuffed animal, coloring book to patient or family member [] Provided Communion [] Anointing/[place] [] Salvation [x] Completed spiritual assessment [] Other: Impact on Illness or Injury [] Angry [] Fearful [] Anxious [] Often cries [] Exhaustion [] Unable to work [] Unable to attend lutheran [] Unable to walk/stand [] Unable to read [] Unable to drive [] Unable to eat/drink [] Unable to sleep [] Unable to be with family [] Patient intubated [] Other: Summary As Cryptographic Machine Operator came into room Pt becoming sick to stomach and a nurse entered into the room. Time spent with patient 1m
[2022-02-02] MEDS: haloperidol 1 mg Tablet 0.25 MG PO (09:39)
--- NOTE | 2022-02-02 09:52 | PC.SOCIAL ---
IMM update IMM updated with patient's daughter in law. Verbalized an understanding. Initialled, dated, timed, and placed in chart.
--- NOTE | 2022-02-02 11:25 | P.DS_ITS ---
Discharge Providers Date of Admission: 01/30/22 17:18 Date of Discharge: February 02, 2022 Attending Provider at Admission: Amilcar Whelan MD Attending Provider at Discharge: Erasto Marcum MD Diagnoses at Discharge Discharge Diagnosis (1) Community acquired pneumonia: Status: Acute Qualifiers: Laterality: left Lung location: lower lobe of lung Qualified Code(s): J18.9 - Pneumonia, unspecified organism (2) UTI (urinary tract infection): Status: Acute (3) Fever: Status: Acute Qualifiers: Fever type: due to other condition Qualified Code(s): R50.81 - Fever presenting with conditions classified elsewhere (4) Dementia: Status: Acute (5) Depression: Status: Chronic Qualifiers: Active/Remission status: currently active Depression Type: major depressive disorder Major depression episode severity: moderate Major depression recurrence: recurrent Qualified Code(s): F33.1 - Major depressive disorder, recurrent, moderate (6) Diet-controlled diabetes mellitus: Status: Chronic (7) Parkinsons disease: Status: Acute (8) Chronic pulmonary aspiration: Status: Acute (9) Acute encephalopathy: Status: Acute Reason for Visit Reason for Visit: FEVER Hospital Course Hospital Course [place]oacano Mejia is a 81 year old female with a past medical history significant for depression, diabetes, dyslipidemia, and dementia who presents from nursing facility with hypoxia. Patient was admitted to [facility] for community-acquired pneumonia, requiring oxygen, nurse required broad-spectrum antibiotic therapy, also had a U TI, requiring broad-spectrum antibiotic therapy clinically monitor, urine culture showing Klebsiella pneumonia, blood cultures negative, remained afebrile, box oxygen. Will be discharged on cefdinir She also had acute encephalopathy on top of her dementia, which has improved, on discharge, but does remain alert to person, at times to place, not to time, she can at times follow commands Chronic pulmonary aspiration: - I think that a significant portion of patient's respiratory status, recurrent pneumonias is likely chronic aspiration resulting in aspiration pneumonia -She does have encephalopathy related to her pneumonia, UTI that could be worsening her aspiration during this hospitalization -Speech therapy evaluated patient, also agree that she likely has chronic aspiration, she does have high risk of recurrent aspiration, she was managed on a dysphagia level 4, aspiration precautions, extremely thick pur?ed diet which I will discharge her to the group home however she continues to have a high risk of aspiration in my mind -I have a discussed options to patient's family, including but not limited to -Continuing aspiration precautions, with a dysphagia level 4 diet, understanding that she does have a significant recurrent risk of aspiration, recurrent risk of aspiration pneumonias, recurrent hospitalizations, sepsis, and morbidity mortality associated. However this option, and some families and patient's mind would be a better quality of life rather than confining a person to a feeding tube, if they do choose this option hospice also would be a reasonable long-term option to avoid aggressive management -The second option would be placing a PEG tube, under the understanding that we would avoid oral feeding, there is risks of surgical procedure, and with a PEG tube dosing, there is complications associated with PEG tube placement including chronic diarrhea, and the psychosocial implications and she cannot have any oral feedings anymore and PEG tube does not completely decrease her risk of aspiration -I tried to reach son Chet Mejia however I was not able to reach him, but I reached patient's [id number] Riri Mejia who would relay the message to chet -I also offered a call back from chet, however I have not heard back from him -As of yet family has not made a decision, this decision does not need to be made today, can be made as outpatient, I have also informed family discussed with outpatient physician Physical Exam Const: COMMON NORMALS: no acute distress OTHER: Alert to person, not to place, not to time Resp: COMMON NORMALS: normal respiratory effort, No retractions, No use of accessory muscles and clear to auscultation bilaterally AUSCULTATION: clear to auscultation bilaterally Cardio: COMMON NORMALS: regular rate, regular rhythm, S1 normal heart sound present and S2 normal heart sound present RATE: regular rate RHYTHM: regular rhythm HEART SOUNDS: S1 normal heart sound present and S2 normal heart sound present GI: COMMON NORMALS: Normal to inspection, nondistended, normoactive bowel sounds present and non-tender Extremity: COMMON NORMALS: no pedal edema Urinary Catheter Management: Tyler: Cath Placed During This Visit: yes Reason for Continuing Indwelling Catheter: Acute Urinary Retention or Obstruction Urinary Catheter Date of Insertion: 01/30/22 Urinary Catheter Time of Insertion: 16:29 Discharge Data Studies Completed and Pending Completed Studies During Hospitalization Category Date Time Status XR chest 1V portable [id number] Stat Exams 01/30/22 15:41 Completed Pending at discharge Category Date Time Status Blood Culture Stat Lab 01/30/22 16:06 Results Radiology Impressions Chest X-Ray 01/30/22 15:41 IMPRESSION: Left basilar pneumonia. Laboratory Results WBC 9.0 10^3/uL (4.0-10.0) 02/01/22 03:47 RBC 3.73 10^6/uL (4.1-5.3) L 02/01/22 03:47 Hgb 10.5 g/dL (11.5-15.3) L 02/01/22 03:47 Hct 35.7 % (37.0-47.0) L 02/01/22 03:47 MCV 95.7 fl (81-99) 02/01/22 03:47 MCH 28.2 pg (28.0-34.0) 02/01/22 03:47 MCHC 29.4 g/dL (30.0-36.0) L 02/01/22 03:47 RDW 13.6 % (12.1-15.1) 02/01/22 03:47 Plt Count 413 10^3/cmm (130-400) H 02/01/22 03:47 MPV 10.5 fL (7.4-10.4) H 02/01/22 03:47 Neut % (Auto) 74.2 % 02/01/22 03:47 Lymph % (Auto) 17.4 % 02/01/22 03:47 [place] % (Auto) 6.3 % 02/01/22 03:47 Eos % (Auto) 1.2 % 02/01/22 03:47 Baso % (Auto) 0.7 % 02/01/22 03:47 Neut # (Auto) 6.65 10^3/uL (1.8-7.7) 02/01/22 03:47 Lymph # (Auto) 1.6 10^3/uL (0.8-4.8) 02/01/22 03:47 [place] # (Auto) 0.6 10^3/uL (0.2-0.9) 02/01/22 03:47 Eos # (Auto) 0.1 10^3/uL (0.0-0.8) 02/01/22 03:47 Baso # (Auto) 0.1 10^3/uL (0.0-0.1) 02/01/22 03:47 Nucleated RBC % (auto) 0 % 02/01/22 03:47 Nucleated RBCs # 0.0 /100WBC 02/01/22 03:47 Specimen Type Arterial 01/30/22 17:00 Sample Site Brachial, right 01/30/22 17:00 ABG pH 7.41 (7.35-7.45) 01/30/22 17:00 ABG pCO2 43.6 mmHg (35-45) 01/30/22 17:00 ABG pO2 64.6 mmHg (80.0-100.0) L 01/30/22 17:00 ABG HCO3 27.7 mmol/L (22-26) H 01/30/22 17:00 ABG O2 Saturation 92.8 01/30/22 17:00 ABG Base Excess 2.6 mmol/L (-2.0-2.0) H 01/30/22 17:00 Vincenzo Test Pos 01/30/22 17:00 A-a O2 Gradient 4.2 mmHg (5-10) L 01/30/22 17:00 Hematocrit 36.2 % (37-47) L 01/30/22 17:00 Hgb O2 Saturation 90.7 % (95-100) L 01/30/22 17:00 Carboxyhemoglobin 1.6 %THgb (0.4-20.1) 01/30/22 17:00 Methemoglobin 0.6 % (0.4-1.5) 01/30/22 17:00 Total Hemoglobin 11.8 g/dL (12-16) L 01/30/22 17:00 Sodium 139.0 mmol/L (131-143) 01/30/22 17:00 Potassium 4.1 mmol/L (3.5-5.0) 01/30/22 17:00 Glucose 106.0 mg/dL (70-115) 01/30/22 17:00 Ionized Calcium 1.3 mmol/L (1.1-1.4) 01/30/22 17:00 O2 Delivery Device Oxy mask 01/30/22 17:00 O2 Liters/Min 8.0 % 01/30/22 17:00 Industrial Machinery Mechanic ID Alexa 01/30/22 17:00 Sodium 141 mmol/L (136-145) 02/01/22 03:47 Potassium 3.8 mmol/L (3.5-5.1) 02/01/22 03:47 Chloride 106 mmol/L (98-107) 02/01/22 03:47 Carbon Dioxide 24 mmol/L (22-29) 02/01/22 03:47 Anion Gap 14.8 (5-19) 02/01/22 03:47 BUN 13 mg/dL (8-23) 02/01/22 03:47 Creatinine 0.4 mg/dL (0.5-0.9) L 02/01/22 03:47 GFR Calculation Not Reportable 02/01/22 03:47 Glucose 73 mg/dL (65-115) 02/01/22 03:47 POC Glucose 77 mg/dL (70-110) 02/01/22 16:50 Calculated Osmolality 291 mOsm/kg (285-295) 02/01/22 03:47 Lactic Acid 1.6 mmol/L (0.5-2.2) 01/30/22 15:50 Calcium 9.3 mg/dL (8.5-10.5) 02/01/22 03:47 Phosphorus 3.0 mg/dL (2.5-4.5) 02/01/22 03:47 Magnesium 1.8 mg/dL (1.7-2.3) 02/01/22 03:47 Total Bilirubin 0.2 mg/dL (0.15-1.2) 02/01/22 03:47 AST 11 U/L (0-32) 02/01/22 03:47 ALT < 5 U/L (0-33) 02/01/22 03:47 Alkaline Phosphatase 101 U/L (35-105) 02/01/22 03:47 NT-Pro-B Natriuret Pep 224 pg/mL (0-450) 01/30/22 15:50 Total Protein 6.1 g/dL (6.6-8.7) L 02/01/22 03:47 Albumin 3.1 g/dL (3.5-5.2) L 02/01/22 03:47 Globulin 3.0 g/dL (1.3-4.6) 02/01/22 03:47 Urine Color Dark yellow (Yellow) 01/30/22 16:25 Urine Appearance Hazy (CLEAR) A 01/30/22 16:25 Urine pH 5 (5-7) 01/30/22 16:25 Ur Specific [place] 1.015 (1.005-1.030) 01/30/22 16:25 Urine Protein Trace (Negative) 01/30/22 16:25 Urine Glucose (UA) Norm (Normal) 01/30/22 16:25 Urine Ketones 1+ (Negative) H 01/30/22 16:25 Urine Blood Neg (Negative) 01/30/22 16:25 Urine Nitrate Positive (Negative) H 01/30/22 16:25 Urine Bilirubin Neg (Negative) 01/30/22 16:25 Urine Urobilinogen 4 mg/dL (Negative) H 01/30/22 16:25 Ur Leukocyte Esterase Trace (Negative) H 01/30/22 16:25 Urine RBC None /hpf (0-2) 01/30/22 16:25 Urine WBC 15-25 /hpf (0-5) H 01/30/22 16:25 Ur Squamous Epith Cells 0-4 /hpf (0-5) H 01/30/22 16:25 Amorphous Sediment Not Reportable 01/30/22 16:25 Urine Bacteria 3+ /hpf (NONE) H 01/30/22 16:25 Influenza Type A Ag Negative (Negative) 01/30/22 16:05 Influenza Type B Ag Negative (Negative) 01/30/22 16:05 SARS-CoV-2 Ag (Rapid) negative (Negative) 01/30/22 16:05 Vitals Last Vital Signs Temp 97.5 F L 02/02/22 07:35 Pulse 56 L 02/02/22 07:35 Resp 16 02/02/22 07:35 BP 120/50 02/02/22 07:35 Pulse Ox 93 02/02/22 07:35 O2 Del Method 02/02/22 07:35 O2 Flow Rate 3 02/01/22 08:38 Discharge Plan Discharge Patient Disposition: Xfer SNF Condition: Stable Prescriptions: New cefdinir 300 mg capsule 300 mg PO BID 5 Days Qty: 10 0RF Continued (DME) ASO Brace See Rx Instructions .Route .MEDSUPPLY Qty: 1 0RF Rx Instructions: Wear as needed for stability. gabapentin 300 mg capsule 300 mg PO QID primidone 50 mg tablet 100 mg PO TID (DME) diabetic shoes Qty: 1 0RF Rx Instructions: As directed carbidopa-levodopa 25-100 mg tablet 2 tab PO QID bupropion HCl 150 mg Tablet Extended Release 24 Hr 150 mg PO BID@0800,2000 polyethylene glycol 3350 [Miralax] 17 gram/dose Powder 17 g PO DAILY PRN (Reason: Constipation) glycerin (adult) [Fleet Glycerin (Adult)] Suppository 1 supp [place] DAILY PRN (Reason: Constipation) camphor-menthol 0.2-3.5 % Gel 1 applic TOPICAL QID PRN (Reason: Pain) multivitamin Tablet 1 tab PO QAM haloperidol 0.5 mg Tablet 0.25 mg PO BID sennosides [Senokot] 8.6 mg Tablet 8.6 mg PO DAILY acetaminophen [Tylenol] 325 mg Tablet 650 mg PO QID PRN (Reason: Pain) hydrocodone-acetaminophen 5-325 mg Tablet 1 tab PO BID ondansetron HCl 4 mg Tablet 4 mg PO Q6H PRN (Reason: Nausea And Vomiting) olanzapine [Zyprexa] 5 mg Tablet 5 mg PO QPM magnesium hydroxide [Milk of Magnesia] 400 mg/5 mL Suspension 30 ml PO DAILY PRN (Reason: Constipation) bisacodyl [Dulcolax (bisacodyl)] 10 mg Suppository 10 mg RI DAILY PRN (Reason: Constipation) buspirone 7.5 mg Tablet 7.5 mg PO BID magnesium citrate Solution 300 ml PO DAILY PRN (Reason: Constipation) bisacodyl [Dulcolax (bisacodyl)] 5 mg Tablet,Delayed Release (Dr/Ec) 20 mg PO DAILY PRN (Reason: Constipation) alum-mag hydroxide-simeth 200-200-20 mg/5 mL Suspension 30 ml PO Q2H PRN (Reason: Indigestion) lorazepam [Ativan] 1 mg Tablet 1 mg PO BID sertraline 50 mg Tablet 75 mg PO DAILY memantine [Namenda] 10 mg Tablet 10 mg PO BID magnesium 200 mg tablet 200 mg PO DAILY Qty: 10 0RF potassium chloride 10 mEq tablet extended release 10 meq PO DAILY Qty: 10 0RF omeprazole 20 mg capsule,delayed release(DR/EC) 20 mg PO BID 84 Days Qty: 168 0RF pantoprazole 40 mg Tablet,Delayed Release (Dr/Ec) 40 mg PO BID Qty: 30 3RF meloxicam 7.5 mg Tablet 7.5 mg PO DAILY ibuprofen 200 mg Capsule 400 mg PO Q8H PRN (Reason: Pain) aspirin 81 mg Tablet,Chewable 81 mg PO DAILY hydrocodone-acetaminophen 5-325 mg Tablet 1 tab PO BID PRN (Reason: Pain) Ativan 1 mg Tablet 1 mg PO Q6H PRN (Reason: Anxiety) food supplemt, lactose-reduced Liquid 120 ea PO TID Discharge Orders: Discharge Order (Routine); Ordered 02/02/22 Ordered By: Erasto Marcum Discharge Diet: As Directed Discharge Activity: Resume usual activity Patient Instructions: Cefdinir (By mouth), Encephalopathy (GEN) Activity Restrictions/Additional Instructions: - Dysphagia level 4, moderately thick liquids presented via spoon, aspiration precautions -She does have a high risk of aspiration, recurrent aspiration pneumonia -Likely having chronic aspiration -Take antibiotics as prescribed Discharge Attestations Time Spent in Discharge Care*: less than 30 min Quality Metrics Clinical Quality Measures [ No reported AMI, CVA or VTE this stay] Coding Level of Care Code Acute Chg FW DC note Exam Detailed Diagnoses Community acquired pneumonia J18.9 Laterality: left Lung location: lower lobe of lung UTI (urinary tract infection) N39.0 Fever R50.81 Fever type: due to other condition Dementia F03.90 Depression F33.1 Active/Remission status: currently active Depression Type: major depressive disorder Major depression episode severity: moderate Major depression recurrence: recurrent Diet-controlled diabetes mellitus E11.9 Parkinsons disease G20 Chronic pulmonary aspiration T17.908A Acute encephalopathy G93.40
[2022-02-02 12:00] VITALS: BP 115/55; PULSE 66; RESP 16; TEMP 36.8; O2SAT 95
[2022-02-02 16:00] VITALS: BP 148/69; PULSE 66; RESP 16; TEMP 36.8; O2SAT 90
[2022-02-02 18:16] VITALS: BP 148/69; PULSE 66; RESP 16; TEMP 36.8; O2SAT 90
== END 2022-02-02 18:15 | disposition skilled nursing facility (03) | DRG 177 ==
LOC: ER 18:07 → MEDSURG 18:08
PROVIDERS: Admitting Provider Internal Medicine; Emergency Provider Family Medicine; Visit Provider Family Medicine
DX: J69.0 Pneumonitis due to inhalation of food and vomit (principal); G93.41 Metabolic encephalopathy; N39.0 Urinary tract infection, site not specified; F33.1 Major depressive disorder, recurrent, moderate; B96.1 Klebsiella pneumoniae [K. pneumoniae] as the cause of diseases classified elsewhere; G20 Parkinson's disease; F02.80 Dementia in other diseases classified elsewhere, unspecified severity, without behavioral disturbance, psychotic disturbance, mood disturbance, and anxiety; E11.51 Type 2 diabetes mellitus with diabetic peripheral angiopathy without gangrene; E78.5 Hyperlipidemia, unspecified; Z79.891 Long term (current) use of opiate analgesic; Z79.82 Long term (current) use of aspirin; K59.09 Other constipation; M35.3 Polymyalgia rheumatica; F17.210 Nicotine dependence, cigarettes, uncomplicated
CPT/HCPCS: 36415; 36416; 36600; 51702; 71045; 80048; 80051; 80053; 81001; 82330; 82805; 82810; 82962; 83605; 83735; 83880; 84100; 85025; 86403; 87040; 87077; 87086; 87186; 87426; 87449; 87804; 92523; 92526; 92610; 93005; 96365; 96367; 96372; 99285; J0456; J0696; J1650; J7050

== ENCOUNTER 2022-02-09 03:18 | Inpatient (IN) | payer MEDICARE, OTHER, MEDICAID, SELFPAY ==
[2022-02-09] VITALS (18 sets, daily range): BP systolic 102–151; BP diastolic 52–96; PULSE 74–104; RESP 17–30; TEMP 36.7–39.1; O2SAT 88–100; BMI 15.9
--- NOTE | 2022-02-09 03:22 | XRR_ITS ---
PROCEDURE INFORMATION: Exam: XR Chest Exam date and time: 02/09/2022 3:27 AM Age: 81 years old Clinical indication: Cough and fever and shortness of breath; Prior surgery; Surgery type: RT shoulder. Gb; Patient HX: From custodial for cough, SOB, and fever. TECHNIQUE: Imaging protocol: Radiologic exam of the chest. Views: 1 view. COMPARISON: CR (CHEST, ) 01/30/2022 3:56 PM FINDINGS: Tubes, catheters and devices: EKG monitoring leads overlie the thoracic wall. Lungs: Since the comparison examination, there has been interim improvement and but no complete resolution of the left basilar area of consolidation consistent with pneumonia. Pleural spaces: No pleural effusion or pneumothorax. Heart/Mediastinum: Normal in size. Bones/joints: No acute fracture. Stable right shoulder arthroplasty. XR/XR chest 1V portable [id number] IMPRESSION: Right basilar consolidation/pneumonia demonstrating partial resolution when compared to 01/30/2022.
--- NOTE | 2022-02-09 03:30 | W.ED.SOB ---
HPI - SOB/Dyspnea General: Chief Complaint: Altered Mental Status Stated Complaint: fever, resp distress, confusion Time Seen by Provider: 02/09/22 03:21 Source: EMS Mode of arrival: EMS Limitations: altered mental status History of Present Illness: HPI Narrative: 81-year-old female is here from [facility] state that found her tonight unresponsive along with high fever up to 102 along with shortness of breath patient's not typically on oxygen EMS have is her on a nonrebreather he states that on 3 to 4 L she was still satting in the 80s. Patient here will respond to verbal stimuli but is not able to answer any questions she has shallow breathing Review of Systems General: Reports: ROS unobtainable due to mental status PFSH ED PFSH: Medical History (Updated 02/09/22 @ 05:44 by Orlando Augillon MD) Accidental fall Acute anemia Atelectasis Chronic constipation Contusion of left leg Dementia Depression Diet-controlled diabetes mellitus Enrolled in chronic care management Essential tremor Insomnia Lower GI bleed Mesenteric artery stenosis SMA stent PAD (peripheral artery disease) Parkinsons disease Pericardial effusion PMR (polymyalgia rheumatica) Pyloric stenosis RBBB Right hip pain Shock Upper gastrointestinal hemorrhage Urinary incontinence Surgical History H/O bladder repair surgery H/O cataract extraction H/O shoulder surgery H/O: hysterectomy History of cholecystectomy Family History Other Alcoholic Social History Smoking and tobacco status: current every day smoker cigarettes Packs smoked per day: 0.50 Alcohol intake: never Physical Exam Const: COMMON NORMALS: negative for patient oriented x3 GENERAL APPEARANCE: in distress and ill appearing HENMT: COMMON NORMALS: normocephalic and atraumatic HEAD & SCALP: normocephalic and atraumatic THROAT: posterior oropharynx normal Eye: COMMON NORMALS: conjunctivae normal CONJUNCTIVA: Yes conjunctivae normal Neck/C-Spine: COMMON NORMALS: supple Chest: COMMONS NORMALS: normal inspection of the chest Resp: EFFORT & INSPECTION: Yes tachypneic, Yes respiratory distress and Yes labored AUSCULTATION: rales Cardio: RATE: tachycardic GI: COMMON NORMALS: Soft to palpation INSPECTION: Yes normal to inspection AUSCULTATION: Yes normoactive bowel sounds PALPATION: Yes Soft to palpation Extremity: COMMON NORMALS: normal to inspection Neuro: COMMON NORMALS: negative for patient oriented x3 Psych: COMMON NORMALS: negative for mental status grossly normal Skin: COMMON NORMALS: no rashes or lesions noted GENERAL SKIN EXAM: no rashes or lesions noted Procedures Lumbar Puncture Time Out Performed: Yes Patient Position: left lateral decubitus Skin Prep: Povidone-Iodine 1% Local Anesthetic: lidocaine 1% Amount of anesthesia used (mL): 6 Spinal Needle Gauge: 22G Interspace Used: L4-L5 Fluid Initially Obtained: clear Complications: none Course Vital Signs: Vital signs: Vital Signs Temperature 101.6 F H 02/09/22 04:22 Pulse Rate 103 H 02/09/22 04:55 Respiratory Rate 27 H 02/09/22 04:55 Blood Pressure 151/96 02/09/22 04:55 Pulse Oximetry 94 02/09/22 04:55 Oxygen Delivery Me thod 02/09/22 04:55 Oxygen Flow Rate 6 02/09/22 04:55 MDM - SOB/Dyspnea Medical Decision Making Patient presents for fever along with altered mental status and hypoxia patient's blood pressures been normal white count is normal she likely has pneumonia LP was performed as well patient started on IV antibiotics and will admit at this time. Patient is DNR/DNI Lab Data 02/09/22 03:30 02/09/22 03:30 Labs/Radiology: Radiology Impressions Chest X-Ray 02/09/22 03:22 IMPRESSION: Right basilar consolidation/pneumonia demonstrating partial resolution when compared to 01/30/2022. Head CT 02/09/22 03:48 IMPRESSION: 1. No acute findings. 2. Moderate cerebral atrophy and leukoencephalopathy. 3. Moderate ventriculomegaly, out of proportion to sulcal prominence, similar to that of the comparison examination. Consider evaluation for normal pressure hydrocephalus if clinically indicated. 4. 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 Laboratory Results WBC 10.0 10^3/uL (4.0-10.0) 02/09/22 03:30 RBC 4.50 10^6/uL (4.1-5.3) 02/09/22 03:30 Hgb 12.6 g/dL (11.5-15.3) 02/09/22 03:30 Hct 42.1 % (37.0-47.0) 02/09/22 03:30 MCV 93.6 fl (81-99) 02/09/22 03:30 MCH 28.0 pg (28.0-34.0) 02/09/22 03:30 MCHC 29.9 g/dL (30.0-36.0) L 02/09/22 03:30 RDW 14.2 % (12.1-15.1) 02/09/22 03:30 Plt Count 473 10^3/cmm (130-400) H 02/09/22 03:30 MPV 10.0 fL (7.4-10.4) 02/09/22 03:30 Neut % (Auto) 92.2 % 02/09/22 03:30 Lymph % (Auto) 5.2 % 02/09/22 03:30 [place] % (Auto) 1.9 % 02/09/22 03:30 Eos % (Auto) 0.2 % 02/09/22 03:30 Baso % (Auto) 0.2 % 02/09/22 03:30 Neut # (Auto) 9.26 10^3/uL (1.8-7.7) H 02/09/22 03:30 Lymph # (Auto) 0.5 10^3/uL (0.8-4.8) L 02/09/22 03:30 [place] # (Auto) 0.2 10^3/uL (0.2-0.9) 02/09/22 03:30 Eos # (Auto) 0.0 10^3/uL (0.0-0.8) 02/09/22 03:30 Baso # (Auto) 0.0 10^3/uL (0.0-0.1) 02/09/22 03:30 Nucleated RBC % (auto) 0 % 02/09/22 03:30 Nucleated RBCs # 0.0 /100WBC 02/09/22 03:30 Sodium 141 mmol/L (136-145) 02/09/22 03:30 Potassium 4.4 mmol/L (3.5-5.1) 02/09/22 03:30 Chloride 104 mmol/L (98-107) 02/09/22 03:30 Carbon Dioxide 26 mmol/L (22-29) 02/09/22 03:30 Anion Gap 15.4 (5-19) 02/09/22 03:30 BUN 10 mg/dL (8-23) 02/09/22 03:30 Creatinine 0.6 mg/dL (0.5-0.9) 02/09/22 03:30 GFR Calculation Not Reportable 02/09/22 03:30 Glucose 90 mg/dL (65-115) 02/09/22 03:30 Calculated Osmolality 291 mOsm/kg (285-295) 02/09/22 03:30 Lactic Acid 1.2 mmol/L (0.5-2.2) 02/09/22 03:30 Calcium 9.8 mg/dL (8.5-10.5) 02/09/22 03:30 Total Bilirubin 0.2 mg/dL (0.15-1.2) 02/09/22 03:30 AST 20 U/L (0-32) 02/09/22 03:30 ALT 12 U/L (0-33) 02/09/22 03:30 Alkaline Phosphatase 123 U/L (35-105) H 02/09/22 03:30 Troponin T Baseline 43 ng/L (0-10) H 02/09/22 03:30 NT-Pro-B Natriuret Pep 345 pg/mL (0-450) 02/09/22 03:30 Total Protein 7.1 g/dL (6.6-8.7) 02/09/22 03:30 Albumin 3.7 g/dL (3.5-5.2) 02/09/22 03:30 Globulin 3.4 g/dL (1.3-4.6) 02/09/22 03:30 Urine Color Yellow (Yellow) 02/09/22 04:50 Urine Appearance Clear (CLEAR) 02/09/22 04:50 Urine pH 8 (5-7) H 02/09/22 04:50 Ur Specific [place] 1.015 (1.005-1.030) 02/09/22 04:50 Urine Protein Neg (Negative) 02/09/22 04:50 Urine Glucose (UA) Norm (Normal) 02/09/22 04:50 Urine Ketones Negative (Negative) 02/09/22 04:50 Urine Blood Neg (Negative) 02/09/22 04:50 Urine Nitrate Negative (Negative) 02/09/22 04:50 Urine Bilirubin Neg (Negative) 02/09/22 04:50 Prot Sulfosalicylic Acd Negative (Negative) 02/09/22 04:50 Urine Urobilinogen Norm mg/dL (Negative) 02/09/22 04:50 Ur Leukocyte Esterase Negative (Negative) 02/09/22 04:50 Influenza Type A Ag negative (Negative) 02/09/22 03:30 Influenza Type B Ag negative (Negative) 02/09/22 03:30 SARS-CoV-2 Ag (Rapid) negative (Negative) 02/09/22 03:30 Discharge Plan Discharge Patient Disposition: Admitted As Inpatient Clinical Impression: Altered mental status, Hypoxia, Fever Condition: Stable Prescriptions: No Action (DME) ASO Brace See Rx Instructions .Route .MEDSUPPLY Qty: 1 0RF Rx Instructions: Wear as needed for stability. gabapentin 300 mg capsule 300 mg PO QID primidone 50 mg tablet 100 mg PO TID (DME) diabetic shoes Qty: 1 0RF Rx Instructions: As directed carbidopa-levodopa 25-100 mg tablet 2 tab PO QID bupropion HCl 150 mg Tablet Extended Release 24 Hr 150 mg PO BID@0800,2000 polyethylene glycol 3350 [Miralax] 17 gram/dose Powder 17 g PO DAILY PRN (Reason: Constipation) glycerin (adult) [Fleet Glycerin (Adult)] Suppository 1 supp [place] DAILY PRN (Reason: Constipation) camphor-menthol 0.2-3.5 % Gel 1 applic TOPICAL QID PRN (Reason: Pain) multivitamin Tablet 1 tab PO QAM haloperidol 0.5 mg Tablet 0.25 mg PO BID sennosides [Senokot] 8.6 mg Tablet 8.6 mg PO DAILY acetaminophen [Tylenol] 325 mg Tablet 650 mg PO QID PRN (Reason: Pain) hydrocodone-acetaminophen 5-325 mg Tablet 1 tab PO BID ondansetron HCl 4 mg Tablet 4 mg PO Q6H PRN (Reason: Nausea And Vomiting) olanzapine [Zyprexa] 5 mg Tablet 5 mg PO QPM magnesium hydroxide [Milk of Magnesia] 400 mg/5 mL Suspension 30 ml PO DAILY PRN (Reason: Constipation) bisacodyl [Dulcolax (bisacodyl)] 10 mg Suppository 10 mg [place] DAILY PRN (Reason: Constipation) buspirone 7.5 mg Tablet 7.5 mg PO BID magnesium citrate Solution 300 ml PO DAILY PRN (Reason: Constipation) bisacodyl [Dulcolax (bisacodyl)] 5 mg Tablet,Delayed Release (Dr/Ec) 20 mg PO DAILY PRN (Reason: Constipation) alum-mag hydroxide-simeth 200-200-20 mg/5 mL Suspension 30 ml PO Q2H PRN (Reason: Indigestion) lorazepam [Ativan] 1 mg Tablet 1 mg PO BID sertraline 50 mg Tablet 75 mg PO DAILY memantine [Namenda] 10 mg Tablet 10 mg PO BID magnesium 200 mg tablet 200 mg PO DAILY Qty: 10 0RF potassium chloride 10 mEq tablet extended release 10 meq PO DAILY Qty: 10 0RF omeprazole 20 mg capsule,delayed release(DR/EC) 20 mg PO BID 84 Days Qty: 168 0RF pantoprazole 40 mg Tablet,Delayed Release (Dr/Ec) 40 mg PO BID Qty: 30 3RF meloxicam 7.5 mg Tablet 7.5 mg PO DAILY ibuprofen 200 mg Capsule 400 mg PO Q8H PRN (Reason: Pain) aspirin 81 mg Tablet,Chewable 81 mg PO DAILY hydrocodone-acetaminophen 5-325 mg Tablet 1 tab PO BID PRN (Reason: Pain) Ativan 1 mg Tablet 1 mg PO Q6H PRN (Reason: Anxiety) food supplemt, lactose-reduced Liquid 120 ea PO TID Coding Level of Care Code ED Teletray Operator for Chg Fwd Exam Comprehensive
--- NOTE | 2022-02-09 03:34 | ECG_ITS ---
[facility] Test Date: 2022-02-09 Pat Name: Yuli Mejia Department: Room: Gender: Female Lead Recreation Assistant: : 1940 Requested By: Orlando Aguillon Order Number: [id number] Carleen MD: Jennifer Jerome M.D. Measurements Intervals [place] Rate: 107 P: 113 MA: 126 QRS: 107 QRSD: 120 T: 88 QT: 349 QTc: 468 Interpretive Statements SINUS TACHYCARDIA RIGHT AXIS DEVIATION [QRS AXIS > 100] RIGHT BUNDLE BRANCH BLOCK MODERATE T-WAVE ABNORMALITY, CONSIDER LATERAL ISCHEMIA Compared to ECG 01/30/2022 15:52:43 Right-axis deviation now present Myocardial infarct finding now present T-wave abnormality now present Possible ischemia now present Sinus rhythm no longer present Electronically Signed On 02-09-2022 10:12:05 SUSTAINABILITY ENGINEER by Jennifer Jerome M.D. [id number]
[2022-02-09 03:44] LABS: Basophils % 0.2 %; Eosinophils % 0.2 %; Hematocrit 42.1 % (37.0-47.0); Hemoglobin 12.6 g/dL (11.5-15.3); Lymphocytes # 0.5 10^3/uL (0.8-4.8); Lymphocytes % 5.2 %; Mean Corpuscular HGB Conc 29.9 g/dL (30.0-36.0); Mean Corpuscular Volume 93.6 fl (81-99); Monocytes # 0.2 10^3/uL (0.2-0.9); Monocytes % 1.9 %; Neutrophils # 9.26 10^3/uL (1.8-7.7); Neutrophils % 92.2 %; Nucleated Red Blood Cells % 0 %; Platelet Count 473 10^3/cmm (130-400); Red Cell Distribution Width 14.2 % (12.1-15.1)
--- NOTE | 2022-02-09 03:48 | CTR_ITS ---
PROCEDURE INFORMATION: Exam: CT Head Without Contrast Exam date and time: 02/09/2022 3:55 AM Age: 81 years old Clinical indication: Altered mental status/memory loss and fever; Confusion or disorientation; Patient HX: AMS with fever. Patient incessantly moaning. TECHNIQUE: Imaging protocol: Computed tomography of the head without contrast. Radiation optimization: All CT scans at this facility use at least one of these dose optimization techniques: automated exposure control; mA and/or kV adjustment per patient size (includes targeted exams where dose is matched to clinical indication); or iterative reconstruction. COMPARISON: CT head wo con* [id number] 08/14/2021 1:08 AM RADIATION DOSE METRICS: Total DLP (mGy-cm): 467.28 FINDINGS: Brain: There is no evidence of intracranial hemorrhage. No mass effect or midline shift. There is no territorial edema. There are moderate confluent periventricular hypodensities consistent with chronic microischemic changes of white matter. There are moderately prominent sulci. There are 1 or more chronic basal ganglia lacunar infarcts. Cerebral ventricles: The ventricles are enlarged out of proportion to sulcal prominence raising the question of normal pressure hydrocephalus. Findings are similar to those of the comparison study. Paranasal sinuses: There are no air-fluid levels. Mastoid air cells: The visualized mastoid air cells are well aerated. Bones/joints: No acute fracture. Soft tissues: Unremarkable. CT/CT head wo con* [id number] IMPRESSION: 1. No acute findings. 2. Moderate cerebral atrophy and leukoencephalopathy. 3. Moderate ventriculomegaly, out of proportion to sulcal prominence, similar to that of the comparison examination. Consider evaluation for normal pressure hydrocephalus if clinically indicated. 4. 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
[2022-02-09] MEDS: acetaminophen 650 mg Supp PR (03:52)
[2022-02-09 04:04] LABS: Lactic Sepsis W/Reflex 1.2 mmol/L (0.5-2.2)
[2022-02-09 04:06] LABS: Troponin(5th) Baseline 43 ng/L (0-10)
[2022-02-09 04:08] LABS: Influenza A by IFA negative (Negative); Influenza B by IFA negative (Negative); SARS Covid-2 Antigen negative (Negative)
[2022-02-09 04:09] LABS: Alanine Aminotransferase 12 U/L (0-33); Albumin Level 3.7 g/dL (3.5-5.2); Alkaline Phosphatase 123 U/L (35-105); Aspartate Amino Transferase 20 U/L (0-32); Blood Urea Nitrogen 10 mg/dL (8-23); Calcium 9.8 mg/dL (8.5-10.5); Carbon Dioxide 26 mmol/L (22-29); Chloride 104 mmol/L (98-107); Globulin 3.4 g/dL (1.3-4.6); Glucose 90 mg/dL (65-115); NT Pro B Type Natriuretic Pept 345 pg/mL (0-450); Osmolality Calculated 291 mOsm/kg (285-295); Sodium 141 mmol/L (136-145); Total Bilirubin 0.2 mg/dL (0.15-1.2); Total Protein 7.1 g/dL (6.6-8.7)
[2022-02-09 04:16] LABS: Anion Gap 15.4 (5-19); Potassium 4.4 mmol/L (3.5-5.1)
[2022-02-09 05:00] LABS: Add Urine Microscopic? NO; Charge for UA Resulting for Rev
[2022-02-09] MEDS: azithromycin 500 MG in sodium chloride 0.9% 250 ML 250 MG IV (05:01)
[2022-02-09] MEDS: cefTRIAXone 1,000 MG in sodium chloride 0.9% (plus) 50 ML 100 MG IV (05:02)
[2022-02-09 05:08] LABS: Bilirubin Urine Neg (Negative); Blood Urine Neg (Negative); Glucose Urine UA Norm (Normal); Ketones Urine Negative (Negative); Leukocyte Esterase Urine Negative (Negative); Nitrate Urine Negative (Negative); Protein Urine Neg (Negative); Specific Gravity, Urine 1.015 (1.005-1.030); Urine Appearance Clear (CLEAR); Urine Color Yellow (Yellow); Urobilinogen Urine Norm (Negative); pH Urine 8 (5-7)
[2022-02-09 05:09] LABS: Sulfosalicylic Acid Urine Negative (Negative)
--- NOTE | 2022-02-09 05:45 | ECG_ITS ---
[facility] Test Date: 2022-02-09 Pat Name: Yuli Mejia Department: Room: Gender: Female Senior Portfolio Analyst: : 1940 Requested By: Orlando Aguillon Order Number: [id number] Carleen MD: Jennifer Jerome M.D. Measurements Intervals [place] Rate: 99 P: 90 AR: 122 QRS: 87 QRSD: 142 T: 28 QT: 365 QTc: 468 Interpretive Statements SINUS RHYTHM RIGHT BUNDLE BRANCH BLOCK Compared to ECG 02/09/2022 03:34:54 Sinus tachycardia no longer present Right-axis deviation no longer present T-wave abnormality no longer present Possible ischemia no longer present Myocardial infarct finding still present Electronically Signed On 02-09-2022 10:14:58 MARINE BIOLOGIST by Jennifer Jerome M.D. [id number]
[2022-02-09] MEDS: lidocaine 1% INJ 20 mL MDV (mL) INJECTION (05:46)
--- NOTE | 2022-02-09 06:17 | P.HP_ITS ---
Providers/Chief Complaint Admitting Physician: Geovanna Santos MD Chief Complaint: fever, resp distress, confusion History of Present Illness Yuli Mejia is a 81 year who presented from long term she has history of dementia, Parkinson's, nonambulatory, GI bleed, hematochezia. EGD showed Schatzki ring pyloric stenosis status post balloon angioplasty and duodenal ulcer biopsy showed H. pylori which she was treated for about 2 weeks colonoscopy done on 12/31, she received 3 units PRBC, then she got admitted for aspiration pneumonia, family could not make a decision regarding PEG tube, she was on level 4 dysphagia diet presented today with chief complaint of altered mental status febrile events and oxygen requirement At the long term patient was febrile, and unresponsive. Patient is not able to provide any history, I called her son who is also DPOA (Chet Mejia), he is stating that he would like to discuss with his brother regarding PEG tube placement however they have changed her CODE STATUS to DNR/DNI which needs to be signed by a physician. Son is stating that once he is at work it is hard for him to accept phone calls because of poor network. In the ER patient was diagnosed with hypoxia, she is requiring 4 L of oxygen, no leukocytosis, D-dimer 1.3, she is febrile, her x-ray showing improvement of consolidation, she suffered from aspiration pneumonia Dr. Lee did get CSF sample Review of Systems General: Reports: ROS unobtainable due to medical condition Medications/Allergies Home Medications Medication Instructions Recorded Confirmed Last Taken Type diabetic shoes #1 ea 08/29/19 01/31/22 Unknown Rx gabapentin 300 mg capsule 300 mg PO QID 01/13/20 01/31/22 12/27/21 History primidone 50 mg tablet 100 mg PO TID 03/12/20 01/31/22 12/27/21 History bupropion HCl 150 mg 24 hr tablet, 150 mg PO BID@0800,199905/14/20 01/31/22 06/12/20 History extended release carbidopa 25 mg-levodopa 100 mg 2 tab PO QID 05/14/20 01/31/22 12/27/21 History tablet ASO Brace #1 ea 06/18/20 01/31/22 Unknown Rx camphor-menthol 0.2 %-3.5 % 1 applic topical QID PRN Pain 07/21/20 01/31/22 Unknown History topical gel glycerin (adult) (Fleet Glycerin 1 supp NV DAILY PRN Constipation 07/21/20 01/31/22 Unknown History (Adult) rectal suppository) polyethylene glycol 3350 17 17 g PO DAILY PRN Constipation 07/21/20 01/31/22 Unknown History gram/dose oral powder (Miralax) acetaminophen 325 mg tablet 650 mg PO QID PRN Pain 12/27/21 01/31/22 Unknown History (Tylenol) aluminum-mag hydroxide-simethicone 30 ml PO Q2H PRN Indigestion 12/27/21 01/31/22 Unknown History 200 mg-200 mg-20 mg/5 mL oral susp bisacodyl 10 mg rectal suppository 10 mg NV DAILY PRN Constipation 12/27/21 01/31/22 Unknown History (Dulcolax (bisacodyl)) bisacodyl 5 mg tablet,delayed 20 mg PO DAILY PRN Constipation 12/27/21 01/31/22 Unknown History release (Dulcolax (bisacodyl)) buspirone 7.5 mg tablet 7.5 mg PO BID 12/27/21 01/31/22 12/27/21 History haloperidol 0.5 mg tablet 0.25 mg PO BID 12/27/21 01/31/22 12/27/21 History hydrocodone 5 mg-acetaminophen 325 1 tab PO BID 12/27/21 01/31/22 12/27/21 History mg tablet lorazepam 1 mg tablet (Ativan) 1 mg PO BID 12/27/21 01/31/22 12/27/21 History magnesium citrate 300 ml PO DAILY PRN Constipation 12/27/21 01/31/22 Unknown History magnesium hydroxide 400 mg/5 mL 30 ml PO DAILY PRN Constipation 12/27/21 01/31/22 Unknown History oral suspension (Milk of Magnesia) memantine 10 mg tablet (Namenda) 10 mg PO BID 12/27/21 01/31/22 01/31/22 History multivitamin 1 tab PO QAM 12/27/21 01/31/22 Unknown History olanzapine 5 mg tablet (Zyprexa) 5 mg PO QPM 12/27/21 01/31/22 Unknown History ondansetron HCl 4 mg tablet 4 mg PO Q6H PRN Nausea And Vomiting 12/27/21 01/31/22 Unknown History sennosides 8.6 mg tablet (Senokot) 8.6 mg PO DAILY 12/27/21 01/31/22 Unknown History sertraline 50 mg tablet 75 mg PO DAILY 12/27/21 01/31/22 Unknown History magnesium 200 mg tablet 200 mg PO DAILY #10 tabs 12/31/21 01/31/22 Unknown Rx omeprazole 20 mg capsule,delayed 20 mg PO BID 12 weeks #168 caps 12/31/21 01/31/22 Unknown Rx release pantoprazole 40 mg tablet,delayed 40 mg PO BID #30 tabs 12/31/21 01/31/22 Unknown Rx release potassium chloride 10 mEq 10 meq PO DAILY #10 tabs 12/31/21 01/31/22 Unknown Rx tablet,extended release aspirin 81 mg chewable tablet 81 mg PO DAILY 01/31/22 01/31/22 Unknown History food supplemt, lactose-reduced 120 ea PO TID 01/31/22 01/31/22 Unknown History hydrocodone 5 mg-acetaminophen 325 1 tab PO BID PRN Pain 01/31/22 01/31/22 Unknown History mg tablet ibuprofen 200 mg capsule 400 mg PO Q8H PRN Pain 01/31/22 01/31/22 Unknown History lorazepam 1 mg tablet (Ativan) 1 mg PO Q6H PRN Anxiety 01/31/22 01/31/22 Unknown History meloxicam 7.5 mg tablet 7.5 mg PO DAILY 01/31/22 01/31/22 01/30/22 History Allergies Allergy/AdvReac Type Severity Reaction Status Date / Time iodine Allergy Intermediate ALGY-Rash Verified 12/27/21 19:30 PFSH Acute PFSH: Medical History Accidental fall Acute anemia Atelectasis Chronic constipation Contusion of left leg Dementia Depression Diet-controlled diabetes mellitus Enrolled in chronic care management Essential tremor Insomnia Lower GI bleed Mesenteric artery stenosis SMA stent PAD (peripheral artery disease) Parkinsons disease Pericardial effusion PMR (polymyalgia rheumatica) Pyloric stenosis RBBB Right hip pain Shock Upper gastrointestinal hemorrhage Urinary incontinence Surgical History H/O bladder repair surgery H/O cataract extraction H/O shoulder surgery H/O: hysterectomy History of cholecystectomy Family History Other Alcoholic Social History Smoking and tobacco status: current every day smoker cigarettes Packs smoked per day: 0.50 Alcohol intake: never Vitals/I&O/Wt Last Vital Signs Temp 101.6 F H 02/09/22 04:22 Pulse 103 H 02/09/22 04:55 Resp 27 H 02/09/22 04:55 BP 151/96 02/09/22 04:55 Pulse Ox 94 02/09/22 04:55 O2 Del Method 02/09/22 04:55 O2 Flow Rate 6 02/09/22 04:55 02/08/22 02/08/22 02/09/22 14:59 22:59 06:59 Intake Total 50 / 50 Balance 50 / 50 Weight last 48 hrs Weight 40.823 kg Physical Exam Narrative: Patient is cachectic, malnourished Dehydrated Currently on 6 L of oxygen Saturating 95% She opens her eyes cannot mumbles, mild facial droop could be related to the way she is laying in the bed She is not able to follow commands however she tries to open eyes and communicate but extremely stuporous Variable S1-S2 tachycardia Febrile Flat abdomen, no signs of tenderness Lower extremity no edema Dry skin and mucous membrane Bilateral breath sounds with rhonchi Urinary Catheter Management: Tyler: Cath Placed During This Visit: yes Urinary Catheter Date of Insertion: 02/09/22 Urinary Catheter Time of Insertion: 04:53 Data 02/09/22 03:30 02/09/22 03:30 Micro: Microbiology 02/09/22 03:30 Blood Culture - Preliminary Blood SPECIMEN COLLECTED 02/09/22 03:30 Blood Culture - Preliminary Blood SPECIMEN COLLECTED A&P Assessment and plan (1) Altered mental status: (2) Hypoxia: (3) Fever: (4) Chronic pulmonary aspiration: (5) Parkinsons disease: (6) Dementia: Plan Metabolic encephalopathy related to aspiration My concern for bacterial meningitis is low, viral etiology not ruled out, influenza, COVID antigen negative Her CSF panel is unremarkable, no signs of sepsis, UA unremarkable Will discontinue ampicillin and ceftriaxone Considering aspiration pneumonia history we will treat her with vancomycin and Zosyn, request MRSA PCR if it is negative vancomycin could be discontinued For now anaerobic and gram-negative coverage Severe dehydration Continue IV fluid, I will give her D5 half-normal saline Patient cachectic, malnourished Son would like to discuss with his brother regarding PEG tube placement and then let us know Patient was on level 4 dysphagia diet as per recent speech therapy evaluation EGD showed pyloric stenosis, gastritis, History of GI bleed status post blood transfusion, current hemoglobin is stable CODE STATUS has been changed to DNR/DNI by the family however not signed by the physician at the long term She carries history of dementia, Parkinson's, Unstable to take any from medication in pill form Attestations Medical Necessity Statement*: Anticipating more than 2 midnights for management of metabolic encephalopathy, Time Spent in Patient Care: 40 Coding Level of Care Code Acute Medical Sociologist for [facility] Fwd Diagnoses Altered mental status R41.82 Hypoxia R09.02 Fever R50.9 Chronic pulmonary aspiration T17.908A Parkinsons disease G20 Dementia F03.90
[2022-02-09 06:19] LABS: CSF Mononuclear # 0.003 10^3/uL (50-90); Mononuclear WBC CSF % 100 % (50-90); Polynuclear WBC CSF % 0 % (0-10); Red Blood Cell CSF 0 10^3/uL (0-0); White Blood Cell CSF 3 /uL (0-5)
[2022-02-09 06:20] LABS: Troponin 5 2HR 40.73 ng/L (0-10)
[2022-02-09 06:25] LABS: Appearance CSF CLEAR (CLEAR); Color CSF COLORLESS (COLORLESS); Pathology Referral Yes
[2022-02-09 06:29] LABS: Cyto Order Verification Order Verified
[2022-02-09 06:34] LABS: Glucose CSF 69 mg/dL (40-70); Total Protein CSF 38 mg/dL (15-45)
[2022-02-09 06:39] LABS: Troponin 5 2HR Delta -2.27 ABS# (0-10)
--- NOTE | 2022-02-09 07:35 | PC.NURSE ---
PT PLACED ON CONTINUOUS NIBP, SPO2, AND CM
[2022-02-09 08:02] LABS: Thyroid Stimulating Hormone 1.99 uIU/mL (0.27-4.20); Vitamin B12 1101 pg/mL (232-1245)
[2022-02-09] MEDS: dextrose 5%-sod chloride 0.45% 1,000 ML 75 ML IV ×2 (08:43→20:54)
[2022-02-09] MEDS: vancomycin 750 MG in sodium chloride 0.9% 250 ML 250 MG IV (08:44)
[2022-02-09] MEDS: memantine 5 mg tablet 10 MG PO ×2 (08:45→18:00)
--- NOTE | 2022-02-09 09:22 | ECG_ITS ---
[facility] Test Date: 2022-02-09 Pat Name: Yuli Mejia Department: Room: ED Gender: Female Stamp Machine Servicer: : 1940 Requested By: Orlando Aguillon Order Number: [id number] aCrleen MD: Jennifer Jerome M.D. Measurements Intervals [place] Rate: 86 P: 81 [place]: 124 QRS: 90 QRSD: 129 T: 78 QT: 396 QTc: 476 Interpretive Statements SINUS RHYTHM RIGHT BUNDLE BRANCH BLOCK [120+ ms QRS DURATION, UPRIGHT V1, 40+ ms S IN I/aVL/V4/V5/V6] SEPTAL MYOCARDIAL INFARCTION , OF INDETERMINATE AGE [40+ ms Q WAVE IN V1/V2] MODERATE T-WAVE ABNORMALITY, CONSIDER ANTEROLATERAL ISCHEMIA [-0.1+ mV T-WAVE IN V3-V6] Compared to ECG 02/09/2022 05:45:13 Myocardial infarct finding now present T-wave abnormality now present Possible ischemia now present Electronically Signed On 02-10-2022 9:24:24 DEPARTMENT MANAGER by Jennifer Jerome M.D. [id number]
--- NOTE | 2022-02-09 09:28 | PC.PHAR ---
pt is from [facility] [phone]-medications entered are meds from the pts mar
--- NOTE | 2022-02-09 09:57 | PM.PN ---
Subjective Subjective: History and physical reviewed. Patient is not able to give history on her own. Correlating history was taken from the [facility], as well as the first contact on her list her [id number]. She is able to acknowledge my presence when I entered the room with a verbal response of high. However, she could not follow directions for me. Medications: Reviewed: Yes Vitals/I&O/Wt Last Vital Signs Temp 101.6 F H 02/09/22 06:05 Pulse 86 02/09/22 07:30 Resp 27 H 02/09/22 07:30 BP 122/58 02/09/22 07:30 Pulse Ox 95 02/09/22 07:30 O2 Del Method 02/09/22 07:30 O2 Flow Rate 5 02/09/22 07:30 02/08/22 02/09/22 02/09/22 22:59 06:59 14:59 Intake Total 300 / 300 Balance 300 / 300 Weight last 48 hrs Weight 40.823 kg Physical Exam Narrative: General exam demonstrates an elderly white female, who opens her eyes to verbal stimulus and says hi but cannot follow directions. She quickly goes back to sleep, closing her eyes. Neck is supple no lymphadenopathy or thyromegaly Cardiovascular regular rate and rhythm. No obvious murmur Lungs diminished breath sounds bilaterally but clear Abdomen is soft, positive bowel sounds. No obvious organomegaly Extremities no cyanosis clubbing or edema. Atrophy is noted of her calf muscles Skin no rash Neuro no obvious focal deficits, but patient obviously confused. Urinary Catheter Management: Tyler: Cath Placed During This Visit: yes Reason for Continuing Indwelling Catheter: Acute Urinary Retention or Obstruction Urinary Catheter Date of Insertion: 02/09/22 Urinary Catheter Time of Insertion: 04:53 Data 02/09/22 03:30 02/09/22 03:30 Micro: Microbiology 02/09/22 04:50 Bacterial Antigens - Final Urine,Voided 02/09/22 04:50 Legionella Urinary Antigen - Final Urine Catheterized 02/09/22 05:00 Gram Stain - Final Cerebrospinal Fluid 02/09/22 03:30 Blood Culture - Preliminary Blood SPECIMEN COLLECTED 02/09/22 03:30 Blood Culture - Preliminary Blood SPECIMEN COLLECTED A&P Assessment and plan (1) Aspiration pneumonitis: Patient with history of chronic aspiration. I spoke with the nursing facility staff who states she frequently aspirates at meals, despite having pur?ed diet and honey thickened liquids Chest x-ray demonstrates right lower lobe infiltrate, she is febrile and requiring oxygen all consistent with aspiration pneumonitis Secondary to her recent hospitalization broad-spectrum antibiotics have been initiated. These include vancomycin and Zosyn. We will continue them currently. Sputum culture will not be able to be obtained Blood culture has been obtained MRSA PCR pending COVID rapid and influenza are negative. Check COVID PCR. According to nursing facility staff there is no COVID in the facility currently, but there is influenza. Bacterial antigen panel was negative This is associated with acute hypoxic respiratory failure. Patient's respiratory rate is elevated, mild retractions, and is requiring 5 L of oxygen per facemask. Wean oxygen as tolerated. Family has been considering feeding tube. I discussed that this is not always associated with last aspiration but does provide nutrition. (2) Acute metabolic encephalopathy: Patient with significant confusion consistent with acute metabolic encephalopathy Hopefully this will improve to her baseline with treatment Her baseline, with her dementia and Parkinson's is confusion but oriented to self. She is able to carry on some conversation. Lumbar puncture was done as well on admission. Meningitis unlikely. Gram stain negative. (3) Dementia: See above (4) Parkinsons disease: Continue home medications Plan Multiple other medical problems as outlined in past medical history Allow natural , discussed with family. She is also allow natural at the nursing facility. Heparin for DVT prophylaxis Attestations Medical Necessity Statement*: Needs continued hospital stay, for IV antibiotics secondary to pneumonia. 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
[2022-02-09] MEDS: piperacillin-tazobactam 3.375 GM in sodium chloride 0.9% (plus) 50 ML IV ×2 (09:59→20:47)
[2022-02-09] MEDS: heparin 5,000 unit/mL INJ 1 mL 5000 UNIT SUBCUT ×2 (10:00→23:11)
[2022-02-09 10:28] LABS: Troponin 5 6HR 48.88 ng/L (0-10); Troponin 5 6HR Delta 5.88 ng/L (0-12)
[2022-02-09] MEDS: carbidopa-levodopa 25-100mg Tablet 2 EACH PO ×2 (10:49→16:25)
[2022-02-09 11:16] LABS: Adenovirus Not Detected (NOT DETECT); Chlamydia Pneumoniae Not Detected (NOT DETECT); Coronavirus 229E,HKU1,NL63,OC4 Not Detected (NOT DETECT); Human Metapneumovirus Not Detected (NOT DETECT); Human Rhinovirus/Enterovirus Not Detected (NOT DETECT); Influenza A Not Detected (NOT DETECT); Influenza A H1 Not Detected (NOT DETECT); Influenza A H1-2009 Not Detected (NOT DETECT); Influenza A H3 Not Detected (NOT DETECT); Influenza B Not Detected (NOT DETECT); Mycoplasma Pneumoniae Not Detected (NOT DETECT); Parainfluenza Virus Type 1 Not Detected (NOT DETECT); Parainfluenza Virus Type 2 Not Detected (NOT DETECT); Parainfluenza Virus Type 3 Not Detected (NOT DETECT); Parainfluenza Virus Type 4 Not Detected (NOT DETECT); Respiratory Syncytial Virus A Not Detected (NOT DETECT); Respiratory Syncytial Virus B Not Detected (NOT DETECT); SARS-COV-2 Not Detected (NOT DETECT)
[2022-02-09] MEDS: morphine IR 15 mg Tablet PO (16:25)
[2022-02-09 21:39] LABS: Glucose Point of Care 98 mg/dL (70-110)
[2022-02-10] VITALS (7 sets, daily range): BP systolic 93–160; BP diastolic 53–73; PULSE 64–81; RESP 17–21; TEMP 36.8–38.3; O2SAT 91–97
[2022-02-10] MEDS: piperacillin-tazobactam 3.375 GM in sodium chloride 0.9% (plus) 50 ML IV ×3 (03:30→20:55)
[2022-02-10 06:22] LABS: Basophils % 0.5 %; Hematocrit 34.1 % (37.0-47.0); Hemoglobin 10.3 g/dL (11.5-15.3); Lymphocytes # 0.8 10^3/uL (0.8-4.8); Lymphocytes % 19.4 %; Mean Corpuscular HGB Conc 30.2 g/dL (30.0-36.0); Mean Corpuscular Hemoglobin 28.2 pg (28.0-34.0); Mean Corpuscular Volume 93.4 fl (81-99); Mean Platelet Volume 10.2 fL (7.4-10.4); Monocytes # 0.3 10^3/uL (0.2-0.9); Monocytes % 7.5 %; Neutrophils # 2.98 10^3/uL (1.8-7.7); Neutrophils % 72.4 %; Nucleated Red Blood Cells % 0 %; Platelet Count 340 10^3/cmm (130-400); Red Blood Count 3.65 10^6/uL (4.1-5.3); Red Cell Distribution Width 14.5 % (12.1-15.1); White Blood Count 4.1 10^3/uL (4.0-10.0)
[2022-02-10 06:35] LABS: Anion Gap 12.7 (5-19); Blood Urea Nitrogen 17 mg/dL (8-23); Calcium 8.5 mg/dL (8.5-10.5); Carbon Dioxide 24 mmol/L (22-29); Chloride 104 mmol/L (98-107); Glucose 108 mg/dL (65-115); Magnesium 1.8 mg/dL (1.7-2.3); Osmolality Calculated 286 mOsm/kg (285-295); Potassium 3.7 mmol/L (3.5-5.1); Sodium 137 mmol/L (136-145)
--- NOTE | 2022-02-10 08:23 | P.PN_ITS ---
Subjective Subjective: Yuli awakens when I visit with her. She can repeat what I say. I can get her to follow a few directions. Medications: Reviewed: Yes Vitals/I&O/Wt Last Vital Signs Temp 99.7 F H 02/10/22 07:46 Pulse 66 02/10/22 07:46 Resp 19 H 02/10/22 07:46 BP 105/58 02/10/22 07:46 Pulse Ox 94 02/10/22 07:46 O2 Del Method 02/09/22 20:00 O2 Flow Rate 5 02/09/22 20:00 FiO2 5 02/09/22 10:00 02/09/22 02/10/22 02/10/22 22:59 06:59 14:59 Intake Total 963.75 / 1213.75 50 / 1263.75 Output Total 450 / 450 Balance 963.75 / 1213.75 -400 / 813.75 Weight last 48 hrs Weight 40.823 kg Physical Exam Narrative: General exam no distress. T-max 102.4 Neck is supple no lymphadenopathy or thyromegaly Cardiovascular regular rate and rhythm. No obvious murmur Lungs diminished breath sounds bilaterally but clear Abdomen is soft, positive bowel sounds. No obvious organomegaly Extremities no cyanosis clubbing or edema. : Tyler noted Skin no rash Neuro no obvious focal deficits, but patient obviously confused. Urinary Catheter Management: Tyler: Cath Placed During This Visit: yes Reason for Continuing Indwelling Catheter: Other Urinary Catheter Date of Insertion: 02/09/22 Urinary Catheter Time of Insertion: 04:53 Data 02/10/22 06:03 02/10/22 06:03 Micro: Microbiology 02/09/22 03:30 Blood Culture - Preliminary Blood NEGATIVE TO DATE 02/09/22 03:30 Blood Culture - Preliminary Blood NEGATIVE TO DATE 02/09/22 07:07 MRSA Culture - Final Nose 02/09/22 04:50 Bacterial Antigens - Final Urine,Voided 02/09/22 04:50 Legionella Urinary Antigen - Final Urine Catheterized 02/09/22 05:00 Gram Stain - Final Cerebrospinal Fluid A&P Assessment and plan (1) Aspiration pneumonitis: Patient with history of chronic aspiration. I spoke with the nursing facility staff who states she frequently aspirates at meals, despite having pur?ed diet and honey thickened liquids Chest x-ray demonstrates right lower lobe infiltrate, she is febrile and requiring oxygen all consistent with aspiration pneumonitis Secondary to her recent hospitalization broad-spectrum antibiotics have been initiated. Continue vancomycin and Zosyn Sputum culture will not be able to be obtained Blood culture has been obtained and negative to date MRSA PCR negative COVID rapid and influenza are negative. COVID PCR negative. According to nursing facility staff there is no COVID in the facility currently, but there is influenza. Bacterial antigen panel was negative This is associated with acute hypoxic respiratory failure. Patient's respiratory rate is elevated, mild retractions, and is requiring 5 L of oxygen per facemask. Still on 5 L. Try to wean. Family has been considering feeding tube. I discussed that this is not always associated with last aspiration but does provide nutrition. They plan to make a final decision by tomorrow. Make n.p.o. except medicines. Speech therapy consultation. (2) Acute metabolic encephalopathy: Patient with significant confusion consistent with acute metabolic encephalopathy Hopefully this will improve to her baseline with treatment Her baseline, with her dementia and Parkinson's is confusion but oriented to self. She is able to carry on some conversation. Lumbar puncture was done as well on admission. Meningitis unlikely. Gram stain negative. Culture negative to date (3) Dementia: See above (4) Parkinsons disease: Continue home medications Plan Multiple other medical problems as outlined in past medical history Allow natural , discussed with family. She is also allow natural at the nursing facility. Heparin for DVT prophylaxis Attestations Medical Necessity Statement*: Needs continued hospitalization for IV antibiotics for aspiration pneumonitis in this patient with acute hypoxic respiratory failure Coding Level of Care Code Acute Psychologist Chief for [facility] [place] Diagnoses Aspiration pneumonitis J69.0 Acute metabolic encephalopathy G93.41 Dementia F03.90 Parkinsons disease G20
[2022-02-10] MEDS: vancomycin 750 MG in sodium chloride 0.9% 250 ML 250 MG IV (10:02)
[2022-02-10] MEDS: memantine 5 mg tablet 10 MG PO ×2 (10:03→18:44)
[2022-02-10] MEDS: carbidopa-levodopa 25-100mg Tablet 2 EACH PO ×4 (10:03→20:59)
[2022-02-10] MEDS: gabapentin 100 mg Capsule PO ×2 (10:15→20:59)
[2022-02-10] MEDS: pantoprazole DR 40 mg Tablet PO ×2 (10:15→18:44)
--- NOTE | 2022-02-10 10:49 | PC.CHAP ---
Pastoral Care Encounter/Spiritual Assessment Type of Contact [] Declined tennis desk team member visit [] Patient/Family/Request visit [] Outpatient visit [] Follow-up visit [] Physician referral [] Code/Alert [x] Routine visit [] Staff referral [] Actively dying [x] Patient sleeping [] Family support [] [] Out of room [] Palliative care [] [] Receiving care in room [] Pre-surgical visit [] Trauma [] Long length of stay [] ICU visit [] Other: Relational/Emotional Strength [] Patient feels connected with others/family/visitors/staff [] Distress [] Loneliness/isolation [] Abandonment Spirituality of Patient [] Person of Moni [] Attends Episcopalian of their Moni [] Believes in Prayer [] Reads Bible or Latter Day materials [] There are Spiritual issues to be addressed Art Preparator Interventions [] Prayer [] Active listening [] Non-anxious presence [] Spiritual/emotional support [] Crisis/trauma care [] Spiritual counseling [] Bereavement support [] Provided bereavement packet [] Provided Bible/devotional materials [] Provided toy/stuffed animal, coloring book to patient or family member [] Provided Communion [] Anointing/[place] [] Salvation [] Completed spiritual assessment [] Other: Impact on Illness or Injury [] Angry [] Fearful [] Anxious [] Often cries [] Exhaustion [] Unable to work [] Unable to attend caodaism [] Unable to walk/stand [] Unable to read [] Unable to drive [] Unable to eat/drink [] Unable to sleep [] Unable to be with family [] Patient intubated [] Other: Summary Time spent with patient
[2022-02-10] MEDS: dextrose 5%-sod chloride 0.45% 1,000 ML 75 ML IV ×2 (10:57→23:25)
[2022-02-10] MEDS: heparin 5,000 unit/mL INJ 1 mL 5000 UNIT SUBCUT ×2 (10:58→23:23)
[2022-02-10] MEDS: primidone 50 mg Tablet PO ×2 (10:58→20:59)
--- NOTE | 2022-02-10 14:49 | PC.NURSE ---
Unable to get patient to take meds at this time. Patient has taken all meds up to this point. Medications are crushed and put in pudding or applesause. Patient tends to choke on the meds as well. Suction is set up at bedside to help clear throat
[2022-02-10] MEDS: HYDROcodone-acetaminophen 5-325 mg Tablet 1 TAB PO (20:58)
[2022-02-10] MEDS: aspirin 81 mg Chew Tablet PO (20:59)
[2022-02-11] VITALS (7 sets, daily range): BP systolic 105–114; BP diastolic 58–69; PULSE 57–68; RESP 16–20; TEMP 36.4–36.9; O2SAT 90–92
[2022-02-11] MEDS: haloperidol 1 mg Tablet 0.25 MG PO (01:43)
[2022-02-11] MEDS: piperacillin-tazobactam 3.375 GM in sodium chloride 0.9% (plus) 50 ML IV ×2 (05:11→13:55)
[2022-02-11] MEDS: sertraline 50 mg Tablet 75 MG PO (05:11)
[2022-02-11 08:20] LABS: Basophils % 0.5 %; Hematocrit 36.3 % (37.0-47.0); Lymphocytes % 28.5 %; Mean Corpuscular HGB Conc 30.3 g/dL (30.0-36.0); Mean Corpuscular Hemoglobin 28.3 pg (28.0-34.0); Mean Corpuscular Volume 93.3 fl (81-99); Mean Platelet Volume 10.9 fL (7.4-10.4); Monocytes # 0.3 10^3/uL (0.2-0.9); Monocytes % 6.8 %; Neutrophils # 2.32 10^3/uL (1.8-7.7); Neutrophils % 63.7 %; Nucleated Red Blood Cells % 0 %; Platelet Count 270 10^3/cmm (130-400); Red Blood Count 3.89 10^6/uL (4.1-5.3); Red Cell Distribution Width 13.9 % (12.1-15.1); White Blood Count 3.7 10^3/uL (4.0-10.0)
[2022-02-11 08:50] LABS: Vancomycin Trough 5.1 ug/mL (10-15)
[2022-02-11 09:17] LABS: Slide Review Slide Review Perform
[2022-02-11] MEDS: vancomycin 750 MG in sodium chloride 0.9% 250 ML 250 MG IV (09:19)
[2022-02-11 09:40] LABS: Blood Urea Nitrogen 12 mg/dL (8-23); Calcium 8.3 mg/dL (8.5-10.5); Carbon Dioxide 22 mmol/L (22-29); Chloride 101 mmol/L (98-107); Glucose 110 mg/dL (65-115); Osmolality Calculated 276 mOsm/kg (285-295); Sodium 133 mmol/L (136-145)
[2022-02-11 09:42] LABS: Anion Gap 13.4 (5-19); Potassium 3.4 mmol/L (3.5-5.1)
--- NOTE | 2022-02-11 10:08 | P.PN_ITS ---
Subjective Subjective: Patient awakens easily. She can repeat names given to her. She is able to follow some directions. Medications: Reviewed: Yes Vitals/I&O/Wt Last Vital Signs Temp 98.4 F 02/11/22 08:00 Pulse 67 02/11/22 08:00 Resp 16 02/11/22 07:39 BP 110/67 02/11/22 08:00 Pulse Ox 92 02/11/22 08:00 O2 Del Method 02/11/22 07:39 O2 Flow Rate 3 02/11/22 07:39 FiO2 5 02/09/22 10:00 02/10/22 02/11/22 02/11/22 22:59 06:59 14:59 Intake Total 50 / 1350 985 / 2335 Output Total 650 / 650 400 / 1050 Balance -600 / 700 585 / 1285 Physical Exam Narrative: General exam no distress. Afebrile over the last 24 hours. Much more communicative Neck is supple no lymphadenopathy or thyromegaly Cardiovascular regular rate and rhythm. No obvious murmur Lungs diminished breath sounds bilaterally but clear Abdomen is soft, positive bowel sounds. No obvious organomegaly Extremities no cyanosis clubbing or edema. : Tyler noted Skin no rash Neuro no obvious focal deficits, confusion still apparent but more animated Urinary Catheter Management: Tyler: Cath Placed During This Visit: yes Reason for Continuing Indwelling Catheter: Other Urinary Catheter Date of Insertion: 02/09/22 Urinary Catheter Time of Insertion: 04:53 Data 02/11/22 08:00 02/11/22 08:00 Micro: Microbiology 02/09/22 05:00 Gram Stain - Final Cerebrospinal Fluid CSF Culture - Preliminary A&P Assessment and plan (1) Aspiration pneumonitis: Patient with history of chronic aspiration. I spoke with the nursing facility staff who states she frequently aspirates at meals, despite having pur?ed diet and honey thickened liquids Chest x-ray demonstrates right lower lobe infiltrate, she is febrile and requiring oxygen all consistent with aspiration pneumonitis Secondary to her recent hospitalization broad-spectrum antibiotics have been initiated. Continue vancomycin and Zosyn Sputum culture will not be able to be obtained Blood culture has been obtained and negative to date MRSA PCR negative COVID rapid and influenza are negative. COVID PCR negative. According to [facility] [place] staff there is no COVID in the facility currently, but there is influenza. Bacterial antigen panel was negative She has been able to wean her oxygen down to 3 L. Family has been considering feeding tube. I discussed that this is not always associated with last aspiration but does provide nutrition. They plan to make a final decision by today. I have called the family contact with no answer. Left a message to call back. Make n.p.o. except medicines. Speech therapy consultation. (2) Acute metabolic encephalopathy: Patient with significant confusion consistent with acute metabolic encephalopathy Hopefully this will improve to her baseline with treatment Her baseline, with her dementia and Parkinson's is confusion but oriented to self. She is able to carry on some conversation. Lumbar puncture was done as well on admission. Meningitis unlikely. Gram stain negative. Culture still negative (3) Dementia: See above (4) Parkinsons disease: Continue home medications Plan Multiple other medical problems as outlined in past medical history Allow natural , discussed with family. She is also allow natural at the nursing facility. Heparin for DVT prophylaxis Attestations Medical Necessity Statement*: Needs continued hospital stay for IV antibiotics secondary to aspiration pneumonitis. 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
[2022-02-11] MEDS: memantine 5 mg tablet 10 MG PO (10:36)
[2022-02-11] MEDS: carbidopa-levodopa 25-100mg Tablet 2 EACH PO ×2 (10:36→13:45)
[2022-02-11] MEDS: pantoprazole DR 40 mg Tablet PO (10:36)
[2022-02-11] MEDS: primidone 50 mg Tablet PO ×2 (10:37→16:03)
[2022-02-11] MEDS: gabapentin 100 mg Capsule PO ×2 (10:39→16:03)
[2022-02-11] MEDS: lidocaine 1% 5 ML in potassium chloride premix 100 ML 25 ML IV (11:38)
[2022-02-11] MEDS: heparin 5,000 unit/mL INJ 1 mL 5000 UNIT SUBCUT (11:39)
[2022-02-11] MEDS: dextrose 5%-sod chloride 0.45% 1,000 ML 75 ML IV (13:21)
--- NOTE | 2022-02-11 13:36 | P.DS_ITS ---
Discharge Providers Date of Admission: 02/09/22 05:47 Date of Discharge: February 11, 2022 Attending Provider at Admission: Geovanna Santos MD Attending Provider at Discharge: Jonn Tatum MD Diagnoses at Discharge Discharge Diagnosis (1) Aspiration pneumonitis: Status: Acute (2) Acute metabolic encephalopathy: Status: Acute (3) Dementia: Status: Acute (4) Parkinsons disease: Status: Acute Reason for Visit Reason for Visit: fever, resp distress, confusion Hospital Course Hospital Course Yuli is an 81-year-old white female nursing facility patient with significant dementia who presents to the hospital with shortness of breath. She was found to be febrile, and hypoxic. A right lower lobe infiltrate was noted. She was also delirious, and a lumbar puncture was performed. This did not have a significant number of white blood cells. With cultures obtained of the CSF, and blood she was admitted to the hospital with a diagnosis of aspiration pneumonitis. She was placed on vancomycin, and Zosyn. She required 5 L to 10 L of oxygen. She was made n.p.o. early on in her hospital course. With this treatment, she gradually improved to where her mental status neared baseline. She required about 3 L of oxygen. By discharge she had been afebrile for over 24 hours. Cultures were negative at discharge. Other studies done during her hospital stay included a CT of head which showed no acute findings. During her hospital stay I visited with family daily. We discussed the patient's current situation, recurrent aspiration, quality of life, and the patient and family's wants and desires. Considering her underlying comorbidity, family wish to proceed to hospice measures as they wanted her to be able to enjoy the ability to continue to have p.o. intake despite the fact aspiration is likely. This was arranged for her, and she was able to be discharged back to the nursing facility on February 11. Physical Exam Narrative: See exam done earlier today on progress note Urinary Catheter Management: Tyler: Cath Placed During This Visit: yes Reason for Continuing Indwelling Catheter: Other Urinary Catheter Date of Insertion: 02/09/22 Urinary Catheter Time of Insertion: 04:53 Discharge Data Studies Completed and Pending Completed Studies During Hospitalization Category Date Time Status CT head wo con* [id number] Stat Cat Scan 02/09/22 03:48 Completed XR chest 1V portable [id number] Stat Exams 02/09/22 03:22 Completed Pending at discharge Category Date Time Status BMP [Basic Metabolic Panel] AM LABS Lab 02/12/22 04:00 Ordered Blood Culture Stat Lab 02/09/22 03:30 Results CBC Auto Diff [Complete Blood Count w/Auto] AM LABS Lab 02/12/22 04:00 Ordered COVID [SARS Covid-2 Antigen] Routine Lab 02/11/22 13:27 Uncollected CSF Culture & Gram Stain Stat Lab 02/09/22 05:00 Results Herpes Simplex Virus DNA Stat Lab 02/09/22 05:40 Received Radiology Impressions Chest X-Ray 02/09/22 03:22 IMPRESSION: Right basilar consolidation/pneumonia demonstrating partial resolution when compared to 01/30/2022. Head CT 02/09/22 03:48 IMPRESSION: 1. No acute findings. 2. Moderate cerebral atrophy and leukoencephalopathy. 3. Moderate ventriculomegaly, out of proportion to sulcal prominence, similar to that of the comparison examination. Consider evaluation for normal pressure hydrocephalus if clinically indicated. 4. 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 Laboratory Results WBC 3.7 10^3/uL (4.0-10.0) L 02/11/22 08:00 RBC 3.89 10^6/uL (4.1-5.3) L 02/11/22 08:00 Hgb 11.0 g/dL (11.5-15.3) L 02/11/22 08:00 Hct 36.3 % (37.0-47.0) L 02/11/22 08:00 MCV 93.3 fl (81-99) 02/11/22 08:00 MCH 28.3 pg (28.0-34.0) 02/11/22 08:00 MCHC 30.3 g/dL (30.0-36.0) 02/11/22 08:00 RDW 13.9 % (12.1-15.1) 02/11/22 08:00 Plt Count 270 10^3/cmm (130-400) 02/11/22 08:00 MPV 10.9 fL (7.4-10.4) H 02/11/22 08:00 Neut % (Auto) 63.7 % 02/11/22 08:00 Lymph % (Auto) 28.5 % 02/11/22 08:00 Mayes % (Auto) 6.8 % 02/11/22 08:00 Eos % (Auto) 0.0 % 02/11/22 08:00 Baso % (Auto) 0.5 % 02/11/22 08:00 Neut # (Auto) 2.32 10^3/uL (1.8-7.7) 02/11/22 08:00 Lymph # (Auto) 1.0 10^3/uL (0.8-4.8) 02/11/22 08:00 Mayes # (Auto) 0.3 10^3/uL (0.2-0.9) 02/11/22 08:00 Eos # (Auto) 0.0 10^3/uL (0.0-0.8) 02/11/22 08:00 Baso # (Auto) 0.0 10^3/uL (0.0-0.1) 02/11/22 08:00 Nucleated RBC % (auto) 0 % 02/11/22 08:00 Nucleated RBCs # 0.0 /100WBC 02/11/22 08:00 D-Dimer 1.30 ug/mIFEU (0-0.59) H 02/09/22 03:30 Sodium 133 mmol/L (136-145) L 02/11/22 08:00 Potassium 3.4 mmol/L (3.5-5.1) L 02/11/22 08:00 Chloride 101 mmol/L (98-107) 02/11/22 08:00 Carbon Dioxide 22 mmol/L (22-29) 02/11/22 08:00 Anion Gap 13.4 (5-19) 02/11/22 08:00 BUN 12 mg/dL (8-23) 02/11/22 08:00 Creatinine 0.5 mg/dL (0.5-0.9) 02/11/22 08:00 GFR Calculation Not Reportable 02/11/22 08:00 Glucose 110 mg/dL (65-115) 02/11/22 08:00 POC Glucose 98 mg/dL (70-110) 02/09/22 21:25 Calculated Osmolality 276 mOsm/kg (285-295) L 02/11/22 08:00 Lactic Acid 1.2 mmol/L (0.5-2.2) 02/09/22 03:30 Calcium 8.3 mg/dL (8.5-10.5) L 02/11/22 08:00 Magnesium 1.8 mg/dL (1.7-2.3) 02/10/22 06:03 Total Bilirubin 0.2 mg/dL (0.15-1.2) 02/09/22 03:30 AST 20 U/L (0-32) 02/09/22 03:30 ALT 12 U/L (0-33) 02/09/22 03:30 Alkaline Phosphatase 123 U/L (35-105) H 02/09/22 03:30 Troponin T Baseline 43 ng/L (0-10) H 02/09/22 03:30 Troponin T 120 Minute 40.73 ng/L (0-10) H 02/09/22 05:50 Delta Troponin T -2.27 ABS# (0-10) L 02/09/22 05:50 Troponin T Hi Sens 6Hr 48.88 ng/L (0-10) H 02/09/22 09:40 Troponin T Hi Sens 6Hr Delta 5.88 ng/L (0-12) 02/09/22 09:40 NT-Pro-B Natriuret Pep 345 pg/mL (0-450) 02/09/22 03:30 Total Protein 7.1 g/dL (6.6-8.7) 02/09/22 03:30 Albumin 3.7 g/dL (3.5-5.2) 02/09/22 03:30 Globulin 3.4 g/dL (1.3-4.6) 02/09/22 03:30 Vitamin B12 1101 pg/mL (232-1245) 02/09/22 03:30 Procalcitonin 0.20 ng/mL (0-0.5) 02/09/22 05:50 TSH 1.99 uIU/mL (0.27-4.20) 02/09/22 03:30 Urine Color Yellow (Yellow) 02/09/22 04:50 Urine Appearance Clear (CLEAR) 02/09/22 04:50 Urine pH 8 (5-7) H 02/09/22 04:50 Ur Specific [place] 1.015 (1.005-1.030) 02/09/22 04:50 Urine Protein Neg (Negative) 02/09/22 04:50 Urine Glucose (UA) Norm (Normal) 02/09/22 04:50 Urine Ketones Negative (Negative) 02/09/22 04:50 Urine Blood Neg (Negative) 02/09/22 04:50 Urine Nitrate Negative (Negative) 02/09/22 04:50 Urine Bilirubin Neg (Negative) 02/09/22 04:50 Prot Sulfosalicylic Acd Negative (Negative) 02/09/22 04:50 Urine Urobilinogen Norm mg/dL (Negative) 02/09/22 04:50 Ur Leukocyte Esterase Negative (Negative) 02/09/22 04:50 CSF Appearance Clear (CLEAR) 02/09/22 05:40 CSF Color Colorless (COLORLESS) 02/09/22 05:40 CSF WBC 3 /uL (0-5) 02/09/22 05:40 CSF RBC 0 10^3/uL (0-0) 02/09/22 05:40 CSF Mononuclear # Auto 0.003 10^3/uL (50-90) L 02/09/22 05:40 CSF Mononuclear WBCs % 100 % (50-90) H 02/09/22 05:40 CSF Polynuclear WBCs # 0.000 10^3/uL (0-10) 02/09/22 05:40 CSF Polynuclear WBCs % 0 % (0-10) 02/09/22 05:40 CSF Diff Comment Yes 02/09/22 05:40 CSF Glucose 69 mg/dL (40-70) 02/09/22 05:40 CSF Total Protein 38 mg/dL (15-45) 02/09/22 05:40 Vancomycin Trough 5.1 ug/mL (10-15) L 02/11/22 08:00 Coronavirus 229E (PCR) Not detected (NOT DETECT) 02/09/22 09:20 Influenza Type A Ag negative (Negative) 02/09/22 03:30 Influenza Type B Ag negative (Negative) 02/09/22 03:30 SARS-CoV-2 (PCR) Not detected (NOT DETECT) 02/09/22 09:20 SARS-CoV-2 Ag (Rapid) negative (Negative) 02/09/22 03:30 Vitals Last Vital Signs Temp 98.4 F 02/11/22 08:00 Pulse 65 02/11/22 12:00 Resp 20 H 02/11/22 12:00 BP 109/63 02/11/22 12:00 Pulse Ox 92 02/11/22 12:00 O2 Del Method 02/11/22 07:39 O2 Flow Rate 3 02/11/22 07:39 FiO2 5 02/09/22 10:00 Discharge Plan Discharge Patient Disposition: Xfer SNF Condition: Stable Prescriptions: New levofloxacin 750 mg tablet 750 mg PO DAILY 7 Days Qty: 7 0RF Continued (DME) ASO Brace See Rx Instructions .Route .MEDSUPPLY Qty: 1 0RF Rx Instructions: Wear as needed for stability. gabapentin 300 mg capsule 300 mg PO QID primidone 50 mg tablet 100 mg PO TID (DME) diabetic shoes Qty: 1 0RF Rx Instructions: As directed carbidopa-levodopa 25-100 mg tablet 2 tab PO QID polyethylene glycol 3350 [Miralax] 17 gram/dose Powder 17 g PO DAILY PRN (Reason: Constipation) glycerin (adult) [Fleet Glycerin (Adult)] Suppository 1 supp MA DAILY PRN (Reason: Constipation) multivitamin Tablet 1 tab PO QAM haloperidol 0.5 mg Tablet 0.25 mg PO BID acetaminophen [Tylenol] 325 mg Tablet 650 mg PO Q4H PRN (Reason: Pain) hydrocodone-acetaminophen 5-325 mg Tablet 1 tab PO BID ondansetron HCl 4 mg Tablet 4 mg PO Q6H PRN (Reason: Nausea And Vomiting) magnesium hydroxide [Milk of Magnesia] 400 mg/5 mL Suspension See Rx Instructions .ROUTE .COMPLEX Rx Instructions: 30 ml po every 3rd day as needed bisacodyl [Dulcolax (bisacodyl)] 10 mg Suppository See Rx Instructions .ROUTE .COMPLEX Rx Instructions: 10 mg rectally after mom if no bm prn (only if tabs refused) buspirone 7.5 mg Tablet 7.5 mg PO BID magnesium citrate Solution See Rx Instructions .ROUTE .COMPLEX Rx Instructions: 10 oz po after dulcolax if no bm prn bisacodyl [Dulcolax (bisacodyl)] 5 mg Tablet,Delayed Release (Dr/Ec) 20 mg PO .PRN AFTER MOM PRN (Reason: Constipation) alum-mag hydroxide-simeth 200-200-20 mg/5 mL Suspension 30 ml PO Q2H PRN (Reason: Indigestion) lorazepam [Ativan] 1 mg Tablet 1 mg PO BID sertraline 50 mg Tablet 75 mg PO QAM memantine [Namenda] 10 mg Tablet 10 mg PO BID potassium chloride 10 mEq tablet extended release 10 meq PO DAILY Qty: 10 0RF pantoprazole 40 mg Tablet,Delayed Release (Dr/Ec) 40 mg PO BID Qty: 30 3RF aspirin 81 mg Tablet,Chewable 81 mg PO BEDTIME hydrocodone-acetaminophen 5-325 mg Tablet 1 tab PO Q12H PRN (Reason: Pain) lorazepam [Ativan] 1 mg Tablet 1 mg PO Q6H PRN (Reason: Anxiety) Rx Instructions: for 14 days food supplemt, lactose-reduced Liquid 120 ea PO TID Senokot-S 8.6-50 mg Tablet 1 tab-cap PO QAM Biofreeze (menthol) 4 % Gel 1 applic TOPICAL TID PRN (Reason: Pain) Discontinued olanzapine [Zyprexa] 5 mg Tablet 5 mg PO BEDTIME magnesium 200 mg tablet 200 mg PO DAILY Qty: 10 0RF omeprazole 20 mg capsule,delayed release(DR/EC) 20 mg PO BID 84 Days Qty: 168 0RF meloxicam 7.5 mg Tablet 7.5 mg PO QAM ibuprofen 200 mg Tablet 400 mg PO Q8H PRN (Reason: Pain) bupropion HCl (smoking deter) 150 mg tablet extended release 12 hr 150 mg PO BID Discharge Orders: Discharge Order (Routine); Ordered 02/11/22 Ordered By: Jonn Tatum Referrals: [facility] [Outside] [facility] [Outside] Discharge Diet: Usual diet Patient Instructions: Opioid Safety Activity Restrictions/Additional Instructions: Discharging to [facility] on hospice Oxygen, 3 L per oxime mask, titrate to patient's comfort Further orders by hospice physician No rehospitalization Allow natural /DNR May resume pur?ed diet with honey thickened liquids Patient's Health Concerns: Shortness of breath Assessment: Recurrent aspiration, dementia Plan of Treatment: Hospice Discharge Attestations Time Spent in Discharge Care*: greater than 30 min Quality Metrics Clinical Quality Measures [ No reported AMI, CVA or VTE this stay] Coding Level of Care Code Acute Chg FW DC note Diagnoses Aspiration pneumonitis J69.0 Acute metabolic encephalopathy G93.41 Dementia F03.90 Parkinsons disease G20
[2022-02-11 14:33] LABS: SARS Covid-2 Antigen negative (Negative)
--- NOTE | 2022-02-11 15:45 | PC.NURSE ---
Called report to Vish Brewster RN at [facility] [place]
[2022-02-14 01:15] LABS: HSV 1 DNA NOT DETECTED; HSV 2 DNA NOT DETECTED; HSV Source CEREBROSPINAL FLUID
== END 2022-02-11 17:30 | disposition hospice, home (50) | DRG 177 ==
LOC: ER 05:44 → ER IP 06:57 → MEDSURG 12:15
PROVIDERS: Admitting Provider Internal Medicine; Emergency Provider Emergency Medicine; Visit Provider Internal Medicine
DX: J69.0 Pneumonitis due to inhalation of food and vomit (principal); G93.41 Metabolic encephalopathy; G20 Parkinson's disease; F02.80 Dementia in other diseases classified elsewhere, unspecified severity, without behavioral disturbance, psychotic disturbance, mood disturbance, and anxiety; Z79.891 Long term (current) use of opiate analgesic; E11.51 Type 2 diabetes mellitus with diabetic peripheral angiopathy without gangrene; F32.A Depression, unspecified; M35.3 Polymyalgia rheumatica; F17.210 Nicotine dependence, cigarettes, uncomplicated; Z91.041 Radiographic dye allergy status; E86.0 Dehydration; Z66 Do not resuscitate; R13.10 Dysphagia, unspecified
CPT/HCPCS: 36415; 36416; 51702; 62270; 70450; 71045; 80048; 80053; 80202; 80503; 81003; 82607; 82945; 82962; 83605; 83735; 83880; 84145; 84157; 84443; 84484; 85025; 85378; 86403; 87040; 87070; 87075; 87205; 87426; 87449; 87530; 87635; 87641; 87804; 89050; 92523; 92526; 92610; 93005; 94664; 96365; 96367; 96372; 99285; J0456; J0696; J1644; J2543; J3370; J3480; J7050; J7799